=== PATIENT | male | born 1940 | race Caucasian/White ===

== ENCOUNTER 2017-11-23 10:42 | Inpatient (IN) ==
--- NOTE | 2017-11-23 11:14 | Emergency Department Note ---
Weakness HPI - General Chief complaint: Weakness Stated complaint: Weakness Time Seen by Provider: 11/23/17 10:57 Source: patient Mode of arrival: ambulatory Limitations: no limitations - History of Present Illness HPI Narrative: 89-year-old male with a history of polymyalgia rheumatica has been complaining of upper back pain and shoulder pain. He has been evaluated by Dr. Vazquez and they have performed a CT and also MRI of the thoracic spine region. Both were read as negative. Been on high doses of prednisone 60 mg in which he felt good but when they been trying to reduce it down to 40 mg he has been complaining of feeling more weak and increased pain he thinks he would like to have it increased again is to be evaluated by Dr. Vazquez again. Complaining of some increased frequency and dysuria. Been present for the past 4 days his urine test dip does show large amount of leukocytes large amount of blood awaiting for the microscopic reports. She is afebrile and vital signs are stable denies any chest pain there is no shortness of breath no upper respiratory type signs or symptoms no cough no shortness of breath - Related Data Home Medications Medication Instructions Recorded Confirmed aspirin 81 mg tablet,delayed 81 mg PO QDAY tab 03/08/15 11/23/17 release nitroglycerin 0.4 mg sublingual 0.4 mg SUBLINGUAL Q5MIN PRN tab 03/08/15 tablet Josh Contour Next EZ Test strips 1 strip NOTAPPLIC TID 08/20/15 11/23/17 losartan 100 See Label Instructions PO QDAY 11/09/17 11/23/17 mg-hydrochlorothiazide 12.5 mg tablet Previous Rx's Medication Instructions Recorded canagliflozin 100 mg tablet 100 mg PO QAM #30 tab 07/09/17 metoprolol succinate ER 100 mg 100 mg PO QDAY 90 Days #90 tab 08/14/17 tablet,extended release 24 hr Ibuprofen [Motrin] 600 mg PO Q6HP PRN #20 tab 09/27/17 methocarbamol 750 mg tablet 750 mg PO Q6H PRN #20 tab 09/28/17 glipizide 10 mg tablet 10 mg PO BID #180 tab 10/04/17 prednisone 10 mg tablet 20 mg PO TID #150 tab 11/09/17 tramadol 50 mg tablet 50 mg PO Q6H PRN #60 tab 11/19/17 Allergies Allergy/AdvReac Type Severity Reaction Status Date / Time metformin Allergy Unknown Unknown Verified 11/23/17 10:47 [id number] Reductase AdvReac Severe myalgia, Verified 11/23/17 10:47 Inhibitor spasms, weakness Review of Systems All systems ED: reviewed and negative except as stated. Constitutional: Denies: fever, chills Cardiovascular: Denies: chest pain, palpitations Respiratory: Denies: shortness of breath Gastrointestinal: Denies: abdominal pain, nausea, vomiting Genitourinary: Reports: as per HPI, dysuria, frequency, urgency Past Medical History - Past Medical History Medical history: Reports: coronary artery disease, hypertension, other ( Polymyalgia rheumatica). Denies: asthma, cancer, DM, myocardial infarction Surgical history ED: Reports: coronary bypass (CABG) (4 vessel; left forearm harvest of vessel for CABG.) - Social History smoking status: Never smoker Alcohol use: Reports: None Drug use: Reports: none Physical Exam Limitations: no limitations General appearance: alert, anxious Head: atraumatic, normocephalic Eye: Present: normal appearance, PERRL ENT: normal exam, normal oropharynx Neck: Present: normal inspection, full ROM, trachea midline Chest: Present: normal inspection, symmetric chest wall rise, tenderness Respiratory: Present: normal lung sounds bilaterally. Absent: respiratory distress, wheezes Cardiovascular: Present: regular rate, normal rhythm. Absent: bradycardia, tachycardia Abdominal: Present: soft, normal bowel sounds. Absent: distention, tenderness, guarding, rebound, rigidity Extremities: Present: normal inspection, full ROM. Absent: tenderness Back: Present: normal inspection, full ROM, tenderness (upper back pain chonic) . Absent: CVA tenderness (R), CVA tenderness (L) Neurological: Present: alert, oriented X3 Psychiatric: Present: normal affect, normal mood Skin: Present: warm, dry Course Vital Signs Temperature 97.0 F 11/23/17 10:43 Pulse Rate 84 11/23/17 10:43 Respiratory Rate 18 11/23/17 10:43 Blood Pressure 138/90 11/23/17 10:43 Pulse Oximetry (%) 100 11/23/17 10:43 Temperature 97.9 F 11/27/17 06:01 Pulse Rate 104 H 11/27/17 09:03 Respiratory Rate 42 H 11/27/17 09:03 Blood Pressure 109/63 11/27/17 09:01 Pulse Oximetry (%) 88 L 11/27/17 09:03 Weakness - Lab Data Result diagrams: 11/27/17 03:41 11/27/17 03:41 Lab Results 11/23/17 11/23/17 11/23/17 Range/Units 11:11 11:11 11:11 WBC 14.3 H (4.5-11.0) K/mcL RBC 4.80 (4.50-5.90) M/mcL Hgb 14.5 (13.5-16.5) g/dL Hct 43.9 (41.0-55.0) % POC Hct 46.0 (41.0-55.0) % MCV 91.4 (80.0-100.0) fL MCH 30.1 (26.0-34.0) pg MCHC 33.0 (31.0-36.0) g/dL RDW 15.0 H (11.5-14.5) % Plt Count 220 (140-440) K/mcL MPV 7.9 (7.4-10.4) fL Gran % 86.0 H (38.0-78.0) % Lymph % (Auto) 5.9 L (15.5-49.0) % [place] % (Auto) 5.0 (1.0-12.0) % Eos % (Auto) 3.1 (0.0-7.0) % Baso % (Auto) 0 (0.0-2.0) % Gran # 12.3 H (1.8-8.0) K/mcL Lymph # (Auto) 0.8 L (1.5-4.8) K/mcL [place] # (Auto) 0.7 (0.1-0.9) K/mcL Eos # (Auto) 0.4 (0.0-0.7) K/mcL Baso # (Auto) 0 (0.0-0.3) K/mcL Total Counted Seg Neutrophils % (38-78) % Band Neutrophils % Lymphocytes % (15-49) % Monocytes % (Manual) (1-12) % Platelet Estimate (NORMAL) RBC Morphology (NORMAL) ESR 80 H (0-15) mm/hr VBG Lactic Acid (0.5-2.2) mmol/L POC Sodium 129 L (133-145) mmol/L POC Potassium 4.7 (3.3-5.1) mmol/L POC Chloride 94 L (96-108) mmol/L POC Total CO2 25 (22-30) mmol/L POC BUN 56 H (8-23) mg/dl POC Creatinine 1.3 H (0.7-1.2) mg/dl POC Glucose 482 H* (70-105) mg/dL POC WB Ioniz Calcium 1.15 L (1.16-1.32) mmol/L C-Reactive Protein (0.0-0.8) mg/dl Urine Color Urine Appearance Urine pH (5.0-9.0) Ur Specific [place] (1.000-1.035) Urine Protein (NEG) mg/dL Urine Glucose (UA) (NEG) mg/dL Urine Ketones (NEG) mg/dL Urine Occult Blood (<0.03) mg/dL Urine Nitrate (NEG) Urine Bilirubin (NEG) mg/dL Urine Urobilinogen (NEG) mg/dL Ur Leukocyte Esterase (NEG) /uL Urine RBC (0-1) /hpf Urine WBC (0-4) /hpf Ur Squamous Epith Cells (0-4) /hpf Urine Bacteria (0) /hpf Urine Mucus (0) /hpf Ur Culture Indicated? 11/23/17 11/23/17 11/23/17 Range/Units 11:11 11:14 11:50 WBC (4.5-11.0) K/mcL RBC (4.50-5.90) M/mcL Hgb (13.5-16.5) g/dL Hct (41.0-55.0) % POC Hct (41.0-55.0) % MCV (80.0-100.0) fL MCH (26.0-34.0) pg MCHC (31.0-36.0) g/dL RDW (11.5-14.5) % Plt Count (140-440) K/mcL MPV (7.4-10.4) fL Gran % (38.0-78.0) % Lymph % (Auto) (15.5-49.0) % [place] % (Auto) (1.0-12.0) % Eos % (Auto) (0.0-7.0) % Baso % (Auto) (0.0-2.0) % Gran # (1.8-8.0) K/mcL Lymph # (Auto) (1.5-4.8) K/mcL [place] # (Auto) (0.1-0.9) K/mcL Eos # (Auto) (0.0-0.7) K/mcL Baso # (Auto) (0.0-0.3) K/mcL Total Counted Seg Neutrophils % (38-78) % Band Neutrophils % Lymphocytes % (15-49) % Monocytes % (Manual) (1-12) % Platelet Estimate (NORMAL) RBC Morphology (NORMAL) ESR (0-15) mm/hr VBG Lactic Acid 5.7 H* (0.5-2.2) mmol/L POC Sodium (133-145) mmol/L POC Potassium (3.3-5.1) mmol/L POC Chloride (96-108) mmol/L POC Total CO2 (22-30) mmol/L POC BUN (8-23) mg/dl POC Creatinine (0.7-1.2) mg/dl POC Glucose (70-105) mg/dL POC WB Ioniz Calcium (1.16-1.32) mmol/L C-Reactive Protein 6.9 H (0.0-0.8) mg/dl Urine Color Yellow Urine Appearance Cloudy Urine pH 6.0 (5.0-9.0) Ur Specific [place] 1.022 (1.000-1.035) Urine Protein Neg (NEG) mg/dL Urine Glucose (UA) >=500 A (NEG) mg/dL Urine Ketones Neg (NEG) mg/dL Urine Occult Blood 0.2 A (<0.03) mg/dL Urine Nitrate Neg (NEG) Urine Bilirubin Neg (NEG) mg/dL Urine Urobilinogen Neg (NEG) mg/dL Ur Leukocyte Esterase 500 A (NEG) /uL Urine RBC 5 H (0-1) /hpf Urine WBC > 182 H (0-4) /hpf Ur Squamous Epith Cells 0 (0-4) /hpf Urine Bacteria 0 (0) /hpf Urine Mucus Few (0) /hpf Ur Culture Indicated? Yes 11/23/17 Range/Units 11:52 WBC (4.5-11.0) K/mcL RBC (4.50-5.90) M/mcL Hgb (13.5-16.5) g/dL Hct (41.0-55.0) % POC Hct (41.0-55.0) % MCV (80.0-100.0) fL MCH (26.0-34.0) pg MCHC (31.0-36.0) g/dL RDW (11.5-14.5) % Plt Count (140-440) K/mcL MPV (7.4-10.4) fL Gran % (38.0-78.0) % Lymph % (Auto) (15.5-49.0) % [place] % (Auto) (1.0-12.0) % Eos % (Auto) (0.0-7.0) % Baso % (Auto) (0.0-2.0) % Gran # (1.8-8.0) K/mcL Lymph # (Auto) (1.5-4.8) K/mcL [place] # (Auto) (0.1-0.9) K/mcL Eos # (Auto) (0.0-0.7) K/mcL Baso # (Auto) (0.0-0.3) K/mcL Total Counted 100 Seg Neutrophils % 93 H (38-78) % Band Neutrophils % Not Reportable Lymphocytes % 5 L (15-49) % Monocytes % (Manual) 2 (1-12) % Platelet Estimate Normal (NORMAL) RBC Morphology Normal (NORMAL) ESR (0-15) mm/hr VBG Lactic Acid (0.5-2.2) mmol/L POC Sodium (133-145) mmol/L POC Potassium (3.3-5.1) mmol/L POC Chloride (96-108) mmol/L POC Total CO2 (22-30) mmol/L POC BUN (8-23) mg/dl POC Creatinine (0.7-1.2) mg/dl POC Glucose (70-105) mg/dL POC WB Ioniz Calcium (1.16-1.32) mmol/L C-Reactive Protein (0.0-0.8) mg/dl Urine Color Urine Appearance Urine pH (5.0-9.0) Ur Specific [place] (1.000-1.035) Urine Protein (NEG) mg/dL Urine Glucose (UA) (NEG) mg/dL Urine Ketones (NEG) mg/dL Urine Occult Blood (<0.03) mg/dL Urine Nitrate (NEG) Urine Bilirubin (NEG) mg/dL Urine Urobilinogen (NEG) mg/dL Ur Leukocyte Esterase (NEG) /uL Urine RBC (0-1) /hpf Urine WBC (0-4) /hpf Ur Squamous Epith Cells (0-4) /hpf Urine Bacteria (0) /hpf Urine Mucus (0) /hpf Ur Culture Indicated? Disposition Pt seen by HUSBANDRY PERSON/PA only: No Clinical Impression: Weakness Disposition: Xfer As Inpt ([facility]) Condition: Fair
[2017-11-23 11:51] LABS: Basophils # (Auto) 0 K/mcL (0.0-0.3); Basophils % (Auto) 0 % (0.0-2.0); Eosinophils # (Auto) 0.4 K/mcL (0.0-0.7); Eosinophils % (Auto) 3.1 % (0.0-7.0); Lymphocytes # (Auto) 0.8 K/mcL (1.5-4.8); Lymphocytes % (Auto) 5.9 % (15.5-49.0); Mean Cell Volume 91.4 fL (80.0-100.0); Mean Corpuscular Hemoglobin 30.1 pg (26.0-34.0); Monocytes # (Auto) 0.7 K/mcL (0.1-0.9); Platelet Count 220 K/mcL (140-440)
[2017-11-23 11:58] LABS: Appearance,Urine CLOUDY; Bacteria,Urine 0 /hpf (0); Bilirubin,Urine NEG (NEG); Color,Urine YELLOW; Glucose,Urine (UA) >=500 mg/dL (NEG); Leukocyte Esterase,Urine 500 /uL (NEG); Mucus,Urine FEW /hpf (0); Protein,Urine NEG (NEG); Specific Gravity,Urine 1.022 (1.000-1.035); Urine Blood 0.2 mg/dL (<0.03); Urine RBC 5 /hpf (0-1); Urine Squamous Epithelial Cell 0 /hpf (0-4); Urine WBC > 182 /hpf (0-4); Urobilinogen,Urine NEG (NEG)
[2017-11-23] MEDS ORDERED: INSULIN LISPRO 1 UNIT/0.01 ML UNIT SQ ONE (12:18)
--- NOTE | 2017-11-23 12:56 | XRay Report ---
HISTORY: Reason for Exam:weakness FINDINGS: There is a thin linear band of scar tissue posteriorly and medially in the left lower lobe. The lungs are otherwise clear. The heart size and pulmonary vasculature are normal. There has been prior coronary bypass surgery. The mediastinum and anish are normal. Medium-size anterior bridging spurs are present throughout the mid thoracic spine. There has been little change since 10/01/17. IMPRESSION: Normal chest. Interpreted and Authenticated by: Miguelangel Perkins 11/23/17
[2017-11-23] MEDS ORDERED: LEVOFLOXACIN 500 MG/100 ML BAG IV ONE (13:13)
[2017-11-23] MEDS ORDERED: 0.9 % SODIUM CHLORIDE 1,000 ML IV ONE ×2 (13:54→15:42)
[2017-11-23] MEDS ORDERED: INSULIN LISPRO 1 UNIT/0.01 ML UNIT SQ STA (14:15)
[2017-11-23] MEDS ORDERED: HYDROcodone/APAP 5/325MG TABLET PO ONE (14:16)
[2017-11-23 14:40] LABS: Lymphocytes % 5 % (15-49); Monocytes % (Manual) 2 % (1-12); Platelet Estimate NORMAL (NORMAL); RBC Morphology NORMAL (NORMAL); Segmented Neutrophils % 93 % (38-78)
[2017-11-23] MEDS ORDERED: cefTRIAXone 1 GM VIAL IV ONE ×2 (15:36→18:30)
[2017-11-23] MEDS ORDERED: DEXTROSE 31 GM ORAL.SUSP PO PRN (18:00)
[2017-11-23] MEDS ORDERED: POTASSIUM CHLORIDE 20 MEQ PACKET PO PRN (18:00)
[2017-11-23] MEDS ORDERED: ACETAMINOPHEN 1,000 MG/100 ML BOTTLE IV PRN (18:00)
[2017-11-23] MEDS ORDERED: traZODone HCL 50 MG TABLET PO PRN (18:00)
[2017-11-23] MEDS ORDERED: ONDANSETRON 4 MG/2 ML VIAL IV PRN (18:00)
[2017-11-23] MEDS ORDERED: guaiFENesin/CODEINE 10 ML UDC PO PRN (18:00)
[2017-11-23] MEDS ORDERED: MAGNESIUM SULFATE 2 GM/50 ML BAG IV PRN (18:00)
[2017-11-23] MEDS ORDERED: DEXTROSE 50% 50 ML VIAL IV PRN (18:00)
[2017-11-23] MEDS ORDERED: ACETAMINOPHEN 325 MG TABLET PO PRN (18:00)
[2017-11-23] MEDS ORDERED: LEVOFLOXACIN 750 MG/150 ML BAG IV SCH (18:00)
[2017-11-23] MEDS ORDERED: cefTRIAXone 2 GM in DEXTROSE 5% IN WATER 50 ML IV SCH (18:00)
[2017-11-23] MEDS ORDERED: POTASSIUM CHLORIDE 40 MEQ in DEXTROSE 5% IN WATER 500 ML IV PRN (18:00)
[2017-11-23] MEDS ORDERED: LEVOFLOXACIN 250 MG/50 ML BAG IV ONE (18:30)
[2017-11-23] MEDS ORDERED: traMADol 50 MG TABLET PO PRN (18:42)
[2017-11-23] MEDS: 0.9 % SODIUM CHLORIDE 1,000 ML IV SCH ×2 (19:01→20:28)
--- NOTE | 2017-11-23 19:22 | History and Physical Report ---
DATE OF ADMISSION: 11/23/2017 DATE OF ADMISSION: 11/23/2017 REASON FOR ADMISSION: Abdominal pain, fever, chills, weakness. HISTORY OF CHIEF COMPLAINT: The patient is a 77-year-old with known history of polymyalgia rheumatica on prednisone who has been in his baseline state of health, fairly functional, living with his . Over the last couple of days, the patient has noted increasing frequency along with painful burning urination. The symptoms have progressed with onset of fever along with bilateral lower back pain that has progressed to the point the patient could not function. He subsequently came to the ER. Initial workup was significant for white count of 14,300 along with blood pressures in low 90s. The hospitalist service was consulted after the patient received antibiotics, urine and blood cultures for presumed urinary tract infection/pyelonephritis. At the time of evaluation, the patient is alert and oriented. He was able to answer most of the questions. His pain is improved after administration of Dilaudid. He denies recent trauma or changes in medications. He denies a history of renal stones. Is currently on prednisone 60 mg for his polymyalgia rheumatica. He has noticed that his blood sugars have been fairly uncontrolled over the last few days, hovering around 300 to 400, while his normal blood sugars have been around 100. Other than that, he denies chest pain, lightheadedness, dizziness, diarrhea. He does have diffuse myalgias from his polymyalgia rheumatica, which is improving on steroids. REVIEW OF SYSTEMS: A 10-point review of system was performed and is negative except the ones discussed above. PAST MEDICAL HISTORY: 1. Diabetes mellitus. 2. Hypertension. 3. History of coronary artery disease. CURRENT MEDICATION: Canagliflozin 100 mg every morning. Aspirin 81 mg daily. Glipizide 10 times a day. Ibuprofen 600 every 6 hours. Hydrocodone/acetaminophen 7.5/325 every 4 hours as needed. Methocarbamol 750 every 6 hours as needed. Metoprolol ER 100 daily. Prednisone 20 mg 3 times a day. SOCIAL HISTORY: The patient is to his , Jess. Lives in the [place]. No history of smoking or alcoholism. FAMILY HISTORY: He is adopted. PHYSICAL EXAMINATION: GENERAL: The patient is alert and oriented. Denies any active distress. BMI 24. Height 6 feet 1 inch. VITAL SIGNS: Blood pressure improved from mid 70s to 122/71, respiration rate 18, temperature 97, pulse 84, sats 97 percent on room air. Pain intensity 10/10. HEENT: Pupils symmetric. Oral cavity is dry. No ear or nose discharge. Head is normocephalic and atraumatic. NECK: No lymphadenopathy. HEART: S1, S2 regular rhythm. Ejection systolic murmur grade 1. LUNGS: Diminished breath sounds at bases. ABDOMEN: Soft and nontender. LOWER EXTREMITIES: No cyanosis or clubbing. No joint swelling. SKIN: No suspicious lesions. PSYCHIATRIC: Alert and cooperative. No anxiety, agitation, or hallucination. NEUROLOGIC: Nonfocal, moving all four extremities. LABS AND IMAGING: White count 14.3, hemoglobin 14.5, platelets 220, neutrophils 93 percent. Lactic acid 5.7. Blood sugar of 482. Sodium 129, potassium 4.7, creatinine 1.3, BUN 56. CRP 6.9. UA: Significant for WBCs along with leukocyte esterase. Cultures pending including blood and urine. X-ray chest: negarive for acute process. ASSESSMENT AND PLAN: A 77-year-old with history of polymyalgia rheumatica with acute pyelonephritis. 1. Acute pyelonephritis: Continue antibiotic coverage on Rocephin, Levaquin and deescalate based on culture sensitivities. 2. Severe sepsis by criteria: Continue management per guidelines. Trend venous lactate. Initial venous lactate 5.7. Continue crystalloid challenge and pressors if required. 3. History of polymyalgia rheumatica: Continue steroids. Pain management will be on as-needed opioids. 4. Diabetes mellitus type 2: Continue sliding scale insulin/glipizide. 5. Hypertension: At this time, medications will be held until the patient's systolics are over 140 to ensure adequate end organ perfusion in light of severe sepsis. PLAN 1. Admit as inpatient. 2. Continue antibiotic coverage. 3. Sepsis management per guidelines. 4. Preexisting medical condition management on home meds. Overall, a high-complexity admit with TRIBE score of 15 mandating inpatient ICU hospitalization for close hemodynamic monitoring. AA:leandro Job ID: [id number] Doc ID: [id number] Joel LOZA
[2017-11-23] MEDS: INSULIN LISPRO 1 UNIT/0.01 ML UNIT SQ SCH ×2 (19:38→20:56)
[2017-11-23] MEDS ORDERED: TAMSULOSIN 0.4 MG CAPSULE PO ONE (19:46)
[2017-11-23] MEDS ORDERED: METHOCARBAMOL 750 MG TABLET PO PRN (20:47)
[2017-11-23] MEDS: HEPARIN 5,000 UNIT/ML VIAL SQ SCH (20:56)
[2017-11-23] MEDS: DOCUSATE SODIUM 100 MG CAPSULE PO SCH (20:56)
[2017-11-23] MEDS: SENNOSIDES/DOCUSATE SODIUM 1 TAB TABLET PO SCH (20:56)
[2017-11-23] MEDS ORDERED: [UNRECOGNIZED DRUG - OTHER] NOTAPPLIC SCH (21:00)
[2017-11-23] MEDS: 0.9 % SODIUM CHLORIDE 10 ML SYRINGE IV SCH (21:11)
[2017-11-24 04:44] LABS: Mean Cell Volume 91.6 fL (80.0-100.0); Mean Corpuscular HGB Conc 33.4 g/dL (31.0-36.0); Mean Corpuscular Hemoglobin 30.6 pg (26.0-34.0); Platelet Count 184 K/mcL (140-440); RBC 4.26 M/mcL (4.50-5.90); Red Cell Distribution Width 15.2 % (11.5-14.5)
[2017-11-24 05:07] LABS: ALT/SGPT 23 U/l (0-40); Albumin 2.2 gm/dL (3.2-5.2); Albumin/Globulin Ratio 0.8 (1.0-2.3); Alkaline Phosphatase 59 U/L (39-117); Bilirubin,Direct < 0.2 mg/dL (0.0-0.3); Blood Urea Nitrogen 42 mg/dl (8-23); Gamma Glutamyl Transpeptidase 47 U/L (8-61); Uric Acid 4.3 mg/dL (2.5-8.0)
[2017-11-24] MEDS ORDERED: VANCOMYCIN PER PHARMACY IV SCH (05:38)
[2017-11-24] MEDS: 0.9 % SODIUM CHLORIDE 10 ML SYRINGE IV SCH ×5 (05:53→21:17)
[2017-11-24 06:30] LABS: Band Neutrophils % 1 % (0-10); Lymphocytes % 10 % (15-49); Monocytes % (Manual) 4 % (1-12); Platelet Estimate NORMAL (NORMAL); RBC Morphology NORMAL (NORMAL); Segmented Neutrophils % 85 % (38-78)
[2017-11-24] MEDS ORDERED: VANCOMYCIN 1,500 MG in 0.9 % SODIUM CHLORIDE 500 ML IV ONE ×2 (06:45→07:15)
[2017-11-24] MEDS ORDERED: glipiZIDE 5 MG TABLET PO SCH (07:30)
[2017-11-24] MEDS ORDERED: 0.9 % SODIUM CHLORIDE 10 ML SYRINGE IV PRN (07:52)
--- NOTE | 2017-11-24 08:21 | Ultrasound Report ---
History: Pyelonephritis and obstructive uropathy Findings: Right kidney measures 6.3 x 6.7 x 11.0 cm and the left measures 5.2 x 6.4 x 11.3 cm. There is a 2.4 x 2.7 cm simple cyst in the lower pole. No calculus, hydronephrosis or mass in either kidney. The cortex of both kidneys is normal in thickness and echogenicity. The right renal pelvis is larger is in the left but within normal limits. Doppler shows flow urine through both ureters into the bladder. The bladder is distended and contains 459 cc of urine. There is some echogenic debris within the lumen of the bladder. No mass is seen. The patient was unable to void. Impression:. Simple cyst in the lower pole of the right kidney. The kidneys are otherwise normal. Distended urinary bladder which contains some debris. This could be due to bladder infection or chronic bladder obstruction Interpreted and Authenticated by: Miguelangel Perkins 11/24/17
[2017-11-24] MEDS: NOREPINEPHRINE BITARTRATE 16 MG in 0.9 % SODIUM CHLORIDE 234 ML IV SCH (08:30)
[2017-11-24] MEDS: 0.9 % SODIUM CHLORIDE 500 ML IV SCH (08:30)
[2017-11-24] MEDS: INSULIN LISPRO 1 UNIT/0.01 ML UNIT SQ SCH ×4 (08:37→21:15)
[2017-11-24] MEDS: DOCUSATE SODIUM 100 MG CAPSULE PO SCH ×2 (08:44→21:15)
[2017-11-24] MEDS: ASPIRIN 81 MG TAB.CHEW PO SCH (08:44)
[2017-11-24] MEDS: predniSONE 10 MG TABLET PO SCH (08:45)
[2017-11-24] MEDS: METOPROLOL SUCCINATE 50 MG TAB.XL.24H PO SCH (08:47)
[2017-11-24] MEDS: 0.9 % SODIUM CHLORIDE 250 ML IV SCH ×2 (08:48→21:16)
--- NOTE | 2017-11-24 08:48 | Internal Med Progress Note ---
Medical - PN: Subj Patient information: Note initiated : 11/24/17 at 8:46 am Service Date, if different from initiated Date: [] Patient: Sunny Ace 77 y/o M admitted on 11/23/17 for Weakness. Chief Complaint: patient admitted with severe sepsis/acute pyelonephritis. Elevated lactate systolics in mid 70. crystalloid boluses. Blood cultures drawn. Broad antibiotic coverage including Levaquin/ceftriaxone for empiric gram-negative coverage. Admitted to ICU. Continue crystalloids bolus to keep map at goal. Start pressors if evidence of end organ hypoperfusion. Trend venous lactate. white count at 14.3. lactic acid 5.7 11/24- clinically improving.lactic acid 3.5. White count downtrending. Renal ultrasound pending to rule out obstructive uropathy. no overnight chills headache or confusion. 2 out of 2 gram-positive cocci on blood cultures. Antibiotic coverage extended with vancomycin. DC Levaquin. Systolics low 90 despite crystalloids. Start Levophed today. Serial lactate trending. - Constitutional Vitals: Vital Signs Temp Pulse Resp BP Pulse Ox 98.8 F 82 20 91/39 95 11/24/17 07:12 11/23/17 20:00 11/24/17 08:10 11/24/17 08:01 11/24/17 07:12 Period Temp Pulse Resp BP Sys/Centeno Pulse Ox Last 24 Hr 97.0 F-98.8 F 57-88 11-33 75-142/39-119 91-100 Intake and Output 11/23/17 11/24/17 11/24/17 21:59 05:59 13:59 Intake Total 3150 / 3150 250 / 250 542 / 542 Output Total 545 / 545 1250 / 1250 Balance 2605 / 2605 -1000 / -1000 542 / 542 Weight 195 lb 8 oz Intake & Output: Intake & Output 11/23/17 11/24/17 11/24/17 21:59 05:59 13:59 Intake Total 3150 / 3150 250 / 250 542 / 542 Output Total 545 / 545 1250 / 1250 Balance 2605 / 2605 -1000 / -1000 542 / 542 Weight 195 lb 8 oz Intake: IV 3150 / 3150 542 / 542 Sodium Chloride 0.9% 1,000 ml @ 3000 / 3000 542 / 542 50 mls/hr IV .Q20H SALTY Rx#: [id number] LEVAQUIN 500 mg In 100 ml @ 100 100 / 100 mls/hr IV ONCE ONE Rx#: [id number] Oral 250 / 250 Output: Urine Catheter Amount 600 / 600 Void Amount 545 / 545 650 / 650 General appearance: cooperative, no acute distress Exam: alert oriented slightly anxious no telemetry events Urinary incontinence Nonlabored breathing minimal abdominal tenderness Medical - PN: Obj Da - Labs CBC & Chem 7: 11/24/17 03:50 11/24/17 03:50 Labs: Abnormal Lab Results 11/24/17 11/24/17 11/23/17 03:50 03:50 18:57 WBC 12.2 H RBC 4.26 L Hgb 13.0 L Hct 39.0 L RDW 15.2 H Gran % Lymph % (Auto) Gran # Lymph # (Auto) Seg Neutrophils % 85 H Lymphocytes % 10 L ESR VBG Lactic Acid 3.3 H POC Sodium POC Chloride POC BUN BUN 42 H POC Creatinine Glucose 66 L POC Glucose Calcium 8.4 L POC WB Ioniz Calcium C-Reactive Protein Total Protein 5.1 L Albumin 2.2 L Albumin/Globulin Ratio 0.8 L Urine Glucose (UA) Urine Occult Blood Ur Leukocyte Esterase Urine RBC Urine WBC 11/23/17 11/23/17 11/23/17 11:52 11:50 11:14 WBC RBC Hgb Hct RDW Gran % Lymph % (Auto) Gran # Lymph # (Auto) Seg Neutrophils % 93 H Lymphocytes % 5 L ESR VBG Lactic Acid 5.7 H* POC Sodium POC Chloride POC BUN BUN POC Creatinine Glucose POC Glucose Calcium POC WB Ioniz Calcium C-Reactive Protein Total Protein Albumin Albumin/Globulin Ratio Urine Glucose (UA) >=500 A Urine Occult Blood 0.2 A Ur Leukocyte Esterase 500 A Urine RBC 5 H Urine WBC > 182 H 11/23/17 11/23/17 11/23/17 11:11 11:11 11:11 WBC RBC Hgb Hct RDW Gran % Lymph % (Auto) Gran # Lymph # (Auto) Seg Neutrophils % Lymphocytes % ESR 80 H VBG Lactic Acid POC Sodium 129 L POC Chloride 94 L POC BUN 56 H BUN POC Creatinine 1.3 H Glucose POC Glucose 482 H* Calcium POC WB Ioniz Calcium 1.15 L C-Reactive Protein 6.9 H Total Protein Albumin Albumin/Globulin Ratio Urine Glucose (UA) Urine Occult Blood Ur Leukocyte Esterase Urine RBC Urine WBC 11/23/17 11:11 WBC 14.3 H RBC Hgb Hct RDW 15.0 H Gran % 86.0 H Lymph % (Auto) 5.9 L Gran # 12.3 H Lymph # (Auto) 0.8 L Seg Neutrophils % Lymphocytes % ESR VBG Lactic Acid POC Sodium POC Chloride POC BUN BUN POC Creatinine Glucose POC Glucose Calcium POC WB Ioniz Calcium C-Reactive Protein Total Protein Albumin Albumin/Globulin Ratio Urine Glucose (UA) Urine Occult Blood Ur Leukocyte Esterase Urine RBC Urine WBC Meds: Medications Acetaminophen (Tylenol) 650 mg PO Q4-6HP PRN PRN Reason: PAIN/FEVER > 101 Hydrocodone Bitart/Acetaminophen ([place] 5/325mg) 0 tab PO Q4HP PRN PRN Reason: PAIN LEVEL 3-6 Aspirin (Aspirin) 81 mg PO DAILY [facility] Last Admin: 11/24/17 08:44 Dose: 81 mg Dextrose (Dextrose 50%) 0 ml IV UD PRN PRN Reason: Hypoglycemia Diagnostic Test (Pha) (Accu-Chek) 1 each FS ACHS [facility] Last Admin: 11/24/17 08:15 Dose: 1 each Docusate Sodium (Colace) 100 mg PO BID [facility] Last Admin: 11/24/17 08:44 Dose: 100 mg Glucose (Insta-Glucose) 15 gm PO PRN PRN PRN Reason: Hypoglycemia Guaifenesin/Codeine Phosphate (Robitussin Ac) 10 ml PO Q4HP PRN PRN Reason: Cough Heparin Sodium (Porcine) (Heparin) 5,000 unit SQ Q12 [facility] Last Admin: 11/23/17 20:56 Dose: 5,000 unit Heparin Sodium (Porcine) (Heparin Flush) 2 ml IV Q12 [facility] Potassium Chloride 40 meq/ (Dextrose) 520 mls @ 130 mls/hr IV UD PRN PRN Reason: K+ = or < 3.5 Magnesium Sulfate (Magnesium Sulfate) 2 gm in 50 mls @ 50 mls/hr IV UD PRN PRN Reason: MG = or < 1.7 Sodium Chloride (Sodium Chloride 0.9%) 1,000 mls @ 0 mls/hr IV BOLUS [facility] PRN Reason: Wide Open Last Infusion: 11/23/17 21:10 Dose: Infused Sodium Chloride (Sodium Chloride 0.9%) 1,000 mls @ 50 mls/hr IV .Q20H [facility] Stop: 11/26/17 05:59 Last Infusion: 11/24/17 07:18 Dose: 0 mls/hr Acetaminophen (Ofirmev) 1,000 mg in 100 mls @ 200 mls/hr IV Q6HP PRN PRN Reason: PAIN/FEVER > 101 Norepinephrine Bitartrate 16 (mg/ Sodium Chloride) 250 mls @ 9.37 mls/hr IV Q24H [facility]TY; 10 MCG/MIN PRN Reason: Protocol Last Admin: 11/24/17 08:30 Dose: 5 mcg/min, 4.68 mls/hr Sodium Chloride (Sodium Chloride 0.9%) 250 mls @ 20 mls/hr IV .[id number] SALTY Sodium Chloride (Sodium Chloride 0.9%) 500 mls @ 20 mls/hr IV .Q24H [facility] Last Admin: 11/24/17 08:30 Dose: 15 mls/hr Insulin Human Lispro (Humalog) 0 unit SQ ACHS [facility] PRN Reason: Protocol Last Admin: 11/24/17 08:37 Dose: Not Given Methocarbamol (Robaxin) 750 mg PO Q6HP PRN PRN Reason: Muscle Spasm Metoprolol Succinate (Toprol Xl) 100 mg PO DAILY [facility] Ondansetron HCl (Zofran) 4 mg IV Q4-6HP PRN PRN Reason: Nausea And Vomiting Canagliflozin [ Invokana] 100 Mg Tablet 1 dose PO ACB [facility] Last Admin: 11/24/17 08:45 Dose: Not Given Potassium Chloride (Klor-Con) 40 meq PO DAILYP PRN PRN Reason: K+ < 3.5 Prednisone (Prednisone) 40 mg PO QAC [facility] Last Admin: 11/24/17 08:45 Dose: 40 mg Senna/Docusate Sodium (Senna Plus Tablet) 1 tab PO HS [facility] Last Admin: 11/23/17 20:56 Dose: 1 tab Sodium Chloride (Saline Flush) 10 ml IV Q8 [facility] Last Admin: 11/24/17 05:53 Dose: Not Given Sodium Chloride (Saline Flush) 10 ml IV UD PRN PRN Reason: FLUSH Sodium Chloride (Saline Flush) 10 ml IV Q12 [facility] Tamsulosin HCl (Flomax) 0.4 mg PO ONCE ONE Stop: 11/24/17 09:01 Tramadol HCl (Ultram) 50 mg PO Q6HP PRN PRN Reason: Pain Trazodone HCl (Desyrel) 50 mg PO HSP PRN PRN Reason: Insomnia Vancomycin HCl (Vancomycin Per Pharmacy) 1 order IV UD [facility] Medical - PN: A/P - Time Spent With Patient Total time spent is greater than 50% in coordination of care (as documented) at patient's floor/unit and/or counseling patient: Greater than 35 minutes (critical care time) (1) Septic shock Status: Acute Assessment and plan: * Septic shock-continue pressors,crystalloids/antibiotics/venous lactate trending. monitor for end organ dysfunction. [place] score 18 suggesting high risk mortality.immunosuppressive state. if inadequate response to liver failure start stress dose steroids * Gram-positive bacteremia likely source genitourinary.Repeat surveillance cultures. Empiric vancomycin * acute pyelonephritis-continue antibiotic coverage. Await renal ultrasound to rule out obstructive uropathy * History of PMR on steroids * history of hypertension hold antihypertensives until septic shock resolves * DM type II continue sliding scale insulin. Hold glipizide * DVT prophylaxis on heparin Plan * Vasopressors crystalloids antibiotics/septic shock management per guidelines * Surveillance cultures * renal ultrasound * Pre-existing medical condition management on home meds * stress dose steroids if inadequate response To pressor agents Current Visit: Yes Medical - PN: Qual - VTE Deep Vein Thrombosis/Pulmonary Embolism Present on Admission: Yes
[2017-11-24] MEDS: HEPARIN 5,000 UNIT/ML VIAL SQ SCH ×2 (08:55→21:15)
[2017-11-24] MEDS ORDERED: TAMSULOSIN 0.4 MG CAPSULE PO ONE ×2 (09:00)
[2017-11-24] MEDS ORDERED: cefTRIAXone 2 GM VIAL IV SCH (09:00)
[2017-11-24] MEDS: 0.9 % SODIUM CHLORIDE 1,000 ML IV SCH ×2 (10:00→18:37)
[2017-11-24] MEDS: HYDROcodone/APAP 5/325MG TABLET PO PRN ×2 (14:05→21:13)
[2017-11-24] MEDS: cefTRIAXone 2 GM VIAL IV SCH (17:42)
[2017-11-24] MEDS: SENNOSIDES/DOCUSATE SODIUM 1 TAB TABLET PO SCH (21:13)
[2017-11-25 06:46] LABS: Mean Cell Volume 92.3 fL (80.0-100.0); Mean Corpuscular HGB Conc 33.4 g/dL (31.0-36.0); Mean Corpuscular Hemoglobin 30.9 pg (26.0-34.0); Platelet Count 163 K/mcL (140-440); RBC 4.27 M/mcL (4.50-5.90); Red Cell Distribution Width 15.6 % (11.5-14.5)
[2017-11-25] MEDS: 0.9 % SODIUM CHLORIDE 10 ML SYRINGE IV SCH ×5 (06:46→20:52)
[2017-11-25 07:22] LABS: ALT/SGPT 22 U/l (0-40); Albumin 1.9 gm/dL (3.2-5.2); Albumin/Globulin Ratio 0.6 (1.0-2.3); Alkaline Phosphatase 74 U/L (39-117); Bilirubin,Direct < 0.2 mg/dL (0.0-0.3); Blood Urea Nitrogen 37 mg/dl (8-23); Gamma Glutamyl Transpeptidase 44 U/L (8-61); Uric Acid 3.9 mg/dL (2.5-8.0)
[2017-11-25] MEDS: 0.9 % SODIUM CHLORIDE 1,000 ML IV SCH ×2 (07:45→20:27)
[2017-11-25] MEDS: INSULIN LISPRO 1 UNIT/0.01 ML UNIT SQ SCH ×5 (07:55→21:21)
[2017-11-25] MEDS: DOCUSATE SODIUM 100 MG CAPSULE PO SCH ×2 (08:06→20:51)
[2017-11-25] MEDS: ASPIRIN 81 MG TAB.CHEW PO SCH (08:10)
[2017-11-25] MEDS: HEPARIN 5,000 UNIT/ML VIAL SQ SCH ×2 (08:10→20:48)
[2017-11-25] MEDS: METOPROLOL SUCCINATE 50 MG TAB.XL.24H PO SCH (08:10)
[2017-11-25] MEDS: predniSONE 10 MG TABLET PO SCH (08:10)
[2017-11-25 08:26] LABS: Band Neutrophils % 3 % (0-10); Lymphocytes % 10 % (15-49); Monocytes % (Manual) 2 % (1-12); Platelet Estimate NORMAL (NORMAL); RBC Morphology NORMAL (NORMAL); Segmented Neutrophils % 85 % (38-78)
[2017-11-25] MEDS: cefTRIAXone 2 GM VIAL IV SCH (08:35)
[2017-11-25] MEDS: 0.9 % SODIUM CHLORIDE 500 ML IV SCH (09:00)
[2017-11-25] MEDS: NOREPINEPHRINE BITARTRATE 16 MG in 0.9 % SODIUM CHLORIDE 234 ML IV SCH (09:00)
[2017-11-25] MEDS: HYDROcodone/APAP 5/325MG TABLET PO PRN ×2 (09:08→20:49)
--- NOTE | 2017-11-25 09:56 | Internal Med Progress Note ---
Medical - PN: Subj Patient information: Note initiated : 11/25/17 at 9:54 am Service Date, if different from initiated Date: [] Patient: Sunny Ace 77 y/o M admitted on 11/23/17 for Weakness. Chief Complaint: [] Interval history: patient admitted with severe sepsis/acute pyelonephritis. Elevated lactate systolics in mid 70. crystalloid boluses. Blood cultures drawn. Broad antibiotic coverage including Levaquin/ceftriaxone for empiric gram-negative coverage. Admitted to ICU. Continue crystalloids bolus to keep map at goal. Start pressors if evidence of end organ hypoperfusion. Trend venous lactate. white count at 14.3. lactic acid 5.7 11/24- clinically improving.lactic acid 3.5. White count downtrending. Renal ultrasound pending to rule out obstructive uropathy. no overnight chills headache or confusion. 2 out of 2 gram-positive cocci on blood cultures. Antibiotic coverage extended with vancomycin. DC Levaquin. Systolics low 90 despite crystalloids. Start Levophed today. Serial lactate trending. 11/25-patient doing remarkably better. Off pressors. White count downtrending at 9.2. Back pain improved. Alert and lucid. surveillance cultures negative so far. multiple blood cultures positive for gram-positive cocci. Repeat surveillance cultures. ensitivities pending. lactic acid down from 5.7-1.4. creatinine down to 1. otherwise no overnight events including telemetry changes or concerns per nursing staff. - Constitutional Vitals: Vital Signs Temp Pulse Resp BP Pulse Ox 98.1 F 91 H 15 134/63 98 11/25/17 04:01 11/24/17 17:01 11/25/17 06:01 11/25/17 06:01 11/25/17 06:01 Period Temp Pulse Resp BP Sys/Centeno Pulse Ox Last 24 Hr 97.2 F-98.2 F 64-96 13-27 105-150/55-88 96-100 Intake and Output 11/24/17 11/25/17 11/25/17 20:59 05:59 13:59 Intake Total 1240 / 1240 Output Total 225 / 225 Balance 1015 / 1015 Weight Intake & Output: Intake & Output 11/24/17 11/25/17 11/25/17 20:59 05:59 13:59 Intake Total 1240 / 1240 Output Total 225 / 225 Balance 1015 / 1015 Weight Intake: IV 1000 / 1000 Sodium Chloride 0.9% 1,000 ml @ 1000 / 1000 50 mls/hr IV .Q20H SALTY Rx#: [id number] Sodium Chloride 0.9% 500 ml @ 20 mls/hr IV .Q24H SALTY Rx#: [id number] Levophed 16 mg In Sodium Chloride 0.9% 234 ml @ 10 MCG/ MIN 9.37 mls/hr IV Q24H SALTY Rx# :[id number] Oral 240 / 240 GI Tube Flush Output: Void Amount 225 / 225 Other: Meal Breakfast Percent of Meal Consumed 75% Feeding Ability Stool Size Small Stool Color Brown Stool Consistency Cylindrical # Voids # Bowel Movements 1 General appearance: cooperative, no acute distress Exam: alert oriented Nonlabored breathing nondistended abdomen Off pressors No telemetry events Medical - PN: Obj Da - Labs CBC & Chem 7: 11/25/17 03:45 11/25/17 03:45 Labs: Abnormal Lab Results 11/25/17 11/25/17 11/24/17 03:45 03:45 03:50 WBC RBC 4.27 L Hgb 13.2 L Hct 39.5 L RDW 15.6 H Gran % Lymph % (Auto) Gran # Lymph # (Auto) Seg Neutrophils % 85 H Lymphocytes % 10 L ESR VBG Lactic Acid POC Sodium POC Chloride POC BUN BUN 37 H 42 H POC Creatinine Glucose 260 H 66 L POC Glucose Calcium 8.2 L 8.4 L POC WB Ioniz Calcium Phosphorus 2.5 L C-Reactive Protein Total Protein 5.1 L 5.1 L Albumin 1.9 L 2.2 L Albumin/Globulin Ratio 0.6 L 0.8 L Urine Glucose (UA) Urine Occult Blood Ur Leukocyte Esterase Urine RBC Urine WBC 11/24/17 11/23/17 11/23/17 03:50 18:57 11:52 WBC 12.2 H RBC 4.26 L Hgb 13.0 L Hct 39.0 L RDW 15.2 H Gran % Lymph % (Auto) Gran # Lymph # (Auto) Seg Neutrophils % 85 H 93 H Lymphocytes % 10 L 5 L ESR VBG Lactic Acid 3.3 H POC Sodium POC Chloride POC BUN BUN POC Creatinine Glucose POC Glucose Calcium POC WB Ioniz Calcium Phosphorus C-Reactive Protein Total Protein Albumin Albumin/Globulin Ratio Urine Glucose (UA) Urine Occult Blood Ur Leukocyte Esterase Urine RBC Urine WBC 11/23/17 11/23/17 11/23/17 11:50 11:14 11:11 WBC RBC Hgb Hct RDW Gran % Lymph % (Auto) Gran # Lymph # (Auto) Seg Neutrophils % Lymphocytes % ESR VBG Lactic Acid 5.7 H* POC Sodium POC Chloride POC BUN BUN POC Creatinine Glucose POC Glucose Calcium POC WB Ioniz Calcium Phosphorus C-Reactive Protein 6.9 H Total Protein Albumin Albumin/Globulin Ratio Urine Glucose (UA) >=500 A Urine Occult Blood 0.2 A Ur Leukocyte Esterase 500 A Urine RBC 5 H Urine WBC > 182 H 11/23/17 11/23/17 11/23/17 11:11 11:11 11:11 WBC 14.3 H RBC Hgb Hct RDW 15.0 H Gran % 86.0 H Lymph % (Auto) 5.9 L Gran # 12.3 H Lymph # (Auto) 0.8 L Seg Neutrophils % Lymphocytes % ESR 80 H VBG Lactic Acid POC Sodium 129 L POC Chloride 94 L POC BUN 56 H BUN POC Creatinine 1.3 H Glucose POC Glucose 482 H* Calcium POC WB Ioniz Calcium 1.15 L Phosphorus C-Reactive Protein Total Protein Albumin Albumin/Globulin Ratio Urine Glucose (UA) Urine Occult Blood Ur Leukocyte Esterase Urine RBC Urine WBC Meds: Medications Acetaminophen (Tylenol) 650 mg PO Q4-6HP PRN PRN Reason: PAIN/FEVER > 101 Hydrocodone Bitart/Acetaminophen ([place] 5/325mg) 0 tab PO Q4HP PRN PRN Reason: PAIN LEVEL 3-6 Last Admin: 11/25/17 09:08 Dose: 2 tab Aspirin (Aspirin) 81 mg PO DAILY [facility] Last Admin: 11/25/17 08:10 Dose: 81 mg Ceftriaxone Sodium (Rocephin) 2 gm IV DAILY [facility] Last Admin: 11/25/17 08:35 Dose: 2 gm Dextrose (Dextrose 50%) 0 ml IV UD PRN PRN Reason: Hypoglycemia Diagnostic Test (Pha) (Accu-Chek) 1 each FS ACHS [facility] Last Admin: 11/25/17 07:30 Dose: 1 each Docusate Sodium (Colace) 100 mg PO BID [facility] Last Admin: 11/25/17 08:06 Dose: Not Given Glucose (Insta-Glucose) 15 gm PO PRN PRN PRN Reason: Hypoglycemia Guaifenesin/Codeine Phosphate (Robitussin Ac) 10 ml PO Q4HP PRN PRN Reason: Cough Heparin Sodium (Porcine) (Heparin) 5,000 unit SQ Q12 [facility] Last Admin: 11/25/17 08:10 Dose: 5,000 unit Heparin Sodium (Porcine) (Heparin Flush) 2 ml IV Q12 [facility] Last Admin: 11/24/17 21:16 Dose: Not Given Potassium Chloride 40 meq/ (Dextrose) 520 mls @ 130 mls/hr IV UD PRN PRN Reason: K+ = or < 3.5 Magnesium Sulfate (Magnesium Sulfate) 2 gm in 50 mls @ 50 mls/hr IV UD PRN PRN Reason: MG = or < 1.7 Sodium Chloride (Sodium Chloride 0.9%) 1,000 mls @ 0 mls/hr IV BOLUS [facility] PRN Reason: Wide Open Last Admin: 11/24/17 18:37 Dose: Not Given Sodium Chloride (Sodium Chloride 0.9%) 1,000 mls @ 50 mls/hr IV .Q20H [facility] Stop: 11/26/17 05:59 Last Admin: 11/25/17 07:45 Dose: 50 mls/hr Acetaminophen (Ofirmev) 1,000 mg in 100 mls @ 200 mls/hr IV Q6HP PRN PRN Reason: PAIN/FEVER > 101 Norepinephrine Bitartrate 16 (mg/ Sodium Chloride) 250 mls @ 9.37 mls/hr IV Q24H [facility]; 10 MCG/MIN PRN Reason: Protocol Last Titration: 11/24/17 20:08 Dose: 0 mcg/min, 0 mls/hr Sodium Chloride (Sodium Chloride 0.9%) 250 mls @ 20 mls/hr IV .[id number] [facility] Last Admin: 11/24/17 21:16 Dose: Not Given Sodium Chloride (Sodium Chloride 0.9%) 500 mls @ 20 mls/hr IV .Q24H [facility] Last Infusion: 11/24/17 20:08 Dose: 0 mls/hr Insulin Human Lispro (Humalog) 0 unit SQ ACHS [facility] PRN Reason: Protocol Last Admin: 11/25/17 07:55 Dose: 3 unit Methocarbamol (Robaxin) 750 mg PO Q6HP PRN PRN Reason: Muscle Spasm Metoprolol Succinate (Toprol Xl) 100 mg PO DAILY [facility] Last Admin: 11/25/17 08:10 Dose: 100 mg Ondansetron HCl (Zofran) 4 mg IV Q4-6HP PRN PRN Reason: Nausea And Vomiting Canagliflozin [ Invokana] 100 Mg Tablet 1 dose PO ACB [facility] Last Admin: 11/25/17 07:55 Dose: 1 dose Pneumococcal Polyvalent Vaccine (Pneumovax 23) 0.5 ml IM .ONCE ONE Stop: 11/25/17 10:01 Potassium Chloride (Klor-Con) 40 meq PO DAILYP PRN PRN Reason: K+ < 3.5 [facility]) [facility] Admin: 11/25/17 08:10 Dose: 40 mg Senna/Docusate Sodium (Senna Plus Tablet) 1 tab PO HS [facility] Last Admin: 11/24/17 21:13 Dose: 1 tab Sodium Chloride (Saline Flush) 10 ml IV Q8 [facility] Last Admin: 11/25/17 06:46 Dose: Not Given Sodium Chloride (Saline Flush) 10 ml IV UD PRN PRN Reason: FLUSH Sodium Chloride (Saline Flush) 10 ml IV Q12 [facility] Last Admin: 11/25/17 08:07 Dose: Not Given Tramadol HCl (Ultram) 50 mg PO Q6HP PRN PRN Reason: Pain Trazodone HCl (Desyrel) 50 mg PO HSP PRN PRN Reason: Insomnia Last Admin: 11/24/17 21:15 Dose: 50 mg Vancomycin HCl (Vancomycin Per Pharmacy) 1 order IV [facility] Medical - PN: A/P - Time Spent With Patient Total time spent is greater than 50% in coordination of care (as documented) at patient's floor/unit and/or counseling patient: Greater than 35 minutes (1) Septic shock Status: Acute Assessment and plan: * Septic shock- clinically improving on antibiotics and management per guidelines. Off pressors. Map at goal. Improving end organ dysfunction.mortality. * Gram-positive bacteremia 3 out of 4 blood cultures. likely source genitourinary. additional surveillance cultures today. * acute pyelonephritis-clinically improving on antibiotic coverage. Await renal ultrasound to rule out obstructive uropathy * New onset A. fib- initiated control measures. Likely secondary to sepsis end organ dysfunction * History of PMR on steroids * history of hypertension hold antihypertensives until septic shock resolves * DM type II continue sliding scale insulin. Hold glipizide * DVT prophylaxis on heparin Plan * repeat Surveillance cultures * rate control measures -IV metoprolol/IV digoxin * Pre-existing medical condition management on home meds * stress dose steroids Current Visit: Yes Medical - PN: Qual - VTE Deep Vein Thrombosis/Pulmonary Embolism Present on Admission: Yes
[2017-11-25] MEDS ORDERED: PNEUMOCOCCAL 23-VAL P-SAC VAC 0.5 ML VIAL IM ONE (10:00)
[2017-11-25] MEDS ORDERED: DIGOXIN 500 MCG/2 ML AMPUL IV ONE (10:02)
[2017-11-25] MEDS: METOPROLOL TARTRATE 5 MG/5 ML VIAL IV SCH ×2 (10:13→17:22)
[2017-11-25] MEDS ORDERED: 0.9 % SODIUM CHLORIDE 1,000 ML IV SCH (10:15)
[2017-11-25] MEDS: HYDROCORTISONE SOD SUCC 100 MG VIAL IV SCH ×2 (12:11→17:28)
[2017-11-25] MEDS: 0.9 % SODIUM CHLORIDE 250 ML IV SCH ×2 (12:13→22:01)
[2017-11-25] MEDS: SENNOSIDES/DOCUSATE SODIUM 1 TAB TABLET PO SCH (20:52)
[2017-11-26] MEDS: HYDROCORTISONE SOD SUCC 100 MG VIAL IV SCH ×2 (00:53→05:32)
[2017-11-26 04:54] LABS: Mean Cell Volume 91.7 fL (80.0-100.0); Mean Corpuscular HGB Conc 33.3 g/dL (31.0-36.0); Mean Corpuscular Hemoglobin 30.5 pg (26.0-34.0); Platelet Count 168 K/mcL (140-440); RBC 4.35 M/mcL (4.50-5.90); Red Cell Distribution Width 15.7 % (11.5-14.5)
[2017-11-26 05:20] LABS: ALT/SGPT 30 U/l (0-40); Albumin 1.9 gm/dL (3.2-5.2); Albumin/Globulin Ratio 0.6 (1.0-2.3); Alkaline Phosphatase 64 U/L (39-117); Bilirubin,Direct < 0.2 mg/dL (0.0-0.3); Blood Urea Nitrogen 31 mg/dl (8-23); Gamma Glutamyl Transpeptidase 53 U/L (8-61); Uric Acid 3.5 mg/dL (2.5-8.0)
[2017-11-26] MEDS: 0.9 % SODIUM CHLORIDE 10 ML SYRINGE IV SCH ×7 (05:33→22:00)
[2017-11-26 05:55] LABS: Anisocytosis 1+ (NONE SEEN); Lymphocytes % 12 % (15-49); Monocytes % (Manual) 2 % (1-12); Platelet Estimate NORMAL (NORMAL); RBC Morphology ABNORM (NORMAL); Segmented Neutrophils % 86 % (38-78)
[2017-11-26] MEDS: INSULIN LISPRO 1 UNIT/0.01 ML UNIT SQ SCH ×4 (08:30→20:56)
[2017-11-26] MEDS: cefTRIAXone 2 GM VIAL IV SCH (09:13)
[2017-11-26] MEDS: 0.9 % SODIUM CHLORIDE 500 ML IV SCH (09:14)
[2017-11-26] MEDS: DOCUSATE SODIUM 100 MG CAPSULE PO SCH ×2 (09:14→20:57)
[2017-11-26] MEDS ORDERED: IOPAMIDOL 100 ML BOTTLE IV ONE (10:50)
[2017-11-26] MEDS: METOPROLOL SUCCINATE 50 MG TAB.XL.24H PO SCH ×2 (11:00→11:21)
[2017-11-26] MEDS: HYDROcodone/APAP 5/325MG TABLET PO PRN ×2 (11:09→20:57)
[2017-11-26] MEDS: BENZOCAINE/MENTHOL 1 LOZENGE PO PRN ×2 (11:09→15:06)
[2017-11-26] MEDS: HEPARIN 5,000 UNIT/ML VIAL SQ SCH ×2 (11:09→20:58)
[2017-11-26] MEDS: predniSONE 10 MG TABLET PO SCH (11:17)
[2017-11-26] MEDS: ASPIRIN 81 MG TAB.CHEW PO SCH (11:17)
--- NOTE | 2017-11-26 11:36 | Internal Med Progress Note ---
Medical - PN: Subj Patient information: Note initiated : 11/26/17 at 11:27 am Service Date, if different from initiated Date: [] Patient: Sunny Ace 77 y/o M admitted on 11/23/17 for Weakness. Chief Complaint: [] Interval history: patient admitted with severe sepsis/acute pyelonephritis. Elevated lactate systolics in mid 70. crystalloid boluses. Blood cultures drawn. Broad antibiotic coverage including Levaquin/ceftriaxone for empiric gram-negative coverage. Admitted to ICU. Continue crystalloids bolus to keep map at goal. Start pressors if evidence of end organ hypoperfusion. Trend venous lactate. white count at 14.3. lactic acid 5.7 11/24- clinically improving.lactic acid 3.5. White count downtrending. Renal ultrasound pending to rule out obstructive uropathy. no overnight chills headache or confusion. 2 out of 2 gram-positive cocci on blood cultures. Antibiotic coverage extended with vancomycin. DC Levaquin. Systolics low 90 despite crystalloids. Start Levophed today. Serial lactate trending. 11/25-patient doing remarkably better. Off pressors. White count downtrending at 9.2. Back pain improved. Alert and lucid. surveillance cultures negative so far. multiple blood cultures positive for gram-positive cocci. Repeat surveillance cultures. Sensitivities pending. lactic acid down from 5.7-1.4. creatinine down to 1. otherwise no overnight events including telemetry changes or concerns per nursing staff. 11/26- surveillance cultures positive. Echocardiogram today to rule out infective endocarditis. CT chest abdomen pelvis ordered for evaluation of intra -abdominal/thoracic focus. if transthoracic negative consider transesophageal echo. Gordon criteria positive. Continue surveillance culture and vancomycin. Stable hemodynamics. - Constitutional Vitals: Vital Signs Temp Pulse Resp BP Pulse Ox 98.8 F 91 H 22 153/78 97 11/26/17 08:01 11/26/17 10:01 11/26/17 10:01 11/26/17 10:01 11/26/17 10:01 Period Temp Pulse Resp BP Sys/Centeno Pulse Ox Last 24 Hr 97.5 F-98.9 F 62-91 13-28 106-153/46-103 92-100 Intake and Output 11/25/17 11/26/17 11/26/17 21:59 05:59 13:59 Intake Total 609 / 609 Output Total 1475 / 1475 750 / 750 Balance -866 / -866 -750 / -750 Weight 194 lb 11.2 oz Intake & Output: Intake & Output 11/25/17 11/26/17 11/26/17 21:59 05:59 13:59 Intake Total 609 / 609 Output Total 1475 / 1475 750 / 750 Balance -866 / -866 -750 / -750 Weight 194 lb 11.2 oz Intake: IV Levophed 16 mg In Sodium Chloride 0.9% 234 ml @ 10 MCG/ MIN 9.37 mls/hr IV Q24H [facility] Rx# :[id number] Oral 600 / 600 Output: Void Amount 1475 / 1475 750 / 750 Other: Meal Lunch Percent of Meal Consumed 100% Feeding Ability Independent Stool Size Large Stool Color Brown Stool Consistency Soft Formed # Bowel Movements 1 General appearance: no acute distress Exam: no focal tenderness alert oriented nonlabored breathing nondistended abdomen no skin lesions Medical - PN: Obj Da - Labs CBC & Chem 7: 11/26/17 03:45 11/26/17 03:45 Labs: Abnormal Lab Results 11/26/17 11/26/17 11/25/17 03:45 03:45 03:45 WBC RBC 4.35 L Hgb 13.3 L Hct 39.9 L RDW 15.7 H Gran % Lymph % (Auto) Gran # Lymph # (Auto) Seg Neutrophils % 86 H Lymphocytes % 12 L WBC Morphology Abnorm A Hypersegmented Polys 1+ A RBC Morphology Abnorm A Anisocytosis 1+ A ESR VBG Lactic Acid POC Sodium POC Chloride POC BUN BUN 31 H 37 H POC Creatinine Glucose 151 H 260 H POC Glucose Calcium 8.3 L 8.2 L POC WB Ioniz Calcium Phosphorus 2.6 L 2.5 L C-Reactive Protein Total Protein 5.1 L 5.1 L Albumin 1.9 L 1.9 L Albumin/Globulin Ratio 0.6 L 0.6 L Urine Glucose (UA) Urine Occult Blood Ur Leukocyte Esterase Urine RBC Urine WBC 11/25/17 11/24/17 11/24/17 03:45 03:50 03:50 WBC 12.2 H RBC 4.27 L 4.26 L Hgb 13.2 L 13.0 L Hct 39.5 L 39.0 L RDW 15.6 H 15.2 H Gran % Lymph % (Auto) Gran # Lymph # (Auto) Seg Neutrophils % 85 H 85 H Lymphocytes % 10 L 10 L WBC Morphology Hypersegmented Polys RBC Morphology Anisocytosis ESR VBG Lactic Acid POC Sodium POC Chloride POC BUN BUN 42 H POC Creatinine Glucose 66 L POC Glucose Calcium 8.4 L POC WB Ioniz Calcium Phosphorus C-Reactive Protein Total Protein 5.1 L Albumin 2.2 L Albumin/Globulin Ratio 0.8 L Urine Glucose (UA) Urine Occult Blood Ur Leukocyte Esterase Urine RBC Urine WBC 11/23/17 11/23/17 11/23/17 18:57 11:52 11:50 WBC RBC Hgb Hct RDW Gran % Lymph % (Auto) Gran # Lymph # (Auto) Seg Neutrophils % 93 H Lymphocytes % 5 L WBC Morphology Hypersegmented Polys RBC Morphology Anisocytosis ESR VBG Lactic Acid 3.3 H 5.7 H* POC Sodium POC Chloride POC BUN BUN POC Creatinine Glucose POC Glucose Calcium POC WB Ioniz Calcium Phosphorus C-Reactive Protein Total Protein Albumin Albumin/Globulin Ratio Urine Glucose (UA) Urine Occult Blood Ur Leukocyte Esterase Urine RBC Urine WBC 11/23/17 11/23/17 11/23/17 11:14 11:11 11:11 WBC RBC Hgb Hct RDW Gran % Lymph % (Auto) Gran # Lymph # (Auto) Seg Neutrophils % Lymphocytes % WBC Morphology Hypersegmented Polys RBC Morphology Anisocytosis ESR 80 H VBG Lactic Acid POC Sodium POC Chloride POC BUN BUN POC Creatinine Glucose POC Glucose Calcium POC WB Ioniz Calcium Phosphorus C-Reactive Protein 6.9 H Total Protein Albumin Albumin/Globulin Ratio Urine Glucose (UA) >=500 A Urine Occult Blood 0.2 A Ur Leukocyte Esterase 500 A Urine RBC 5 H Urine WBC > 182 H 11/23/17 11/23/17 11:11 11:11 WBC 14.3 H RBC Hgb Hct RDW 15.0 H Gran % 86.0 H Lymph % (Auto) 5.9 L Gran # 12.3 H Lymph # (Auto) 0.8 L Seg Neutrophils % Lymphocytes % WBC Morphology Hypersegmented Polys RBC Morphology Anisocytosis ESR VBG Lactic Acid POC Sodium 129 L POC Chloride 94 L POC BUN 56 H BUN POC Creatinine 1.3 H Glucose POC Glucose 482 H* Calcium POC WB Ioniz Calcium 1.15 L Phosphorus C-Reactive Protein Total Protein Albumin Albumin/Globulin Ratio Urine Glucose (UA) Urine Occult Blood Ur Leukocyte Esterase Urine RBC Urine WBC Meds: Medications Acetaminophen (Tylenol) 650 mg PO Q4-6HP PRN PRN Reason: PAIN/FEVER > 101 Hydrocodone Bitart/Acetaminophen ([place] 5/325mg) 0 tab PO Q4HP PRN PRN Reason: PAIN LEVEL 3-6 Last Admin: 11/26/17 11:09 Dose: 2 tab Aspirin (Aspirin) 81 mg PO DAILY [facility] Last Admin: 11/26/17 11:17 Dose: 81 mg Dextrose (Dextrose 50%) 0 ml IV UD PRN PRN Reason: Hypoglycemia Diagnostic Test (Pha) (Accu-Chek) 1 each FS ACHS [facility] Last Admin: 11/26/17 08:15 Dose: 1 each Docusate Sodium (Colace) 100 mg PO BID [facility] Last Admin: 11/26/17 09:14 Dose: Not Given Glucose (Insta-Glucose) 15 gm PO PRN PRN PRN Reason: Hypoglycemia Guaifenesin/Codeine Phosphate (Robitussin Ac) 10 ml PO Q4HP PRN PRN Reason: Cough Heparin Sodium (Porcine) (Heparin) 5,000 unit SQ Q12 [facility] Last Admin: 11/26/17 11:09 Dose: 5,000 unit Heparin Sodium (Porcine) (Heparin Flush) 2 ml IV Q12 [facility] Last Admin: 11/26/17 09:13 Dose: Not Given Hydrocortisone Sodium Succinate (Solu-Cortef) 50 mg IV Q6 [facility] Last Admin: 11/26/17 05:32 Dose: 50 mg Potassium Chloride 40 meq/ (Dextrose) 520 mls @ 130 mls/hr IV UD PRN PRN Reason: K+ = or < 3.5 Magnesium Sulfate (Magnesium Sulfate) 2 gm in 50 mls @ 50 mls/hr IV UD PRN PRN Reason: MG = or < 1.7 Acetaminophen (Ofirmev) 1,000 mg in 100 mls @ 200 mls/hr IV Q6HP PRN PRN Reason: PAIN/FEVER > 101 Norepinephrine Bitartrate 16 (mg/ Sodium Chloride) 250 mls @ 9.37 mls/hr IV Q24H SALTY; 10 MCG/MIN PRN Reason: Protocol Last Titration: 11/25/17 16:00 Dose: 0 mcg/min, 0 mls/hr Sodium Chloride (Sodium Chloride 0.9%) 250 mls @ 20 mls/hr IV .[id number] [facility] Last Admin: 11/25/17 22:01 Dose: Not Given Sodium Chloride (Sodium Chloride 0.9%) 500 mls @ 20 mls/hr IV .Q24H [facility] Last Admin: 11/26/17 09:14 Dose: Not Given Insulin Human Lispro (Humalog) 0 unit SQ ACHS [facility] PRN Reason: Protocol Last Admin: 11/26/17 08:30 Dose: Not Given Methocarbamol (Robaxin) 750 mg PO Q6HP PRN PRN Reason: Muscle Spasm Metoprolol Succinate (Toprol Xl) 100 mg PO DAILY [facility] Last Admin: 11/26/17 11:21 Dose: Not Given Ondansetron HCl (Zofran) 4 mg IV Q4-6HP PRN PRN Reason: Nausea And Vomiting Canagliflozin [ Invokana] 100 Mg Tablet 1 dose PO ACB [facility] Last Admin: 11/26/17 08:15 Dose: 1 dose Potassium Chloride (Klor-Con) 40 meq PO DAILYP PRN PRN Reason: K+ < 3.5 [facility] Last Admin: 11/26/17 11:17 Dose: 40 mg Senna/Docusate Sodium (Senna Plus Tablet) 1 tab PO HS [facility] Last Admin: 11/25/17 20:52 Dose: Not Given Sodium Chloride (Saline Flush) 10 ml IV Q8 [facility] Last Admin: 11/26/17 08:30 Dose: 10 ml Sodium Chloride (Saline Flush) 10 ml IV UD PRN PRN Reason: FLUSH Sodium Chloride (Saline Flush) 10 ml IV Q12 [facility] Last Admin: 11/26/17 08:30 Dose: 10 ml Throat Lozenges (Cepacol) 1 lozenge PO PRN PRN PRN Reason: Sore Throat Last Admin: 11/26/17 11:09 Dose: 1 lozenge Tramadol HCl (Ultram) 50 mg PO Q6HP PRN PRN Reason: Pain Trazodone HCl (Desyrel) 50 mg PO HSP PRN PRN Reason: Insomnia Last Admin: 11/24/17 21:15 Dose: 50 mg Vancomycin HCl (Vancomycin Per Pharmacy) 1 order IV [facility] Medical - PN: A/P - Time Spent With Patient Total time spent is greater than 50% in coordination of care (as documented) at patient's floor/unit and/or counseling patient: 25 - 35 minutes (1) Septic shock Status: Acute Assessment and plan: * Septic shock- clinically resolved. Off pressors. Continue antibiotics * MRSA bacteremia 6/6 positive blood cultures. continue surveillance cultures. Continue source identification. CT abdomen and pelvis chest pending. Transthoracic echocardiogram.no hardware implants. continue vancomycin. avoid PICC line until cultures negative * acute pyelonephritis-clinically improving * New onset A. fib- rate controlled on metoprolol * History of PMR on steroids. DC stressed steroids * history of hypertension hold antihypertensives until septic shock resolves * DM type II continue sliding scale insulin. Hold glipizide * DVT prophylaxis on heparin Plan * CT abdomen and pelvis and chest * Transthoracic echo * surveillance cultures * Pre-existing medical condition management on home meds * Discontinue stress dose steroids * transfer to telemetry * high-risk mortality Current Visit: Yes Medical - PN: Qual - VTE Deep Vein Thrombosis/Pulmonary Embolism Present on Admission: Yes
[2017-11-26] MEDS ORDERED: VANCOMYCIN 1,500 MG in 0.9 % SODIUM CHLORIDE 500 ML IV ONE (14:00)
[2017-11-26] MEDS ORDERED: NOREPINEPHRINE BITARTRATE 16 MG in 0.9 % SODIUM CHLORIDE 234 ML IV PRN (14:00)
[2017-11-26] MEDS: 0.9 % SODIUM CHLORIDE 250 ML IV SCH ×2 (14:06→23:16)
[2017-11-26] MEDS: NOREPINEPHRINE BITARTRATE 16 MG in 0.9 % SODIUM CHLORIDE 234 ML IV SCH (14:10)
[2017-11-26] MEDS: VANCOMYCIN 1,500 MG in 0.9 % SODIUM CHLORIDE 500 ML IV SCH ×2 (14:59→23:04)
--- NOTE | 2017-11-26 16:25 | Cat Scan Report ---
CLINICAL INFORMATION: Sepsis. MRSA TECHNIQUE: Axial images to the chest, abdomen, pelvis. 90 mL intravenous contrast material administered. Sagittally and coronally reformatted images COMPARISON: Previous noncontrast enhanced CT scan of the abdomen and pelvis dated 10/04/2017 FINDINGS: CHEST: Focal left lower lobe pulmonary parenchymal density with air bronchograms. Findings may be secondary to atelectasis but pneumonia is not excluded. This is a new finding since 10/04/2017. Lungs are otherwise negative. No other focal pulmonary parenchymal infiltrate or mass. No bronchiectasis. No significant emphysematous change. There are small bilateral pleural effusions, left slightly larger than right. There is severe coronary artery calcification. Patient has undergone previous coronary artery bypass procedure. There is no pericardial effusion. Main pulmonary artery, right pulmonary artery, left pulmonary artery are negative. No intraluminal filling defects. Thoracic aorta is negative. No dissection. No significant aneurysm. There is calcification of the aortic arch and descending thoracic aorta. No thoracic compression fractures. No lytic lesions. No evidence for discitis. No paraspinal soft tissue abnormality. No axillary or supraclavicular adenopathy. No mediastinal or hilar adenopathy. ABDOMEN AND PELVIS: Negative liver. No focal intrahepatic abnormality. No perihepatic fluid. Gallbladder is present. No calcified gallstones. No gallbladder wall thickening or pericholecystic fluid. No dilated bile ducts. Negative pancreas. No pancreatic mass. No peripancreatic abnormality. Negative spleen. Normal enhancement of splenic and portal veins Adrenal glands are negative. No hydronephrosis or hydroureter. There is a right lower pole renal mass consistent with cyst. This measures 2.8 cm and is essentially unchanged. No solid mass. Colon is negative. No diverticulitis. No appendicitis. No detectable colonic mass. Fecal material is prominent suggesting constipation. No free pelvic fluid. No intra-abdominal abscess. No pneumoperitoneum. Severe multilevel degenerative disc disease. No endplate destruction. No evidence for discitis. There are L5 pars defects bilaterally. No sacral fracture. No lytic lesion. There are normal. No fracture. There is calcification of the abdominal aorta. No abdominal aortic aneurysm. No retroperitoneal or mesenteric adenopathy IMPRESSION: 1. Focal left lower lobe pulmonary parenchymal density with air bronchograms. Findings may be due to benign atelectasis but pneumonia is possible. 2. Small bilateral pleural fluid collections 3. Right lower pole renal cysts, unchanged 4. Multilevel degenerative disc disease in the thoracic and lumbar spines. No bone destruction. No evidence for disc infection 5. Prominent fecal material consistent with constipation 6. Severe coronary artery disease. Previous coronary artery bypass procedure Interpreted and Authenticated by: Tony Samayoa 11/26/17
[2017-11-26] MEDS: SENNOSIDES/DOCUSATE SODIUM 1 TAB TABLET PO SCH (20:56)
[2017-11-27] MEDS: BENZOCAINE/MENTHOL 1 LOZENGE PO PRN ×2 (03:48→08:35)
[2017-11-27 05:57] LABS: Mean Cell Volume 91.5 fL (80.0-100.0); Mean Corpuscular HGB Conc 33.5 g/dL (31.0-36.0); Mean Corpuscular Hemoglobin 30.7 pg (26.0-34.0); Platelet Count 173 K/mcL (140-440); RBC 4.36 M/mcL (4.50-5.90); Red Cell Distribution Width 15.3 % (11.5-14.5)
[2017-11-27] MEDS: 0.9 % SODIUM CHLORIDE 10 ML SYRINGE IV SCH ×5 (06:09→20:10)
[2017-11-27 06:25] LABS: ALT/SGPT 29 U/l (0-40); Albumin/Globulin Ratio 0.6 (1.0-2.3); Alkaline Phosphatase 67 U/L (39-117); Bilirubin,Direct < 0.2 mg/dL (0.0-0.3); Blood Urea Nitrogen 28 mg/dl (8-23); Gamma Glutamyl Transpeptidase 53 U/L (8-61); Uric Acid 3.6 mg/dL (2.5-8.0)
[2017-11-27 06:49] LABS: Anisocytosis 1+ (NONE SEEN); Band Neutrophils % 3 % (0-10); Lymphocytes % 8 % (15-49); Monocytes % (Manual) 6 % (1-12); Platelet Estimate NORMAL (NORMAL); RBC Morphology ABNORM (NORMAL); Segmented Neutrophils % 83 % (38-78)
[2017-11-27] MEDS: INSULIN LISPRO 1 UNIT/0.01 ML UNIT SQ SCH ×5 (08:34→22:20)
[2017-11-27] MEDS: ASPIRIN 81 MG TAB.CHEW PO SCH (08:37)
[2017-11-27] MEDS: predniSONE 10 MG TABLET PO SCH (08:37)
[2017-11-27] MEDS: HEPARIN 5,000 UNIT/ML VIAL SQ SCH ×2 (08:38→20:09)
[2017-11-27] MEDS: DOCUSATE SODIUM 100 MG CAPSULE PO SCH ×2 (08:38→20:09)
[2017-11-27] MEDS: METOPROLOL SUCCINATE 50 MG TAB.XL.24H PO SCH (08:38)
[2017-11-27] MEDS: 0.9 % SODIUM CHLORIDE 500 ML IV SCH ×2 (08:38→12:50)
[2017-11-27] MEDS: HYDROcodone/APAP 5/325MG TABLET PO PRN ×2 (09:12→20:11)
[2017-11-27] MEDS: VANCOMYCIN 1,500 MG in 0.9 % SODIUM CHLORIDE 500 ML IV SCH (09:13)
[2017-11-27] MEDS ORDERED: ACETAMINOPHEN 325 MG TABLET PO PRN (10:12)
[2017-11-27] MEDS ORDERED: ONDANSETRON 4 MG/2 ML VIAL IV PRN (10:12)
[2017-11-27] MEDS ORDERED: 0.9 % SODIUM CHLORIDE 10 ML SYRINGE IV PRN (10:12)
[2017-11-27] MEDS ORDERED: VANCOMYCIN 1,500 MG in 0.9 % SODIUM CHLORIDE 500 ML IV ONE (10:12)
[2017-11-27] MEDS ORDERED: ACETAMINOPHEN 1,000 MG/100 ML BOTTLE IV PRN (10:12)
[2017-11-27] MEDS ORDERED: VANCOMYCIN PER PHARMACY IV SCH (10:12)
[2017-11-27] MEDS ORDERED: NOREPINEPHRINE BITARTRATE 16 MG in 0.9 % SODIUM CHLORIDE 234 ML IV PRN (10:12)
[2017-11-27] MEDS ORDERED: POTASSIUM CHLORIDE 20 MEQ PACKET PO PRN (10:12)
[2017-11-27] MEDS ORDERED: METHOCARBAMOL 750 MG TABLET PO PRN (10:12)
[2017-11-27] MEDS ORDERED: traZODone HCL 50 MG TABLET PO PRN (10:12)
[2017-11-27] MEDS ORDERED: DEXTROSE 50% 50 ML VIAL IV PRN (10:12)
[2017-11-27] MEDS ORDERED: guaiFENesin/CODEINE 10 ML UDC PO PRN (10:12)
[2017-11-27] MEDS ORDERED: DEXTROSE 31 GM ORAL.SUSP PO PRN (10:12)
[2017-11-27] MEDS ORDERED: traMADol 50 MG TABLET PO PRN (10:12)
[2017-11-27] MEDS ORDERED: POTASSIUM CHLORIDE 40 MEQ in DEXTROSE 5% IN WATER 500 ML IV PRN (10:12)
[2017-11-27] MEDS ORDERED: MAGNESIUM SULFATE 2 GM/50 ML BAG IV PRN (10:12)
[2017-11-27] MEDS: 0.9 % SODIUM CHLORIDE 250 ML IV SCH ×2 (12:50→23:30)
--- NOTE | 2017-11-27 13:49 | Internal Med Progress Note ---
Medical - PN: Subj Patient information: Note initiated : 11/27/17 at 1:43 pm Service Date, if different from initiated Date: [] Patient: Sunny Ace 77 y/o M admitted on 11/23/17 for Weakness/Sepsis. Chief Complaint: [] Interval history: patient admitted with severe sepsis/acute pyelonephritis. Elevated lactate systolics in mid 70. crystalloid boluses. Blood cultures drawn. Broad antibiotic coverage including Levaquin/ceftriaxone for empiric gram-negative coverage. Admitted to ICU. Continue crystalloids bolus to keep map at goal. Start pressors if evidence of end organ hypoperfusion. Trend venous lactate. white count at 14.3. lactic acid 5.7 11/24- clinically improving.lactic acid 3.5. White count downtrending. Renal ultrasound pending to rule out obstructive uropathy. no overnight chills headache or confusion. 2 out of 2 gram-positive cocci on blood cultures. Antibiotic coverage extended with vancomycin. DC Levaquin. Systolics low 90 despite crystalloids. Start Levophed today. Serial lactate trending. 11/25-patient doing remarkably better. Off pressors. White count downtrending at 9.2. Back pain improved. Alert and lucid. surveillance cultures negative so far. multiple blood cultures positive for gram-positive cocci. Repeat surveillance cultures. Sensitivities pending. lactic acid down from 5.7-1.4. creatinine down to 1. otherwise no overnight events including telemetry changes or concerns per nursing staff. 11/26- surveillance cultures positive. Echocardiogram today to rule out infective endocarditis. CT chest abdomen pelvis ordered for evaluation of intra -abdominal/thoracic focus. if transthoracic negative consider transesophageal echo. Gilliam criteria positive. Continue surveillance culture and vancomycin. Stable hemodynamics. 11/27- 04/24 blood cultures positive.continue surveillance culture. no evidentjoint swelling/septic arthritis or skin lesions. CT abdomen pelvis and chest unremarkable for focus of infection. Transthoracic echo no evidence of endocarditis. Case discussed with [facility] infectious disease specialist Dr. Gael Brandt who recommended stress esophageal echocardiogram. Case of similar discussed with [facility] and patient was accepted by hospitalist service however due to lack of availability of beds currently transfer is on hold. Patient is on vancomycin. thank you stable. Transfer to medical floor. Off pressors. Stable hemodynamics. White count 9.4. renal function normalized - Constitutional Vitals: Vital Signs Temp Pulse Resp BP Pulse Ox 98.8 F 83 18 137/64 99 11/27/17 12:00 11/27/17 12:00 11/27/17 12:00 11/27/17 12:00 11/27/17 12:00 Period Temp Pulse Resp BP Sys/Centeno Pulse Ox Last 24 Hr 96.9 F-98.8 F 58-104 12-42 109-179/51-100 88-100 Intake and Output 11/26/17 11/27/17 11/27/17 21:59 05:59 13:59 Intake Total 800 / 800 800 / 800 800 / 800 Output Total 985 / 985 1300 / 1300 900 / 900 Balance -185 / -185 -500 / -500 -100 / -100 Weight 198 lb Intake & Output: Intake & Output 11/26/17 11/27/17 11/27/17 21:59 05:59 13:59 Intake Total 800 / 800 800 / 800 800 / 800 Output Total 985 / 985 1300 / 1300 900 / 900 Balance -185 / -185 -500 / -500 -100 / -100 Weight 198 lb Intake: IV 500 / 500 500 / 500 Vancomycin 1,500 mg In Sodium 500 / 500 500 / 500 Chloride 0.9% 500 ml @ 333.3 mls/hr IV Q12H [facility] Rx#: [id number] Oral 300 / 300 300 / 300 800 / 800 Output: Urine Catheter Amount 300 / 300 Void Amount 985 / 985 1000 / 1000 900 / 900 Other: Meal Lunch Percent of Meal Consumed 100% Feeding Ability Assist with Tray Set Up Stool Size Large Stool Color Brown Stool Consistency Normal for Patient Soft Formed # Voids 1 1 3 # Bowel Movements 1 General appearance: cooperative, no acute distress Exam: no anxiety alert oriented nonlabored breathing Nondistended abdomen no joint swelling or erythema Medical - PN: Obj Da - Labs CBC & Chem 7: 11/27/17 03:41 11/27/17 03:41 Labs: Abnormal Lab Results 11/27/17 11/27/17 11/27/17 08:05 03:41 03:41 RBC 4.36 L Hgb 13.4 L Hct 39.9 L RDW 15.3 H Seg Neutrophils % 83 H Lymphocytes % 8 L WBC Morphology Hypersegmented Polys RBC Morphology Abnorm A Anisocytosis 1+ A BUN 28 H Glucose 170 H Calcium 8.2 L Phosphorus Total Protein 5.2 L Albumin 2.0 L Albumin/Globulin Ratio 0.6 L Vancomycin Trough 20.9 H* 11/26/17 11/26/17 11/25/17 03:45 03:45 03:45 RBC 4.35 L Hgb 13.3 L Hct 39.9 L RDW 15.7 H Seg Neutrophils % 86 H Lymphocytes % 12 L WBC Morphology Abnorm A Hypersegmented Polys 1+ A RBC Morphology Abnorm A Anisocytosis 1+ A BUN 31 H 37 H Glucose 151 H 260 H Calcium 8.3 L 8.2 L Phosphorus 2.6 L 2.5 L Total Protein 5.1 L 5.1 L Albumin 1.9 L 1.9 L Albumin/Globulin Ratio 0.6 L 0.6 L Vancomycin Trough 11/25/17 03:45 RBC 4.27 L Hgb 13.2 L Hct 39.5 L RDW 15.6 H Seg Neutrophils % 85 H Lymphocytes % 10 L WBC Morphology Hypersegmented Polys RBC Morphology Anisocytosis BUN Glucose Calcium Phosphorus Total Protein Albumin Albumin/Globulin Ratio Vancomycin Trough Meds: Medications Acetaminophen (Tylenol) 650 mg PO Q4-6HP PRN PRN Reason: PAIN/FEVER > 101 Hydrocodone Bitart/Acetaminophen ([place] 5/325mg) 0 tab PO Q4HP PRN PRN Reason: PAIN LEVEL 3-6 Aspirin (Aspirin) 81 mg PO DAILY [facility] Dextrose (Dextrose 50%) 0 ml IV UD PRN PRN Reason: Hypoglycemia Diagnostic Test (Pha) (Accu-Chek) 1 each FS ACHS [facility] Last Admin: 11/27/17 12:51 Dose: 1 each Docusate Sodium (Colace) 100 mg PO BID [facility] Glucose (Insta-Glucose) 15 gm PO PRN PRN PRN Reason: Hypoglycemia Guaifenesin/Codeine Phosphate (Robitussin Ac) 10 ml PO Q4HP PRN PRN Reason: Cough Heparin Sodium (Porcine) (Heparin) 5,000 unit SQ Q12 [facility] Heparin Sodium (Porcine) (Heparin Flush) 2 ml IV Q12 [facility] Potassium Chloride 40 meq/ (Dextrose) 520 mls @ 130 mls/hr IV UD PRN PRN Reason: K+ = or < 3.5 Magnesium Sulfate (Magnesium Sulfate) 2 gm in 50 mls @ 50 mls/hr IV UD PRN PRN Reason: MG = or < 1.7 Norepinephrine Bitartrate 16 (mg/ Sodium Chloride) 250 mls @ 9.37 mls/hr IV Q24HP PRN; Protocol; 10 MCG/MIN PRN Reason: TITRATE TO KEEP MAP > 65 Sodium Chloride (Sodium Chloride 0.9%) 250 mls @ 20 mls/hr IV .[id number] [facility] Last Admin: 11/27/17 12:50 Dose: Not Given Sodium Chloride (Sodium Chloride 0.9%) 500 mls @ 20 mls/hr IV .Q24H [facility] Last Admin: 11/27/17 12:50 Dose: Not Given Acetaminophen (Ofirmev) 1,000 mg in 100 mls @ 200 mls/hr IV Q6HP PRN PRN Reason: PAIN/FEVER > 101 Insulin Human Lispro (Humalog) 0 unit SQ ACHS [facility] PRN Reason: Protocol Last Admin: 11/27/17 12:51 Dose: Not Given Methocarbamol (Robaxin) 750 mg PO Q6HP PRN PRN Reason: Muscle Spasm Metoprolol Succinate (Toprol Xl) 100 mg PO DAILY [facility] Ondansetron HCl (Zofran) 4 mg IV Q4-6HP PRN PRN Reason: Nausea And Vomiting Canagliflozin [ Invokana] 100 Mg Tablet 1 dose PO ACB [facility] Potassium Chloride (Klor-Con) 40 meq PO DAILYP PRN PRN Reason: K+ < 3.5 Prednisone (Prednisone) 40 mg PO QAMCC [facility] Senna/Docusate Sodium (Senna Plus Tablet) 1 tab PO HS [facility] Sodium Chloride (Saline Flush) 10 ml IV UD PRN PRN Reason: FLUSH Sodium Chloride (Saline Flush) 10 ml IV Q8 [facility] Sodium Chloride (Saline Flush) 10 ml IV Q12 [facility] Throat Lozenges (Cepacol) 1 lozenge PO PRN PRN PRN Reason: Sore Throat Tramadol HCl (Ultram) 50 mg PO Q6HP PRN PRN Reason: Pain Trazodone HCl (Desyrel) 50 mg PO HSP PRN PRN Reason: Insomnia Vancomycin HCl (Vancomycin Per Pharmacy) 1 order IV UD [facility] Medical - PN: A/P - Time Spent With Patient Total time spent is greater than 50% in coordination of care (as documented) at patient's floor/unit and/or counseling patient: 15 - 24 minutes (1) Septic shock Status: Acute Assessment and plan: * MRSA bacteremia 6/6 positive blood cultures. continue surveillance cultures. Continue source identification. CT abdomen and pelvis chest no identifiable source for acute process. Transthoracic echocardiogram negative for vegetation. no hardware implants. continue vancomycin. avoid PICC line until cultures negative. transfer to [facility] for transesophageal echocardiogram/ further investigation * Septic shock- clinically resolved. Off pressors. Continue antibiotics * acute pyelonephritis-clinically improving. back pain resolved * New onset A. fib- rate controlled on metoprolol * History of PMR on oral steroids. * history of hypertension resume oral antihypertensives at half dose * DM type II continue sliding scale insulin. restart glipizide * DVT prophylaxis on heparin Plan * continue vancomycin for a minimum of 6 weeks * transfer to tertiary Center once bed available * restart antihypertensive at half dose * restart glipizide * transfer to medical floor Current Visit: Yes Medical - PN: Qual - VTE Deep Vein Thrombosis/Pulmonary Embolism Present on Admission: Yes
[2017-11-27] MEDS ORDERED: LOSARTAN 50 MG TABLET PO ONE (13:51)
[2017-11-27] MEDS: glipiZIDE 5 MG TABLET PO SCH (17:52)
[2017-11-27] MEDS: SENNOSIDES/DOCUSATE SODIUM 1 TAB TABLET PO SCH (20:09)
[2017-11-28 05:50] LABS: Mean Cell Volume 90.9 fL (80.0-100.0); Mean Corpuscular HGB Conc 33.5 g/dL (31.0-36.0); Mean Corpuscular Hemoglobin 30.5 pg (26.0-34.0); Platelet Count 192 K/mcL (140-440); RBC 4.45 M/mcL (4.50-5.90); Red Cell Distribution Width 14.8 % (11.5-14.5)
[2017-11-28 06:08] LABS: Vancomycin,Random 10.3 ug/mL
[2017-11-28] MEDS: 0.9 % SODIUM CHLORIDE 10 ML SYRINGE IV SCH ×4 (06:09→21:00)
[2017-11-28 06:18] LABS: ALT/SGPT 36 U/l (0-40); Albumin 2.2 gm/dL (3.2-5.2); Albumin/Globulin Ratio 0.7 (1.0-2.3); Alkaline Phosphatase 64 U/L (39-117); Bilirubin,Direct < 0.2 mg/dL (0.0-0.3); Blood Urea Nitrogen 28 mg/dl (8-23); Gamma Glutamyl Transpeptidase 62 U/L (8-61); Uric Acid 3.6 mg/dL (2.5-8.0)
[2017-11-28] MEDS: glipiZIDE 5 MG TABLET PO SCH ×2 (07:07→16:51)
[2017-11-28] MEDS: HYDROcodone/APAP 5/325MG TABLET PO PRN ×2 (07:12→20:50)
[2017-11-28] MEDS: INSULIN LISPRO 1 UNIT/0.01 ML UNIT SQ SCH ×4 (07:16→20:51)
[2017-11-28 07:45] LABS: Band Neutrophils % 1 % (0-10); Lymphocytes % 12 % (15-49); Metamyelocytes % 2 % (0-0); Monocytes % (Manual) 4 % (1-12); Platelet Estimate NORMAL (NORMAL); RBC Morphology NORMAL (NORMAL); Segmented Neutrophils % 81 % (38-78)
[2017-11-28] MEDS: METOPROLOL SUCCINATE 50 MG TAB.XL.24H PO SCH (08:14)
[2017-11-28] MEDS: ASPIRIN 81 MG TAB.CHEW PO SCH (08:33)
[2017-11-28] MEDS: VANCOMYCIN 1,500 MG in 0.9 % SODIUM CHLORIDE 500 ML IV SCH (08:33)
[2017-11-28] MEDS: LOSARTAN 50 MG TABLET PO SCH (08:34)
[2017-11-28] MEDS: DOCUSATE SODIUM 100 MG CAPSULE PO SCH ×2 (08:34→20:50)
[2017-11-28] MEDS: predniSONE 10 MG TABLET PO SCH (08:34)
[2017-11-28] MEDS: HEPARIN 5,000 UNIT/ML VIAL SQ SCH ×2 (08:34→20:49)
[2017-11-28] MEDS: 0.9 % SODIUM CHLORIDE 500 ML IV SCH (09:02)
[2017-11-28] MEDS: 0.9 % SODIUM CHLORIDE 250 ML IV SCH (11:18)
--- NOTE | 2017-11-28 17:39 | Internal Med Progress Note ---
Medical - PN: Subj Patient information: Note initiated : 11/28/17 at 5:36 pm Service Date, if different from initiated Date: [] Patient: Sunny Ace 77 y/o M admitted on 11/23/17 for Weakness/Sepsis. Chief Complaint: [] Interval history: patient admitted with severe sepsis/acute pyelonephritis. Elevated lactate systolics in mid 70. crystalloid boluses. Blood cultures drawn. Broad antibiotic coverage including Levaquin/ceftriaxone for empiric gram-negative coverage. Admitted to ICU. Continue crystalloids bolus to keep map at goal. Start pressors if evidence of end organ hypoperfusion. Trend venous lactate. white count at 14.3. lactic acid 5.7 11/24- clinically improving.lactic acid 3.5. White count downtrending. Renal ultrasound pending to rule out obstructive uropathy. no overnight chills headache or confusion. 2 out of 2 gram-positive cocci on blood cultures. Antibiotic coverage extended with vancomycin. DC Levaquin. Systolics low 90 despite crystalloids. Start Levophed today. Serial lactate trending. 11/25-patient doing remarkably better. Off pressors. White count downtrending at 9.2. Back pain improved. Alert and lucid. surveillance cultures negative so far. multiple blood cultures positive for gram-positive cocci. Repeat surveillance cultures. Sensitivities pending. lactic acid down from 5.7-1.4. creatinine down to 1. otherwise no overnight events including telemetry changes or concerns per nursing staff. 11/26- surveillance cultures positive. Echocardiogram today to rule out infective endocarditis. CT chest abdomen pelvis ordered for evaluation of intra -abdominal/thoracic focus. if transthoracic negative consider transesophageal echo. Wirt criteria positive. Continue surveillance culture and vancomycin. Stable hemodynamics. 11/27- 04/24 blood cultures positive.continue surveillance culture. no evidentjoint swelling/septic arthritis or skin lesions. CT abdomen pelvis and chest unremarkable for focus of infection. Transthoracic echo no evidence of endocarditis. Case discussed with [facility] disease specialist Dr. Gael Brandt who recommended stress esophageal echocardiogram. Case of similar discussed with [facility] and patient was accepted by hospitalist service however due to lack of availability of beds currently transfer is on hold. Patient is on vancomycin. thank you stable. Transfer to medical floor. Off pressors. Stable hemodynamics. White count 9.4. renal function normalized 11/28-patient doing well. No overnight events. On antibiotic coverage. Surveillance cultures continues to be positive and now 10 out of 10.no overnight fever or chills. Stable hemodynamics. Currently on medical floor. Awaiting transfer to tertiary Center for transesophageal echocardiogram and further workup of bacteremia/ID consult. - Constitutional Vitals: Vital Signs Temp Pulse Resp BP Pulse Ox 98.5 F 66 16 108/66 95 11/28/17 15:55 11/28/17 04:00 11/28/17 15:55 11/28/17 15:55 11/28/17 15:55 Period Temp Pulse Resp BP Sys/[place] Pulse Ox Last 24 Hr 96.6 F-98.5 F 66-90 - 108-126/52-66 95-99 Intake and Output 11/28/17 11/28/17 11/28/17 05:59 13:59 21:59 Intake Total 550 / 550 500 / 500 600 / 600 Output Total 1125 / 1125 950 / 950 200 / 200 Balance -575 / -575 -450 / -450 400 / 400 Weight 201 lb 8 oz Patient Weight 11/29/17 05:59 Weight 201 lb 8 oz Intake & Output: Intake & Output 11/28/17 11/28/17 11/28/17 05:59 13:59 21:59 Intake Total 550 / 550 500 / 500 600 / 600 Output Total 1125 / 1125 950 / 950 200 / 200 Balance -575 / -575 -450 / -450 400 / 400 Weight 201 lb 8 oz Intake: IV 500 / 500 Vancomycin 1,500 mg In Sodium 500 / 500 Chloride 0.9% 500 ml @ 333.3 mls/hr IV Q24H [facility] Rx#: [id number] Oral 550 / 550 600 / 600 Output: Void Amount 1125 / 1125 950 / 950 200 / 200 Other: Meal Lunch Percent of Meal Consumed 75% # Voids 3 1 General appearance: cooperative, no acute distress Exam: alert oriented nonlabored breathing Nondistended abdomen Anxiety Medical - PN: Obj Da - Labs CBC & Chem 7: 11/28/17 04:43 11/28/17 04:43 Labs: Abnormal Lab Results 11/28/17 11/28/17 11/27/17 04:43 04:43 08:05 WBC 11.2 H RBC 4.45 L Hgb Hct 40.4 L RDW 14.8 H Seg Neutrophils % 81 H Lymphocytes % 12 L Metamyelocytes % 2 H WBC Morphology Hypersegmented Polys RBC Morphology Anisocytosis BUN 28 H Glucose Calcium 8.5 L Phosphorus 2.3 L GGT 62 H Total Protein 5.5 L Albumin 2.2 L Albumin/Globulin Ratio 0.7 L Vancomycin Trough 20.9 H* 11/27/17 11/27/17 11/26/17 03:41 03:41 03:45 WBC RBC 4.36 L Hgb 13.4 L Hct 39.9 L RDW 15.3 H Seg Neutrophils % 83 H Lymphocytes % 8 L Metamyelocytes % WBC Morphology Hypersegmented Polys RBC Morphology Abnorm A Anisocytosis 1+ A BUN 28 H 31 H Glucose 170 H 151 H Calcium 8.2 L 8.3 L Phosphorus 2.6 L GGT Total Protein 5.2 L 5.1 L Albumin 2.0 L 1.9 L Albumin/Globulin Ratio 0.6 L 0.6 L Vancomycin Trough 11/26/17 03:45 WBC RBC 4.35 L Hgb 13.3 L Hct 39.9 L RDW 15.7 H Seg Neutrophils % 86 H Lymphocytes % 12 L Metamyelocytes % WBC Morphology Abnorm A Hypersegmented Polys 1+ A RBC Morphology Abnorm A Anisocytosis 1+ A BUN Glucose Calcium Phosphorus GGT Total Protein Albumin Albumin/Globulin Ratio Vancomycin Trough Meds: Medications Acetaminophen (Tylenol) 650 mg PO Q4-6HP PRN PRN Reason: PAIN/FEVER > 101 Hydrocodone Bitart/Acetaminophen ([place] 5/325mg) 0 tab PO Q4HP PRN PRN Reason: PAIN LEVEL 3-6 Last Admin: 11/28/17 07:12 Dose: 2 tab Aspirin (Aspirin) 81 mg PO DAILY [facility] Last Admin: 11/28/17 08:33 Dose: 81 mg Dextrose (Dextrose 50%) 0 ml IV UD PRN PRN Reason: Hypoglycemia Diagnostic Test (Pha) (Accu-Chek) 1 each FS ACHS [facility] Last Admin: 11/28/17 16:51 Dose: 1 each Docusate Sodium (Colace) 100 mg PO BID [facility] Last Admin: 11/28/17 08:34 Dose: 100 mg Glipizide (Glucotrol) 5 mg PO BIDAC [facility] Last Admin: 11/28/17 16:51 Dose: 5 mg Glucose (Insta-Glucose) 15 gm PO PRN PRN PRN Reason: Hypoglycemia Guaifenesin/Codeine Phosphate (Robitussin Ac) 10 ml PO Q4HP PRN PRN Reason: Cough Heparin Sodium (Porcine) (Heparin) 5,000 unit SQ Q12 [facility] Last Admin: 11/28/17 08:34 Dose: 5,000 unit Heparin Sodium (Porcine) (Heparin Flush) 2 ml IV Q12 [facility] Last Admin: 11/28/17 08:13 Dose: Not Given Potassium Chloride 40 meq/ (Dextrose) 520 mls @ 130 mls/hr IV UD PRN PRN Reason: K+ = or < 3.5 Magnesium Sulfate (Magnesium Sulfate) 2 gm in 50 mls @ 50 mls/hr IV UD PRN PRN Reason: MG = or < 1.7 Norepinephrine Bitartrate 16 (mg/ Sodium Chloride) 250 mls @ 9.37 mls/hr IV Q24HP PRN; Protocol; 10 MCG/MIN PRN Reason: TITRATE TO KEEP MAP > 65 Sodium Chloride (Sodium Chloride 0.9%) 250 mls @ 20 mls/hr IV .[id number] [facility] Last Admin: 11/28/17 11:18 Dose: Not Given Sodium Chloride (Sodium Chloride 0.9%) 500 mls @ 20 mls/hr IV .Q24H [facility] Last Admin: 11/28/17 09:02 Dose: Not Given Acetaminophen (Ofirmev) 1,000 mg in 100 mls @ 200 mls/hr IV Q6HP PRN PRN Reason: PAIN/FEVER > 101 Vancomycin HCl 1,500 mg/ (Sodium Chloride) 500 mls @ 333.3 mls/hr IV Q24H [facility] Last Infusion: 11/28/17 10:15 Dose: Infused Insulin Human Lispro (Humalog) 0 unit SQ ACHS [facility] PRN Reason: Protocol Last Admin: 11/28/17 16:56 Dose: 10 unit Losartan Potassium (Cozaar) 50 mg PO DAILY [facility] Last Admin: 11/28/17 08:34 Dose: 50 mg Methocarbamol (Robaxin) 750 mg PO Q6HP PRN PRN Reason: Muscle Spasm Metoprolol Succinate (Toprol Xl) 100 mg PO DAILY [facility] Last Admin: 11/28/17 08:14 Dose: Not Given Ondansetron HCl (Zofran) 4 mg IV Q4-6HP PRN PRN Reason: Nausea And Vomiting Canagliflozin [ Invokana] 100 Mg Tablet 1 dose PO ACB [facility] Last Admin: 11/28/17 08:35 Dose: 1 dose Potassium Chloride (Klor-Con) 40 meq PO DAILYP PRN PRN Reason: K+ < 3.5 Prednisone (Prednisone) 40 mg PO QAC [facility] Last Admin: 11/28/17 08:34 Dose: 40 mg Senna/Docusate Sodium (Senna Plus Tablet) 1 tab PO HS [facility] Last Admin: 11/27/17 20:09 Dose: 1 tab Sodium Chloride (Saline Flush) 10 ml IV UD PRN PRN Reason: FLUSH Sodium Chloride (Saline Flush) 10 ml IV Q8 [facility] Last Admin: 11/28/17 13:46 Dose: 10 ml Sodium Chloride (Saline Flush) 10 ml IV Q12 [facility] Last Admin: 11/28/17 08:13 Dose: Not Given Throat Lozenges (Cepacol) 1 lozenge PO PRN PRN PRN Reason: Sore Throat Tramadol HCl (Ultram) 50 mg PO Q6HP PRN PRN Reason: Pain Trazodone HCl (Desyrel) 50 mg PO HSP PRN PRN Reason: Insomnia Vancomycin HCl (Vancomycin Per Pharmacy) 1 order IV [facility] [place] Medical - PN: A/P - Time Spent With Patient Total time spent is greater than 50% in coordination of care (as documented) at patient's floor/unit and/or counseling patient: 15 - 24 minutes (1) Septic shock Status: Acute Assessment and plan: * MRSA bacteremia 10/10 positive blood cultures.dditional surveillance cultures drawn. unclear source. CT abdomen and pelvis chest no identifiable source for acute process. TTE negative for vegetation. patient needs DENISSE at tertiary Center. no known hardware implants. continue vancomycin. avoid PICC line until cultures negative. * Septic shock- clinically resolved. Off pressors. Continue antibiotics * acute pyelonephritis-clinically resolved.repeat UA * New onset A. fib- converted to sinus today.on metoprolol * History of PMR on oral steroids. * history of hypertension resume oral antihypertensives at half dose * DM type II continue sliding scale insulin. restart glipizide * DVT prophylaxis on heparin Plan * continue vancomycin for a minimum of 6 weeks * continue surveillance cultures * repeat UA * transfer to tertiary Center once bed available * pre-existing medical issue continue home meds Current Visit: Yes Medical - PN: Qual - VTE Deep Vein Thrombosis/Pulmonary Embolism Present on Admission: Yes
[2017-11-28 19:38] LABS: Appearance,Urine CLEAR; Bacteria,Urine 0 /hpf (0); Bilirubin,Urine NEG (NEG); Color,Urine YELLOW; Glucose,Urine (UA) >=500 mg/dL (NEG); Leukocyte Esterase,Urine NEG /uL (NEG); Mucus,Urine FEW /hpf (0); Protein,Urine NEG (NEG); Specific Gravity,Urine 1.027 (1.000-1.035); Urine Blood 0.03 mg/dL (<0.03); Urine RBC 2 /hpf (0-1); Urine Squamous Epithelial Cell 0 /hpf (0-4); Urine WBC 1 /hpf (0-4); Urobilinogen,Urine NEG (NEG)
[2017-11-28] MEDS: SENNOSIDES/DOCUSATE SODIUM 1 TAB TABLET PO SCH (20:50)
[2017-11-29] MEDS: BENZOCAINE/MENTHOL 1 LOZENGE PO PRN ×2 (05:15→05:16)
[2017-11-29] MEDS: 0.9 % SODIUM CHLORIDE 10 ML SYRINGE IV SCH ×7 (05:15→23:10)
[2017-11-29] MEDS: 0.9 % SODIUM CHLORIDE 250 ML IV SCH ×2 (05:16→12:33)
[2017-11-29] MEDS: HYDROcodone/APAP 5/325MG TABLET PO PRN ×2 (06:47→19:15)
[2017-11-29] MEDS: glipiZIDE 5 MG TABLET PO SCH ×2 (07:02→17:37)
[2017-11-29] MEDS: INSULIN LISPRO 1 UNIT/0.01 ML UNIT SQ SCH ×4 (07:11→19:20)
[2017-11-29] MEDS: ASPIRIN 81 MG TAB.CHEW PO SCH (08:25)
[2017-11-29] MEDS: METOPROLOL SUCCINATE 50 MG TAB.XL.24H PO SCH (08:26)
[2017-11-29] MEDS: DOCUSATE SODIUM 100 MG CAPSULE PO SCH ×2 (08:26→19:08)
[2017-11-29] MEDS: HEPARIN 5,000 UNIT/ML VIAL SQ SCH ×2 (08:27→19:15)
[2017-11-29] MEDS: LOSARTAN 50 MG TABLET PO SCH (08:27)
[2017-11-29] MEDS: predniSONE 10 MG TABLET PO SCH (08:44)
[2017-11-29] MEDS: VANCOMYCIN 1,500 MG in 0.9 % SODIUM CHLORIDE 500 ML IV SCH (09:11)
[2017-11-29] MEDS: 0.9 % SODIUM CHLORIDE 500 ML IV SCH (09:25)
[2017-11-29] MEDS ORDERED: DAPTOmycin 500 MG VIAL IV SCH (12:00)
[2017-11-29 13:17] LABS: Basophils # (Auto) 0 K/mcL (0.0-0.3); Basophils % (Auto) 0.2 % (0.0-2.0); Eosinophils # (Auto) 0.2 K/mcL (0.0-0.7); Eosinophils % (Auto) 2.4 % (0.0-7.0); Granulocytes % (Auto) 90.2 % (38.0-78.0); Lymphocytes # (Auto) 0.5 K/mcL (1.5-4.8); Lymphocytes % (Auto) 4.6 % (15.5-49.0); Mean Cell Volume 90.6 fL (80.0-100.0); Mean Corpuscular HGB Conc 33.6 g/dL (31.0-36.0); Mean Corpuscular Hemoglobin 30.4 pg (26.0-34.0); Monocytes # (Auto) 0.3 K/mcL (0.1-0.9); Monocytes % (Auto) 2.6 % (1.0-12.0); Platelet Count 174 K/mcL (140-440); RBC 4.41 M/mcL (4.50-5.90); Red Cell Distribution Width 15.4 % (11.5-14.5)
[2017-11-29 13:22] LABS: ALT/SGPT 45 U/l (0-40); Albumin/Globulin Ratio 0.7 (1.0-2.3); Alkaline Phosphatase 61 U/L (39-117); Bilirubin,Direct < 0.2 mg/dL (0.0-0.3); Blood Urea Nitrogen 27 mg/dl (8-23); Gamma Glutamyl Transpeptidase 65 U/L (8-61); Uric Acid 3.5 mg/dL (2.5-8.0)
[2017-11-29] MEDS ORDERED: VANCOMYCIN PER PHARMACY IV ONE (18:07)
--- NOTE | 2017-11-29 18:10 | Discharge Summary ---
Medical - DS: Prov Patient information: Note initiated : 11/29/17 at 6:08 pm Service Date, if different from initiated Date: [] Patient: Sunny Ace 77 y/o M admitted on 11/23/17 for Weakness/Sepsis. Chief Complaint: [] Date of admission: 11/23/17 17:52 Primary care physician: Federico Vazquez Consults: 11/23/17 15:34 Consult to Physician [CONS] Stat Comment: Consulting Provider: Joel Caban Reason For Exam: Physician to Consult Medical - DS: Meds - Discharge Medications Active and Home Medications: Home Medications aspirin 81 mg tablet,delayed release 81 mg PO QDAY tab 03/08/15 [History Confirmed 11/23/17 Last Taken Unknown] nitroglycerin 0.4 mg sublingual tablet 0.4 mg SUBLINGUAL Q5MIN PRN tab [History Confirmed 11/23/17 Last Taken Unknown] Josh Contour Next EZ Test strips 1 strip NOTAPPLIC TID 08/20/15 [History Confirmed 11/23/17 Last Taken Unknown] canagliflozin 100 mg tablet 100 mg PO QAM #30 tab 07/09/17 [Rx Confirmed Last Taken Unknown] metoprolol succinate ER 100 mg tablet,extended release 24 hr 100 mg PO QDAY 90 Days #90 tab 08/14/17 [Rx Confirmed 11/23/17 Last Taken Unknown] Ibuprofen [Motrin] 600 mg PO Q6HP PRN #20 tab 09/27/17 [Rx Confirmed 11/23/17 Last Taken Unknown] methocarbamol 750 mg tablet 750 mg PO Q6H PRN #20 tab 09/28/17 [Rx Confirmed 06/04 Last Taken Unknown] glipizide 10 mg tablet 10 mg PO BID #180 tab 10/04/17 [Rx Confirmed 11/23/17 Last Taken Unknown] losartan 100 mg-hydrochlorothiazide 12.5 mg tablet See Label Instructions PO QDAY 11/09/17 [History Confirmed 11/23/17 Last Taken Unknown] prednisone 10 mg tablet 20 mg PO TID #150 tab 11/09/17 [Rx Confirmed 11/23/17 Last Taken Unknown] tramadol 50 mg tablet 50 mg PO Q6H PRN #60 tab 11/19/17 [Rx Confirmed 11/23/17 Last Taken Unknown] Medical - DS: Hosp Hospital course: Mr. Ace is a 77 year old M - Time Spent with Patient Total time spent providing and/or coordinating discharge services: Medical - DS: Exam - Constitutional Vitals: Vital Signs Temp Pulse Resp BP Pulse Ox 11/29/17 16:00 98.5 F 80 14 131/77 97 11/29/17 12:00 97 F 85 14 132/77 97 11/29/17 07:18 97.8 F 88 14 136/74 97 11/29/17 04:00 97.2 F 77 14 130/68 99 11/28/17 23:49 98.1 F 89 14 132/66 96 11/28/17 20:00 97.4 F 93 H 16 124/54 97 Intake and Output 11/29/17 11/29/17 11/29/17 05:59 13:59 21:59 Intake Total 240 / 240 980 / 980 600 / 600 Output Total 1000 / 1000 900 / 900 250 / 250 Balance -760 / -760 80 / 80 350 / 350 Intake: IV 500 / 500 Vancomycin 1,500 mg In Sodium 500 / 500 Chloride 0.9% 500 ml @ 333.3 mls/hr IV Q24H [facility] Rx#: [id number] Oral 240 / 240 480 / 480 600 / 600 Output: Void Amount 1000 / 1000 900 / 900 250 / 250 Other: Meal Lunch Percent of Meal Consumed 100% # Voids 2 Medical - DS: Data Labs on day of discharge: Labs from last 24 hours 11/29/17 11/29/17 11/29/17 12:52 09:36 09:36 WBC 10.2 RBC 4.41 L Hgb 13.4 L Hct 39.9 L MCV 90.6 MCH 30.4 MCHC 33.6 RDW 15.4 H Plt Count 174 MPV 7.6 Gran % 90.2 H Lymph % (Auto) 4.6 L [place] % (Auto) 2.6 Eos % (Auto) 2.4 Baso % (Auto) 0.2 Gran # 9.2 H Lymph # (Auto) 0.5 L [place] # (Auto) 0.3 Eos # (Auto) 0.2 Baso # (Auto) 0 Sodium 136 Potassium 3.8 Chloride 100 Carbon Dioxide 23 Anion Gap 13.0 BUN 27 H Creatinine 0.9 GFR Calculation 82 Glucose 166 H Uric Acid 3.5 Calcium 8.1 L Phosphorus 2.1 L Magnesium 2.0 Total Bilirubin 0.5 Direct Bilirubin < 0.2 GGT 65 H AST 26 ALT 45 H Alkaline Phosphatase 61 Lactate Dehydrogenase 202 Troponin T 0.03 Total Protein 5.0 L Albumin 2.0 L Globulin 3.0 Albumin/Globulin Ratio 0.7 L Triglycerides 109 Urine Color Urine Appearance Urine pH Ur Specific [place] Urine Protein Urine Glucose (UA) Urine Ketones Urine Occult Blood Urine Nitrate Urine Bilirubin Urine Urobilinogen Ur Leukocyte Esterase Urine RBC Urine WBC Ur Squamous Epith Cells Urine Bacteria Urine Mucus 11/28/17 18:30 WBC RBC Hgb Hct MCV MCH MCHC RDW Plt Count MPV Gran % Lymph % (Auto) [place] % (Auto) Eos % (Auto) Baso % (Auto) Gran # Lymph # (Auto) [place] # (Auto) Eos # (Auto) Baso # (Auto) Sodium Potassium Chloride Carbon Dioxide Anion Gap BUN Creatinine GFR Calculation Glucose Uric Acid Calcium Phosphorus Magnesium Total Bilirubin Direct Bilirubin GGT AST ALT Alkaline Phosphatase Lactate Dehydrogenase Troponin T Total Protein Albumin Globulin Albumin/Globulin Ratio Triglycerides Urine Color Yellow Urine Appearance Clear Urine pH 5.0 Ur Specific [place] 1.027 Urine Protein Neg Urine Glucose (UA) >=500 A Urine Ketones Neg Urine Occult Blood 0.03 A Urine Nitrate Neg Urine Bilirubin Neg Urine Urobilinogen Neg Ur Leukocyte Esterase Neg Urine RBC 2 H Urine WBC 1 Ur Squamous Epith Cells 0 Urine Bacteria 0 Urine Mucus Few Preliminary micro results at discharge 11/27/17 09:03 Blood Culture - Preliminary Blood Methicillin resistant s.aureus 11/28/17 18:30 Urine Culture - Preliminary Urine - Clean Void Mid-Stream 11/28/17 08:40 Blood Culture - Preliminary Blood Gram positive cocci 11/28/17 08:35 Blood Culture - Preliminary Blood Gram positive cocci 11/25/17 10:54 Blood Culture - Preliminary Blood Methicillin resistant s.aureus 11/25/17 10:50 Blood Culture - Preliminary Blood Methicillin resistant s.aureus 11/27/17 08:55 Blood Culture - Preliminary Blood Gram positive cocci 11/24/17 08:00 Blood Culture - Preliminary Blood Methicillin resistant s.aureus 11/26/17 09:09 Blood Culture - Preliminary Blood Gram positive cocci 11/26/17 09:00 Blood Culture - Preliminary Blood Gram positive cocci 11/24/17 07:53 Blood Culture - Preliminary Blood Methicillin resistant s.aureus 11/23/17 13:35 Blood Culture - Preliminary Blood Gram positive cocci Medical - DS: A/P - Follow up Plan Follow up with: Federico Vazquez MD [Primary Care Provider] - Prognosis: Fair Medical - DS: Qual - VTE Deep Vein Thrombosis/Pulmonary Embolism Present on Admission: Yes
--- NOTE | 2017-11-29 18:27 | Transfer Summary ---
Transfer Discharge Sum: Prov Patient information: Note initiated : 11/29/17 at 6:23 pm Service Date, if different from initiated Date: [] Patient: Sunny Ace 77 y/o M admitted on 11/23/17 for Weakness/Sepsis. Chief Complaint: [] Date of admission: 11/23/17 17:52 Discharge Date: 11/29/17 Primary care physician: Federico Vazquez Admitting clinician: Joel Caban Consults: 11/23/17 15:34 Consult to Physician [CONS] Stat Comment: Consulting Provider: Joel Caban Reason For Exam: Physician to Consult Discharging clinician: Tonio Aguirre Transfer Discharge Sum: Diag - Discharge Diagnosis (1) Bacteremia Status: Acute Transfer Discharge Sum: Med - Medications Active and Home Medications: Home Medications aspirin 81 mg tablet,delayed release 81 mg PO QDAY tab 03/08/15 [History Confirmed 11/23/17] nitroglycerin 0.4 mg sublingual tablet 0.4 mg SUBLINGUAL Q5MIN PRN tab [History Confirmed 11/23/17] Josh Contour Next EZ Test strips 1 strip NOTAPPLIC TID 08/20/15 [History Confirmed 11/23/17] canagliflozin 100 mg tablet 100 mg PO QAM #30 tab 07/09/17 [Rx Confirmed ] metoprolol succinate ER 100 mg tablet,extended release 24 hr 100 mg PO QDAY 90 Days #90 tab 08/14/17 [Rx Confirmed 11/23/17] Ibuprofen [Motrin] 600 mg PO Q6HP PRN #20 tab 09/27/17 [Rx Confirmed 11/23/17] methocarbamol 750 mg tablet 750 mg PO Q6H PRN #20 tab 09/28/17 [Rx Confirmed 06/04] glipizide 10 mg tablet 10 mg PO BID #180 tab 10/04/17 [Rx Confirmed 11/23/17] losartan 100 mg-hydrochlorothiazide 12.5 mg tablet See Label Instructions PO QDAY 11/09/17 [History Confirmed 11/23/17] prednisone 10 mg tablet 20 mg PO TID #150 tab 11/09/17 [Rx Confirmed 11/23/17] tramadol 50 mg tablet 50 mg PO Q6H PRN #60 tab 11/19/17 [Rx Confirmed 11/23/17] Active Medications Acetaminophen (Tylenol) 650 mg PO Q4-6HP PRN PRN Reason: PAIN/FEVER > 101 Hydrocodone Bitart/Acetaminophen (Robinson 5/325mg) 0 tab PO Q4HP PRN PRN Reason: PAIN LEVEL 3-6 Last Admin: 11/29/17 06:47 Dose: 2 tab Aspirin (Aspirin) 81 mg PO DAILY [facility] Last Admin: 11/29/17 08:25 Dose: 81 mg Dextrose (Dextrose 50%) 0 ml IV UD PRN PRN Reason: Hypoglycemia Diagnostic Test (Pha) (Accu-Chek) 1 each FS ACHS [facility] Last Admin: 11/29/17 17:37 Dose: 1 each Docusate Sodium (Colace) 100 mg PO BID [facility] Last Admin: 11/29/17 08:26 Dose: 100 mg Glipizide (Glucotrol) 5 mg PO BIDAC [facility] Last Admin: 11/29/17 17:37 Dose: 5 mg Glucose (Insta-Glucose) 15 gm PO PRN PRN PRN Reason: Hypoglycemia Guaifenesin/Codeine Phosphate (Robitussin Ac) 10 ml PO Q4HP PRN PRN Reason: Cough Heparin Sodium (Porcine) (Heparin) 5,000 unit SQ Q12 [facility] Last Admin: 11/29/17 08:27 Dose: 5,000 unit Potassium Chloride 40 meq/ (Dextrose) 520 mls @ 130 mls/hr IV UD PRN PRN Reason: K+ = or < 3.5 Magnesium Sulfate (Magnesium Sulfate) 2 gm in 50 mls @ 50 mls/hr IV UD PRN PRN Reason: MG = or < 1.7 Norepinephrine Bitartrate 16 (mg/ Sodium Chloride) 250 mls @ 9.37 mls/hr IV Q24HP PRN; Protocol; 10 MCG/MIN PRN Reason: TITRATE TO KEEP MAP > 65 Sodium Chloride (Sodium Chloride 0.9%) 250 mls @ 20 mls/hr IV .[id number] [facility] Last Admin: 11/29/17 12:33 Dose: Not Given Sodium Chloride (Sodium Chloride 0.9%) 500 mls @ 20 mls/hr IV .Q24H [facility] Last Admin: 11/29/17 09:25 Dose: Not Given Acetaminophen (Ofirmev) 1,000 mg in 100 mls @ 200 mls/hr IV Q6HP PRN PRN Reason: PAIN/FEVER > 101 Insulin Human Lispro (Humalog) 0 unit SQ ACHS [facility] PRN Reason: Protocol Last Admin: 11/29/17 17:37 Dose: 8 unit Losartan Potassium (Cozaar) 50 mg PO DAILY [facility] Last Admin: 11/29/17 08:27 Dose: 50 mg Methocarbamol (Robaxin) 750 mg PO Q6HP PRN PRN Reason: Muscle Spasm Metoprolol Succinate (Toprol Xl) 100 mg PO DAILY [facility] Last Admin: 11/29/17 08:26 Dose: 100 mg Ondansetron HCl (Zofran) 4 mg IV Q4-6HP PRN PRN Reason: Nausea And Vomiting Canagliflozin [ Invokana] 100 Mg Tablet 1 dose PO ACB [facility] Last Admin: 11/29/17 07:02 Dose: 1 dose Potassium Chloride (Klor-Con) 40 meq PO DAILYP PRN PRN Reason: K+ < 3.5 Prednisone (Prednisone) 40 mg PO QAC [facility] Last Admin: 11/29/17 08:44 Dose: 40 mg Senna/Docusate Sodium (Senna Plus Tablet) 1 tab PO HS [facility] Last Admin: 11/28/17 20:50 Dose: 1 tab Sodium Chloride (Saline Flush) 10 ml IV UD PRN PRN Reason: FLUSH Sodium Chloride (Saline Flush) 10 ml IV Q8 [facility] Last Admin: 11/29/17 12:51 Dose: 10 ml Sodium Chloride (Saline Flush) 10 ml IV Q12 [facility] Last Admin: 11/29/17 08:45 Dose: 10 ml Throat Lozenges (Cepacol) 1 lozenge PO PRN PRN PRN Reason: Sore Throat Last Admin: 11/29/17 05:16 Dose: 1 lozenge Tramadol HCl (Ultram) 50 mg PO Q6HP PRN PRN Reason: Pain Trazodone HCl (Desyrel) 50 mg PO HSP PRN PRN Reason: Insomnia Vancomycin HCl (Vancomycin Per Pharmacy) 1 order IV ONCE ONE Stop: 11/29/17 18:08 Transfer Discharge Sum: Hosp Hospital course: Patient is a 77 yr male who was admitted with severe sepsis/acute pyelonephritis. Elevated lactate blood pressure systolics in mid 70. crystalloid boluses. Blood cultures drawn. Broad antibiotic coverage including Levaquin/ceftriaxone for empiric gram-negative coverage. Admitted to ICU. Continue crystalloids bolus to keep map at goal. Start pressors if evidence of end organ hypoperfusion. Trend venous lactate. white count at 14.3. lactic acid 5.7 11/24- clinically improving.lactic acid 3.5. White count downtrending. Renal ultrasound pending to rule out obstructive uropathy. no overnight chills headache or confusion. 2 out of 2 gram-positive cocci on blood cultures. Antibiotic coverage extended with vancomycin. DC Levaquin. Systolics low 90 despite crystalloids. Start Levophed today. Serial lactate trending. 11/25-patient doing remarkably better. Off pressors. White count downtrending at 9.2. Back pain improved. Alert and lucid. surveillance cultures negative so far. multiple blood cultures positive for gram-positive cocci. Repeat surveillance cultures. Sensitivities pending. lactic acid down from 5.7-1.4. creatinine down to 1. otherwise no overnight events including telemetry changes or concerns per nursing staff. 11/26- surveillance cultures positive. Echocardiogram today to rule out infective endocarditis. CT chest abdomen pelvis ordered for evaluation of intra -abdominal/thoracic focus. if transthoracic negative consider transesophageal echo. Meigs criteria positive. Continue surveillance culture and vancomycin. Stable hemodynamics. 11/27- 04/24 blood cultures positive.continue surveillance culture. no evident joint swelling/septic arthritis or skin lesions. CT abdomen pelvis and chest unremarkable for focus of infection. Transthoracic echo no evidence of endocarditis. Case discussed with [facility] infectious disease specialist Dr. Gale Brandt who recommended stress esophageal echocardiogram. Case of similar discussed with [employer] and patient was accepted by hospitalist service however due to lack of availability of beds currently transfer is on hold. Patient is on vancomycin. thank you stable. Transfer to medical floor. Off pressors. Stable hemodynamics. White count 9.4. renal function normalized 11/28-patient doing well. No overnight events. On antibiotic coverage. Surveillance cultures continues to be positive and now 10 out of 10.no overnight fever or chills. Stable hemodynamics. Currently on medical floor. Awaiting transfer to tertiary Center for transesophageal echocardiogram and further workup of bacteremia/ID consult. 11/29 Patient remains hemodynamically stable, wbc waxing and waning, Pt notes of pain in the left hip for 1 day and chr right shoulder pain for few months. The patietn was presented to [facility] as there were no bed still at [facility], and was accepted. Patient will likely need DENISSE, Tagged wbc scan and likely MRI scan depending on further localization. patient transferred to [facility] as this facility lacks Infectious disease consult, no medical terminologist for Transesophageal echo, and no nuclear scan for tagged wbc scan. - Time Spent with Patient Total time spent providing and/or coordinating transfer services: Greater than 30 minutes Transfer Discharge Sum: Exam - Constitutional Vitals: Vital Signs Temp Pulse Resp BP Pulse Ox 11/29/17 16:00 98.5 F 80 14 131/77 97 11/29/17 12:00 97 F 85 14 132/77 97 11/29/17 07:18 97.8 F 88 14 136/74 97 11/29/17 04:00 97.2 F 77 14 130/68 99 11/28/17 23:49 98.1 F 89 14 132/66 96 11/28/17 20:00 97.4 F 93 H 16 124/54 97 Intake and Output 11/29/17 11/29/17 11/29/17 05:59 13:59 21:59 Intake Total 240 / 240 980 / 980 600 / 600 Output Total 1000 / 1000 900 / 900 250 / 250 Balance -760 / -760 80 / 80 350 / 350 Intake: IV 500 / 500 Vancomycin 1,500 mg In Sodium 500 / 500 Chloride 0.9% 500 ml @ 333.3 mls/hr IV Q24H [facility] Rx#: [id number] Oral 240 / 240 480 / 480 600 / 600 Output: Void Amount 1000 / 1000 900 / 900 250 / 250 Other: Meal Lunch Percent of Meal Consumed 100% # Voids 2 Additional comments: Constitutional; Afebrile, cooperative, alert, not in distress. Eyes- No icterus, , No periorbital swelling Ears- Ext ear normal, hearing normal to conversation. Neck- Midline trachea, supple Respiratory system: Air Entry equal on both sides, No crackles or wheezing, no rhonchi. CVS- Rate rhythm regular, S1,S2 heard, no gallop, no rub. Abdomen- Soft nontender abdomen, no organomegaly, no tenderness, no guarding or rigidity, CYLINDER FILLER- AOOx3, moving all extremities, no gross focal deficit noted. Transfer Discharge Sum: Data Procedures and tests throughout hospitalization: Pending Orders Chest X ray IMPRESSION: Normal chest. Bladder/ Renal usg Impression:. Simple cyst in the lower pole of the right kidney. The kidneys are otherwise normal. Distended urinary bladder which contains some debris. This could be due to bladder infection or chronic bladder obstruction] CT ABDomen and pelvis and chest CLINICAL INFORMATION: Sepsis. MRSA TECHNIQUE: Axial images to the chest, abdomen, pelvis. 90 mL intravenous contrast material administered. Sagittally and coronally reformatted images COMPARISON: Previous noncontrast enhanced CT scan of the abdomen and pelvis dated 10/04/2017 FINDINGS: CHEST: Focal left lower lobe pulmonary parenchymal density with air bronchograms. Findings may be secondary to atelectasis but pneumonia is not excluded. This is a new finding since 10/04/2017. Lungs are otherwise negative. No other focal pulmonary parenchymal infiltrate or mass. No bronchiectasis. No significant emphysematous change. There are small bilateral pleural effusions, left slightly larger than right. There is severe coronary artery calcification. Patient has undergone previous coronary artery bypass procedure. There is no pericardial effusion. Main pulmonary artery, right pulmonary artery, left pulmonary artery are negative. No intraluminal filling defects. Thoracic aorta is negative. No dissection. No significant aneurysm. There is calcification of the aortic arch and descending thoracic aorta. No thoracic compression fractures. No lytic lesions. No evidence for discitis. No paraspinal soft tissue abnormality. No axillary or supraclavicular adenopathy. No mediastinal or hilar adenopathy. ABDOMEN AND PELVIS: Negative liver. No focal intrahepatic abnormality. No perihepatic fluid. Gallbladder is present. No calcified gallstones. No gallbladder wall thickening or pericholecystic fluid. No dilated bile ducts. Negative pancreas. No pancreatic mass. No peripancreatic abnormality. Negative spleen. Normal enhancement of splenic and portal veins Adrenal glands are negative. No hydronephrosis or hydroureter. There is a right lower pole renal mass consistent with cyst. This measures 2.8 cm and is essentially unchanged. No solid mass. Colon is negative. No diverticulitis. No appendicitis. No detectable colonic mass. Fecal material is prominent suggesting constipation. No free pelvic fluid. No intra-abdominal abscess. No pneumoperitoneum. Severe multilevel degenerative disc disease. No endplate destruction. No evidence for discitis. There are L5 pars defects bilaterally. No sacral fracture. No lytic lesion. There are normal. No fracture. There is calcification of the abdominal aorta. No abdominal aortic aneurysm. No retroperitoneal or mesenteric adenopathy IMPRESSION: 1. Focal left lower lobe pulmonary parenchymal density with air bronchograms. Findings may be due to benign atelectasis but pneumonia is possible. 2. Small bilateral pleural fluid collections 3. Right lower pole renal cysts, unchanged 4. Multilevel degenerative disc disease in the thoracic and lumbar spines. No bone destruction. No evidence for disc infection 5. Prominent fecal material consistent with constipation 6. Severe coronary artery disease. Previous coronary artery bypass procedure Transthoracic echo No vegetations on this study. Transfer Discharge Sum: A/P - Problem Maintenance (1) Bacteremia Status: Acute - Plan Overall status at transfer: patient is not back to baseline Disposition: Xfer Acute [facility] Quality Measure Queries - VTE Deep Vein Thrombosis/Pulmonary Embolism Present on Admission: Yes
[2017-11-29] MEDS ORDERED: VANCOMYCIN 1,500 MG in 0.9 % SODIUM CHLORIDE 500 ML IV ONE (19:00)
[2017-11-29] MEDS: SENNOSIDES/DOCUSATE SODIUM 1 TAB TABLET PO SCH (19:09)
== END 2017-11-29 20:00 | disposition short-term general hospital (02) | DRG 871 ==
LOC: ED 10:42 → ICU 17:52 → MEDSUR 11-27 13:20
PROVIDERS: ADMIT Internal Medicine; ATTEND Internal Medicine

== ENCOUNTER 2018-04-12 10:41 | Inpatient (IN) ==
[2018-04-12] MEDS ORDERED: 0.9 % SODIUM CHLORIDE 1,000 ML IV ONE (11:10)
[2018-04-12] MEDS ORDERED: INSULIN LISPRO 1 UNIT/0.01 ML UNIT SQ STA ×2 (11:20→14:10)
[2018-04-12] MEDS ORDERED: DAPTOmycin 500 MG VIAL IV SCH (11:30)
[2018-04-12 11:31] LABS: Mean Cell Volume 89.4 fL (80.0-100.0); Mean Corpuscular HGB Conc 32.6 g/dL (31.0-36.0); Mean Corpuscular Hemoglobin 29.2 pg (26.0-34.0); Platelet Count 227 K/mcL (140-440); RBC 5.02 M/mcL (4.50-5.90); Red Cell Distribution Width 15.3 % (11.5-14.5)
[2018-04-12] MEDS ORDERED: INSULIN LISPRO 1 UNIT/0.01 ML UNIT SQ ONE ×2 (11:32→14:20)
[2018-04-12] MEDS ORDERED: DAPTOmycin 500 MG VIAL IV ONE (11:37)
[2018-04-12 11:56] LABS: Band Neutrophils % 4 % (0-10); Lymphocytes % 7 % (15-49); Monocytes % (Manual) 5 % (1-12); Platelet Estimate NORMAL (NORMAL); RBC Morphology NORMAL (NORMAL); Segmented Neutrophils % 84 % (38-78); Toxic Granulation OCC (NONE SEEN)
[2018-04-12 12:02] LABS: C-Reactive Protein 18.2 mg/dl (0.0-0.8); Creatine Kinase 58 IU/L (24-195)
[2018-04-12 12:04] LABS: ALT/SGPT 21 U/l (0-40); Albumin 3.2 gm/dL (3.2-5.2); Albumin/Globulin Ratio 0.8 (1.0-2.3); Alkaline Phosphatase 143 U/L (39-117); Blood Urea Nitrogen 77 mg/dl (8-23)
[2018-04-12 12:40] LABS: Appearance,Urine HAZY; Bacteria,Urine FEW /hpf (0); Bilirubin,Urine NEG (NEG); Color,Urine YELLOW; Glucose,Urine (UA) >=500 mg/dL (NEG); Leukocyte Esterase,Urine 250 /uL (NEG); Protein,Urine NEG (NEG); Specific Gravity,Urine 1.025 (1.000-1.035); Urine Blood 0.03 mg/dL (<0.03); Urine RBC 4 /hpf (0-1); Urine Squamous Epithelial Cell 0 /hpf (0-4); Urine WBC 124 /hpf (0-4); Urobilinogen,Urine NEG (NEG)
--- NOTE | 2018-04-12 12:52 | Emergency Department Note ---
General Adult HPI - General Chief complaint: Skin/Abscess/Foreign Body Stated complaint: mrsa infection Time Seen by Provider: 04/12/18 10:55 Source: patient, family Mode of arrival: ambulatory Limitations: no limitations - History of Present Illness HPI Narrative: The patient is a 78-year-old male who presents today for evaluation after a positive blood cultures obtained at the infectious disease doctor's office yesterday. He does have a history of MRSA bacteremia in November and he was initially treated here and then transferred up to the hospital. He had a negative DENISSE on November 30, was discharged on IV vancomycin for 6 weeks and then transitioned to doxycycline for 2 months. he stopped The doxycycline on March 23. Complains of back pain and bilateral shoulder pain. He does have a history of polymyalgia rheumatica and is on 30 mg of prednisone for this. Stating 10 out of 10 pain in his back and he is on hydrocodone that home. He is denying any fevers, chills, nausea or vomiting. Yesterday saw his infectious disease who ordered MRIs of his bilateral shoulders, cervical, thoracic and lumbar spine. These were to be done outpatient. The also obtain blood cultures. Results came back from blood cultures today showing positive MRSA from the nose culture , and 2 positive gram-positive cocci in the blood from the arm cultures. Patient was called from infectious disease office and asked to come into the emergency room Patient also reports that due to the pain last night at around 11:30 PM he passed out and hit the back of his head on the kitchen floor. He denies any vision changes. He does think he had loss of consciousness but isn't exactly sure as it was unobserved. Of note the patient also has a history of poorly controlled type 2 diabetes on insulin and oral medication. - Related Data Home Medications Medication Instructions Recorded Confirmed aspirin 81 mg tablet,delayed 81 mg PO QDAY tab 03/08/15 04/12/18 release losartan 100 See Label Instructions PO QDAY 11/09/17 04/12/18 mg-hydrochlorothiazide 12.5 mg tablet acetaminophen 500 mg capsule 500 mg PO Q6H PRN 04/11/18 04/12/18 Previous Rx's Medication Instructions Recorded metoprolol succinate ER 100 mg 100 mg PO QDAY 90 Days #90 tab 08/14/17 tablet,extended release 24 hr glipizide 10 mg tablet 10 mg PO BID #180 tab 10/04/17 insulin lispro (U-100) 100 unit/mL 8 unit SUB-Q QPM #15 ml 12/28/17 subcutaneous pen blood sugar diagnostic strips See Dose Instructions .ROUTE 12/31/17 .MEDSUPPLY #200 each prednisone 20 mg tablet 20 mg PO QDAY #30 tab 04/08/18 prednisone 5 mg tablet 5 mg PO QDAY #30 tab 04/08/18 Allergies Allergy/AdvReac Type Severity Reaction Status Date / Time metformin Allergy Unknown Unknown Verified 04/12/18 10:46 Azunvzh-[id number]-Oxe Reductase AdvReac Severe myalgia, Verified 04/12/18 10:46 Inhibitor spasms, weakness Review of Systems All systems ED: reviewed and negative except as stated. Past Medical History - Past Medical History Attestation: Yes: The following information was validated with the patient. Medical history: Reports: coronary artery disease, DM, hypertension, other ( Polymyalgia rheumatica). Denies: asthma, cancer, myocardial infarction Surgical history ED: Reports: coronary bypass (CABG) (4 vessel; left forearm harvest of vessel for CABG.) - Social History smoking status: Never smoker Alcohol use: Reports: None Drug use: Reports: none Physical Exam Limitations: no limitations General appearance: alert, in no apparent distress Head: normocephalic, other (bruise on occiuput, no laceration, small hematoma) Eye: Present: normal appearance ENT: normal exam Chest: Present: normal inspection Respiratory: Present: normal lung sounds bilaterally Cardiovascular: Present: regular rate, normal rhythm Abdominal: Present: soft, normal bowel sounds Back: Present: tenderness (diffusely along the vertebral spine from T1-T12, bilateral discomfort on palpation of his shoulders) Neurological: Present: alert, oriented X3 Psychiatric: Present: normal affect, normal mood Skin: Present: warm, dry Course Course Narrative: Patient sent over from infectious disease for positive blood cultures. This was reviewed. Lab work obtained to evaluate for sepsis. Bacteremic so will need to be admitted to the hospital. Per Dr. Ortega, started on IV gentamicin with baseline blood work ordered. He plans to consult after patient was admitted and plans for an inpatient echocardiogram done this week. Vital Signs Temperature 96.8 F L 04/12/18 10:42 Pulse Rate 79 04/12/18 10:42 Respiratory Rate 32 H 04/12/18 10:42 Blood Pressure 136/76 04/12/18 10:42 Pulse Oximetry (%) 97 04/12/18 10:42 Temperature 96.8 F L 04/12/18 10:42 Pulse Rate 71 04/12/18 12:45 Respiratory Rate 20 04/12/18 12:45 Blood Pressure 129/72 04/12/18 12:45 Pulse Oximetry (%) 96 04/12/18 12:45 Medical Decision Making - MDM Narrative Medical decision making narrative: Patient is bacteremic with positive blood cultures and elevated white blood cell count. Per infectious disease MRIs have been ordered but will need to be done when admitted to the inpatient service. Daptomycin ordered. Head imaging pending - Lab Data Lab results reviewed: Yes I reviewed the patient's lab results. Result diagrams: 04/12/18 11:00 04/12/18 11:00 Lab Results 04/12/18 04/12/18 04/12/18 Range/Units 11:00 11:00 11:00 WBC 15.6 H (4.5-11.0) K/mcL RBC 5.02 (4.50-5.90) M/mcL Hgb 14.6 (13.5-16.5) g/dL Hct 44.9 (41.0-55.0) % MCV 89.4 (80.0-100.0) fL MCH 29.2 (26.0-34.0) pg MCHC 32.6 (31.0-36.0) g/dL RDW 15.3 H (11.5-14.5) % Plt Count 227 (140-440) K/mcL MPV 8.4 (7.4-10.4) fL Total Counted 100 Seg Neutrophils % 84 H (38-78) % Band Neutrophils % 4 (0-10) % Lymphocytes % 7 L (15-49) % Monocytes % (Manual) 5 (1-12) % WBC Morphology Abnorm A (NORMAL) Toxic Granulation Occ A (NONE SEEN) Platelet Estimate Normal (NORMAL) RBC Morphology Normal (NORMAL) ESR (0-15) mm/hr VBG Lactic Acid 1.9 (0.5-2.2) mmol/L Sodium 128 L (133-145) mmol/L Potassium 5.3 H (3.3-5.1) mmol/L Chloride 92 L (96-108) mmol/L Carbon Dioxide 23 (22-30) mmol/L Anion Gap 13.0 (8-16) BUN 77 H (8-23) mg/dl Creatinine 1.8 H (0.7-1.2) mg/dl GFR Calculation 35 BUN/Creatinine Ratio Glucose 700 H* (70-105) mg/dL Calcium 10.1 (8.6-10.4) mg/dl Total Bilirubin 0.6 (0.0-1.0) mg/dL AST 11 (0-37) U/l ALT 21 (0-40) U/l Alkaline Phosphatase 143 H (39-117) U/L Total Creatine Kinase (24-195) IU/L C-Reactive Protein (0.0-0.8) mg/dl Total Protein 7.0 (5.9-8.4) gm/dL Albumin 3.2 (3.2-5.2) gm/dL Globulin 3.8 H (2.2-3.7) gm/dL Albumin/Globulin Ratio 0.8 L (1.0-2.3) Urine Color Urine Appearance Urine pH (5.0-9.0) Ur Specific [place] (1.000-1.035) Urine Protein (NEG) mg/dL Urine Glucose (UA) (NEG) mg/dL Urine Ketones (NEG) mg/dL Urine Occult Blood (<0.03) mg/dL Urine Nitrate (NEG) Urine Bilirubin (NEG) mg/dL Urine Urobilinogen (NEG) mg/dL Ur Leukocyte Esterase (NEG) /uL Urine RBC (0-1) /hpf Urine WBC (0-4) /hpf Ur Squamous Epith Cells (0-4) /hpf Urine Bacteria (0) /hpf Ur Culture Indicated? 04/12/18 04/12/18 04/12/18 Range/Units 11:00 11:00 12:10 WBC (4.5-11.0) K/mcL RBC (4.50-5.90) M/mcL Hgb (13.5-16.5) g/dL Hct (41.0-55.0) % MCV (80.0-100.0) fL MCH (26.0-34.0) pg MCHC (31.0-36.0) g/dL RDW (11.5-14.5) % Plt Count (140-440) K/mcL MPV (7.4-10.4) fL Total Counted Seg Neutrophils % (38-78) % Band Neutrophils % (0-10) % Lymphocytes % (15-49) % Monocytes % (Manual) (1-12) % WBC Morphology (NORMAL) Toxic Granulation (NONE SEEN) Platelet Estimate (NORMAL) RBC Morphology (NORMAL) ESR 89 H (0-15) mm/hr VBG Lactic Acid (0.5-2.2) mmol/L Sodium Cancelled (133-145) mmol/L Potassium Cancelled (3.3-5.1) mmol/L Chloride Cancelled (96-108) mmol/L Carbon Dioxide Cancelled (22-30) mmol/L Anion Gap Cancelled (8-16) BUN Cancelled (8-23) mg/dl Creatinine Cancelled (0.7-1.2) mg/dl GFR Calculation Cancelled BUN/Creatinine Ratio Cancelled Glucose Cancelled (70-105) mg/dL Calcium Cancelled (8.6-10.4) mg/dl Total Bilirubin Cancelled (0.0-1.0) mg/dL AST Cancelled (0-37) U/l ALT Cancelled (0-40) U/l Alkaline Phosphatase Cancelled (39-117) U/L Total Creatine Kinase 58 (24-195) IU/L C-Reactive Protein 18.2 H (0.0-0.8) mg/dl Total Protein Cancelled (5.9-8.4) gm/dL Albumin Cancelled (3.2-5.2) gm/dL Globulin Cancelled (2.2-3.7) gm/dL Albumin/Globulin Ratio Cancelled (1.0-2.3) Urine Color Yellow Urine Appearance Hazy Urine pH 6.0 (5.0-9.0) Ur Specific [place] 1.025 (1.000-1.035) Urine Protein Neg (NEG) mg/dL Urine Glucose (UA) >=500 A (NEG) mg/dL Urine Ketones Neg (NEG) mg/dL Urine Occult Blood 0.03 A (<0.03) mg/dL Urine Nitrate Pos A (NEG) Urine Bilirubin Neg (NEG) mg/dL Urine Urobilinogen Neg (NEG) mg/dL Ur Leukocyte Esterase 250 A (NEG) /uL Urine RBC 4 H (0-1) /hpf Urine WBC 124 H (0-4) /hpf Ur Squamous Epith Cells 0 (0-4) /hpf Urine Bacteria Few A (0) /hpf Ur Culture Indicated? Yes Disposition Pt seen by SYSTEMATIC THEOLOGY PROFESSOR/PA only: No Clinical Impression: Bacteremia Disposition: Xfer As Inpt ([facility]) Condition: Fair Referrals: Federico Vazquez MD [Primary Care Provider] -
--- NOTE | 2018-04-12 14:45 | Cat Scan Report ---
CLINICAL INFORMATION: Trauma on anticoagulation COMPARISON: None. TECHNIQUE: 2.5 mm helical slices were obtained in the skull base to vertex. Following reconstruction, axial reformatted images were reviewed at bone and parenchymal windows. The exam was performed using radiation dose optimization techniques including, but not limited to, automated exposure control, adjustment of the mA and/or kV according to patient size and use of iterative reconstruction technique. FINDINGS: The ventricles, sulci, fissures, and cisterns are symmetrically enlarged bowel with mild age-related atrophy - no extra-axial fluid collections or masses appreciated. Mild chronic ischemic changes deep cerebral white matter - expected for age. No intracerebral hemorrhage, mass effect edema or other acute finding. Bone windows shows no fracture or other osseous abnormality IMPRESSION: Mild atrophy and chronic ischemic changes in the cerebral white matter expected for age. No intracerebral hemorrhage. Interpreted and Authenticated by: Tony Alvarado 04/12/18
[2018-04-12] MEDS: HYDROmorphone 2 MG/ML VIAL IV PRN (14:56)
[2018-04-12] MEDS ORDERED: DEXTROSE 31 GM ORAL.SUSP PO PRN (16:34)
[2018-04-12] MEDS ORDERED: DEXTROSE 50% 50 ML VIAL IV PRN (16:34)
[2018-04-12] MEDS ORDERED: ACETAMINOPHEN 325 MG TABLET PO PRN (16:34)
[2018-04-12] MEDS ORDERED: ONDANSETRON 4 MG/2 ML VIAL IV PRN (16:34)
[2018-04-12] MEDS ORDERED: NALOXONE HCL 0.4 MG/ML VIAL IV PRN (16:34)
[2018-04-12] MEDS ORDERED: LACTATED RINGERS 1,000 ML IV ONE (16:34)
[2018-04-12] MEDS ORDERED: IPRATROPIUM/ALBUTEROL 3 ML AMPUL.NEB NEB PRN (16:34)
[2018-04-12 17:04] LABS: Creatine Kinase 57 IU/L (24-195)
[2018-04-12] MEDS: HYDROcodone/APAP 5/325MG TABLET PO PRN ×2 (17:08→22:11)
[2018-04-12] MEDS: INSULIN LISPRO 1 UNIT/0.01 ML UNIT SQ SCH ×2 (17:34→22:12)
--- NOTE | 2018-04-12 18:14 | Internal Med History&Physical ---
Medical - H&P: HPI Patient information: Note initiated : 04/12/18 at 6:11 pm Service Date, if different from initiated Date: [] Patient: Sunny Ace a 78 y/o M admitted on 04/12/18 for mrsa infection. Chief Complaint: [] History of present illness: Mr. Ace is a 78 year old Male with h/o mrsa bactermia, in november, s/p treatment presents to the hospital after being referred here from the ID clinic The patient has been having worsening pain in the throacic spine and bilateral shoulder for the last 4-5 days, he also notes he is progressively getting weaker and not feeling quite right. He notes weakness in his legs that he is unable to climb stairs as before. He denies any sensory loss, bowel bladder incontinence. he notes he passed out last night while taking food out of the refrigerator, but unable to elaborate more. The patient was at [facility] and had extensive workup including DENISSE, multiple MRI in november for bactermia, it seems alos had some aspiration of right shoulder bursa, workup seems to have been negative, Treated with abx I believe vanco and had good response untill now. patient also has PMR and significant DJD so some symptoms were confounding. His workup in the recent ID clinic showed worsening wbc, his blood cultures ordered were positive for GPC and the patient was asked to come to the ER for further evaluation. 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) Hx of colonic polyps (Chronic) CAD (coronary artery disease) (Chronic) Septicemia (Acute) Family history: reviewed and not pertinent Medical - H&P: Meds Home Medications Medication Instructions Recorded Confirmed Type aspirin 81 mg tablet,delayed 81 mg PO QDAY tab 03/08/15 04/12/18 History release metoprolol succinate ER 100 mg 100 mg PO QDAY 90 Days #90 tab 08/14/17 04/12/18 Rx tablet,extended release 24 hr glipizide 10 mg tablet 10 mg PO BID #180 tab 10/04/17 04/12/18 Rx losartan 100 See Label Instructions PO QDAY 11/09/17 04/12/18 History mg-hydrochlorothiazide 12.5 mg tablet insulin lispro (U-100) 100 unit/mL 8 unit SUB-Q QPM #15 ml 12/28/17 04/12/18 Rx subcutaneous pen blood sugar diagnostic strips See Dose Instructions .ROUTE 12/31/17 04/11/18 Rx .MEDSUPPLY #200 each prednisone 20 mg tablet 20 mg PO QDAY #30 tab 04/08/18 04/12/18 Rx prednisone 5 mg tablet 5 mg PO QDAY #30 tab 04/08/18 04/12/18 Rx acetaminophen 500 mg capsule 500 mg PO Q6H PRN 04/11/18 04/12/18 History Allergies Allergy/AdvReac Type Severity Reaction Status Date / Time metformin Allergy Unknown Unknown Verified 04/12/18 10:46 [id number]-Buv-Exe Reductase AdvReac Severe myalgia, Verified 04/12/18 10:46 Inhibitor spasms, weakness Medical - H&P: Exam - Constitutional Vitals: Temp Pulse Resp BP Pulse Ox 96.8 F L 76 29 H 150/75 97 04/12/18 16:45 04/12/18 16:45 04/12/18 16:45 04/12/18 16:45 04/12/18 16:45 Exam: GENERAL: The patient is a well-developed, well-nourished in no apparent distress. Is alert and oriented x3. VITAL SIGNS: Reviewed and as noted elsewhere. HEENT: Head is normocephalic and atraumatic. Extraocular muscles are intact. Pupils are equal, round, and reactive to light. Nares appeared normal. Mouth appears any without lesions. Mucous membranes are moist. hard of hearing. NECK: Normal to inspection, Supple, No lymphadenopathy or thyromegaly. LUNGS: Air entry equal on both sides, no wheezing, crackles or rhonchi noted. No accessory muscles of respiration HEART: Regular rate and rhythm normal, S1 and S2 heard, no Gallop, S3 or Rub Noted, No Gross murmur heard. ABDOMEN: Soft, nontender, and nondistended. Positive bowel sounds. No hepatosplenomegaly was noted. Spine- tenderness in the T spine region noted. EXTREMITIES: No cyanosis, clubbing, rash, lesions or edema. NEUROLOGIC: Cranial nerves II through XII are grossly intact. Motor and Sensory System Grossly Intact, 4/5 strength both upper and lower extremity, no sensory loss noted. PSYCHIATRIC: Normal affect, Normal Mood. Appropriate Behavior. SKIN: No ulceration or wounds noted, No jaundice, No rash noted. Medical - H&P: Reslt - Labs CBC & Chem 7: 04/12/18 11:00 04/12/18 11:00 Labs: Short CBC 04/12/18 Range/Units 11:00 WBC 15.6 H (4.5-11.0) K/mcL Hgb 14.6 (13.5-16.5) g/dL Hct 44.9 (41.0-55.0) % Plt Count 227 (140-440) K/mcL BMP 04/12/18 04/12/18 11:00 11:00 Sodium 128 L Cancelled Potassium 5.3 H Cancelled Chloride 92 L Cancelled Carbon Dioxide 23 Cancelled BUN 77 H Cancelled Creatinine 1.8 H Cancelled Glucose 700 H* Cancelled Calcium 10.1 Cancelled Cardiac Enzymes 04/12/18 04/12/18 Range/Units 11:00 11:00 Total Creatine Kinase 58 57 (24-195) IU/L Liver Function 04/12/18 04/12/18 Range/Units 11:00 11:00 Total Bilirubin 0.6 Cancelled (0.0-1.0) mg/dL AST 11 Cancelled (0-37) U/l ALT 21 Cancelled (0-40) U/l Alkaline Phosphatase 143 H Cancelled (39-117) U/L Albumin 3.2 Cancelled (3.2-5.2) gm/dL Urine 04/12/18 Range/Units 12:10 Urine Color Yellow Urine Appearance Hazy Urine pH 6.0 (5.0-9.0) Ur Specific Andrews 1.025 (1.000-1.035) Urine Protein Neg (NEG) mg/dL Urine Glucose (UA) >=500 A (NEG) mg/dL - Impressions 12/02 [facility] DENISSE Interpretation Summary A 2D transesophageal echocardiogram with color flow Doppler was performed. A bubble study was performed to evaluate for intracardiac shunting. No evidence for SBE. Informed written consent was obtained from the patient. The left ventricle is normal in size. There is no thrombus. Left ventricular systolic function is normal. The right ventricle is normal in size and function. The interatrial septum is intact with no evidence for an atrial septal defect. Injection of agitated saline documented no interatrial shunt. No atrial thrombus is seen. No thrombus is detected in the left atrial appendage. There is no evidence of mitral valve prolapse. The mitral valve appears normal in structure and function. There is no vegetation seen on the mitral valve. No significant mitral valve stenosis. There is mild mitral regurgitation. The tricuspid valve appears normal in structure and function. There is no tricuspid valve vegetation. There is no tricuspid stenosis. There is mild tricuspid regurgitation. The aortic valve is trileaflet. The aortic valve opens well. There is discrete nodular thickening of the left coronary cusp. There is no aortic valvular vegetation. No aortic stenosis. Trace aortic insufficiency. The pulmonic valve was partially visualized and appears grossly normal in structure and function. There is no vegetation on the pulmonic valve. There is no pulmonic valvular stenosis. There is physiologic pulmonic insufficiency noted. The aortic root is not well visualized. The ascending aorta appears grossly normal. The pulmonary artery is grossly normal in appearance. The pericardium appears normal. No evidence for SBE Right shoulder MRI IMPRESSION: 1. High-grade partial bursal surface sided tear of the right supraspinatus tendon 2.5 cm proximal to the humeral insertion. Mild fluid in the subacromial bursa. 2. Prominent degenerative changes right acromioclavicular joint with inferior bony spurring. Mild fluid subacromial bursa. 3. No significant bone marrow edema or right shoulder joint effusion. 4. Localized edema and enhancement deep aspect of the supraspinatus and infraspinatus muscle bellies. Possible myositis. RUE doppler IMPRESSION: 1. Localized thrombus in the right cephalic vein proximal to mid forearm. MRI lumbar spine IMPRESSION: 1. Nonspecific localized edema anterior to the left psoas. No imaging evidence of osteomyelitis or discitis in the lumbar spine. 2. Severe disc space narrowing L2-3 level with a broad-based posterior central disc protrusion and a disc marginal osteophyte complex. This results in a moderate central canal stenosis with moderate encroachment inferior recesses of the neural foramen bilaterally. 3. Posterior disc protrusion L4-5 level with mild encroachment inferior recess of the left neural foramen and moderate right neural foraminal encroachment. No significant central canal stenosis. 4. Grade 2 spondylolisthesis L5 on S1 with a broad-based posterior disc protrusion and marginal osteophyte complex. No significant central canal stenosis. Severe bilateral neural foraminal encroachment. MRI C spine IMPRESSION: 1. No acute skeletal abnormalities. No findings for discitis/osteomyelitis. 2. Severe degenerative changes throughout the cervical spine as described above. 3. Multilevel disco osteophytic bulging with a fairly large disc protrusion at C6-7. With adjacent facet arthropathy there is resultant mild central canal narrowing at C3-4, severe central canal stenosis at C4-5, mild central canal narrowing at C5-6, and moderate central canal narrowing at C6-7. Normal signal is seen throughout the central cord without evidence for myelomalacia or contusion. 4. Multilevel foraminal narrowing throughout the cervical spine as described. Aside from C2-3 and C7-1 where foramen are patent, the foramen are moderately narrowed bilaterally. MRI lower extremity IMPRESSION: 1. No evidence of osteomyelitis or abscess. 2. There is generalized edema and mild enhancement of musculature and fascial planes involving the iliopsoas muscles, gluteal muscles, and abductor muscles in the pelvis and also involving the musculature in the proximal left thigh. Findings are most prominent in the proximal left thigh. Findings could reflect generalized edema/anasarca. Also consider myositis, particularly in the left thigh. MRI pelvis IMPRESSION: 1. No evidence of osteomyelitis or abscess. 2. There is generalized edema and mild enhancement of musculature and fascial planes involving the iliopsoas muscles, gluteal muscles, and abductor muscles in the pelvis and also involving the musculature in the proximal left thigh. Findings are most prominent in the proximal left thigh. Findings could reflect generalized edema/anasarca. Also consider myositis, particularly in the left thigh. Tagged WBC Scan 04/10/2018 Impression: Normal physiologic uptake of radiopharmaceutical. No acute abnormality in the soft tissues. Nonspecific intense uptake in the right shoulder and in the thoracic spine. Recommend correlation with right shoulder and thoracic spine radiographs. Findings are nonspecific. After review with multiple radiologists, there is a faint uptake of radiotracer in the region of the cecum, right hemiabdomen. While nonspecific, this could represent colitis or other large bowel/soft tissue infection. In the context of the other findings, recommend further evaluation with cross-sectional imaging or plain film radiographs. Medical - H&P: A/P - Narrative A/P Narrative: A/P Persistent Gram positive Bacteremia, endocarditis, vs osteomyelitis vs arthritis. Uncontrolled Diabetes Hyperglycemia Hyponatremia Acute kidney Injury HTN HLD Osteoarthritis syncope Uptake in thoracic right should region, right lower quadrant on recent tagged wbc scan. Plan Admit to tele IV daptomycin Infectious disease consult reviewed their outpatient note, will order MRI as such no neurological deficit for now, MRI to be done in AM echo ordered consider DENISSE repeat if TTE is negative IV fluids insulin ssi for glucose control Resume home meds as appropriate Will consider CT Abdomen once renal function is better to further evaluate the uptake noted on tagged wbc scan. DVT hep sq Diet Carb consistent Full code. 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
[2018-04-12] MEDS: LACTATED RINGERS 1,000 ML IV SCH ×3 (18:55→22:48)
[2018-04-12] MEDS: 0.9 % SODIUM CHLORIDE 10 ML SYRINGE IV SCH (21:28)
[2018-04-12] MEDS ORDERED: OLANZapine 10 MG VIAL IM PRN (21:42)
[2018-04-12] MEDS: INSULIN GLARGINE, HUMAN 1 UNIT/0.01 ML SQ SCH (22:11)
[2018-04-12] MEDS: HEPARIN 5,000 UNIT/ML VIAL SQ SCH (22:51)
[2018-04-12] MEDS ORDERED: OLANZapine 10 MG VIAL IM ONE (23:37)
[2018-04-13] MEDS: HYDROmorphone 2 MG/ML VIAL IV PRN ×4 (00:34→18:59)
[2018-04-13] MEDS: 0.9 % SODIUM CHLORIDE 10 ML SYRINGE IV SCH ×4 (06:00→21:32)
[2018-04-13] MEDS: predniSONE 20 MG TABLET PO SCH (08:32)
[2018-04-13] MEDS: INSULIN LISPRO 1 UNIT/0.01 ML UNIT SQ SCH ×4 (08:33→21:31)
[2018-04-13 08:38] LABS: Basophils # (Auto) 0 K/mcL (0.0-0.3); Basophils % (Auto) 0.3 % (0.0-2.0); Eosinophils # (Auto) 0.1 K/mcL (0.0-0.7); Eosinophils % (Auto) 0.7 % (0.0-7.0); Granulocytes % (Auto) 82.8 % (38.0-78.0); Lymphocytes # (Auto) 1.4 K/mcL (1.5-4.8); Lymphocytes % (Auto) 10.7 % (15.5-49.0); Mean Cell Volume 89.9 fL (80.0-100.0); Mean Corpuscular HGB Conc 32.3 g/dL (31.0-36.0); Monocytes # (Auto) 0.7 K/mcL (0.1-0.9); Monocytes % (Auto) 5.5 % (1.0-12.0); Platelet Count 198 K/mcL (140-440); RBC 4.78 M/mcL (4.50-5.90); Red Cell Distribution Width 15.4 % (11.5-14.5)
[2018-04-13 08:52] LABS: Estimated Average Glucose(eAG) 252 mg/dL; Hemoglobin A1C 10.4 % HGB (4.0-6.0)
[2018-04-13 08:59] LABS: ALT/SGPT 18 U/l (0-40); Albumin 2.5 gm/dL (3.2-5.2); Albumin/Globulin Ratio 0.7 (1.0-2.3); Alkaline Phosphatase 73 U/L (39-117); Bilirubin,Direct < 0.2 mg/dL (0.0-0.3); Blood Urea Nitrogen 51 mg/dl (8-23); Gamma Glutamyl Transpeptidase 30 U/L (8-61); Uric Acid 4.6 mg/dL (2.5-8.0)
[2018-04-13] MEDS: METOPROLOL SUCCINATE 50 MG TAB.XL.24H PO SCH (09:48)
[2018-04-13] MEDS: ASPIRIN 81 MG TAB.CHEW PO SCH (09:48)
[2018-04-13] MEDS: HEPARIN 5,000 UNIT/ML VIAL SQ SCH ×2 (09:49→21:31)
[2018-04-13] MEDS: DEXTROSE 5%-LR W/20MEQ KCL 1,000 ML IV SCH ×2 (10:15→23:53)
[2018-04-13] MEDS: DAPTOmycin 500 MG VIAL IV SCH (10:59)
[2018-04-13] MEDS: GABAPENTIN 100 MG CAPSULE PO SCH ×2 (15:45→21:32)
--- NOTE | 2018-04-13 15:55 | Internal Med Progress Note ---
Medical - PN: Subj Patient information: Note initiated : 04/13/18 at 3:53 pm Service Date, if different from initiated Date: [] Patient: Sunny Ace a 78 y/o M admitted on 04/12/18 for mrsa infection. Chief Complaint: [] Interval history: Mr. Ace is a 78 year old Male with h/o mrsa bactermia, in november, s/p treatment presents to the hospital after being referred here from the ID clinic The patient has been having worsening pain in the throacic spine and bilateral shoulder for the last 4-5 days, he also notes he is progressively getting weaker and not feeling quite right. He notes weakness in his legs that he is unable to climb stairs as before. He denies any sensory loss, bowel bladder incontinence. he notes he passed out last night while taking food out of the refrigerator, but unable to elaborate more. The patient was at [facility] and had extensive workup including DENISSE, multiple MRI in november for bacteremia, it seems alos had some aspiration of right shoulder bursa, workup seems to have been negative, Treated with abx I believe vanco and had good response untill now. patient also has PMR and significant DJD so some symptoms were confounding. His workup in the recent ID clinic showed worsening wbc, his blood cultures ordered were positive for GPC and the patient was asked to come to the ER for further evaluation. ID client consultant requested pt be on daptomycin, and get multiple MRI of spine nad antwan shoulder 04/13 Pt seen examined,overnight bit agitated, in pain, needing Dilaudid blld cx yesterday positive, todays pending on daptomycin studio technician went home yesterday, not available today not avilable tomorrow even on sunday not sure if we will be able to get the needed studies done given past experiences with the radiology department. will send the patient to [facility] for needed MRI, I think wont happen till tomorrow morning, pt is hemodyamically stable, no neurological deficit so far. WBC trending down. he still has significant pain, started on neurontin, no new neurological deficits Pertinent ROS: Denies headache, dizziness Denies chest pain, palpitations Denies cough or shortness of breath Denies abdominal pain, nausea or vomiting. shoulder pain, neck pain, back pain present. - Constitutional Vitals: Vital Signs Temp Pulse Resp BP Pulse Ox 98.9 F 79 16 131/51 94 04/13/18 11:57 04/13/18 12:01 04/13/18 11:57 04/13/18 12:01 04/13/18 12:01 Period Temp Pulse Resp BP Sys/Centeno Pulse Ox Last 24 Hr 96.8 F-99.2 F 70-94 16-29 92-158/47-91 93-100 Intake and Output 04/13/18 04/13/18 04/13/18 05:59 13:59 21:59 Intake Total 2340 / 2340 Output Total 940 / 940 375 / 375 Balance 1400 / 1400 -375 / -375 Weight 196 lb 14.4 oz Patient Weight 04/14/18 05:59 Weight 196 lb 14.4 oz Intake & Output: Intake & Output 04/13/18 04/13/18 04/13/18 05:59 13:59 21:59 Intake Total 2340 / 2340 Output Total 940 / 940 375 / 375 Balance 1400 / 1400 -375 / -375 Weight 196 lb 14.4 oz Intake: IV 2000 / 2000 Lactated Ringers 1,000 ml @ 250 1000 / 1000 mls/hr IV .Q4H SALTY Rx#: [id number] Oral 340 / 340 Output: Urine Catheter Amount 940 / 940 375 / 375 Other: # Bowel Movements 0 Exam: Constitutional; Afebrile, cooperative, drowsy, not in distress. Eyes- No icterus, , No periorbital swelling Ears- Ext ear normal, hearing normal to conversation. Neck- Midline trachea, supple Respiratory system: Air Entry equal on both sides, No crackles or wheezing, no rhonchi. CVS- Rate rhythm regular, S1,S2 heard, no gallop, no rub. 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 Medical - PN: Obj Da - Labs CBC & Chem 7: 04/13/18 07:48 04/13/18 07:48 Labs: Abnormal Lab Results 04/13/18 04/13/18 04/12/18 07:48 07:48 12:10 WBC 13.1 H RDW 15.4 H Gran % 82.8 H Lymph % (Auto) 10.7 L Gran # 10.9 H Lymph # (Auto) 1.4 L Seg Neutrophils % Lymphocytes % WBC Morphology Toxic Granulation ESR Sodium Potassium Chloride BUN 51 H Creatinine Glucose 167 H Hemoglobin A1c 10.4 H Phosphorus 2.5 L Alkaline Phosphatase C-Reactive Protein Albumin 2.5 L Globulin 3.8 H Albumin/Globulin Ratio 0.7 L Beta-Hydroxybutyrate Urine Glucose (UA) >=500 A Urine Occult Blood 0.03 A Urine Nitrate Pos A Ur Leukocyte Esterase 250 A Urine RBC 4 H Urine WBC 124 H Urine Bacteria Few A 04/12/18 04/12/18 04/12/18 11:00 11:00 11:00 WBC RDW Gran % Lymph % (Auto) Gran # Lymph # (Auto) Seg Neutrophils % Lymphocytes % WBC Morphology Toxic Granulation ESR 89 H Sodium Potassium Chloride BUN Creatinine Glucose Hemoglobin A1c Phosphorus Alkaline Phosphatase C-Reactive Protein 18.2 H Albumin Globulin Albumin/Globulin Ratio Beta-Hydroxybutyrate 0.29 H Urine Glucose (UA) Urine Occult Blood Urine Nitrate Ur Leukocyte Esterase Urine RBC Urine WBC Urine Bacteria 04/12/18 04/12/18 11:00 11:00 WBC 15.6 H RDW 15.3 H Gran % Lymph % (Auto) Gran # Lymph # (Auto) Seg Neutrophils % 84 H Lymphocytes % 7 L WBC Morphology Abnorm A Toxic Granulation Occ A ESR Sodium 128 L Potassium 5.3 H Chloride 92 L BUN 77 H Creatinine 1.8 H Glucose 700 H* Hemoglobin A1c Phosphorus Alkaline Phosphatase 143 H C-Reactive Protein Albumin Globulin 3.8 H Albumin/Globulin Ratio 0.8 L Beta-Hydroxybutyrate Urine Glucose (UA) Urine Occult Blood Urine Nitrate Ur Leukocyte Esterase Urine RBC Urine WBC Urine Bacteria Meds: Medications Acetaminophen (Tylenol) 650 mg PO Q6HP PRN PRN Reason: PAIN/FEVER > 101 Last Admin: 04/12/18 22:11 Dose: 650 mg Hydrocodone Bitart/Acetaminophen (Kirklin 5/325mg) 1 tab PO Q4HP PRN PRN Reason: PAIN LEVEL 3-6 Last Admin: 04/12/18 22:11 Dose: 1 tab Albuterol/Ipratropium (Duoneb) 3 ml NEB Q4HRT PRN PRN Reason: Shortness Of Breath Or Wheezing Aspirin (Aspirin) 81 mg PO DAILY SALTY Last Admin: 04/13/18 09:48 Dose: 81 mg Daptomycin (Cubicin) 750 mg 8 mg/kg (750 mg) IV Q24H [facility] Last Admin: 04/13/18 10:59 Dose: 750 mg Dextrose (Dextrose 50%) 0 ml IV UD PRN PRN Reason: Hypoglycemia Diagnostic Test (Pha) (Accu-Chek) 1 each FS ACHS [facility] Last Admin: 04/13/18 12:30 Dose: 1 each Gabapentin (Neurontin) 100 mg PO Q8 [facility] Last Admin: 04/13/18 15:45 Dose: 100 mg Glucose (Insta-Glucose) 15 gm PO PRN PRN PRN Reason: Hypoglycemia Heparin Sodium (Porcine) (Heparin) 5,000 unit SQ Q12 [facility] Last Admin: 04/13/18 09:49 Dose: 5,000 unit Hydromorphone HCl (Dilaudid) 0.5 mg IV Q4-6HP PRN PRN Reason: PAIN LEVEL > 6 Last Admin: 04/13/18 15:46 Dose: 0.5 mg Potassium Cl/Dextrose/Lact Ringer's (Dextrose 5%-Lr W/20meq Kcl) 1,000 mls @ 75 mls/hr IV .[id number] [facility] Last Admin: 04/13/18 10:15 Dose: 75 mls/hr Insulin Glargine (Lantus) 20 unit SQ HS [facility] Last Admin: 04/12/18 22:11 Dose: 20 unit Insulin Human Lispro (Humalog) 0 unit SQ ACHS [facility]; Protocol Last Admin: 04/13/18 12:47 Dose: 6 unit Metoprolol Succinate (Toprol Xl) 100 mg PO DAILY [facility] Last Admin: 04/13/18 09:48 Dose: 100 mg Naloxone HCl (Narcan) 0.1 mg IV Q2MIN PRN PRN Reason: Opiate Reversal Olanzapine (Zyprexa) 5 mg IM Q6HP PRN PRN Reason: Agitation Ondansetron HCl (Zofran) 4 mg IV Q4HP PRN PRN Reason: Nausea And Vomiting [facility] Last Admin: 04/13/18 08:32 Dose: 20 mg Sodium Chloride (Saline Flush) 10 ml IV Q8 [facility] Last Admin: 04/13/18 13:32 Dose: Not Given Medical - PN: A/P - Time Spent With Patient Total time spent is greater than 50% in coordination of care (as documented) at patient's floor/unit and/or counseling patient: - Narrative A/P Narrative: A/P Persistent Gram positive Bacteremia, endocarditis, vs osteomyelitis vs arthritis. Uncontrolled Diabetes Hyperglycemia Hyponatremia- resolved Acute kidney Injury HTN HLD Osteoarthritis syncope- head ct neg Uptake in thoracic right should region, right lower quadrant on recent tagged wbc scan. Plan continue to monitor on tele for now IV daptomycin to continue Infectious disease consult reviewed their outpatient note, will order MRI as such no neurological deficit for now, MRI to be done in AM sunday, given today was not possible even at [facility]. echo ordered consider DENISSE repeat if TTE is negative and pt remains bactermic IV fluids insulin ssi for glucose control Resume home meds as appropriate Will consider CT Abdomen once renal function is better to further evaluate the uptake noted on tagged wbc scan. DVT hep sq Diet Carb consistent Full code. Medical - PN: Qual - Stroke Symptom Onset Unknown: No - VTE Deep Vein Thrombosis/Pulmonary Embolism Present on Admission: No
[2018-04-13] MEDS: HYDROcodone/APAP 5/325MG TABLET PO PRN ×2 (18:58→22:57)
[2018-04-13] MEDS: INSULIN GLARGINE, HUMAN 1 UNIT/0.01 ML SQ SCH (21:31)
[2018-04-14] MEDS: GABAPENTIN 100 MG CAPSULE PO SCH ×3 (05:47→21:16)
[2018-04-14] MEDS: 0.9 % SODIUM CHLORIDE 10 ML SYRINGE IV SCH ×5 (05:48→21:13)
[2018-04-14 05:51] LABS: Basophils # (Auto) 0 K/mcL (0.0-0.3); Basophils % (Auto) 0.2 % (0.0-2.0); Eosinophils # (Auto) 0 K/mcL (0.0-0.7); Eosinophils % (Auto) 0.4 % (0.0-7.0); Granulocytes % (Auto) 79.7 % (38.0-78.0); Lymphocytes # (Auto) 1.7 K/mcL (1.5-4.8); Lymphocytes % (Auto) 14.6 % (15.5-49.0); Mean Cell Volume 90.7 fL (80.0-100.0); Mean Corpuscular HGB Conc 31.9 g/dL (31.0-36.0); Mean Corpuscular Hemoglobin 28.9 pg (26.0-34.0); Monocytes # (Auto) 0.6 K/mcL (0.1-0.9); Monocytes % (Auto) 5.1 % (1.0-12.0); Platelet Count 218 K/mcL (140-440); RBC 4.67 M/mcL (4.50-5.90); Red Cell Distribution Width 15.4 % (11.5-14.5)
[2018-04-14] MEDS: HYDROmorphone 2 MG/ML VIAL IV PRN ×2 (06:25→19:08)
[2018-04-14 06:29] LABS: ALT/SGPT 15 U/l (0-40); Albumin 2.7 gm/dL (3.2-5.2); Albumin/Globulin Ratio 0.8 (1.0-2.3); Alkaline Phosphatase 71 U/L (39-117); Bilirubin,Direct < 0.2 mg/dL (0.0-0.3); Blood Urea Nitrogen 45 mg/dl (8-23); Gamma Glutamyl Transpeptidase 31 U/L (8-61); Uric Acid 5.4 mg/dL (2.5-8.0)
[2018-04-14] MEDS: INSULIN LISPRO 1 UNIT/0.01 ML UNIT SQ SCH ×4 (07:39→21:15)
[2018-04-14] MEDS: DAPTOmycin 500 MG VIAL IV SCH (07:57)
[2018-04-14] MEDS: METOPROLOL SUCCINATE 50 MG TAB.XL.24H PO SCH (10:43)
[2018-04-14] MEDS: ASPIRIN 81 MG TAB.CHEW PO SCH (10:43)
[2018-04-14] MEDS: HEPARIN 5,000 UNIT/ML VIAL SQ SCH ×2 (10:44→21:12)
[2018-04-14] MEDS: predniSONE 20 MG TABLET PO SCH (10:45)
[2018-04-14] MEDS: HYDROcodone/APAP 5/325MG TABLET PO PRN ×3 (10:45→19:35)
--- NOTE | 2018-04-14 14:35 | Internal Med Progress Note ---
Medical - PN: Subj Patient information: Note initiated : 04/14/18 at 2:29 pm Service Date, if different from initiated Date: [] Patient: Sunny Ace a 78 y/o M admitted on 04/12/18 for MRSA Infection. Chief Complaint: [] Interval history: Mr. Ace is a 78 year old Male with h/o mrsa bactermia, in november, s/p treatment presents to the hospital after being referred here from the ID clinic The patient has been having worsening pain in the throacic spine and bilateral shoulder for the last 4-5 days, he also notes he is progressively getting weaker and not feeling quite right. He notes weakness in his legs that he is unable to climb stairs as before. He denies any sensory loss, bowel bladder incontinence. he notes he passed out last night while taking food out of the refrigerator, but unable to elaborate more. The patient was at [facility] and had extensive workup including DENISSE, multiple MRI in november for bacteremia, it seems alos had some aspiration of right shoulder bursa, workup seems to have been negative, Treated with abx I believe vanco and had good response untill now. patient also has PMR and significant DJD so some symptoms were confounding. His workup in the recent ID clinic showed worsening wbc, his blood cultures ordered were positive for GPC and the patient was asked to come to the ER for further evaluation. ID regulatory services consultant requested pt be on daptomycin, and get multiple MRI of spine nad [place] shoulder 04/13 Pt seen examined,overnight bit agitated, in pain, needing Dilaudid blld cx yesterday positive, todays pending on daptomycin a&p technician went home yesterday, not available today not avilable tomorrow even on sunday not sure if we will be able to get the needed studies done given past experiences with the radiology department. will send the patient to [facility] for needed MRI, I think wont happen till tomorrow morning, pt is hemodyamically stable, no neurological deficit so far. WBC trending down. he still has significant pain, started on neurontin, no new neurological deficits 04/14 Patient seen and examined, no acute overnight events. Pain is better controlled when he is not moving however has significant pain in shoulder and back when he tries to move. MRI of the right shoulder C-spine and thoracic spine done. Show some uptake in the thoracic spine region inflammation versus arthritis C-spine and right shoulder is negative for acute infection. We will proceed with lumbar spine sacral and left shoulder MRI tomorrow. We will also proceed with transesophageal echo. Patient's blood cultures continue to remain positive. Patient remains on daptomycin WBC count trending down. Patient's renal function is not yet normal plan to get a CT abdomen and pelvis once kidney function is back to normal. Pertinent ROS: Denies headache, dizziness Denies chest pain, palpitations Denies cough or shortness of breath Denies abdominal pain, nausea or vomiting. - Constitutional Vitals: Vital Signs Temp Pulse Resp BP Pulse Ox 99.1 F H 78 24 H 141/67 95 04/14/18 11:10 04/14/18 11:10 04/14/18 06:34 04/14/18 11:10 04/14/18 11:10 Period Temp Pulse Resp BP Sys/Centeno Pulse Ox Last 24 Hr 98.2 F-100.6 F 76-82 16-24 112-141/59-67 91-97 Intake and Output 04/14/18 04/14/18 04/14/18 05:59 13:59 21:59 Intake Total 1100 / 1100 556 / 556 Output Total 775 / 775 Balance 325 / 325 556 / 556 Intake & Output: Intake & Output 04/14/18 04/14/18 04/14/18 05:59 13:59 21:59 Intake Total 1100 / 1100 556 / 556 Output Total 775 / 775 Balance 325 / 325 556 / 556 Intake: IV 1000 / 1000 556 / 556 Dextrose 5%-Lr W/20Meq KCl 1, 1000 / 1000 556 / 556 000 ml @ 75 mls/hr IV .[id number] [facility] Rx#:[id number] Oral 100 / 100 Output: Urine Catheter Amount 775 / 775 Exam: Constitutional; Afebrile, cooperative, alert, not in distress. Respiratory system: Air Entry equal on both sides, No crackles or wheezing, no rhonchi. CVS- Rate rhythm regular, S1,S2 heard, no gallop, no rub. 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 Medical - PN: Obj Da - Labs CBC & Chem 7: 04/14/18 03:45 04/14/18 03:45 Labs: Abnormal Lab Results 04/14/18 04/14/18 04/14/18 03:45 03:45 03:45 WBC 11.6 H RDW 15.4 H Gran % 79.7 H Lymph % (Auto) 14.6 L Gran # 9.2 H Lymph # (Auto) Seg Neutrophils % Lymphocytes % WBC Morphology Toxic Granulation ESR 99 H Sodium Potassium 5.3 H Chloride BUN 45 H Creatinine 1.5 H Glucose 219 H Hemoglobin A1c Phosphorus Alkaline Phosphatase C-Reactive Protein Albumin 2.7 L Globulin Albumin/Globulin Ratio 0.8 L Beta-Hydroxybutyrate Urine Glucose (UA) Urine Occult Blood Urine Nitrate Ur Leukocyte Esterase Urine RBC Urine WBC Urine Bacteria 04/13/18 04/13/18 04/12/18 07:48 07:48 12:10 WBC 13.1 H RDW 15.4 H Gran % 82.8 H Lymph % (Auto) 10.7 L Gran # 10.9 H Lymph # (Auto) 1.4 L Seg Neutrophils % Lymphocytes % WBC Morphology Toxic Granulation ESR Sodium Potassium Chloride BUN 51 H Creatinine Glucose 167 H Hemoglobin A1c 10.4 H Phosphorus 2.5 L Alkaline Phosphatase C-Reactive Protein Albumin 2.5 L Globulin 3.8 H Albumin/Globulin Ratio 0.7 L Beta-Hydroxybutyrate Urine Glucose (UA) >=500 A Urine Occult Blood 0.03 A Urine Nitrate Pos A Ur Leukocyte Esterase 250 A Urine RBC 4 H Urine WBC 124 H Urine Bacteria Few A 04/12/18 04/12/18 04/12/18 11:00 11:00 11:00 WBC RDW Gran % Lymph % (Auto) Gran # Lymph # (Auto) Seg Neutrophils % Lymphocytes % WBC Morphology Toxic Granulation ESR 89 H Sodium Potassium Chloride BUN Creatinine Glucose Hemoglobin A1c Phosphorus Alkaline Phosphatase C-Reactive Protein 18.2 H Albumin Globulin Albumin/Globulin Ratio Beta-Hydroxybutyrate 0.29 H Urine Glucose (UA) Urine Occult Blood Urine Nitrate Ur Leukocyte Esterase Urine RBC Urine WBC Urine Bacteria 04/12/18 04/12/18 11:00 11:00 WBC 15.6 H RDW 15.3 H Gran % Lymph % (Auto) Gran # Lymph # (Auto) Seg Neutrophils % 84 H Lymphocytes % 7 L WBC Morphology Abnorm A Toxic Granulation Occ A ESR Sodium 128 L Potassium 5.3 H Chloride 92 L BUN 77 H Creatinine 1.8 H Glucose 700 H* Hemoglobin A1c Phosphorus Alkaline Phosphatase 143 H C-Reactive Protein Albumin Globulin 3.8 H Albumin/Globulin Ratio 0.8 L Beta-Hydroxybutyrate Urine Glucose (UA) Urine Occult Blood Urine Nitrate Ur Leukocyte Esterase Urine RBC Urine WBC Urine Bacteria Meds: Medications Acetaminophen (Tylenol) 650 mg PO Q6HP PRN PRN Reason: PAIN/FEVER > 101 Last Admin: 04/12/18 22:11 Dose: 650 mg Hydrocodone Bitart/Acetaminophen ([place] 5/325mg) 1 tab PO Q4HP PRN PRN Reason: PAIN LEVEL 3-6 Last Admin: 04/14/18 10:45 Dose: 1 tab Albuterol/Ipratropium (Duoneb) 3 ml NEB Q4HRT PRN PRN Reason: Shortness Of Breath Or Wheezing Aspirin (Aspirin) 81 mg PO DAILY [facility] Last Admin: 04/14/18 10:43 Dose: 81 mg Daptomycin (Cubicin) 750 mg 8 mg/kg (750 mg) IV Q24H [facility] Last Admin: 04/14/18 07:57 Dose: 750 mg Dextrose (Dextrose 50%) 0 ml IV UD PRN PRN Reason: Hypoglycemia Diagnostic Test (Pha) (Accu-Chek) 1 each FS ACHS [facility] Last Admin: 04/14/18 11:38 Dose: 1 each Gabapentin (Neurontin) 100 mg PO Q8 [facility] Last Admin: 04/14/18 05:47 Dose: Not Given Glucose (Insta-Glucose) 15 gm PO PRN PRN PRN Reason: Hypoglycemia Heparin Sodium (Porcine) (Heparin) 5,000 unit SQ Q12 [facility] Last Admin: 04/14/18 10:44 Dose: 5,000 unit Hydromorphone HCl (Dilaudid) 0.5 mg IV Q4-6HP PRN PRN Reason: PAIN LEVEL > 6 Last Admin: 04/14/18 06:25 Dose: 0.5 mg Insulin Glargine (Lantus) 20 unit SQ HS [facility] Last Admin: 04/13/18 21:31 Dose: 20 unit Insulin Human Lispro (Humalog) 0 unit SQ [facility]; Protocol Last Admin: 04/14/18 11:45 Dose: 6 unit Metoprolol Succinate (Toprol Xl) 100 mg PO DAILY [facility] Last Admin: 04/14/18 10:43 Dose: 100 mg Naloxone HCl (Narcan) 0.1 mg IV Q2MIN PRN PRN Reason: Opiate Reversal Olanzapine (Zyprexa) 5 mg IM Q6HP PRN PRN Reason: Agitation Ondansetron HCl (Zofran) 4 mg IV Q4HP PRN PRN Reason: Nausea And Vomiting Prednisone (Prednisone) 20 mg PO QAC [facility] Last Admin: 04/14/18 10:45 Dose: 20 mg Sodium Chloride (Saline Flush) 10 ml IV Q8 [facility] Last Admin: 04/14/18 07:58 Dose: 10 ml Medical - PN: A/P - Time Spent With Patient Total time spent is greater than 50% in coordination of care (as documented) at patient's floor/unit and/or counseling patient: - Narrative A/P Narrative: A/P Persistent Gram positive Bacteremia, endocarditis, vs osteomyelitis vs arthritis. Uncontrolled Diabetes Hyperglycemia Hyponatremia- resolved Acute kidney Injury HTN HLD Osteoarthritis syncope- head ct neg Uptake in thoracic right should region, right lower quadrant on recent tagged wbc scan. Plan continue to monitor on tele for now , given concern for endocarditis. IV daptomycin to continue Infectious disease consult reviewed their outpatient note, will order MRI as such, T spine, C spine and right shoulder MRi done, will get left shoulder LS and sacral MRI tomorrow no neurological deficit for now, Plan for DENISSE in AM monitor renal function, creat jumped slightly today IV fluids insulin ssi for glucose control Resume home meds as appropriate Will consider CT Abdomen once renal function is better to further evaluate the uptake noted on tagged wbc scan. DVT hep sq Diet Carb consistent Full code. Medical - PN: Qual - Stroke Symptom Onset Unknown: No - VTE Deep Vein Thrombosis/Pulmonary Embolism Present on Admission: No
[2018-04-14 15:45] LABS: Blood Urea Nitrogen 46 mg/dl (8-23)
--- NOTE | 2018-04-14 18:04 | Ultrasound Report ---
CLINICAL INFORMATION: Acute renal failure COMPARISON: Renal ultrasound 11/23/[address] 10/04/2017 FINDINGS: Both kidneys are normal and symmetric in size, position, configuration and echotexture: The right is 10.8 x 6 cm and the left is 10.2 x 4.8 cm. A 3 cm simple cyst in the inferior right kidney is unchanged. There are no solid lesions, stones or hydronephrosis. Arterial blood flow is grossly normal. Melvin catheter decompresses urinary bladder which is grossly normal. IMPRESSION: 3 cm simple cyst inferior right kidney - stable examination is otherwise normal Interpreted and Authenticated by: Tony Alvarado 04/14/18
[2018-04-14] MEDS: INSULIN GLARGINE, HUMAN 1 UNIT/0.01 ML SQ SCH (21:15)
[2018-04-15 05:31] LABS: Basophils # (Auto) 0 K/mcL (0.0-0.3); Basophils % (Auto) 0.2 % (0.0-2.0); Eosinophils # (Auto) 0 K/mcL (0.0-0.7); Eosinophils % (Auto) 0.2 % (0.0-7.0); Granulocytes % (Auto) 86.9 % (38.0-78.0); Lymphocytes # (Auto) 1.1 K/mcL (1.5-4.8); Lymphocytes % (Auto) 9.4 % (15.5-49.0); Mean Cell Volume 89.9 fL (80.0-100.0); Mean Corpuscular HGB Conc 32.2 g/dL (31.0-36.0); Monocytes # (Auto) 0.4 K/mcL (0.1-0.9); Monocytes % (Auto) 3.3 % (1.0-12.0); Platelet Count 216 K/mcL (140-440); RBC 4.65 M/mcL (4.50-5.90); Red Cell Distribution Width 15.4 % (11.5-14.5)
[2018-04-15] MEDS: GABAPENTIN 100 MG CAPSULE PO SCH ×3 (05:33→21:30)
[2018-04-15] MEDS: 0.9 % SODIUM CHLORIDE 10 ML SYRINGE IV SCH ×4 (05:33→21:30)
[2018-04-15 05:54] LABS: ALT/SGPT 14 U/l (0-40); Albumin 2.4 gm/dL (3.2-5.2); Albumin/Globulin Ratio 0.7 (1.0-2.3); Alkaline Phosphatase 69 U/L (39-117); Bilirubin,Direct < 0.2 mg/dL (0.0-0.3); Blood Urea Nitrogen 47 mg/dl (8-23); Gamma Glutamyl Transpeptidase 44 U/L (8-61); Uric Acid 5.4 mg/dL (2.5-8.0)
[2018-04-15] MEDS: HYDROcodone/APAP 5/325MG TABLET PO PRN (07:00)
[2018-04-15] MEDS: INSULIN LISPRO 1 UNIT/0.01 ML UNIT SQ SCH ×4 (07:51→21:00)
[2018-04-15] MEDS: predniSONE 20 MG TABLET PO SCH (08:13)
[2018-04-15] MEDS: HYDROmorphone 2 MG/ML VIAL IV PRN ×2 (08:14→18:29)
[2018-04-15] MEDS: ACETAMINOPHEN 650 MG/65 ML BOTTLE IV SCH ×3 (08:28→21:24)
[2018-04-15] MEDS: DAPTOmycin 500 MG VIAL IV SCH (09:19)
[2018-04-15] MEDS: HEPARIN 5,000 UNIT/ML VIAL SQ SCH ×2 (09:55→21:00)
[2018-04-15] MEDS: ASPIRIN 81 MG TAB.CHEW PO SCH (09:55)
[2018-04-15] MEDS: METOPROLOL SUCCINATE 50 MG TAB.XL.24H PO SCH (09:55)
--- NOTE | 2018-04-15 16:30 | Internal Med Progress Note ---
Medical - PN: Subj Patient information: Note initiated : 04/15/18 at 4:27 pm Service Date, if different from initiated Date: [] Patient: Sunny Ace a 78 y/o M admitted on 04/12/18 for MRSA Infection. Chief Complaint: [] Interval history: Mr. Ace is a 78 year old Male with h/o mrsa bactermia, in november, s/p treatment presents to the hospital after being referred here from the ID clinic The patient has been having worsening pain in the throacic spine and bilateral shoulder for the last 4-5 days, he also notes he is progressively getting weaker and not feeling quite right. He notes weakness in his legs that he is unable to climb stairs as before. He denies any sensory loss, bowel bladder incontinence. he notes he passed out last night while taking food out of the refrigerator, but unable to elaborate more. The patient was at [facility] and had extensive workup including DENISSE, multiple MRI in november for bacteremia, it seems alos had some aspiration of right shoulder bursa, workup seems to have been negative, Treated with abx I believe vanco and had good response untill now. patient also has PMR and significant DJD so some symptoms were confounding. His workup in the recent ID clinic showed worsening wbc, his blood cultures ordered were positive for GPC and the patient was asked to come to the ER for further evaluation. 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 will send the patient to [facility] for needed MRI, I think wont happen till tomorrow morning, pt is hemodyamically stable, no neurological deficit so far. WBC trending down. he still has significant pain, started on neurontin, no new neurological deficits 04/14 Patient seen and examined, no acute overnight events. Pain is better controlled when he is not moving however has significant pain in shoulder and back when he tries to move. MRI of the right shoulder C-spine and thoracic spine done. Show some uptake in the thoracic spine region inflammation versus arthritis C-spine and right shoulder is negative for acute infection. We will proceed with lumbar spine sacral and left shoulder MRI tomorrow. We will also proceed with transesophageal echo. Patient's blood cultures continue to remain positive. Patient remains on daptomycin WBC count trending down. Patient's renal function is not yet normal plan to get a CT abdomen and pelvis once kidney function is back to normal. 04/15 Patient seen and examined, no acute overnight events, microbiology from yesterday still negative, repeat culture sent today the patient is on daptomycin. Infectious disease to see the patient today. I reviewed the images with the radiologist at this facility. 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 Infectious disease physician would like a biopsy of the thoracic vertebrae if signs of infection. We will try to get that scheduled. Patient to complete MRI of the left shoulder lumbar spine and sacral spine later in the day. Plan of care reviewed with the patient. Pertinent ROS: Denies headache, dizziness Denies chest pain, palpitations Denies cough or shortness of breath Denies abdominal pain, nausea or vomiting. significant back pain present - Constitutional Vitals: Vital Signs Temp Pulse Resp BP Pulse Ox 97.3 F 68 22 91/46 91 04/15/18 12:04/15/18 12:01 04/15/18 12:04/15/18 12:04/15/18 12:01 Period Temp Pulse Resp BP Sys/Centeno Pulse Ox Last 24 Hr 97.3 F-98.9 F 68-84 16-22 91-121/46-62 91-97 Intake and Output 04/15/18 04/15/18 04/15/18 05:59 13:59 21:59 Intake Total 50 / 50 65 / 65 Output Total 650 / 650 Balance -600 / -600 65 / 65 Intake & Output: Intake & Output 04/15/18 04/15/18 04/15/18 05:59 13:59 21:59 Intake Total 50 / 50 65 / 65 Output Total 650 / 650 Balance -600 / -600 65 / 65 Intake: IV 65 / 65 Oral 50 / 50 Output: Urine Catheter Amount 650 / 650 Exam: Constitutional; Afebrile, cooperative, alert, not in distress. Eyes- No icterus, , No periorbital swelling Ears- Ext ear normal, hearing normal to conversation. Neck- Midline trachea, supple Respiratory system: Air Entry equal on both sides, No crackles or wheezing, no rhonchi. CVS- Rate rhythm regular, S1,S2 heard, no gallop, no rub. 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 Medical - PN: Obj Da - Labs CBC & Chem 7: 04/15/18 04:00 04/15/18 04:00 Labs: Abnormal Lab Results 04/15/18 04/15/18 04/14/18 04:00 04:00 14:19 WBC 11.9 H RDW 15.4 H Gran % 86.9 H Lymph % (Auto) 9.4 L Gran # 10.3 H Lymph # (Auto) 1.1 L ESR Potassium BUN 47 H 46 H Creatinine 1.6 H 1.7 H Glucose 192 H 272 H Hemoglobin A1c Phosphorus Albumin 2.4 L Globulin Albumin/Globulin Ratio 0.7 L 04/14/18 04/14/18 04/14/18 03:45 03:45 03:45 WBC 11.6 H RDW 15.4 H Gran % 79.7 H Lymph % (Auto) 14.6 L Gran # 9.2 H Lymph # (Auto) ESR 99 H Potassium 5.3 H BUN 45 H Creatinine 1.5 H Glucose 219 H Hemoglobin A1c Phosphorus Albumin 2.7 L Globulin Albumin/Globulin Ratio 0.8 L 04/13/18 04/13/18 07:48 07:48 WBC 13.1 H RDW 15.4 H Gran % 82.8 H Lymph % (Auto) 10.7 L Gran # 10.9 H Lymph # (Auto) 1.4 L ESR Potassium BUN 51 H Creatinine Glucose 167 H Hemoglobin A1c 10.4 H Phosphorus 2.5 L Albumin 2.5 L Globulin 3.8 H Albumin/Globulin Ratio 0.7 L Meds: Medications Acetaminophen (Tylenol) 650 mg PO Q6HP PRN PRN Reason: PAIN/FEVER > 101 Last Admin: 04/12/18 22:11 Dose: 650 mg Hydrocodone Bitart/Acetaminophen ([place] 5/325mg) 1 tab PO Q4HP PRN PRN Reason: PAIN LEVEL 3-6 Last Admin: 04/15/18 07:00 Dose: 1 tab Albuterol/Ipratropium (Duoneb) 3 ml NEB Q4HRT PRN PRN Reason: Shortness Of Breath Or Wheezing Aspirin (Aspirin) 81 mg PO DAILY [facility] Last Admin: 04/15/18 09:55 Dose: 81 mg Daptomycin (Cubicin) 750 mg 8 mg/kg (750 mg) IV Q24H [facility] Last Admin: 04/15/18 09:19 Dose: 750 mg Dextrose (Dextrose 50%) 0 ml IV UD PRN PRN Reason: Hypoglycemia Diagnostic Test (Pha) (Accu-Chek) 1 each FS [facility] Last Admin: 04/15/18 12:15 Dose: 1 each Gabapentin (Neurontin) 100 mg PO Q8 [facility] Last Admin: 04/15/18 15:22 Dose: 100 mg Glucose (Insta-Glucose) 15 gm PO PRN PRN PRN Reason: Hypoglycemia Heparin Sodium (Porcine) (Heparin) 5,000 unit SQ Q12 [facility] Last Admin: 04/15/18 09:55 Dose: 5,000 unit Hydromorphone HCl (Dilaudid) 0.5 mg IV Q4-6HP PRN PRN Reason: PAIN LEVEL > 6 Last Admin: 04/15/18 08:14 Dose: 0.5 mg Acetaminophen (Ofirmev) 650 mg in 65 mls @ 130 mls/hr IV TID [facility] Last Admin: 04/15/18 15:37 Dose: 130 mls/hr Insulin Glargine (Lantus) 20 unit SQ HS [facility] Last Admin: 04/14/18 21:15 Dose: 20 unit Insulin Human Lispro (Humalog) 0 unit SQ [facility]; Protocol Last Admin: 04/15/18 12:23 Dose: 4 unit Metoprolol Succinate (Toprol Xl) 100 mg PO DAILY [facility] Last Admin: 04/15/18 09:55 Dose: 100 mg Naloxone HCl (Narcan) 0.1 mg IV Q2MIN PRN PRN Reason: Opiate Reversal Olanzapine (Zyprexa) 5 mg IM Q6HP PRN PRN Reason: Agitation Ondansetron HCl (Zofran) 4 mg IV Q4HP PRN PRN Reason: Nausea And Vomiting Prednisone (Prednisone) [facility] Last Admin: 04/15/18 08:13 Dose: 20 mg Sodium Chloride (Saline Flush) 10 ml IV Q8 [facility] Last Admin: 04/15/18 15:23 Dose: 10 ml Medical - PN: A/P - Time Spent With Patient Total time spent is greater than 50% in coordination of care (as documented) at patient's floor/unit and/or counseling patient: - Narrative A/P Narrative: A/P Persistent Gram positive Bacteremia, endocarditis, vs osteomyelitis vs arthritis. Uncontrolled Diabetes Hyperglycemia Hyponatremia- resolved Acute kidney Injury HTN HLD Osteoarthritis syncope- head ct neg Thoracic vertebrae diskits Plan continue IV daptomycin T4-t5 diskitis, plan for biopsy get rest of MRI , left shoulder, lumbar and sacrum today Glucose control ok, on ssi insuiln will need to titrate glucose once he increase oral intake. check CK in AM DVT hep sq Diet Carb consistent Full code. Medical - PN: Qual - Stroke Symptom Onset Unknown: No - VTE Deep Vein Thrombosis/Pulmonary Embolism Present on Admission: No
[2018-04-15] MEDS: LACTATED RINGERS 1,000 ML IV SCH (17:25)
--- NOTE | 2018-04-15 17:51 | Internal Medicine Consult Note ---
Medical - CN: HPI - Data of Consult Consult date: 04/15/18 Requesting Physician: Tonio Aguirre Primary Care Provider: Federico Vazquez Family Provider: Federico Vazquez - Consult Narrative Reason for consult: MRSA bacteremia History of present illness: Mr. Ace is a 78 year old M, who is very well-known to me. I saw him in the ID clinic on 11 April, where 2 sets of blood cultures were drawn which came back positive for Staph aureus, and thus patient was called to come to the ER and get admitted to the hospital for IV antibiotics. Briefly, he has a past medical history of: - Persistent MRSA bacteremia and sepsis [from 23 november until 28 November 2017 at [facility] and then 02 december at [facility] in [facility], first negative culture on 03 december], with negative DENISSE done on 30 November 2017, treated with 6 weeks of IV vancomycin [stopped January 15, 2018]. Also workup to rule out disseminated MRSA infection including imaging of spine, right shoulder, right hip was negative. Patient placed on oral doxycycline after completion of IV vancomycin, for 2 months, stopped on March 23, 2018 Uncontrolled diabetes mellitus, A1C ~10, on insulin and oral anti-diabetics Polymyalgia rheumatica, on p.o. prednisone 20 mg once daily He was initially referred to infectious disease clinic by family medicine for concerns of mid to lower back pain, elevated white count of 13k, with 88% neutrophils, elevations in ESR and CRP. He underwent tagged-WBC scan on 04/11, with results showing nothing to suggest an active infection. Patient had been feeling unwell since first week of March after he had stopped his doxycycline. He reported pain mainly in the upper back along with right shoulder, rating it as 9/10, nonradiating, not associated with any weakness or numbness of upper limb. Also he had been using a walker for last few days which is new for him as he never had to use a walker earlier. After his admission, new set of blood cultures were sent on and 13 April. He was started on IV daptomycin at 8 mg/kg [720 mg] every 24. His inpatient course so far has been uneventful, while being monitored on 24-hour telemetry. His cultures from , and have been positive. MRI of his both shoulders and cervical spine done at [place] showed some concerning edema over T4-T5. A TTE was negative for obvious infective endocarditis. Patient's white cell count has improved, he had low-grade fevers ranging from 99 -100.6 F , stable blood pressure although with few lower readings. At time of my visit today he complained of generalized fatigue, having pain all over his body mainly noticed during movement. He denied any diarrhea, fever, chills, headache, pain over his fingers and toes. 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) Functional capacity: uses cane/walker Smoking status: Never smoker Have you smoked in the last 12 months: No Drug use: none Alcohol use: occasionally Medical - CN: Meds Home Medications Medication Instructions Recorded Confirmed Type aspirin 81 mg tablet,delayed 81 mg PO QDAY tab 03/08/15 04/12/18 History release metoprolol succinate ER 100 mg 100 mg PO QDAY 90 Days #90 tab 08/14/17 04/12/18 Rx tablet,extended release 24 hr glipizide 10 mg tablet 10 mg PO BID #180 tab 10/04/17 04/12/18 Rx losartan 100 See Label Instructions PO QDAY 11/09/17 04/12/18 History mg-hydrochlorothiazide 12.5 mg tablet insulin lispro (U-100) 100 unit/mL 8 unit SUB-Q QPM #15 ml 12/28/17 04/12/18 Rx subcutaneous pen blood sugar diagnostic strips See Dose Instructions .ROUTE 12/31/17 04/11/18 Rx .MEDSUPPLY #200 each prednisone 20 mg tablet 20 mg PO QDAY #30 tab 04/08/18 04/12/18 Rx prednisone 5 mg tablet 5 mg PO QDAY #30 tab 04/08/18 04/12/18 Rx acetaminophen 500 mg capsule 500 mg PO Q6H PRN 04/11/18 04/12/18 History Allergies Allergy/AdvReac Type Severity Reaction Status Date / Time metformin Allergy Unknown Unknown Verified 04/12/18 10:46 [id number] Reductase AdvReac Severe myalgia, Verified 04/12/18 10:46 Inhibitor spasms, weakness Medical - CN: Exam - Constitutional Vitals: Temp Pulse Resp BP Pulse Ox 97.5 F 68 20 103/52 94 04/15/18 16:00 04/15/18 12:01 04/15/18 16:00 04/15/18 16:00 04/15/18 16:00 General appearance: mild distress, thin - ENT ENT exam: Present: mucous membranes moist, normal exam - Respiratory Respiratory exam: Present: normal respiratory exam, CTAB. Absent: rales, rhonchi - Cardiovascular Cardiovascular exam: Present: +S1, +S2. Absent: systolic murmur - GI/Abdominal GI/Abdominal exam: Present: normal bowel sounds, soft - Extremities Exam Additional comments: No splinter hemorrhages, Osler's nodes, Janeway lesions Medical - CN: Result - Labs CBC & Chem 7: 04/15/18 04:00 04/15/18 04:00 Labs: Short CBC 04/15/18 Range/Units 04:00 WBC 11.9 H (4.5-11.0) K/mcL Hgb 13.5 (13.5-16.5) g/dL Hct 41.8 (41.0-55.0) % Plt Count 216 (140-440) K/mcL BMP 04/15/18 04:00 Sodium 135 Potassium 4.7 Chloride 96 Carbon Dioxide 26 BUN 47 H Creatinine 1.6 H Glucose 192 H Calcium 9.1 Liver Function 04/15/18 Range/Units 04:00 Total Bilirubin 0.5 (0.0-1.0) mg/dL Direct Bilirubin < 0.2 (0.0-0.3) mg/dL GGT 44 (8-61) U/L AST 8 (0-37) U/l ALT 14 (0-40) U/l Alkaline Phosphatase 69 (39-117) U/L Albumin 2.4 L (3.2-5.2) gm/dL Medical - CN: A/P - Narrative A/P Narrative: Assessment: #1 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 -Last positive culture was 05 April -It is unclear if it is a relapse, or recurrence. The points favoring relapse are use of vancomycin for IV therapy with vancomycin around 2 during previous episode of MRSA bacteremia, occult sources of MRSA infection. Points favoring recurrence are nasal colonization with MRSA, patient's immunosuppression because of being on prednisone and thus easy susceptibility to infections. #2 Concerns for sepsis, due to #1 -No evidence of shock #3 polymyalgia rheumatica, patient on prednisone Given easy bruisability and gynecomastia noticed on physical exam there is concern for development of [place] syndrome in the near future Recommendations: 1. Await MRI of thoracic and lumbosacral spine 2. await biopsy from T4-T5 spine, sent for Gram stain and culture sensitivity 3. Continue IV daptomycin at 720 mg every [address] Although the initial [address] was normal, given patient's complaints of diffuse body aches, please check a CK again 4. Hold off to place a PICC line until patient clears his bacteremia 5. Send 2 sets of blood cultures, one from each side [right and left], every other day till negative 6. Patient has been on p.o. prednisone 20 mg daily for less than a month. In case he continues to be on p.o. prednisone 20 mg daily for more than a month, will recommend Bactrim double strength tablet once daily until he continues on 20 or more than 20 mg of prednisone daily. We will follow while inpatient Thomas Ortega MD Infectious disease
[2018-04-15] MEDS ORDERED: fentaNYL 100 MCG/2 ML VIAL IV ONE (18:30)
[2018-04-15] MEDS ORDERED: fentaNYL 100 MCG/2 ML VIAL IV PRN (18:43)
[2018-04-15] MEDS: INSULIN GLARGINE, HUMAN 1 UNIT/0.01 ML SQ SCH (21:00)
[2018-04-16] MEDS: HYDROmorphone 2 MG/ML VIAL IV PRN ×2 (04:08→12:41)
[2018-04-16] MEDS: HYDROcodone/APAP 5/325MG TABLET PO PRN ×2 (04:08→19:55)
[2018-04-16] MEDS: GABAPENTIN 100 MG CAPSULE PO SCH ×3 (05:20→21:54)
[2018-04-16] MEDS: 0.9 % SODIUM CHLORIDE 10 ML SYRINGE IV SCH ×4 (05:20→21:57)
[2018-04-16 05:59] LABS: Basophils # (Auto) 0 K/mcL (0.0-0.3); Basophils % (Auto) 0 % (0.0-2.0); Eosinophils # (Auto) 0.1 K/mcL (0.0-0.7); Eosinophils % (Auto) 0.5 % (0.0-7.0); Granulocytes % (Auto) 87.2 % (38.0-78.0); Mean Cell Volume 89.9 fL (80.0-100.0); Mean Corpuscular HGB Conc 32.4 g/dL (31.0-36.0); Mean Corpuscular Hemoglobin 29.2 pg (26.0-34.0); Monocytes # (Auto) 0.4 K/mcL (0.1-0.9); Monocytes % (Auto) 3.3 % (1.0-12.0); Platelet Count 197 K/mcL (140-440); RBC 4.27 M/mcL (4.50-5.90); Red Cell Distribution Width 15.4 % (11.5-14.5)
[2018-04-16 06:38] LABS: ALT/SGPT 15 U/l (0-40); Albumin 2.1 gm/dL (3.2-5.2); Albumin/Globulin Ratio 0.5 (1.0-2.3); Alkaline Phosphatase 88 U/L (39-117); Bilirubin,Direct < 0.2 mg/dL (0.0-0.3); Blood Urea Nitrogen 54 mg/dl (8-23); Gamma Glutamyl Transpeptidase 45 U/L (8-61); Uric Acid 5.8 mg/dL (2.5-8.0)
--- NOTE | 2018-04-16 07:00 | Magnetic Resonance Report ---
CLINICAL INFORMATION: Bacteremia and shoulder pain COMPARISON: None. TECHNIQUE: Paracoronal T1 , proton density and T2, parasagittal proton density and T2 and axial proton density weighted images were acquired. FINDINGS: Minimal patchy increased signal within the substance of the supraspinatus and infraspinatus tendons is compatible with tendinosis. No evidence of full-thickness rotator cuff tear. Teres minor and subscapularis tendons are unremarkable. Severe degenerative change in the acromioclavicular joint features joint space narrowing, subchondral cyst and marginal osteophyte formation with capsular hypertrophy. Glenohumeral joint is normal in width and alignment with no significant degeneration. There is a prominent sublabral foramen in the anterior superior base of the cartilaginous glenoid labrum. There is no evidence of infectious arthritis. Long head of the bicipital tendon is normal. No marrow signal abnormalities - no evidence of osteomyelitis. Periarticular muscle and fascial planes are normal IMPRESSION: 1. No evidence of infectious arthritis 2. Severe acromioclavicular degenerative change with subacromial osteophyte formation predisposing to extrinsic rotator cuff impingement. 3. Mild tendinosis in the supraspinatus and infraspinatus tendons, but no evidence of full-thickness rotator cuff tear. Interpreted and Authenticated by: Tony Alvarado 04/16/18
--- NOTE | 2018-04-16 07:12 | Magnetic Resonance Report ---
CLINICAL INFORMATION: Sepsis - evaluate source COMPARISON: Lumbar MRI from 11/30/2017 and sagittal flash axial reformatted images of the lumbar spine from a abdominal pelvic CT - 11/26/2017. TECHNIQUE: Sagittal T1 FLAIR, STIR, fast spin echo T2, axial T2 weighted images were acquired. FINDINGS: Chronic bilateral L5-S1 spondylolysis again noted with grade 1 spondylolisthesis featuring 9 mm L5 anterior subluxation. This is unchanged. Chronic Schmorl's nodes have invaginated the T11-L3 endplates - as previously seen. There are no new regions of marrow signal abnormality - no evidence of osteomyelitis. Conus medullaris ends at T12 and homogeneous signal. Cauda equina roots are normal. No soft tissue abnormalities - the left psoas edema, described on previous studies, is no longer apparent. At T12-L1, small broad central disc protrusion mildly impinges the thecal sac At L1-2, minimal annular bulge and mild facet arthropathy results in mild central canal stenosis - no change At L2-3, a large broad disc spur complex and facet arthropathy results in severe central canal, bilateral lateral recess and IV foraminal narrowing. Impingement of the exiting L2 and descending L3 nerve roots - more prominent on the left side. This shows slight progression from previous study. At L3-4, mild broad disc protrusion facet arthropathy results in mild central canal, right lateral recess and IV foraminal narrowing at moderate left IV foraminal narrowing. There is mild impingement of the exiting L3 nerve roots. L4-5, a large broad disc protrusion with right-sided asymmetry results in severe right lateral recess/IV foraminal narrowing impinging the exiting right L4 and descending right L5 nerve roots. Moderate central canal stenosis is unchanged. At L5-S1, a large broad disc protrusion in conjunction with grade 1 spondylolisthesis and facet arthropathy results in severe bilateral L5-S1 IV foraminal narrowing with marked impingement of the exiting L5 nerve roots. There is also narrowing the right lateral recess impinging the descending right S1 nerve root. IMPRESSION: 1. No evidence of osteomyelitis, discitis or other cause identified as infectious source 2. Multilevel degenerative change resulting in central canal, lateral recesses and IV foraminal narrowing with nerve root impingement at the levels described. Minimal change from the comparison study over four months prior Interpreted and Authenticated by: Tony Alvarado 04/16/18
--- NOTE | 2018-04-16 07:40 | Magnetic Resonance Report ---
CLINICAL INFORMATION: Sepsis TECHNIQUE: Axial T1, coronal STIR images were obtained through the entire pelvis. Sagittal T2, axial T2 and coronal T1 images were obtained in the central pelvis within the sacrum and coccyx COMPARISON: None. FINDINGS: The marrow signal within the pelvis is unremarkable. No evidence of osteomyelitis. There is mild degenerative change in both SI joints and hips, but no evidence of septic arthritis. A 20 mm synovial cyst seen along the anterior-inferior margin of the right hip joint. Melvin catheter is properly positioned within the urinary bladder lumen. There is moderate diffuse wall thickening of the urinary bladder - possibly related to chronic bladder outlet narrowing. The prostate is enlarged - 51 cc (upper range of normal 30 cc) The visualized small/large bowel are unremarkable. No free air, free fluid or adenopathy. Muscle and fascial planes are normal IMPRESSION: 1. Mild degenerative change in both SI and hip joints. No evidence of infectious arthritis. 2. No source identified for sepsis 3. Moderate prostate enlargement with diffuse wall thickening of the urinary bladder related to chronic bladder outlet narrowing. Patient is at risk for cystitis Interpreted and Authenticated by: Tony Alvarado 04/16/18
[2018-04-16] MEDS: INSULIN LISPRO 1 UNIT/0.01 ML UNIT SQ SCH ×4 (08:01→21:55)
[2018-04-16] MEDS: DAPTOmycin 500 MG VIAL IV SCH (09:02)
[2018-04-16] MEDS: METOPROLOL SUCCINATE 50 MG TAB.XL.24H PO SCH (09:04)
[2018-04-16] MEDS: ASPIRIN 81 MG TAB.CHEW PO SCH (09:04)
[2018-04-16] MEDS: HEPARIN 5,000 UNIT/ML VIAL SQ SCH ×2 (09:05→21:54)
[2018-04-16] MEDS: ACETAMINOPHEN 650 MG/65 ML BOTTLE IV SCH ×3 (09:05→21:56)
[2018-04-16] MEDS: predniSONE 20 MG TABLET PO SCH (09:07)
--- NOTE | 2018-04-16 11:01 | Internal Med Progress Note ---
Medical - PN: Subj Patient information: Note initiated : 04/16/18 at 10:59 am Service Date, if different from initiated Date: [] Patient: Sunny Ace 78 y/o M admitted on 04/12/18 for MRSA Infection. Chief Complaint: [] Interval history: Patient was sleeping at the time of visit. On being awake, he reports feeling better than yesterday, rates his pain overall at 5 out of 10. Denies any nausea , vomiting, diarrhea, fever, chills. Endorses cough with yellow colored sputum , with pain on deep breathing mainly noticed in his back. Discussed with him that his blood cultures are still positive, but his white cell count has improved, and there is a plan to attempt a biopsy of his back to make sure that there is no focus of infection there. Patient voiced understanding - Constitutional Vitals: Vital Signs Temp Pulse Resp BP Pulse Ox 98.3 F 81 18 99/58 96 04/16/18 07:32 04/16/18 04:01 04/16/18 07:32 04/16/18 07:32 04/16/18 08:18 Period Temp Pulse Resp BP Sys/Centeno Pulse Ox Last 24 Hr 97.3 F-99.3 F 54-89 16-22 82-152/43-69 80-96 Intake and Output 04/15/18 04/16/18 04/16/18 21:59 05:59 13:59 Intake Total 608 / 608 365 / 365 Output Total 350 / 350 400 / 400 Balance 258 / 258 -35 / -35 Weight 201 lb 1.6 oz Intake & Output: Intake & Output 04/15/18 04/16/18 04/16/18 21:59 05:59 13:59 Intake Total 608 / 608 365 / 365 Output Total 350 / 350 400 / 400 Balance 258 / 258 -35 / -35 Weight 201 lb 1.6 oz Intake: IV 148 / 148 65 / 65 Lactated Ringers 1,000 ml @ 75 83 / 83 mls/hr IV .[id number] [facility] Rx#: [id number] Oral 460 / 460 300 / 300 Output: Urine Catheter Amount 350 / 350 400 / 400 Other: Meal sandwhich ice cream fruit. Percent of Meal Consumed 100% Feeding Ability Needs Supervision # Bowel Movements 0 General appearance: average body habitus, mild distress - ENT ENT exam: Present: mucous membranes moist, normal exam - Respiratory Respiratory exam: Present: CTAB. Absent: rales, rhonchi, wheezes - Cardiovascular Cardiovascular exam: Present: +S1, +S2 Additional comments: 2/6 systolic murmur best heard over left second intercostal space, no thrills, no parasternal heave - GI/Abdominal GI/Abdominal exam: Present: normal bowel sounds, soft - Extremities Exam Additional comments: No splinter hemorrhages seen, no Janeway lesions, no Osler nodes felt Medical - PN: Obj Da - Labs CBC & Chem 7: 04/16/18 03:35 04/16/18 03:35 Labs: Abnormal Lab Results 04/16/18 04/16/18 04/16/18 10:35 03:35 03:35 WBC RBC 4.27 L Hgb 12.5 L Hct 38.4 L RDW 15.4 H Gran % 87.2 H Lymph % (Auto) 9.0 L Gran # 9.2 H Lymph # (Auto) 1.0 L ESR POC PT 16.4 H POC INR 1.4 H Potassium BUN 54 H Creatinine 1.8 H Glucose 335 H Albumin 2.1 L Globulin 4.0 H Albumin/Globulin Ratio 0.5 L Triglycerides 180 H 04/15/18 04/15/18 04/14/18 04:00 04:00 14:19 WBC 11.9 H RBC Hgb Hct RDW 15.4 H Gran % 86.9 H Lymph % (Auto) 9.4 L Gran # 10.3 H Lymph # (Auto) 1.1 L ESR POC PT POC INR Potassium BUN 47 H 46 H Creatinine 1.6 H 1.7 H Glucose 192 H 272 H Albumin 2.4 L Globulin Albumin/Globulin Ratio 0.7 L Triglycerides 04/14/18 04/14/18 04/14/18 03:45 03:45 03:45 WBC 11.6 H RBC Hgb Hct RDW 15.4 H Gran % 79.7 H Lymph % (Auto) 14.6 L Gran # 9.2 H Lymph # (Auto) ESR 99 H POC PT POC INR Potassium 5.3 H BUN 45 H Creatinine 1.5 H Glucose 219 H Albumin 2.7 L Globulin Albumin/Globulin Ratio 0.8 L Triglycerides Meds: Medications Acetaminophen (Tylenol) 650 mg PO Q6HP PRN PRN Reason: PAIN/FEVER > 101 Last Admin: 04/12/18 22:11 Dose: 650 mg Hydrocodone Bitart/Acetaminophen ([employer] Mdl 5/325mg) 1 tab PO Q4HP PRN PRN Reason: PAIN LEVEL 3-6 Last Admin: 04/16/18 04:08 Dose: 1 tab Albuterol/Ipratropium (Duoneb) 3 ml NEB Q4HRT PRN PRN Reason: Shortness Of Breath Or Wheezing Aspirin (Aspirin) 81 mg PO DAILY [facility] Last Admin: 04/16/18 09:04 Dose: 81 mg Daptomycin (Cubicin) 750 mg 8 mg/kg (750 mg) IV Q24H [facility] Last Admin: 04/16/18 09:02 Dose: 750 mg Dextrose (Dextrose 50%) 0 ml IV UD PRN PRN Reason: Hypoglycemia Diagnostic Test (Pha) (Accu-Chek) 1 each FS [facility] Last Admin: 04/16/18 07:58 Dose: 1 each Fentanyl (Sublimaze) 100 mcg IV ONCE PRN PRN Reason: Pain Gabapentin (Neurontin) 100 mg PO Q8 [facility] Last Admin: 04/16/18 05:20 Dose: 100 mg Glucose (Insta-Glucose) 15 gm PO PRN PRN PRN Reason: Hypoglycemia Heparin Sodium (Porcine) (Heparin) 5,000 unit SQ Q12 [facility] Last Admin: 04/16/18 09:05 Dose: Not Given Hydromorphone HCl (Dilaudid) 0.5 mg IV Q4-6HP PRN PRN Reason: PAIN LEVEL > 6 Last Admin: 04/16/18 04:08 Dose: 0.5 mg Acetaminophen (Ofirmev) 650 mg in 65 mls @ 130 mls/hr IV TID [facility] Last Admin: 04/16/18 09:05 Dose: 200 mls/hr Lactated Ringer's (Lactated Ringers) 1,000 mls @ 75 mls/hr IV .[id number] [facility] Last Infusion: 04/15/18 21:31 Dose: 75 mls/hr Insulin Glargine (Lantus) 26 unit SQ HS [facility] Last Admin: 04/15/18 21:00 Dose: 26 unit Insulin Human Lispro (Humalog) 0 unit SQ [facility]; Protocol Last Admin: 04/16/18 08:01 Dose: 8 unit Metoprolol Succinate (Toprol Xl) 100 mg PO DAILY [facility] Last Admin: 04/16/18 09:04 Dose: 100 mg Naloxone HCl (Narcan) 0.1 mg IV Q2MIN PRN PRN Reason: Opiate Reversal Olanzapine (Zyprexa) 5 mg IM Q6HP PRN PRN Reason: Agitation Ondansetron HCl (Zofran) 4 mg IV Q4HP PRN PRN Reason: Nausea And Vomiting Prednisone (Prednisone) 20 mg PO [facility] Last Admin: 04/16/18 09:07 Dose: 20 mg Sodium Chloride (Saline Flush) 10 ml IV Q8 [facility] Last Admin: 04/16/18 09:06 Dose: 10 ml Medical - PN: A/P - Time Spent With Patient Total time spent is greater than 50% in coordination of care (as documented) at patient's floor/unit and/or counseling patient: 15 - 24 minutes - Narrative A/P Narrative: Assessment: #1 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 CK levels normal -It is unclear if it is a relapse, or recurrence. The points favoring relapse are use of vancomycin for IV therapy with vancomycin around 2 during previous episode of MRSA bacteremia, occult sources of MRSA infection. Points favoring recurrence are nasal colonization with MRSA, patient's immunosuppression because of being on prednisone and thus easy susceptibility to infections. -MRI of both shoulders, cervical, thoracolumbar spine reviewed. #2 Concerns for sepsis, due to #1 -No evidence of shock #3 polymyalgia rheumatica, patient on prednisone Recommendations: 1. Given concerns for infection at T4-T5 plan to do a biopsy today,send for Gram stain and culture sensitivity 2. Continue IV daptomycin at 720 mg every 24 hours. 3. Hold off to place a PICC line until patient clears his bacteremia 4. Send 2 sets of blood cultures, one from each side [right and left], every other day till negative 5. Possible plan for DENISSE tomorrow 6. Patient has been on p.o. prednisone 20 mg daily for less than a month. In case he continues to be on p.o. prednisone 20 mg daily for more than a month, will recommend Bactrim double strength tablet once daily until he continues on 20 or more than 20 mg of prednisone daily. We will follow while inpatient Thomas Ortega MD Infectious disease Medical - PN: Qual - Stroke Symptom Onset Unknown: No - VTE Deep Vein Thrombosis/Pulmonary Embolism Present on Admission: No
[2018-04-16] MEDS: LACTATED RINGERS 1,000 ML IV SCH (11:05)
[2018-04-16 11:17] LABS: Appearance,Urine CLEAR; Bacteria,Urine 0 /hpf (0); Bilirubin,Urine NEG (NEG); Color,Urine YELLOW; Glucose,Urine (UA) >=500 mg/dL (NEG); Leukocyte Esterase,Urine NEG /uL (NEG); Mucus,Urine FEW /hpf (0); Protein,Urine 30 mg/dL (NEG); Urine Blood 0.2 mg/dL (<0.03); Urine Hyaline Cast 3 /lpf (0-2); Urine RBC 15 /hpf (0-1); Urine Squamous Epithelial Cell 0 /hpf (0-4); Urine WBC 3 /hpf (0-4)
--- NOTE | 2018-04-16 12:28 | XRay Report ---
CLINICAL INFORMATION: Cough, COMPARISON: 12/01/2017. FINDINGS: Heart size, mediastinum and pulmonary vessels are unremarkable. Mild patchy infiltrates have developed in the left midlung and base and also the right medial base IMPRESSION: Mild infiltrates developing in the left midlung and both bases Interpreted and Authenticated by: Tony lAvarado 04/16/18
[2018-04-16] MEDS ORDERED: fentaNYL 100 MCG/2 ML VIAL IV ONE (14:50)
[2018-04-16] MEDS ORDERED: MIDAZOLAM 2 MG/2 ML VIAL IV ONE (14:50)
[2018-04-16] MEDS ORDERED: LIDOCAINE 1% 20 ML VIAL SQ ONE (16:00)
--- NOTE | 2018-04-16 16:26 | Internal Med Progress Note ---
Medical - PN: Subj Patient information: Note initiated : 04/16/18 at 4:23 pm Service Date, if different from initiated Date: [] Patient: Sunny Ace a 78 y/o M admitted on 04/12/18 for MRSA Infection. Chief Complaint: [] Interval history: Mr. Ace is a 78 year old Male with h/o mrsa bactermia, in november, s/p treatment presents to the hospital after being referred here from the ID clinic The patient has been having worsening pain in the throacic spine and bilateral shoulder for the last 4-5 days, he also notes he is progressively getting weaker and not feeling quite right. He notes weakness in his legs that he is unable to climb stairs as before. He denies any sensory loss, bowel bladder incontinence. he notes he passed out last night while taking food out of the refrigerator, but unable to elaborate more. The patient was at [facility] and had extensive workup including DENISSE, multiple MRI in november for bacteremia, it seems alos had some aspiration of right shoulder bursa, workup seems to have been negative, Treated with abx I believe vanco and had good response untill now. patient also has PMR and significant DJD so some symptoms were confounding. His workup in the recent ID clinic showed worsening wbc, his blood cultures ordered were positive for GPC and the patient was asked to come to the ER for further evaluation. ID risk assessment consultant requested pt be on daptomycin, and get multiple MRI of spine nad [place] shoulder 04/13 Pt seen examined,overnight bit agitated, in pain, needing Dilaudid blld cx yesterday positive, todays pending on daptomycin development technical lead went home yesterday, not available today not avilable tomorrow even on sunday not sure if we will be able to get the needed studies done given past experiences with the radiology department. will send the patient to [facility] for needed MRI, I think wont happen till tomorrow morning, pt is hemodyamically stable, no neurological deficit so far. WBC trending down. he still has significant pain, started on neurontin, no new neurological deficits 04/14 Patient seen and examined, no acute overnight events. Pain is better controlled when he is not moving however has significant pain in shoulder and back when he tries to move. MRI of the right shoulder C-spine and thoracic spine done. Show some uptake in the thoracic spine region inflammation versus arthritis C-spine and right shoulder is negative for acute infection. We will proceed with lumbar spine sacral and left shoulder MRI tomorrow. We will also proceed with transesophageal echo. Patient's blood cultures continue to remain positive. Patient remains on daptomycin WBC count trending down. Patient's renal function is not yet normal plan to get a CT abdomen and pelvis once kidney function is back to normal. 04/15 Patient seen and examined, no acute overnight events, microbiology from yesterday still negative, repeat culture sent today the patient is on daptomycin. Infectious disease to see the patient today. I reviewed the images with the radiologist at this facility. 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 Infectious disease physician would like a biopsy of the thoracic vertebrae if signs of infection. We will try to get that scheduled. Patient to complete MRI of the left shoulder lumbar spine and sacral spine later in the day. Plan of care reviewed with the patient. 04/16 Patient seen and examined, no acute overnight events. Patient feeling much better today. Patient is going to have thoracic vertebrae aspiration. Continue IV antibiotics for now. Patient blood culture sent yesterday is positive. Please send cultures tomorrow. Labs stable. Creatinine is still showing slight worsening repeat urinalysis and urine protein creatinine ratio urine electrolytes sent. Patient was on IV fluids. Infectious disease is following. No changes on telemetry, no neurological worsening Pertinent ROS: Denies headache, dizziness Denies chest pain, palpitations Denies cough or shortness of breath Denies abdominal pain, nausea or vomiting. - Constitutional Vitals: Vital Signs Temp Pulse Resp BP Pulse Ox 98.4 F 80 16 115/77 95 04/16/18 15:48 04/16/18 16:01 04/16/18 15:48 04/16/18 16:01 04/16/18 16:01 Period Temp Pulse Resp BP Sys/Centeno Pulse Ox Last 24 Hr 98.3 F-99.3 F 54-89 16-20 82-152/43-77 80-99 Intake and Output 04/16/18 04/16/18 04/16/18 05:59 13:59 21:59 Intake Total 365 / 365 982 / 982 Output Total 400 / 400 475 / 475 Balance -35 / -35 982 / 982 -475 / -475 Weight 201 lb 1.6 oz Patient Weight 04/17/18 05:59 Weight 201 lb 1.6 oz Intake & Output: Intake & Output 04/16/18 04/16/18 04/16/18 05:59 13:59 21:59 Intake Total 365 / 365 982 / 982 Output Total 400 / 400 475 / 475 Balance -35 / -35 982 / 982 -475 / -475 Weight 201 lb 1.6 oz Intake: IV 65 / 65 982 / 982 Lactated Ringers 1,000 ml @ 75 917 / 917 mls/hr IV .[id number] [facility] Rx#: [id number] Oral 300 / 300 Output: Urine Catheter Amount 400 / 400 475 / 475 Other: # Bowel Movements 0 Exam: Constitutional; Afebrile, cooperative, alert, not in distress. Respiratory system: Air Entry equal on both sides, mild bibasilar crackles. CVS- Rate rhythm regular, S1,S2 heard, no gallop, no rub. Abdomen- Soft nontender abdomen, no organomegaly, no tenderness, no guarding or rigidity, METALLURGIST HELPER- AOOx3, moving all extremities, no gross focal deficit noted. Medical - PN: Obj Da - Labs CBC & Chem 7: 04/16/18 03:35 04/16/18 03:35 Labs: Abnormal Lab Results 04/16/18 04/16/18 04/16/18 10:35 10:33 10:33 WBC RBC Hgb Hct RDW Gran % Lymph % (Auto) Gran # Lymph # (Auto) ESR POC PT 16.4 H POC INR 1.4 H Potassium BUN Creatinine Glucose Albumin Globulin Albumin/Globulin Ratio Triglycerides Urine Protein 30 A Urine Glucose (UA) >=500 A Urine Occult Blood 0.2 A Urine Urobilinogen 2.0 A Urine RBC 15 H Hyaline Casts 3 H U [place] Prot/Creat Ratio 0.41 H 04/16/18 04/16/18 04/15/18 03:35 03:35 04:00 WBC RBC 4.27 L Hgb 12.5 L Hct 38.4 L RDW 15.4 H Gran % 87.2 H Lymph % (Auto) 9.0 L Gran # 9.2 H Lymph # (Auto) 1.0 L ESR POC PT POC INR Potassium BUN 54 H 47 H Creatinine 1.8 H 1.6 H Glucose 335 H 192 H Albumin 2.1 L 2.4 L Globulin 4.0 H Albumin/Globulin Ratio 0.5 L 0.7 L Triglycerides 180 H Urine Protein Urine Glucose (UA) Urine Occult Blood Urine Urobilinogen Urine RBC Hyaline Casts U [place] Prot/Creat Ratio 04/15/18 04/14/18 04/14/18 04:00 14:19 03:45 WBC 11.9 H RBC Hgb Hct RDW 15.4 H Gran % 86.9 H Lymph % (Auto) 9.4 L Gran # 10.3 H Lymph # (Auto) 1.1 L ESR 99 H POC PT POC INR Potassium BUN 46 H Creatinine 1.7 H Glucose 272 H Albumin Globulin Albumin/Globulin Ratio Triglycerides Urine Protein Urine Glucose (UA) Urine Occult Blood Urine Urobilinogen Urine RBC Hyaline Casts U [place] Prot/Creat Ratio 04/14/18 04/14/18 03:45 03:45 WBC 11.6 H RBC Hgb Hct RDW 15.4 H Gran % 79.7 H Lymph % (Auto) 14.6 L Gran # 9.2 H Lymph # (Auto) ESR POC PT POC INR Potassium 5.3 H BUN 45 H Creatinine 1.5 H Glucose 219 H Albumin 2.7 L Globulin Albumin/Globulin Ratio 0.8 L Triglycerides Urine Protein Urine Glucose (UA) Urine Occult Blood Urine Urobilinogen Urine RBC Hyaline Casts U [place] Prot/Creat Ratio Meds: Medications Acetaminophen (Tylenol) 650 mg PO Q6HP PRN PRN Reason: PAIN/FEVER > 101 Last Admin: 04/12/18 22:11 Dose: 650 mg Hydrocodone Bitart/Acetaminophen ([place] 5/325mg) 1 tab PO Q4HP PRN PRN Reason: PAIN LEVEL 3-6 Last Admin: 04/16/18 04:08 Dose: 1 tab Albuterol/Ipratropium (Duoneb) 3 ml NEB Q4HRT PRN PRN Reason: Shortness Of Breath Or Wheezing Aspirin (Aspirin) 81 mg PO DAILY SALTY Last Admin: 04/16/18 09:04 Dose: 81 mg Daptomycin (Cubicin) 750 mg 8 mg/kg (750 mg) IV Q24H SALTY Last Admin: 04/16/18 09:02 Dose: 750 mg Dextrose (Dextrose 50%) 0 ml IV UD PRN PRN Reason: Hypoglycemia Diagnostic Test (Pha) (Accu-Chek) 1 each FS ACHS [facility] Last Admin: 04/16/18 12:36 Dose: 1 each Fentanyl (Sublimaze) 100 mcg IV ONCE PRN PRN Reason: Pain Gabapentin (Neurontin) 100 mg PO Q8 [facility] Last Admin: 04/16/18 16:18 Dose: 100 mg Glucose (Insta-Glucose) 15 gm PO PRN PRN PRN Reason: Hypoglycemia Heparin Sodium (Porcine) (Heparin) 5,000 unit SQ Q12 [facility] Last Admin: 04/16/18 09:05 Dose: Not Given Hydromorphone HCl (Dilaudid) 0.5 mg IV Q4-6HP PRN PRN Reason: PAIN LEVEL > 6 Last Admin: 04/16/18 12:41 Dose: 0.5 mg Acetaminophen (Ofirmev) 650 mg in 65 mls @ 130 mls/hr IV TID [facility] Last Infusion: 04/16/18 09:45 Dose: Infused Lactated Ringer's (Lactated Ringers) 1,000 mls @ 75 mls/hr IV .[id number] [facility] Last Admin: 04/16/18 11:05 Dose: 75 mls/hr Insulin Glargine (Lantus) 26 unit SQ HS [facility] Last Admin: 04/15/18 21:00 Dose: 26 unit Insulin Human Lispro (Humalog) 0 unit SQ [facility]; Protocol Last Admin: 04/16/18 12:41 Dose: 2 unit Metoprolol Succinate (Toprol Xl) 100 mg PO DAILY [facility] Last Admin: 04/16/18 09:04 Dose: 100 mg Naloxone HCl (Narcan) 0.1 mg IV Q2MIN PRN PRN Reason: Opiate Reversal Olanzapine (Zyprexa) 5 mg IM Q6HP PRN PRN Reason: Agitation Ondansetron HCl (Zofran) 4 mg IV Q4HP PRN PRN Reason: Nausea And Vomiting Pred[facility]) [facility] Last Admin: 04/16/18 09:07 Dose: 20 mg Senna (Senokot) 2 tab PO DAILY [facility] Sodium Chloride (Saline Flush) 10 ml IV Q8 [facility] Last Admin: 04/16/18 16:18 Dose: 10 ml Medical - PN: A/P - Time Spent With Patient Total time spent is greater than 50% in coordination of care (as documented) at patient's floor/unit and/or counseling patient: - Narrative A/P Narrative: A/P Persistent Gram positive Bacteremia, endocarditis, vs osteomyelitis vs arthritis. Uncontrolled Diabetes Hyperglycemia Hyponatremia- resolved Acute kidney Injury HTN HLD Osteoarthritis syncope- head ct neg Thoracic vertebrae diskits Plan continue IV daptomycin IV hydration, repeat urine studies, T4-t5 diskitis, plan for biopsy/aspiration today MRI shoulder left, lumbar and sacrum neg. COnsider DENISSE for tomorrow. Glucose control ok, on ssi insuiln will need to titrate glucose once he increase oral intake. CK levels normal DVT hep sq Diet Carb consistent Full code. Medical - PN: Qual - Stroke Symptom Onset Unknown: No - VTE Deep Vein Thrombosis/Pulmonary Embolism Present on Admission: No
[2018-04-16] MEDS: LINEZOLID 600 MG TABLET PO SCH (17:46)
[2018-04-16] MEDS: SENNOSIDES 1 TABLET PO SCH (17:46)
--- NOTE | 2018-04-16 19:14 | Cat Scan Report ---
CLINICAL INFORMATION: Sepsis. T4-5 discitis COMPARISON: Chest CT from 11/26/2017 TECHNIQUE: 0.625 mm axial slices were obtained from the lung apices through the bases without intravenous contrast. 2.5 mm Sagittal, coronal and axial reformatted images were processed and reviewed at bone, lung and soft tissue windows. 7 mm axial MIP images were also reconstructed to optimize pulmonary nodule detection.The exam was performed using radiation dose optimization techniques including, but not limited to, automated exposure control, adjustment of the mA and/or kV according to patient size and use of iterative reconstruction technique. FINDINGS: Pulmonary parenchymal windows show a large alveolar infiltrates throughout most of the left lower lobe with a moderate sized alveolar infiltrate posterior segment left upper lobe and also the posterior right lower lobe. Small left pleural effusion is noted. Findings are new from the previous study. Mediastinal windows show sternotomy/CABG changes. The noncontrasted thoracic aorta and pulmonary arteries are normal in contour and caliber. There are no abnormally enlarged lymph nodes in the mediastinal, hilar or axillary region. Esophagus is normal. Thyroid is normal. Bone windows show moderate erosion of the inferior T4 and superior T5 endplate with disc space narrowing and paraspinous soft tissue thickening compatible with discitis /osteomyelitis and paraspinous infection. IMPRESSION: 1. Large infiltrate throughout the left lower lobe with moderate infiltrate in the posterior segment left upper lobe and posterior right lower lobe. There are new from prior CT and may represent infection or aspiration. 2. Moderate T4-5 discitis - not seen on previous study Interpreted and Authenticated by: Tony Alvarado 04/16/18
--- NOTE | 2018-04-16 19:22 | Cat Scan Report ---
CLINICAL INFORMATION: T4-5discitis/osteomyelitis with paraspinous phlegmon TECHNIQUE: The procedure and risks including possibly bleeding, infection, pneumothorax were displayed the patient. He understood and wished to proceed. Conscious sedation was provided while blood pressure and pulse oximeter were monitored. Total sedation time 35 minutes. Intravenous Versed and fentanyl given in divided doses please see medication dosages. Patient in prone position, the infected T4-5 disc and right paraspinous soft tissue thickening were CT localized. The right paraspinous region, just superior to the medial right fifth rib, was CT localized marked, prepped and locally anesthetized 1% lidocaine to the target level with a 25-gauge spinal needle. A 17-gauge Temno guide needle was then placed into the right paraspinous phlegmon. Approximately 5 cc of sanguinous fluid were aspirated. Three core biopsies taken of the superficial cortex the right T5 vertebral body and the paraspinous inflammation. The needle was then removed. Patient tolerated procedure well without apparent complication. IMPRESSION: Percutaneous core biopsy of the inflamed right T5 cortex and the right paraspinous soft tissues. Pathology pending Interpreted and Authenticated by: Tony Alvarado 04/16/18
[2018-04-16] MEDS: INSULIN GLARGINE, HUMAN 1 UNIT/0.01 ML SQ SCH (21:55)
[2018-04-17] MEDS: LACTATED RINGERS 1,000 ML IV SCH ×3 (03:43→22:50)
[2018-04-17 06:17] LABS: Basophils # (Auto) 0 K/mcL (0.0-0.3); Basophils % (Auto) 0.2 % (0.0-2.0); Eosinophils # (Auto) 0 K/mcL (0.0-0.7); Eosinophils % (Auto) 0.3 % (0.0-7.0); Granulocytes % (Auto) 80.5 % (38.0-78.0); Lymphocytes # (Auto) 1.1 K/mcL (1.5-4.8); Lymphocytes % (Auto) 13.2 % (15.5-49.0); Mean Cell Volume 89.9 fL (80.0-100.0); Mean Corpuscular HGB Conc 32.7 g/dL (31.0-36.0); Mean Corpuscular Hemoglobin 29.4 pg (26.0-34.0); Monocytes # (Auto) 0.5 K/mcL (0.1-0.9); Monocytes % (Auto) 5.8 % (1.0-12.0); Platelet Count 219 K/mcL (140-440); RBC 3.63 M/mcL (4.50-5.90); Red Cell Distribution Width 15.4 % (11.5-14.5)
[2018-04-17] MEDS: 0.9 % SODIUM CHLORIDE 10 ML SYRINGE IV SCH ×4 (06:47→23:40)
[2018-04-17] MEDS: GABAPENTIN 100 MG CAPSULE PO SCH ×3 (06:47→23:41)
[2018-04-17 07:07] LABS: ALT/SGPT 13 U/l (0-40); Albumin 1.8 gm/dL (3.2-5.2); Albumin/Globulin Ratio 0.5 (1.0-2.3); Alkaline Phosphatase 83 U/L (39-117); Bilirubin,Direct < 0.2 mg/dL (0.0-0.3); Blood Urea Nitrogen 47 mg/dl (8-23); Gamma Glutamyl Transpeptidase 45 U/L (8-61); Uric Acid 5.2 mg/dL (2.5-8.0)
[2018-04-17] MEDS: INSULIN LISPRO 1 UNIT/0.01 ML UNIT SQ SCH ×4 (08:22→20:49)
[2018-04-17] MEDS: ASPIRIN 81 MG TAB.CHEW PO SCH (08:22)
[2018-04-17] MEDS: HEPARIN 5,000 UNIT/ML VIAL SQ SCH ×2 (08:23→20:49)
[2018-04-17] MEDS: predniSONE 20 MG TABLET PO SCH (08:23)
[2018-04-17] MEDS: HYDROmorphone 2 MG/ML VIAL IV PRN ×2 (08:23→15:01)
[2018-04-17] MEDS: METOPROLOL SUCCINATE 50 MG TAB.XL.24H PO SCH (08:23)
[2018-04-17] MEDS: LINEZOLID 600 MG TABLET PO SCH ×2 (08:31→21:22)
[2018-04-17] MEDS: SENNOSIDES 1 TABLET PO SCH (08:31)
[2018-04-17] MEDS: ACETAMINOPHEN 650 MG/65 ML BOTTLE IV SCH ×4 (10:11→20:50)
[2018-04-17] MEDS: DAPTOmycin 500 MG VIAL IV SCH (10:16)
[2018-04-17] MEDS: HYDROcodone/APAP 5/325MG TABLET PO PRN (10:18)
--- NOTE | 2018-04-17 11:35 | Internal Med Progress Note ---
Medical - PN: Subj Patient information: Note initiated : 04/17/18 at 11:31 am Service Date, if different from initiated Date: [] Patient: Sunny Ace a 78 y/o M admitted on 04/12/18 for MRSA Infection. Chief Complaint: [] Interval history: Mr. Ace is a 78 year old Male with h/o mrsa bactermia, in november, s/p treatment presents to the hospital after being referred here from the ID clinic The patient has been having worsening pain in the throacic spine and bilateral shoulder for the last 4-5 days, he also notes he is progressively getting weaker and not feeling quite right. He notes weakness in his legs that he is unable to climb stairs as before. He denies any sensory loss, bowel bladder incontinence. he notes he passed out last night while taking food out of the refrigerator, but unable to elaborate more. The patient was at [facility] and had extensive workup including DENISSE, multiple MRI in november for bacteremia, it seems alos had some aspiration of right shoulder bursa, workup seems to have been negative, Treated with abx I believe vanco and had good response untill now. patient also has PMR and significant DJD so some symptoms were confounding. His workup in the recent ID clinic showed worsening wbc, his blood cultures ordered were positive for GPC and the patient was asked to come to the ER for further evaluation. ID field service consultant requested pt be on daptomycin, and get multiple MRI of spine nad [place] shoulder 04/13 Pt seen examined,overnight bit agitated, in pain, needing Dilaudid blld cx yesterday positive, todays pending on daptomycin hydrological technical officer went home yesterday, not available today not avilable tomorrow even on sunday not sure if we will be able to get the needed studies done given past experiences with the radiology department. will send the patient to [facility] for needed MRI, I think wont happen till tomorrow morning, pt is hemodyamically stable, no neurological deficit so far. WBC trending down. he still has significant pain, started on neurontin, no new neurological deficits 04/14 Patient seen and examined, no acute overnight events. Pain is better controlled when he is not moving however has significant pain in shoulder and back when he tries to move. MRI of the right shoulder C-spine and thoracic spine done. Show some uptake in the thoracic spine region inflammation versus arthritis C-spine and right shoulder is negative for acute infection. We will proceed with lumbar spine sacral and left shoulder MRI tomorrow. We will also proceed with transesophageal echo. Patient's blood cultures continue to remain positive. Patient remains on daptomycin WBC count trending down. Patient's renal function is not yet normal plan to get a CT abdomen and pelvis once kidney function is back to normal. 04/15 Patient seen and examined, no acute overnight events, microbiology from yesterday still negative, repeat culture sent today the patient is on daptomycin. Infectious disease to see the patient today. I reviewed the images with the radiologist at this facility. 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 Infectious disease physician would like a biopsy of the thoracic vertebrae if signs of infection. We will try to get that scheduled. Patient to complete MRI of the left shoulder lumbar spine and sacral spine later in the day. Plan of care reviewed with the patient. 04/16 Patient seen and examined, no acute overnight events. Patient feeling much better today. Patient is going to have thoracic vertebrae aspiration. Continue IV antibiotics for now. Patient blood culture sent yesterday is positive. Please send cultures tomorrow. Labs stable. Creatinine is still showing slight worsening repeat urinalysis and urine protein creatinine ratio urine electrolytes sent. Patient was on IV fluids. Infectious disease is following. No changes on telemetry, no neurological worsening 04/17 Patient seen and examined, no acute overnight events, feeling slightly worse today because of pain in the back radiating down his sites. He has no new neurological symptoms. The patient denies any chest pain shortness of breath headache or dizziness is able to tolerate p.o. diet well. His labs show improved leukocytosis, creatinine is better. Plan of care reviewed with infectious disease physician who would like to get a transesophageal echo done. We will schedule that for today. I reviewed the case with the crane crew supervisor. The patient's CT scan done yesterday showed pneumonia, given that he has cough pneumonia and sputum culture suggestive of gram-positive bacteria likely the same staff patient will be started on linezolid given the daptomycin is poor lung penetration. Pertinent ROS: Denies headache, dizziness Denies chest pain, palpitations hjas back pain radiating down side of bilateal chest wall cough present, sob not reported Denies abdominal pain, nausea or vomiting. - Constitutional Vitals: Vital Signs Temp Pulse Resp BP Pulse Ox 97.6 F 66 18 121/68 96 04/17/18 04:01 04/17/18 04:01 04/17/18 04:01 04/17/18 04:01 04/17/18 04:01 Period Temp Pulse Resp BP Sys/Centeno Pulse Ox Last 24 Hr 97.6 F-98.8 F 62-81 12-18 86-131/42-77 91-99 Intake and Output 04/16/18 04/17/18 04/17/18 21:59 05:59 13:59 Intake Total 615 / 615 1365 / 1365 Output Total 475 / 475 1000 / 1000 Balance 140 / 140 365 / 365 Weight 206 lb 4 oz Intake & Output: Intake & Output 04/16/18 04/17/18 04/17/18 21:59 05:59 13:59 Intake Total 615 / 615 1365 / 1365 Output Total 475 / 475 1000 / 1000 Balance 140 / 140 365 / 365 Weight 206 lb 4 oz Intake: IV 65 / 65 1065 / 1065 Lactated Ringers 1,000 ml @ 75 1000 / 1000 mls/hr IV .[id number] [facility] Rx#: [id number] Oral 200 / 200 300 / 300 IV - Manual Only 350 / 350 Output: Urine Catheter Amount 475 / 475 1000 / 1000 Other: Meal Dinner Percent of Meal Consumed 100% Feeding Ability Independent # Bowel Movements 0 Exam: Constitutional; Afebrile, cooperative, alert, not in distress. Respiratory system: Air Entry equal on both sides, No crackles or wheezing, no rhonchi. CVS- Rate rhythm regular, S1,S2 heard, no gallop, no rub. Abdomen- Soft nontender abdomen, no organomegaly, no tenderness, no guarding or rigidity, DOPE MIXER- AOOx3, moving all extremities, no gross focal deficit noted. Medical - PN: Obj Da - Labs CBC & Chem 7: 04/17/18 03:40 04/17/18 03:40 Labs: Abnormal Lab Results 04/17/18 04/17/18 04/16/18 03:40 03:40 10:35 WBC RBC 3.63 L Hgb 10.7 L Hct 32.6 L RDW 15.4 H Gran % 80.5 H Lymph % (Auto) 13.2 L Gran # Lymph # (Auto) 1.1 L POC PT 16.4 H POC INR 1.4 H BUN 47 H Creatinine 1.4 H Glucose 244 H Total Protein 5.6 L Albumin 1.8 L Globulin 3.8 H Albumin/Globulin Ratio 0.5 L Triglycerides 158 H Urine Protein Urine Glucose (UA) Urine Occult Blood Urine Urobilinogen Urine RBC Hyaline Casts U [place] Prot/Creat Ratio 04/16/18 04/16/18 04/16/18 10:33 10:33 03:35 WBC RBC Hgb Hct RDW Gran % Lymph % (Auto) Gran # Lymph # (Auto) POC PT POC INR BUN 54 H Creatinine 1.8 H Glucose 335 H Total Protein Albumin 2.1 L Globulin 4.0 H Albumin/Globulin Ratio 0.5 L Triglycerides 180 H Urine Protein 30 A Urine Glucose (UA) >=500 A Urine Occult Blood 0.2 A Urine Urobilinogen 2.0 A Urine RBC 15 H Hyaline Casts 3 H U [place] Prot/Creat Ratio 0.41 H 04/16/18 04/15/18 04/15/18 03:35 04:00 04:00 WBC 11.9 H RBC 4.27 L Hgb 12.5 L Hct 38.4 L RDW 15.4 H 15.4 H Gran % 87.2 H 86.9 H Lymph % (Auto) 9.0 L 9.4 L Gran # 9.2 H 10.3 H Lymph # (Auto) 1.0 L 1.1 L POC PT POC INR BUN 47 H Creatinine 1.6 H Glucose 192 H Total Protein Albumin 2.4 L Globulin Albumin/Globulin Ratio 0.7 L Triglycerides Urine Protein Urine Glucose (UA) Urine Occult Blood Urine Urobilinogen Urine RBC Hyaline Casts U [place] Prot/Creat Ratio 04/14/18 14:19 WBC RBC Hgb Hct RDW Gran % Lymph % (Auto) Gran # Lymph # (Auto) POC PT POC INR BUN 46 H Creatinine 1.7 H Glucose 272 H Total Protein Albumin Globulin Albumin/Globulin Ratio Triglycerides Urine Protein Urine Glucose (UA) Urine Occult Blood Urine Urobilinogen Urine RBC Hyaline Casts U [place] Prot/Creat Ratio Meds: Medications Acetaminophen (Tylenol) 650 mg PO Q6HP PRN PRN Reason: PAIN/FEVER > 101 Last Admin: 04/12/18 22:11 Dose: 650 mg Hydrocodone Bitart/Acetaminophen ([place] 5/325mg) 1 tab PO Q4HP PRN PRN Reason: PAIN LEVEL 3-6 Last Admin: 04/17/18 10:18 Dose: 1 tab Albuterol/Ipratropium (Duoneb) 3 ml NEB Q4HRT PRN PRN Reason: Shortness Of Breath Or Wheezing Aspirin (Aspirin) 81 mg PO DAILY [facility] Last Admin: 04/17/18 08:22 Dose: 81 mg Daptomycin (Cubicin) 750 mg 8 mg/kg (750 mg) IV Q24H [facility] Last Admin: 04/17/18 10:16 Dose: 750 mg Dextrose (Dextrose 50%) 0 ml IV UD PRN PRN Reason: Hypoglycemia Diagnostic Test (Pha) (Accu-Chek) 1 each FS ACHS [facility] Last Admin: 04/17/18 07:35 Dose: 1 each Fentanyl (Sublimaze) 100 mcg IV ONCE PRN PRN Reason: Pain Gabapentin (Neurontin) 100 mg PO Q8 [facility] Last Admin: 04/17/18 06:47 Dose: 100 mg Glucose (Insta-Glucose) 15 gm PO PRN PRN PRN Reason: Hypoglycemia Heparin Sodium (Porcine) (Heparin) 5,000 unit SQ Q12 [facility] Last Admin: 04/17/18 08:23 Dose: 5,000 unit Hydromorphone HCl (Dilaudid) 0.5 mg IV Q4-6HP PRN PRN Reason: PAIN LEVEL > 6 Last Admin: 04/17/18 08:23 Dose: 0.5 mg Acetaminophen (Ofirmev) 650 mg in 65 mls @ 130 mls/hr IV TID [facility] Last Admin: 04/17/18 11:25 Dose: 130 mls/hr Lactated Ringer's (Lactated Ringers) 1,000 mls @ 75 mls/hr IV .[id number] [facility] Last Admin: 04/17/18 03:43 Dose: 75 mls/hr Insulin Glargine (Lantus) 26 unit SQ HS [facility] Last Admin: 04/16/18 21:55 Dose: 26 unit Insulin Human Lispro (Humalog) 0 unit SQ ACHS [facility]; Protocol Last Admin: 04/17/18 08:22 Dose: 4 unit Linezolid (Zyvox) 600 mg PO BID [facility] Last Admin: 04/17/18 08:31 Dose: 600 mg Metoprolol Succinate (Toprol Xl) 100 mg PO DAILY [facility] Last Admin: 04/17/18 08:23 Dose: 100 mg Naloxone HCl (Narcan) 0.1 mg IV Q2MIN PRN PRN Reason: Opiate Reversal Olanzapine (Zyprexa) 5 mg IM Q6HP PRN PRN Reason: Agitation Ondansetron HCl (Zofran) 4 mg IV Q4HP PRN PRN Reason: Nausea And Vomiting Prednisone (Prednisone) 20 mg PO [facility] Last Admin: 04/17/18 08: Dose: 20 mg Senna (Senokot) 2 tab PO DAILY [facility] Last Admin: 04/17/18: Dose: 2 tab Sodium Chloride (Saline Flush) 10 ml IV Q8 [facility] Last Admin: 04/17/18 Dose: 10 ml Medical - PN: A/P - Time Spent With Patient Total time spent is greater than 50% in coordination of care (as documented) at patient's floor/unit and/or counseling patient: - Narrative A/P Narrative: A/P Persistent Gram positive Bacteremia, endocarditis, vs osteomyelitis vs arthritis. Uncontrolled Diabetes Hyperglycemia Hyponatremia- resolved Acute kidney Injury HTN HLD Osteoarthritis syncope- head ct neg Thoracic vertebrae diskits MRSA pneumoina Plan continue IV daptomycin, added zyvox for pna IV hydration, creat is improving, today 1.4 T4-t5 diskitis, plan for biopsy/aspiration cultures pending DENISSE to be done today Glucose control ok, on ssi insuiln will need to titrate glucose once he increase oral intake. Plan will need picc once blood cx is negative. if remains persistently bactremic , he will need to be transferred to a higher center for surgical debridement of the spine. Dr Springer did not feel comfortable managing him and also advised referral to higher center should need be for spine surgery DVT hep sq Diet Carb consistent Full code. Medical - PN: Qual - Stroke Symptom Onset Unknown: No - VTE Deep Vein Thrombosis/Pulmonary Embolism Present on Admission: No
--- NOTE | 2018-04-17 15:12 | Internal Med Progress Note ---
Medical - PN: Subj Patient information: Note initiated : 04/17/18 at 3:09 pm Service Date, if different from initiated Date: [] Patient: Sunny Ace 78 y/o M admitted on 04/12/18 for MRSA Infection. Chief Complaint: [] Interval history: Patient is doing better, in terms of his symptoms. But still endorses pain in his back, cough with some phlegm. No fever, chills, new onset weakness, numbness, loss of bladder or bowel noticed by patient. - Constitutional Vitals: Vital Signs Temp Pulse Resp BP Pulse Ox 36.9 C 69 20 115/77 97 04/17/18 12:01 04/17/18 12:01 04/17/18 12:01 04/17/18 12:01 04/17/18 12:01 Period Temp Pulse Resp BP Sys/Centeno Pulse Ox Last 24 Hr 36.4 C-37.1 C 62-81 12-20 86-136/42-77 91-98 Intake and Output 04/17/18 04/17/18 04/17/18 05:59 13:59 21:59 Intake Total 1365 / 1365 65 / 65 Output Total 1000 / 1000 Balance 365 / 365 65 / 65 Intake & Output: Intake & Output 04/17/18 04/17/18 04/17/18 05:59 13:59 21:59 Intake Total 1365 / 1365 65 / 65 Output Total 1000 / 1000 Balance 365 / 365 65 / 65 Intake: IV 1065 / 1065 65 / 65 Lactated Ringers 1,000 ml @ 75 1000 / 1000 mls/hr IV .[id number] [facility] Rx#: [id number] Oral 300 / 300 Output: Urine Catheter Amount 1000 / 1000 Other: # Bowel Movements 0 General appearance: average body habitus, mild distress - ENT ENT exam: Present: mucous membranes moist - Respiratory Respiratory exam: Present: decreased breath sounds Additional comments: Patient has crackles bilaterally at his bases left more than right - Cardiovascular Cardiovascular exam: Present: +S1, +S2, systolic murmur - GI/Abdominal GI/Abdominal exam: Present: soft, distended. Absent: tenderness - Extremities Exam Additional comments: No peripheral signs of infective endocarditis, no edema Medical - PN: Obj Da - Labs CBC & Chem 7: 04/17/18 03:40 04/17/18 03:40 Labs: Abnormal Lab Results 04/17/18 04/17/18 04/16/18 03:40 03:40 10:35 WBC RBC 3.63 L Hgb 10.7 L Hct 32.6 L RDW 15.4 H Gran % 80.5 H Lymph % (Auto) 13.2 L Gran # Lymph # (Auto) 1.1 L POC PT 16.4 H POC INR 1.4 H BUN 47 H Creatinine 1.4 H Glucose 244 H Total Protein 5.6 L Albumin 1.8 L Globulin 3.8 H Albumin/Globulin Ratio 0.5 L Triglycerides 158 H Urine Protein Urine Glucose (UA) Urine Occult Blood Urine Urobilinogen Urine RBC Hyaline Casts U [place] Prot/Creat Ratio 04/16/18 04/16/18 04/16/18 10:33 10:33 03:35 WBC RBC Hgb Hct RDW Gran % Lymph % (Auto) Gran # Lymph # (Auto) POC PT POC INR BUN 54 H Creatinine 1.8 H Glucose 335 H Total Protein Albumin 2.1 L Globulin 4.0 H Albumin/Globulin Ratio 0.5 L Triglycerides 180 H Urine Protein 30 A Urine Glucose (UA) >=500 A Urine Occult Blood 0.2 A Urine Urobilinogen 2.0 A Urine RBC 15 H Hyaline Casts 3 H U [place] Prot/Creat Ratio 0.41 H 04/16/18 04/15/18 04/15/18 03:35 04:00 04:00 WBC 11.9 H RBC 4.27 L Hgb 12.5 L Hct 38.4 L RDW 15.4 H 15.4 H Gran % 87.2 H 86.9 H Lymph % (Auto) 9.0 L 9.4 L Gran # 9.2 H 10.3 H Lymph # (Auto) 1.0 L 1.1 L POC PT POC INR BUN 47 H Creatinine 1.6 H Glucose 192 H Total Protein Albumin 2.4 L Globulin Albumin/Globulin Ratio 0.7 L Triglycerides Urine Protein Urine Glucose (UA) Urine Occult Blood Urine Urobilinogen Urine RBC Hyaline Casts U [place] Prot/Creat Ratio 04/14/18 14:19 WBC RBC Hgb Hct RDW Gran % Lymph % (Auto) Gran # Lymph # (Auto) POC PT POC INR BUN 46 H Creatinine 1.7 H Glucose 272 H Total Protein Albumin Globulin Albumin/Globulin Ratio Triglycerides Urine Protein Urine Glucose (UA) Urine Occult Blood Urine Urobilinogen Urine RBC Hyaline Casts U [place] Prot/Creat Ratio Meds: Medications Acetaminophen (Tylenol) 650 mg PO Q6HP PRN PRN Reason: PAIN/FEVER > 101 Last Admin: 04/12/18 22:11 Dose: 650 mg Hydrocodone Bitart/Acetaminophen ([place] 5/325mg) 1 tab PO Q4HP PRN PRN Reason: PAIN LEVEL 3-6 Last Admin: 04/17/18 10:18 Dose: 1 tab Albuterol/Ipratropium (Duoneb) 3 ml NEB Q4HRT PRN PRN Reason: Shortness Of Breath Or Wheezing Aspirin (Aspirin) 81 mg PO DAILY [facility] Last Admin: 04/17/18 08:22 Dose: 81 mg Daptomycin (Cubicin) 750 mg 8 mg/kg (750 mg) IV Q24H [facility] Last Admin: 04/17/18 10:16 Dose: 750 mg Dextrose (Dextrose 50%) 0 ml IV UD PRN PRN Reason: Hypoglycemia Diagnostic Test (Pha) (Accu-Chek) 1 each FS ACHS [facility] Last Admin: 04/17/18 11:30 Dose: 1 each Fentanyl (Sublimaze) 100 mcg IV ONCE PRN PRN Reason: Pain Gabapentin (Neurontin) 100 mg PO Q8 [facility] Last Admin: 04/17/18 06:47 Dose: 100 mg Glucose (Insta-Glucose) 15 gm PO PRN PRN PRN Reason: Hypoglycemia Heparin Sodium (Porcine) (Heparin) 5,000 unit SQ Q12 [facility] Last Admin: 04/17/18 08:23 Dose: 5,000 unit Hydromorphone HCl (Dilaudid) 0.5 mg IV Q4-6HP PRN PRN Reason: PAIN LEVEL > 6 Last Admin: 04/17/18 15:01 Dose: 0.5 mg Acetaminophen (Ofirmev) 650 mg in 65 mls @ 130 mls/hr IV TID [facility] Last Infusion: 04/17/18 11:55 Dose: Infused Lactated Ringer's (Lactated Ringers) 1,000 mls @ 75 mls/hr IV .[id number] [facility] Last Admin: 04/17/18 03:43 Dose: 75 mls/hr Insulin Glargine (Lantus) 26 unit SQ HS [facility] Last Admin: 04/16/18 21:55 Dose: 26 unit Insulin Human Lispro (Humalog) 0 unit SQ ACHS [facility]; Protocol Last Admin: 04/17/18 12:56 Dose: 6 unit Linezolid (Zyvox) 600 mg PO BID [facility] Last Admin: 04/17/18 08:31 Dose: 600 mg Metoprolol Succinate (Toprol Xl) 100 mg PO DAILY [facility] Last Admin: 04/17/18 08:23 Dose: 100 mg Naloxone HCl (Narcan) 0.1 mg IV Q2MIN PRN PRN Reason: Opiate Reversal Olanzapine (Zyprexa) 5 mg IM Q6HP PRN PRN Reason: Agitation Ondansetron HCl (Zofran) 4 mg IV Q4HP PRN PRN Reason: Nausea And Vomiting [facility]) [facility] Last Admin: 04/17/18 08:23 Dose: 20 mg Senna (Senokot) 2 tab PO DAILY [facility] Last Admin: 04/17/18 08:31 Dose: 2 tab Sodium Chloride (Saline Flush) 10 ml IV Q8 [facility] Last Admin: 04/17/18 08:23 Dose: 10 ml Medical - PN: A/P - Time Spent With Patient Total time spent is greater than 50% in coordination of care (as documented) at patient's floor/unit and/or counseling patient: 15 - 24 minutes - Narrative A/P Narrative: Assessment: #1 Recurrent and now persistent MRSA bacteremia with concerns for underlying infection in the spinal area, s/p biopsy by IR yesterday -Patient meets 1 major and one minor criteria of Chaney's modified criteria for infective endocarditis, thus possible IE -Concerns for T4-T5 discitis/osteomyelitis on imaging; no concerns for spinal cord compression at this point -If bacteremia persists and/or patient has new onset neurological deficit; patient may need spinal surgical intervention #2 Concerns for sepsis, due to #1 -No evidence of shock #3 left-sided pneumonia: Based on clinical symptoms, CT findings #3 polymyalgia rheumatica, patient on prednisone Recommendations: 1. P.o. linezolid 600 mg every 12 was added yesterday to cover for possible MRSA pneumonia. We will plan for a 10 day course 2. Continue IV daptomycin at 720 mg every 24 hours. 3. Hold off to place a PICC line until patient clears his bacteremia 4. Send 2 sets of blood cultures, one from each side [right and left], every other day till negative 5. Possible plan for DENISSE tomorrow 6. Patient has been on p.o. prednisone 20 mg daily for less than a month. In case he continues to be on p.o. prednisone 20 mg daily for more than a month, will recommend Bactrim double strength tablet once daily until he continues on 20 or more than 20 mg of prednisone daily. We will follow while inpatient Thomas Ortega MD Infectious disease Medical - PN: Qual - Stroke Symptom Onset Unknown: No - VTE Deep Vein Thrombosis/Pulmonary Embolism Present on Admission: No
--- NOTE | 2018-04-17 16:20 | Surgical Pathology Report ---
HISTOLOGY SPECIMEN MICROSCOPIC DIAGNOSIS BONE, T4-T5 VERTEBRAL BODY, NEEDLE BIOPSY: -- LAMELLAR BONE AND FIBROADIPOSE TISSUE WITH PATCHY MILD CHRONIC INFLAMMATION, ORGANIZING HEMORRHAGE, GRANULATION TISSUE AND FIBROSIS. (SEE COMMENT) -- NO NEOPLASIA OR MALIGNANCY IDENTIFIED. (ACP:ivy) COMMENT: The biopsy has portions of lamellar bone with associated fibroadipose tissue and areas of organizing hemorrhage. There is mild diffuse chronic inflammation, consisting of lymphocytes, histiocytes and plasma cells associated with early granulation tissue, fibrosis and a few giant cells. No neoplasia or malignancy identified. Clinical and radiographic correlation is suggested. GROSS DESCRIPTION Received fresh labeled spine vertebral body, are two hinson to red-brown cores of tissue 0.6 and 1.1 cm in length and up to 0.1 cm in diameter. Entirely submitted - two cassettes. (SCB:carol) Electronically Signed by: Cem Perkins M.D.
[2018-04-17] MEDS: INSULIN GLARGINE, HUMAN 1 UNIT/0.01 ML SQ SCH (20:49)
[2018-04-18] MEDS: HYDROcodone/APAP 5/325MG TABLET PO PRN ×2 (02:18→07:02)
[2018-04-18] MEDS: HYDROmorphone 2 MG/ML VIAL IV PRN ×2 (02:19→08:10)
[2018-04-18 05:39] LABS: Basophils # (Auto) 0 K/mcL (0.0-0.3); Basophils % (Auto) 0.2 % (0.0-2.0); Eosinophils # (Auto) 0 K/mcL (0.0-0.7); Eosinophils % (Auto) 0.4 % (0.0-7.0); Granulocytes % (Auto) 78.7 % (38.0-78.0); Lymphocytes # (Auto) 1.1 K/mcL (1.5-4.8); Lymphocytes % (Auto) 14.4 % (15.5-49.0); Mean Cell Volume 89.6 fL (80.0-100.0); Mean Corpuscular HGB Conc 33.2 g/dL (31.0-36.0); Mean Corpuscular Hemoglobin 29.8 pg (26.0-34.0); Monocytes # (Auto) 0.5 K/mcL (0.1-0.9); Monocytes % (Auto) 6.3 % (1.0-12.0); Platelet Count 252 K/mcL (140-440); RBC 4.01 M/mcL (4.50-5.90); Red Cell Distribution Width 15.6 % (11.5-14.5)
[2018-04-18] MEDS: GABAPENTIN 100 MG CAPSULE PO SCH ×3 (05:46→20:53)
[2018-04-18] MEDS: 0.9 % SODIUM CHLORIDE 10 ML SYRINGE IV SCH ×3 (05:46→21:56)
[2018-04-18 06:45] LABS: ALT/SGPT 14 U/l (0-40); Albumin 2.1 gm/dL (3.2-5.2); Albumin/Globulin Ratio 0.6 (1.0-2.3); Alkaline Phosphatase 91 U/L (39-117); Bilirubin,Direct < 0.2 mg/dL (0.0-0.3); Blood Urea Nitrogen 37 mg/dl (8-23); Gamma Glutamyl Transpeptidase 52 U/L (8-61); Uric Acid 5.1 mg/dL (2.5-8.0)
[2018-04-18] MEDS: INSULIN LISPRO 1 UNIT/0.01 ML UNIT SQ SCH ×4 (06:52→20:50)
[2018-04-18] MEDS: LINEZOLID 600 MG TABLET PO SCH ×2 (07:04→20:53)
[2018-04-18] MEDS: ASPIRIN 81 MG TAB.CHEW PO SCH (07:04)
[2018-04-18] MEDS: SENNOSIDES 1 TABLET PO SCH (07:04)
[2018-04-18] MEDS: METOPROLOL SUCCINATE 50 MG TAB.XL.24H PO SCH (07:04)
[2018-04-18] MEDS: predniSONE 20 MG TABLET PO SCH (07:04)
[2018-04-18] MEDS: HEPARIN 5,000 UNIT/ML VIAL SQ SCH ×2 (09:56→20:48)
[2018-04-18] MEDS: ACETAMINOPHEN 650 MG/65 ML BOTTLE IV SCH ×3 (09:56→20:51)
[2018-04-18] MEDS: DAPTOmycin 500 MG VIAL IV SCH (09:56)
[2018-04-18] MEDS: LACTATED RINGERS 1,000 ML IV SCH ×2 (09:57→14:30)
--- NOTE | 2018-04-18 11:36 | Internal Med Progress Note ---
Medical - PN: Subj Patient information: Note initiated : 04/18/18 at 11:34 am Service Date, if different from initiated Date: [] Patient: Sunny Ace 78 y/o M admitted on 04/12/18 for MRSA Infection. Chief Complaint: [] Interval history: Patient doing well. Reports improvement in his previous symptoms of cough, chest pain, back pain, body aches, appetite in general. Denies any fever, chills, any new onset weakness or numbness or issues with bladder/bowel. - Constitutional Vitals: Vital Signs Temp Pulse Resp BP Pulse Ox 36.8 C 69 18 122/70 97 04/18/18 04:17 04/17/18 20:56 04/18/18 04:17 04/18/18 04:17 04/18/18 04:17 Period Temp Pulse Resp BP Sys/Centeno Pulse Ox Last 24 Hr 36.5 C-37.0 C 66-69 16-20 115-134/58-77 93-98 Intake and Output 04/17/18 04/18/18 04/18/18 21:59 05:59 13:59 Intake Total 1310 / 1310 150 / 150 1000 / 1000 Output Total 1200 / 1200 725 / 725 Balance 110 / 110 -575 / -575 1000 / 1000 Weight 94.982 kg Intake & Output: Intake & Output 04/17/18 04/18/18 04/18/18 21:59 05:59 13:59 Intake Total 1310 / 1310 150 / 150 1000 / 1000 Output Total 1200 / 1200 725 / 725 Balance 110 / 110 -575 / -575 1000 / 1000 Weight 94.982 kg Intake: IV 1130 / 1130 1000 / 1000 Lactated Ringers 1,000 ml @ 75 1000 / 1000 1000 / 1000 mls/hr IV .[id number] [facility] Rx#: [id number] Oral 180 / 180 150 / 150 Output: Urine Catheter Amount 1200 / 1200 725 / 725 General appearance: average body habitus, cooperative, no acute distress - Respiratory Additional comments: Vesicular breath sounds bilaterally in upper lung bowman, decreased breath sounds at bases, no rhonchi/wheezing/Rales heard - Cardiovascular Cardiovascular exam: Present: +S1, +S2. Absent: systolic murmur - GI/Abdominal GI/Abdominal exam: Present: normal bowel sounds, soft. Absent: distended, rigid , tenderness - Extremities Exam Extremities exam: Absent: pedal edema - Neurological Exam Additional comments: Power 4 out of 5 in all 4 limbs Medical - PN: Obj Da - Labs CBC & Chem 7: 04/18/18 03:10 04/18/18 03:10 Labs: Abnormal Lab Results 04/18/18 04/18/18 04/17/18 03:10 03:10 03:40 RBC 4.01 L Hgb 11.9 L Hct 35.9 L RDW 15.6 H Gran % 78.7 H Lymph % (Auto) 14.4 L Gran # Lymph # (Auto) 1.1 L POC PT POC INR BUN 37 H 47 H Creatinine 1.3 H 1.4 H Glucose 158 H 244 H Phosphorus 2.6 L Total Protein 5.8 L 5.6 L Albumin 2.1 L 1.8 L Globulin 3.8 H Albumin/Globulin Ratio 0.6 L 0.5 L Triglycerides 161 H 158 H Urine Protein Urine Glucose (UA) Urine Occult Blood Urine Urobilinogen Urine RBC Hyaline Casts U [place] Prot/Creat Ratio 04/17/18 04/16/18 04/16/18 03:40 10:35 10:33 RBC 3.63 L Hgb 10.7 L Hct 32.6 L RDW 15.4 H Gran % 80.5 H Lymph % (Auto) 13.2 L Gran # Lymph # (Auto) 1.1 L POC PT 16.4 H POC INR 1.4 H BUN Creatinine Glucose Phosphorus Total Protein Albumin Globulin Albumin/Globulin Ratio Triglycerides Urine Protein Urine Glucose (UA) Urine Occult Blood Urine Urobilinogen Urine RBC Hyaline Casts U [place] Prot/Creat Ratio 0.41 H 04/16/18 04/16/18 04/16/18 10:33 03:35 03:35 RBC 4.27 L Hgb 12.5 L Hct 38.4 L RDW 15.4 H Gran % 87.2 H Lymph % (Auto) 9.0 L Gran # 9.2 H Lymph # (Auto) 1.0 L POC PT POC INR BUN 54 H Creatinine 1.8 H Glucose 335 H Phosphorus Total Protein Albumin 2.1 L Globulin 4.0 H Albumin/Globulin Ratio 0.5 L Triglycerides 180 H Urine Protein 30 A Urine Glucose (UA) >=500 A Urine Occult Blood 0.2 A Urine Urobilinogen 2.0 A Urine RBC 15 H Hyaline Casts 3 H U [place] Prot/Creat Ratio Meds: Medications Acetaminophen (Tylenol) 650 mg PO Q6HP PRN PRN Reason: PAIN/FEVER > 101 Last Admin: 04/12/18 22:11 Dose: 650 mg Hydrocodone Bitart/Acetaminophen ([place] 5/325mg) 1 tab PO Q4HP PRN PRN Reason: PAIN LEVEL 3-6 Last Admin: 04/18/18 07:02 Dose: 1 tab Albuterol/Ipratropium (Duoneb) 3 ml NEB Q4HRT PRN PRN Reason: Shortness Of Breath Or Wheezing Aspirin (Aspirin) 81 mg PO DAILY [facility] Last Admin: 04/18/18 07:04 Dose: 81 mg Daptomycin (Cubicin) 750 mg 8 mg/kg (750 mg) IV Q24H [facility] Last Admin: 04/18/18 09:56 Dose: 750 mg Dextrose (Dextrose 50%) 0 ml IV UD PRN PRN Reason: Hypoglycemia Diagnostic Test (Pha) (Accu-Chek) 1 each FS ACHS [facility] Last Admin: 04/18/18 06:52 Dose: 1 each Fentanyl (Sublimaze) 100 mcg IV ONCE PRN PRN Reason: Pain Gabapentin (Neurontin) 100 mg PO Q8 [facility] Last Admin: 04/18/18 05:46 Dose: 100 mg Glucose (Insta-Glucose) 15 gm PO PRN PRN PRN Reason: Hypoglycemia Heparin Sodium (Porcine) (Heparin) 5,000 unit SQ Q12 [facility] Last Admin: 04/18/18 09:56 Dose: 5,000 unit Hydromorphone HCl (Dilaudid) 0.5 mg IV Q4-6HP PRN PRN Reason: PAIN LEVEL > 6 Last Admin: 04/18/18 08:10 Dose: 0.5 mg Acetaminophen (Ofirmev) 650 mg in 65 mls @ 130 mls/hr IV TID [facility] Last Admin: 04/18/18 09:56 Dose: 130 mls/hr Lactated Ringer's (Lactated Ringers) 1,000 mls @ 75 mls/hr IV .[id number] [facility] Last Admin: 04/18/18 09:57 Dose: 75 mls/hr Insulin Glargine (Lantus) 26 unit SQ HS [facility] Last Admin: 04/17/18 20:49 Dose: 26 unit Insulin Human Lispro (Humalog) 0 unit SQ [facility]; Protocol Last Admin: 04/18/18 06:52 Dose: Not Given Linezolid (Zyvox) 600 mg PO BID [facility] Last Admin: 04/18/18 07:04 Dose: 600 mg Metoprolol Succinate (Toprol Xl) 100 mg PO DAILY [facility] Last Admin: 04/18/18 07:04 Dose: 100 mg Naloxone HCl (Narcan) 0.1 mg IV Q2MIN PRN PRN Reason: Opiate Reversal Olanzapine (Zyprexa) 5 mg IM Q6HP PRN PRN Reason: Agitation Ondansetron HCl (Zofran) 4 mg IV Q4HP PRN PRN Reason: Nausea And Vomiting Prednisone (Prednisone) 20 mg PO [facility] Last Admin: 04/18/18 07:04 Dose: 20 mg Senna (Senokot) 2 tab PO DAILY [facility] Last Admin: 04/18/18 07:04 Dose: 2 tab Sodium Chloride (Saline Flush) 10 ml IV Q8 [facility] Last Admin: 04/18/18 05:46 Dose: Not Given Medical - PN: A/P - Time Spent With Patient Total time spent is greater than 50% in coordination of care (as documented) at patient's floor/unit and/or counseling patient: 15 - 24 minutes - Narrative A/P Narrative: Assessment: #1 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 Both TTE and DENISSE have been negative so far. -Concerns for T4-T5 discitis/osteomyelitis on imaging; no concerns for spinal cord compression at this point -If bacteremia persists and/or patient has new onset neurological deficit; patient may need spinal surgical intervention #2 Concerns for sepsis, due to #1 -No evidence of shock #3 left-sided pneumonia: Based on clinical symptoms, CT findings #3 polymyalgia rheumatica, patient on prednisone Recommendations: 1. Continue p.o. linezolid 600 mg every 12, [day 3] to cover for possible MRSA pneumonia. We will plan for a 10 day course 2. Continue IV daptomycin at 720 mg every 24 hours. 3. Hold off to place a PICC line until patient clears his bacteremia 4. As blood culture from first April is positive, send 2 sets of blood cultures, one from each side [right and left], every other day till negative 5. Patient has been on p.o. prednisone 20 mg daily for less than a month. In case he continues to be on p.o. prednisone 20 mg daily for more than a month, will recommend Bactrim double strength tablet once daily until he continues on 20 or more than 20 mg of prednisone daily. Also consider discussing with Rheumatology about whether prednisone dose can be lowered, which might help ( hypothetically) with improving immune response to MRSA. We will follow while inpatient Thomas Ortega MD Infectious disease Medical - PN: Qual - Stroke Symptom Onset Unknown: No - VTE Deep Vein Thrombosis/Pulmonary Embolism Present on Admission: No
--- NOTE | 2018-04-18 14:18 | Internal Med Progress Note ---
Medical - PN: Subj Patient information: Note initiated : 04/18/18 at 2:13 pm Service Date, if different from initiated Date: [] Patient: Sunny Ace a 78 y/o M admitted on 04/12/18 for MRSA Infection. Chief Complaint: [] Interval history: Mr. Ace is a 78 year old Male with h/o mrsa bactermia, in november, s/p treatment presents to the hospital after being referred here from the ID clinic The patient has been having worsening pain in the throacic spine and bilateral shoulder for the last 4-5 days, he also notes he is progressively getting weaker and not feeling quite right. He notes weakness in his legs that he is unable to climb stairs as before. He denies any sensory loss, bowel bladder incontinence. he notes he passed out last night while taking food out of the refrigerator, but unable to elaborate more. The patient was at [facility] and had extensive workup including DENISSE, multiple MRI in november for bacteremia, it seems alos had some aspiration of right shoulder bursa, workup seems to have been negative, Treated with abx I believe vanco and had good response untill now. patient also has PMR and significant DJD so some symptoms were confounding. His workup in the recent ID clinic showed worsening wbc, his blood cultures ordered were positive for GPC and the patient was asked to come to the ER for further evaluation. ID sephora operations consultant requested pt be on daptomycin, and get multiple MRI of spine nad [place] shoulder 04/13 Pt seen examined,overnight bit agitated, in pain, needing Dilaudid blld cx yesterday positive, todays pending on daptomycin pathology tech went home yesterday, not available today not avilable tomorrow even on sunday not sure if we will be able to get the needed studies done given past experiences with the radiology department. will send the patient to [facility] for needed MRI, I think wont happen till tomorrow morning, pt is hemodyamically stable, no neurological deficit so far. WBC trending down. he still has significant pain, started on neurontin, no new neurological deficits 04/14 Patient seen and examined, no acute overnight events. Pain is better controlled when he is not moving however has significant pain in shoulder and back when he tries to move. MRI of the right shoulder C-spine and thoracic spine done. Show some uptake in the thoracic spine region inflammation versus arthritis C-spine and right shoulder is negative for acute infection. We will proceed with lumbar spine sacral and left shoulder MRI tomorrow. We will also proceed with transesophageal echo. Patient's blood cultures continue to remain positive. Patient remains on daptomycin WBC count trending down. Patient's renal function is not yet normal plan to get a CT abdomen and pelvis once kidney function is back to normal. 04/15 Patient seen and examined, no acute overnight events, microbiology from yesterday still negative, repeat culture sent today the patient is on daptomycin. Infectious disease to see the patient today. I reviewed the images with the radiologist at this facility. 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 Infectious disease physician would like a biopsy of the thoracic vertebrae if signs of infection. We will try to get that scheduled. Patient to complete MRI of the left shoulder lumbar spine and sacral spine later in the day. Plan of care reviewed with the patient. 04/16 Patient seen and examined, no acute overnight events. Patient feeling much better today. Patient is going to have thoracic vertebrae aspiration. Continue IV antibiotics for now. Patient blood culture sent yesterday is positive. Please send cultures tomorrow. Labs stable. Creatinine is still showing slight worsening repeat urinalysis and urine protein creatinine ratio urine electrolytes sent. Patient was on IV fluids. Infectious disease is following. No changes on telemetry, no neurological worsening 04/17 Patient seen and examined, no acute overnight events, feeling slightly worse today because of pain in the back radiating down his sites. He has no new neurological symptoms. The patient denies any chest pain shortness of breath headache or dizziness is able to tolerate p.o. diet well. His labs show improved leukocytosis, creatinine is better. Plan of care reviewed with infectious disease physician who would like to get a transesophageal echo done. We will schedule that for today. I reviewed the case with the welding equipment sales representative. The patient's CT scan done yesterday showed pneumonia, given that he has cough pneumonia and sputum culture suggestive of gram-positive bacteria likely the same staff patient will be started on linezolid given the daptomycin is poor lung penetration. 04/18 Pt seen examined labs stable, creat improving pain in the back still there, pt has no neurological deficit Plan for DENISSE today Blood cx 04/17 positive, On daptomycin and linezolid ID following Pertinent ROS: Denies headache, dizziness Denies chest pain, palpitations Denies cough or shortness of breath Denies abdominal pain, nausea or vomiting. Thoracic back pain present, - Constitutional Vitals: Vital Signs Temp Pulse Resp BP Pulse Ox 97.1 F 69 20 118/71 97 04/18/18 12:06 04/17/18 20:56 04/18/18 12:06 04/18/18 12:06 04/18/18 12:06 Period Temp Pulse Resp BP Sys/Centeno Pulse Ox Last 24 Hr 97.1 F-98.6 F 66-69 16-20 118-134/58-71 93-98 Intake and Output 04/18/18 04/18/18 04/18/18 05:59 13:59 21:59 Intake Total 150 / 150 1065 / 1065 Output Total 725 / 725 Balance -575 / -575 1065 / 1065 Intake & Output: Intake & Output 04/18/18 04/18/18 04/18/18 05:59 13:59 21:59 Intake Total 150 / 150 1065 / 1065 Output Total 725 / 725 Balance -575 / -575 1065 / 1065 Intake: IV 1065 / 1065 Lactated Ringers 1,000 ml @ 75 1000 / 1000 mls/hr IV .[id number] [facility] Rx#: [id number] Oral 150 / 150 Output: Urine Catheter Amount 725 / 725 Exam: Constitutional; Afebrile, cooperative, alert, not in distress. Respiratory system: Air Entry equal on both sides, No crackles or wheezing, no rhonchi. CVS- Rate rhythm regular, S1,S2 heard, no gallop, no rub. Abdomen- Soft nontender abdomen, no organomegaly, no tenderness, no guarding or rigidity, OUTPATIENT INTERVIEWING CLERK- AOOx3, moving all extremities, no gross focal deficit noted. Medical - PN: Obj Da - Labs CBC & Chem 7: 04/18/18 03:10 04/18/18 03:10 Labs: Abnormal Lab Results 04/18/18 04/18/18 04/17/18 03:10 03:10 03:40 RBC 4.01 L Hgb 11.9 L Hct 35.9 L RDW 15.6 H Gran % 78.7 H Lymph % (Auto) 14.4 L Gran # Lymph # (Auto) 1.1 L POC PT POC INR BUN 37 H 47 H Creatinine 1.3 H 1.4 H Glucose 158 H 244 H Phosphorus 2.6 L Total Protein 5.8 L 5.6 L Albumin 2.1 L 1.8 L Globulin 3.8 H Albumin/Globulin Ratio 0.6 L 0.5 L Triglycerides 161 H 158 H Urine Protein Urine Glucose (UA) Urine Occult Blood Urine Urobilinogen Urine RBC Hyaline Casts U [place] Prot/Creat Ratio 04/17/18 04/16/18 04/16/18 03:40 10:35 10:33 RBC 3.63 L Hgb 10.7 L Hct 32.6 L RDW 15.4 H Gran % 80.5 H Lymph % (Auto) 13.2 L Gran # Lymph # (Auto) 1.1 L POC PT 16.4 H POC INR 1.4 H BUN Creatinine Glucose Phosphorus Total Protein Albumin Globulin Albumin/Globulin Ratio Triglycerides Urine Protein Urine Glucose (UA) Urine Occult Blood Urine Urobilinogen Urine RBC Hyaline Casts U [place] Prot/Creat Ratio 0.41 H 04/16/18 04/16/18 04/16/18 10:33 03:35 03:35 RBC 4.27 L Hgb 12.5 L Hct 38.4 L RDW 15.4 H Gran % 87.2 H Lymph % (Auto) 9.0 L Gran # 9.2 H Lymph # (Auto) 1.0 L POC PT POC INR BUN 54 H Creatinine 1.8 H Glucose 335 H Phosphorus Total Protein Albumin 2.1 L Globulin 4.0 H Albumin/Globulin Ratio 0.5 L Triglycerides 180 H Urine Protein 30 A Urine Glucose (UA) >=500 A Urine Occult Blood 0.2 A Urine Urobilinogen 2.0 A Urine RBC 15 H Hyaline Casts 3 H U [place] Prot/Creat Ratio Meds: Medications Acetaminophen (Tylenol) 650 mg PO Q6HP PRN PRN Reason: PAIN/FEVER > 101 Last Admin: 04/12/18 22:11 Dose: 650 mg Hydrocodone Bitart/Acetaminophen ([place] 5/325mg) 1 tab PO Q4HP PRN PRN Reason: PAIN LEVEL 3-6 Last Admin: 04/18/18 07:02 Dose: 1 tab Albuterol/Ipratropium (Duoneb) 3 ml NEB Q4HRT PRN PRN Reason: Shortness Of Breath Or Wheezing Aspirin (Aspirin) 81 mg PO DAILY [facility] Last Admin: 04/18/18 07:04 Dose: 81 mg Daptomycin (Cubicin) 750 mg 8 mg/kg (750 mg) IV Q24H [facility] Last Admin: 04/18/18 09:56 Dose: 750 mg Dextrose (Dextrose 50%) 0 ml IV UD PRN PRN Reason: Hypoglycemia Diagnostic Test (Pha) (Accu-Chek) 1 each FS ACHS [facility] Last Admin: 04/18/18 12:40 Dose: 1 each Fentanyl (Sublimaze) 100 mcg IV ONCE PRN PRN Reason: Pain Gabapentin (Neurontin) 100 mg PO Q8 [facility] Last Admin: 04/18/18 05:46 Dose: 100 mg Glucose (Insta-Glucose) 15 gm PO PRN PRN PRN Reason: Hypoglycemia Heparin Sodium (Porcine) (Heparin) 5,000 unit SQ Q12 [facility] Last Admin: 04/18/18 09:56 Dose: 5,000 unit Hydromorphone HCl (Dilaudid) 0.5 mg IV Q4-6HP PRN PRN Reason: PAIN LEVEL > 6 Last Admin: 04/18/18 08:10 Dose: 0.5 mg Acetaminophen (Ofirmev) 650 mg in 65 mls @ 130 mls/hr IV TID [facility] Last Infusion: 04/18/18 10:26 Dose: Infused Lactated Ringer's (Lactated Ringers) 1,000 mls @ 75 mls/hr IV .[id number] [facility] Last Admin: 04/18/18 09:57 Dose: 75 mls/hr Insulin Glargine (Lantus) 26 unit SQ HS [facility] Last Admin: 04/17/18 20:49 Dose: 26 unit Insulin Human Lispro (Humalog) 0 unit SQ [facility]; Protocol Last Admin: 04/18/18 12:43 Dose: 6 unit Linezolid (Zyvox) 600 mg PO BID [facility] Last Admin: 04/18/18 07:04 Dose: 600 mg Metoprolol Succinate (Toprol Xl) 100 mg PO DAILY [facility] Last Admin: 04/18/18 07:04 Dose: 100 mg Naloxone HCl (Narcan) 0.1 mg IV Q2MIN PRN PRN Reason: Opiate Reversal Olanzapine (Zyprexa) 5 mg IM Q6HP PRN PRN Reason: Agitation Ondansetron HCl (Zofran) 4 mg IV Q4HP PRN PRN Reason: Nausea And Vomiting Pred[facility] (Pred[facility]) [facility] Last Admin: 04/18/18 07:04 Dose: 20 mg Senna (Senokot) 2 tab PO DAILY [facility] Last Admin: 04/18/18 07:04 Dose: 2 tab Sodium Chloride (Saline Flush) 10 ml IV Q8 [facility] Last Admin: 04/18/18 05:46 Dose: Not Given Medical - PN: A/P - Time Spent With Patient Total time spent is greater than 50% in coordination of care (as documented) at patient's floor/unit and/or counseling patient: - Narrative A/P Narrative: A/P Persistent Gram positive Bacteremia, endocarditis, vs osteomyelitis - Uncontrolled Diabetes Hyperglycemia Hyponatremia- resolved Acute kidney Injury HTN HLD Osteoarthritis syncope- head ct neg Thoracic vertebrae diskits MRSA pneumoina Plan continue IV daptomycin 04/12 (first day), added zyvox for pna day 2 of zyvox IV hydration, creat is improving, today 1.3 T4-t5 diskitis, biopsy done, culture neg so far. DENISSE to be done today at 14.30 Glucose control ok, on ssi insulin will need to titrate glucose once he increase oral intake. Plan will need picc once blood cx is negative. if remains persistently bacteremic, he will need to be transferred to a higher center for surgical debridement of the spine. Dr Springer did not feel comfortable managing him and also advised referral to higher center should need be for spine surgery DVT hep sq Diet Carb consistent Full code. Medical - PN: Qual - Stroke Symptom Onset Unknown: No - VTE Deep Vein Thrombosis/Pulmonary Embolism Present on Admission: No
[2018-04-18] MEDS ORDERED: fentaNYL 100 MCG/2 ML VIAL IV ONE (20:43)
[2018-04-18] MEDS: fentaNYL 100 MCG/2 ML VIAL IV PRN (20:49)
[2018-04-18] MEDS: INSULIN GLARGINE, HUMAN 1 UNIT/0.01 ML SQ SCH (20:51)
[2018-04-19] MEDS: LACTATED RINGERS 1,000 ML IV SCH ×2 (03:47→17:37)
[2018-04-19 05:16] LABS: Basophils # (Auto) 0 K/mcL (0.0-0.3); Basophils % (Auto) 0.2 % (0.0-2.0); Eosinophils # (Auto) 0 K/mcL (0.0-0.7); Eosinophils % (Auto) 0.5 % (0.0-7.0); Granulocytes % (Auto) 72.3 % (38.0-78.0); Lymphocytes # (Auto) 1.5 K/mcL (1.5-4.8); Lymphocytes % (Auto) 19.4 % (15.5-49.0); Mean Corpuscular Hemoglobin 29.7 pg (26.0-34.0); Monocytes # (Auto) 0.6 K/mcL (0.1-0.9); Monocytes % (Auto) 7.6 % (1.0-12.0); Platelet Count 281 K/mcL (140-440); RBC 3.94 M/mcL (4.50-5.90); Red Cell Distribution Width 15.4 % (11.5-14.5)
[2018-04-19 05:24] LABS: ALT/SGPT 18 U/l (0-40); Albumin 2.1 gm/dL (3.2-5.2); Albumin/Globulin Ratio 0.5 (1.0-2.3); Alkaline Phosphatase 91 U/L (39-117); Bilirubin,Direct < 0.2 mg/dL (0.0-0.3); Blood Urea Nitrogen 32 mg/dl (8-23); Gamma Glutamyl Transpeptidase 67 U/L (8-61); Uric Acid 4.5 mg/dL (2.5-8.0)
[2018-04-19] MEDS: 0.9 % SODIUM CHLORIDE 10 ML SYRINGE IV SCH ×3 (05:34→20:52)
[2018-04-19] MEDS: GABAPENTIN 100 MG CAPSULE PO SCH ×3 (05:34→20:52)
[2018-04-19] MEDS: INSULIN LISPRO 1 UNIT/0.01 ML UNIT SQ SCH ×4 (07:35→20:48)
[2018-04-19] MEDS: predniSONE 20 MG TABLET PO SCH (08:03)
[2018-04-19] MEDS: fentaNYL 100 MCG/2 ML VIAL IV PRN (08:15)
[2018-04-19] MEDS: HEPARIN 5,000 UNIT/ML VIAL SQ SCH ×2 (08:32→20:48)
[2018-04-19] MEDS: METOPROLOL SUCCINATE 50 MG TAB.XL.24H PO SCH (08:32)
[2018-04-19] MEDS: ASPIRIN 81 MG TAB.CHEW PO SCH (08:32)
[2018-04-19] MEDS: LINEZOLID 600 MG TABLET PO SCH ×2 (08:32→20:49)
[2018-04-19] MEDS: SENNOSIDES 1 TABLET PO SCH (08:32)
[2018-04-19] MEDS: ACETAMINOPHEN 650 MG/65 ML BOTTLE IV SCH (08:35)
[2018-04-19] MEDS: DAPTOmycin 500 MG VIAL IV SCH (08:35)
--- NOTE | 2018-04-19 12:25 | Internal Med Progress Note ---
Medical - PN: Subj Patient information: Note initiated : 04/19/18 at 12:23 pm Service Date, if different from initiated Date: [] Patient: Sunny Ace 78 y/o M admitted on 04/12/18 for MRSA Infection. Chief Complaint: [] Interval history: Patient reports doing better than yesterday. Denies any fever, chills, shortness of breath, any new onset weakness or numbness, no issues with bladder/ bowel. Endorses some back pain [in the middle], relieved with pain medications. Agreeable to get the Melvin catheter out, as he can get out of the bed and sit in the chair. 800% of his meals - Constitutional Vitals: Vital Signs Temp Pulse Resp BP Pulse Ox 36.2 C 88 18 115/59 98 04/19/18 11:49 04/19/18 12:00 04/19/18 11:49 04/19/18 11:49 04/19/18 11:50 Period Temp Pulse Resp BP Sys/Centeno Pulse Ox Last 24 Hr 36.1 C-36.8 C 86-88 15-24 115-157/59-95 96-98 Intake and Output 04/18/18 04/19/18 04/19/18 21:59 05:59 13:59 Intake Total 665 / 665 711 / 711 465 / 465 Output Total 2450 / 2450 2049 1000 / 1000 Balance -1785 / -1785 -1339 / -1339 -535 / -535 Weight 93.984 kg Intake & Output: Intake & Output 04/18/18 04/19/18 04/19/18 21:59 05:59 13:59 Intake Total 665 / 665 711 / 711 465 / 465 Output Total 2450 / 2450 2049 1000 / 1000 Balance -1785 / -1785 -1339 / -1339 -535 / -535 Weight 93.984 kg Intake: IV 65 / 65 711 / 711 65 / 65 Lactated Ringers 1,000 ml @ 75 0 / 0 711 / 711 mls/hr IV .[id number] [facility] Rx#: [id number] Oral 600 / 600 400 / 400 Output: Urine Catheter Amount 2450 / 2450 2049 1000 / 1000 Other: Meal Dinner Breakfast Percent of Meal Consumed 100% 100% Feeding Ability Independent Independent General appearance: average body habitus, no acute distress - ENT ENT exam: Present: mucous membranes moist - Respiratory Respiratory exam: Present: CTAB, rales. Absent: rhonchi, stridor, wheezes Additional comments: Some Rales at bilateral bases - Cardiovascular Cardiovascular exam: Present: +S1, +S2. Absent: systolic murmur - GI/Abdominal GI/Abdominal exam: Present: normal bowel sounds, soft. Absent: distended, guarding, tenderness - Extremities Exam Extremities exam: Absent: pedal edema Medical - PN: Obj Da - Labs CBC & Chem 7: 04/19/18 03:17 04/19/18 03:17 Labs: Abnormal Lab Results 04/19/18 04/19/18 04/18/18 03:17 03:17 03:10 RBC 3.94 L Hgb 11.7 L Hct 35.4 L RDW 15.4 H Gran % Lymph % (Auto) Lymph # (Auto) BUN 32 H 37 H Creatinine 1.3 H 1.3 H Glucose 138 H 158 H Phosphorus 2.6 L GGT 67 H Total Protein 5.8 L Albumin 2.1 L 2.1 L Globulin 3.9 H Albumin/Globulin Ratio 0.5 L 0.6 L Triglycerides 161 H 04/18/18 04/17/18 04/17/18 03:10 03:40 03:40 RBC 4.01 L 3.63 L Hgb 11.9 L 10.7 L Hct 35.9 L 32.6 L RDW 15.6 H 15.4 H Gran % 78.7 H 80.5 H Lymph % (Auto) 14.4 L 13.2 L Lymph # (Auto) 1.1 L 1.1 L BUN 47 H Creatinine 1.4 H Glucose 244 H Phosphorus GGT Total Protein 5.6 L Albumin 1.8 L Globulin 3.8 H Albumin/Globulin Ratio 0.5 L Triglycerides 158 H Meds: Medications Acetaminophen (Tylenol) 650 mg PO Q6HP PRN PRN Reason: PAIN/FEVER > 101 Last Admin: 04/12/18 22:11 Dose: 650 mg Hydrocodone Bitart/Acetaminophen (Purdon 5/325mg) 1 tab PO Q4HP PRN PRN Reason: PAIN LEVEL 3-6 Last Admin: 04/18/18 07:02 Dose: 1 tab Albuterol/Ipratropium (Duoneb) 3 ml NEB Q4HRT PRN PRN Reason: Shortness Of Breath Or Wheezing Aspirin (Aspirin) 81 mg PO DAILY [facility] Last Admin: 04/19/18 08:32 Dose: 81 mg Daptomycin (Cubicin) 750 mg 8 mg/kg (750 mg) IV Q24H [facility] Last Admin: 04/19/18 08:35 Dose: 750 mg Dextrose (Dextrose 50%) 0 ml IV UD PRN PRN Reason: Hypoglycemia Diagnostic Test (Pha) (Accu-Chek) 1 each FS ACHS [facility] Last Admin: 04/19/18 11:55 Dose: 1 each Fentanyl (Sublimaze) 100 mcg IV ONCE PRN PRN Reason: Pain Fentanyl (Sublimaze) 25 mcg IV Q2HP PRN PRN Reason: PAIN LEVEL > 6 Last Admin: 04/19/18 08:15 Dose: 25 mcg Gabapentin (Neurontin) 100 mg PO Q8 [facility] Last Admin: 04/19/18 05:34 Dose: 100 mg Glucose (Insta-Glucose) 15 gm PO PRN PRN PRN Reason: Hypoglycemia Heparin Sodium (Porcine) (Heparin) 5,000 unit SQ Q12 [facility] Last Admin: 04/19/18 08:32 Dose: 5,000 unit Hydromorphone HCl (Dilaudid) 0.5 mg IV Q4-6HP PRN PRN Reason: PAIN LEVEL > 6 Last Admin: 04/18/18 08:10 Dose: 0.5 mg Acetaminophen (Ofirmev) 650 mg in 65 mls @ 130 mls/hr IV TID [facility] Last Infusion: 04/19/18 09:05 Dose: Infused Lactated Ringer's (Lactated Ringers) 1,000 mls @ 75 mls/hr IV .[id number] [facility] Last Admin: 04/19/18 03:47 Dose: 75 mls/hr Insulin Glargine (Lantus) 26 unit SQ HS [facility] Last Admin: 04/18/18 20:51 Dose: 26 unit Insulin Human Lispro (Humalog) 0 unit SQ [facility]; Protocol Last Admin: 04/19/18 11:56 Dose: 6 unit Linezolid (Zyvox) 600 mg PO BID [facility] Last Admin: 04/19/18 08:32 Dose: 600 mg Metoprolol Succinate (Toprol Xl) 100 mg PO DAILY [facility] Last Admin: 04/19/18 08:32 Dose: 100 mg Naloxone HCl (Narcan) 0.1 mg IV Q2MIN PRN PRN Reason: Opiate Reversal Olanzapine (Zyprexa) 5 mg IM Q6HP PRN PRN Reason: Agitation Ondansetron HCl (Zofran) 4 mg IV Q4HP PRN PRN Reason: Nausea And Vomiting Prednisone (Prednisone) 20 mg PO [facility] Last Admin: 04/19/18 08:03 Dose: 20 mg Senna (Senokot) 2 tab PO DAILY [facility] Last Admin: 04/19/18 08:32 Dose: 2 tab Sodium Chloride (Saline Flush) 10 ml IV Q8 [facility] Last Admin: 04/19/18 05:34 Dose: Not Given Medical - PN: A/P - Time Spent With Patient Total time spent is greater than 50% in coordination of care (as documented) at patient's floor/unit and/or counseling patient: 15 - 24 minutes - Narrative A/P Narrative: #1 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 Both TTE and DENISSE have been negative so far. -Concerns for T4-T5 discitis/osteomyelitis on imaging; no concerns for spinal cord compression at this point -If patient has new onset neurological deficit; patient may need emergent spinal surgical intervention [transferred to [place]] #2 Concerns for sepsis, due to #1 -No evidence of shock #3 left-sided pneumonia: Based on clinical symptoms, CT findings -On room air, day 12/25 of linezolid #3 polymyalgia rheumatica, patient on prednisone Recommendations: #1 given MRSA bacteremia still persisting despite being on effective antibiotic therapy [LISA's 2 daptomycin and linezolid has been in the susceptible range] will consider a whole-body PET/CT to look for occult abscesses or fluid collections for source control. If positive will need interventional radiology' s assistance in drainage #2 continue p.o. linezolid 600 mg every 12 hrs #3 continue IV daptomycin at 720 mg every 24 hours. Check serum CK over the weekend #[address] a PICC line until patient clears his bacteremia #5 as blood culture [1/2 sets] from 18 April is positive, send 2 sets of blood cultures, one from each side [right and left], every other day till negative #6 patient has been on p.o. prednisone 20 mg daily for less than a month. In case he continues to be on p.o. prednisone 20 mg daily for more than a month, will recommend Bactrim double strength tablet once daily until he continues on 20 or more than 20 mg of prednisone daily. Also consider discussing with Rheumatology about whether prednisone dose can be lowered, which might help ( hypothetically) with improving immune response to MRSA. We will follow while inpatient Thomas Ortega MD Infectious disease Medical - PN: Qual - Stroke Symptom Onset Unknown: No - VTE Deep Vein Thrombosis/Pulmonary Embolism Present on Admission: No
--- NOTE | 2018-04-19 20:03 | Internal Med Progress Note ---
Medical - PN: Subj Patient information: Note initiated : 04/19/18 at 8:00 pm Service Date, if different from initiated Date: [] Patient: Sunny Ace a 78 y/o M admitted on 04/12/18 for MRSA Infection. Chief Complaint: f/u MRSA bacteremia, discitis Interval history: Mr. Ace is a 78 year old Male with h/o mrsa bactermia, in november, s/p treatment presents to the hospital after being referred here from the ID clinic The patient has been having worsening pain in the throacic spine and bilateral shoulder for the last 4-5 days, he also notes he is progressively getting weaker and not feeling quite right. He notes weakness in his legs that he is unable to climb stairs as before. He denies any sensory loss, bowel bladder incontinence. he notes he passed out last night while taking food out of the refrigerator, but unable to elaborate more. The patient was at [facility] and had extensive workup including DENISSE, multiple MRI in november for bacteremia, it seems alos had some aspiration of right shoulder bursa, workup seems to have been negative, Treated with abx I believe vanco and had good response untill now. patient also has PMR and significant DJD so some symptoms were confounding. His workup in the recent ID clinic showed worsening wbc, his blood cultures ordered were positive for GPC and the patient was asked to come to the ER for further evaluation. 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 will send the patient to [facility] for needed MRI, I think wont happen till tomorrow morning, pt is hemodyamically stable, no neurological deficit so far. WBC trending down. he still has significant pain, started on neurontin, no new neurological deficits 04/14 Patient seen and examined, no acute overnight events. Pain is better controlled when he is not moving however has significant pain in shoulder and back when he tries to move. MRI of the right shoulder C-spine and thoracic spine done. Show some uptake in the thoracic spine region inflammation versus arthritis C-spine and right shoulder is negative for acute infection. We will proceed with lumbar spine sacral and left shoulder MRI tomorrow. We will also proceed with transesophageal echo. Patient's blood cultures continue to remain positive. Patient remains on daptomycin WBC count trending down. Patient's renal function is not yet normal plan to get a CT abdomen and pelvis once kidney function is back to normal. 04/15 Patient seen and examined, no acute overnight events, microbiology from yesterday still negative, repeat culture sent today the patient is on daptomycin. Infectious disease to see the patient today. I reviewed the images with the radiologist at this facility. 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 Infectious disease physician would like a biopsy of the thoracic vertebrae if signs of infection. We will try to get that scheduled. Patient to complete MRI of the left shoulder lumbar spine and sacral spine later in the day. Plan of care reviewed with the patient. 04/16 Patient seen and examined, no acute overnight events. Patient feeling much better today. Patient is going to have thoracic vertebrae aspiration. Continue IV antibiotics for now. Patient blood culture sent yesterday is positive. Please send cultures tomorrow. Labs stable. Creatinine is still showing slight worsening repeat urinalysis and urine protein creatinine ratio urine electrolytes sent. Patient was on IV fluids. Infectious disease is following. No changes on telemetry, no neurological worsening 04/17 Patient seen and examined, no acute overnight events, feeling slightly worse today because of pain in the back radiating down his sites. He has no new neurological symptoms. The patient denies any chest pain shortness of breath headache or dizziness is able to tolerate p.o. diet well. His labs show improved leukocytosis, creatinine is better. Plan of care reviewed with infectious disease physician who would like to get a transesophageal echo done. We will schedule that for today. I reviewed the case with the barrel header. The patient's CT scan done yesterday showed pneumonia, given that he has cough pneumonia and sputum culture suggestive of gram-positive bacteria likely the same staff patient will be started on linezolid given the daptomycin is poor lung penetration. 04/18 Pt seen examined labs stable, creat improving pain in the back still there, pt has no neurological deficit Plan for DENISSE today Blood cx 04/17 positive, On daptomycin and linezolid ID following 04/19 Patient seen and examined, case discussed with ID. Overall starting to feel somewhat improved today. Melvin catheter is been discontinued. Pain is under better control. No new neurologic symptoms. Blood cultures from 04/18, one bottle from each set positive, over 24 hours to turn positive though. Plan further evaluation of whole body PET/CT scan Pertinent ROS: Denies fever or chills. Denies bowel issues, for now discontinued. Denies lower extremity weakness. No nausea or vomiting. Appetite is good. No dyspnea. - Constitutional Vitals: Vital Signs Temp Pulse Resp BP Pulse Ox 97.1 F 70 18 115/59 98 04/19/18 11:49 04/19/18 16:00 04/19/18 11:49 04/19/18 11:49 04/19/18 11:50 Period Temp Pulse Resp BP Sys/Centeno Pulse Ox Last 24 Hr 97.1 F-98.2 F 70-88 15-24 115-157/59-95 96-98 Intake and Output 04/19/18 04/19/18 04/19/18 05:59 13:59 21:59 Intake Total 711 / 711 965 / 965 1400 / 1400 Output Total 2049 1000 / 1000 375 / 375 Balance -1339 / -1339 -35 / -35 1025 / 1025 Weight 207 lb 3.2 oz Patient Weight 04/20/18 05:59 Weight 207 lb 3.2 oz Intake & Output: Intake & Output 04/19/18 04/19/18 04/19/18 05:59 13:59 21:59 Intake Total 711 / 711 965 / 965 1400 / 1400 Output Total 2049 1000 / 1000 375 / 375 Balance -1339 / -1339 -35 / -35 1025 / 1025 Weight 207 lb 3.2 oz Intake: IV 711 / 711 65 / 65 1000 / 1000 Lactated Ringers 1,000 ml @ 75 711 / 711 1000 / 1000 mls/hr IV .[id number] [facility] Rx#: [id number] Oral 900 / 900 400 / 400 Output: Urine Catheter Amount 2049 1000 / 1000 375 / 375 Other: Meal Lunch Dinner Percent of Meal Consumed 100% 100% Feeding Ability Assist with Tray Set Up Independent Stool Size Copious Stool Color Brown Stool Consistency Dry and Hard Exam: General: Male, appearing his age laying in bed in no acute distress HEENT: Normocephalic. Conjunctiva clear, sclerae are anicteric Neck: Supple Chest: Clear, no rales, unlabored Back: Mild mid thoracic tenderness, no erythema Cardiovascular: Regular, no murmur, no edema Abdomen: Soft, nontender, active bowel sounds Neuro: Alert, oriented 3. Strength 5/5 in the upper and lower extremities. Medical - PN: Obj Da - Labs CBC & Chem 7: 04/19/18 03:17 04/19/18 03:17 Labs: Abnormal Lab Results 04/19/18 04/19/18 04/18/18 03:17 03:17 03:10 RBC 3.94 L Hgb 11.7 L Hct 35.4 L RDW 15.4 H Gran % Lymph % (Auto) Lymph # (Auto) BUN 32 H 37 H Creatinine 1.3 H 1.3 H Glucose 138 H 158 H Phosphorus 2.6 L GGT 67 H Total Protein 5.8 L Albumin 2.1 L 2.1 L Globulin 3.9 H Albumin/Globulin Ratio 0.5 L 0.6 L Triglycerides 161 H 04/18/18 04/17/18 04/17/18 03:10 03:40 03:40 RBC 4.01 L 3.63 L Hgb 11.9 L 10.7 L Hct 35.9 L 32.6 L RDW 15.6 H 15.4 H Gran % 78.7 H 80.5 H Lymph % (Auto) 14.4 L 13.2 L Lymph # (Auto) 1.1 L 1.1 L BUN 47 H Creatinine 1.4 H Glucose 244 H Phosphorus GGT Total Protein 5.6 L Albumin 1.8 L Globulin 3.8 H Albumin/Globulin Ratio 0.5 L Triglycerides 158 H Microbiology 04/16/18 11:50 Gram Stain - Final Sputum - Expectorated Sputum Culture - Preliminary Staphylococcus aureus 04/18/18 03:10 Blood Culture - Preliminary Blood Gram positive cocci 04/18/18 03:18 Blood Culture - Preliminary Blood Gram positive cocci 04/15/18 09:25 Blood Culture - Preliminary Blood Methicillin resistant s.aureus 04/17/18 03:48 Blood Culture - Preliminary Blood Gram positive cocci 04/16/18 15:30 Gram Stain - Final Aspirate - Disc Space Body Fluid Culture - Final Meds: Medications Acetaminophen (Tylenol) 650 mg PO Q6HP PRN PRN Reason: PAIN/FEVER > 101 Last Admin: 04/12/18 22:11 Dose: 650 mg Hydrocodone Bitart/Acetaminophen (Stanley 5/325mg) 1 tab PO Q4HP PRN PRN Reason: PAIN LEVEL 3-6 Last Admin: 04/18/18 07:02 Dose: 1 tab Albuterol/Ipratropium (Duoneb) 3 ml NEB Q4HRT PRN PRN Reason: Shortness Of Breath Or Wheezing Aspirin (Aspirin) 81 mg PO DAILY [facility] Last Admin: 04/19/18 08:32 Dose: 81 mg Daptomycin (Cubicin) 750 mg 8 mg/kg (750 mg) IV Q24H [facility] Last Admin: 04/19/18 08:35 Dose: 750 mg Dextrose (Dextrose 50%) 0 ml IV UD PRN PRN Reason: Hypoglycemia Diagnostic Test (Pha) (Accu-Chek) 1 each FS ACHS [facility] Last Admin: 04/19/18 17:22 Dose: 1 each Fentanyl (Sublimaze) 100 mcg IV ONCE PRN PRN Reason: Pain Fentanyl (Sublimaze) 25 mcg IV Q2HP PRN PRN Reason: PAIN LEVEL > 6 Last Admin: 04/19/18 08:15 Dose: 25 mcg Gabapentin (Neurontin) 100 mg PO Q8 [facility] Last Admin: 04/19/18 13:24 Dose: 100 mg Glucose (Insta-Glucose) 15 gm PO PRN PRN PRN Reason: Hypoglycemia Heparin Sodium (Porcine) (Heparin) 5,000 unit SQ Q12 [facility] Last Admin: 04/19/18 08:32 Dose: 5,000 unit Hydromorphone HCl (Dilaudid) 0.5 mg IV Q4-6HP PRN PRN Reason: PAIN LEVEL > 6 Last Admin: 04/18/18 08:10 Dose: 0.5 mg Lactated Ringer's (Lactated Ringers) 1,000 mls @ 75 mls/hr IV .[id number] [facility] Last Admin: 04/19/18 17:37 Dose: 75 mls/hr Insulin Glargine (Lantus) 26 unit SQ HS [facility] Last Admin: 04/18/18 20:51 Dose: 26 unit Insulin Human Lispro (Humalog) 0 unit SQ ACHS [facility]; Protocol Last Admin: 04/19/18 17:22 Dose: 8 unit Linezolid (Zyvox) 600 mg PO BID [facility] Last Admin: 04/19/18 08:32 Dose: 600 mg Metoprolol Succinate (Toprol Xl) 100 mg PO DAILY [facility] Last Admin: 04/19/18 08:32 Dose: 100 mg Naloxone HCl (Narcan) 0.1 mg IV Q2MIN PRN PRN Reason: Opiate Reversal Olanzapine (Zyprexa) 5 mg IM Q6HP PRN PRN Reason: Agitation Ondansetron HCl (Zofran) 4 mg IV Q4HP PRN PRN Reason: Nausea And Vomiting [facility] Last Admin: 04/19/18 08:03 Dose: 20 mg Senna (Senokot) 2 tab PO DAILY [facility] Last Admin: 04/19/18 08:32 Dose: 2 tab Sodium Chloride (Saline Flush) 10 ml IV Q8 [facility] Last Admin: 04/19/18 13:22 Dose: Not Given - Impressions DENISSE, initial report, discussed with performing barrel header No evidence of vegetation, no valvular ring abscess No significant regurgitant murmurs Mild atherosclerosis on nonostial cusp of aortic valve Medical - PN: A/P - Time Spent With Patient Total time spent is greater than 50% in coordination of care (as documented) at patient's floor/unit and/or counseling patient: Greater than 35 minutes (1) MRSA (methicillin resistant Staphylococcus aureus) septicemia Problem details: Completed 6 weeks IV vancomycin 01/15/18, switched to oral antibiotics x 60 days under direction of ID. Recurrent 04/12/2018 Status: Acute Current Visit: Yes (2) Bacteremia Status: Acute Current Visit: Yes (3) PMR (polymyalgia rheumatica) Status: Acute Current Visit: Yes (4) Diabetes mellitus Status: Chronic Current Visit: Yes (5) Hypertension, essential Status: Chronic Current Visit: Yes - Narrative A/P Narrative: Recurrent MRSA bacteremia, persistent MRSA bacteremia persists. One of 2 bottles each set of cultures drawn yesterday L positive MRSA, however longer than 24 hours to become positive (taking longer than previously). DENISSE without definitive evidence of endocarditis. Plan: Continue daptomycin (LISA indicates effectiveness). Day 8 of daptomycin; check CPK this weekend. Whole-body PET/CT has been arranged for Sunday at [facility]. This is to evaluate for evidence of occult, un- drained bacteremia source. Concern for T4/T5 discitis and osteomyelitis on MRI. No evidence of neurologic involvement. Interventional radiology aspirate no growth. Plan: Continue to monitor neurologic status, if evidence of cord involvement, will need transfer to higher level of care for intervention. Sepsis secondary to MRSA, no septic shock, stable Pneumonia secondary to staph. Day 12/25 of linezolid for treatment of pulmonary staph infection. Hypertension, stable Type 2 diabetes with hyperglycemia. Continue with sliding scale insulin. Hyponatremia- resolved Acute kidney Injury Polymyalgia rheumatica, on prednisone. If on long-term high dose steroids, will add Bactrim DS daily while on prednisone doses of 20 mg or more. DVT hep sq Diet Carb consistent Full code. Medical - PN: Qual - Stroke Symptom Onset Unknown: No - VTE Deep Vein Thrombosis/Pulmonary Embolism Present on Admission: No
[2018-04-19] MEDS: INSULIN GLARGINE, HUMAN 1 UNIT/0.01 ML SQ SCH (20:48)
[2018-04-20] MEDS: fentaNYL 100 MCG/2 ML VIAL IV PRN ×3 (02:00→07:46)
[2018-04-20] MEDS: HYDROcodone/APAP 5/325MG TABLET PO PRN ×5 (03:50→21:45)
[2018-04-20] MEDS: LACTATED RINGERS 1,000 ML IV SCH ×2 (03:55→21:39)
[2018-04-20] MEDS: 0.9 % SODIUM CHLORIDE 10 ML SYRINGE IV SCH ×3 (05:25→21:50)
[2018-04-20] MEDS: GABAPENTIN 100 MG CAPSULE PO SCH ×3 (05:52→21:42)
[2018-04-20] MEDS ORDERED: LACTATED RINGERS 1,000 ML IV SCH (07:30)
[2018-04-20] MEDS: ASPIRIN 81 MG TAB.CHEW PO SCH (07:46)
[2018-04-20] MEDS: HEPARIN 5,000 UNIT/ML VIAL SQ SCH ×2 (07:46→21:40)
[2018-04-20] MEDS: SENNOSIDES 1 TABLET PO SCH (07:47)
[2018-04-20] MEDS: predniSONE 20 MG TABLET PO SCH (07:48)
[2018-04-20] MEDS: LINEZOLID 600 MG TABLET PO SCH ×2 (07:48→21:41)
[2018-04-20] MEDS: METOPROLOL SUCCINATE 50 MG TAB.XL.24H PO SCH (07:48)
[2018-04-20] MEDS: DAPTOmycin 500 MG VIAL IV SCH (07:49)
[2018-04-20 08:41] LABS: Basophils # (Auto) 0 K/mcL (0.0-0.3); Basophils % (Auto) 0.2 % (0.0-2.0); Eosinophils # (Auto) 0.1 K/mcL (0.0-0.7); Eosinophils % (Auto) 1.2 % (0.0-7.0); Granulocytes % (Auto) 72.3 % (38.0-78.0); Lymphocytes # (Auto) 2.1 K/mcL (1.5-4.8); Lymphocytes % (Auto) 19.7 % (15.5-49.0); Mean Corpuscular HGB Conc 32.9 g/dL (31.0-36.0); Mean Corpuscular Hemoglobin 29.6 pg (26.0-34.0); Monocytes # (Auto) 0.7 K/mcL (0.1-0.9); Monocytes % (Auto) 6.6 % (1.0-12.0); Platelet Count 308 K/mcL (140-440); RBC 4.46 M/mcL (4.50-5.90); Red Cell Distribution Width 15.2 % (11.5-14.5)
[2018-04-20] MEDS: INSULIN LISPRO 1 UNIT/0.01 ML UNIT SQ SCH ×4 (09:03→21:43)
[2018-04-20 09:12] LABS: Blood Urea Nitrogen 29 mg/dl (8-23)
[2018-04-20] MEDS: HYDROmorphone 2 MG/ML VIAL IV PRN (10:24)
--- NOTE | 2018-04-20 13:10 | Internal Med Progress Note ---
Medical - PN: Subj Patient information: Note initiated : 04/20/18 at 1:06 pm Service Date, if different from initiated Date: [] Patient: Sunny Ace a 78 y/o M admitted on 04/12/18 for MRSA Infection. Chief Complaint: f/u MRSA sepsis Interval history: Mr. Ace is a 78 year old Male with h/o mrsa bactermia, in november, s/p treatment presents to the hospital after being referred here from the ID clinic The patient has been having worsening pain in the throacic spine and bilateral shoulder for the last 4-5 days, he also notes he is progressively getting weaker and not feeling quite right. He notes weakness in his legs that he is unable to climb stairs as before. He denies any sensory loss, bowel bladder incontinence. he notes he passed out last night while taking food out of the refrigerator, but unable to elaborate more. The patient was at [facility] and had extensive workup including DENISSE, multiple MRI in november for bacteremia, it seems alos had some aspiration of right shoulder bursa, workup seems to have been negative, Treated with abx I believe vanco and had good response untill now. patient also has PMR and significant DJD so some symptoms were confounding. His workup in the recent ID clinic showed worsening wbc, his blood cultures ordered were positive for GPC and the patient was asked to come to the ER for further evaluation. ID inside sales consultant requested pt be on daptomycin, and get multiple MRI of spine nad [place] shoulder 04/13 Pt seen examined,overnight bit agitated, in pain, needing Dilaudid blld cx yesterday positive, todays pending on daptomycin zyglo technician went home yesterday, not available today not avilable tomorrow even on sunday not sure if we will be able to get the needed studies done given past experiences with the radiology department. will send the patient to [facility] for needed MRI, I think wont happen till tomorrow morning, pt is hemodyamically stable, no neurological deficit so far. WBC trending down. he still has significant pain, started on neurontin, no new neurological deficits 04/14 Patient seen and examined, no acute overnight events. Pain is better controlled when he is not moving however has significant pain in shoulder and back when he tries to move. MRI of the right shoulder C-spine and thoracic spine done. Show some uptake in the thoracic spine region inflammation versus arthritis C-spine and right shoulder is negative for acute infection. We will proceed with lumbar spine sacral and left shoulder MRI tomorrow. We will also proceed with transesophageal echo. Patient's blood cultures continue to remain positive. Patient remains on daptomycin WBC count trending down. Patient's renal function is not yet normal plan to get a CT abdomen and pelvis once kidney function is back to normal. 04/15 Patient seen and examined, no acute overnight events, microbiology from yesterday still negative, repeat culture sent today the patient is on daptomycin. Infectious disease to see the patient today. I reviewed the images with the radiologist at this facility. 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 Infectious disease physician would like a biopsy of the thoracic vertebrae if signs of infection. We will try to get that scheduled. Patient to complete MRI of the left shoulder lumbar spine and sacral spine later in the day. Plan of care reviewed with the patient. 04/16 Patient seen and examined, no acute overnight events. Patient feeling much better today. Patient is going to have thoracic vertebrae aspiration. Continue IV antibiotics for now. Patient blood culture sent yesterday is positive. Please send cultures tomorrow. Labs stable. Creatinine is still showing slight worsening repeat urinalysis and urine protein creatinine ratio urine electrolytes sent. Patient was on IV fluids. Infectious disease is following. No changes on telemetry, no neurological worsening 04/17 Patient seen and examined, no acute overnight events, feeling slightly worse today because of pain in the back radiating down his sites. He has no new neurological symptoms. The patient denies any chest pain shortness of breath headache or dizziness is able to tolerate p.o. diet well. His labs show improved leukocytosis, creatinine is better. Plan of care reviewed with infectious disease physician who would like to get a transesophageal echo done. We will schedule that for today. I reviewed the case with the child support specialist. The patient's CT scan done yesterday showed pneumonia, given that he has cough pneumonia and sputum culture suggestive of gram-positive bacteria likely the same staff patient will be started on linezolid given the daptomycin is poor lung penetration. 04/18 Pt seen examined labs stable, creat improving pain in the back still there, pt has no neurological deficit Plan for DENISSE today Blood cx 04/17 positive, On daptomycin and linezolid ID following 04/19 Patient seen and examined, case discussed with ID. Overall starting to feel somewhat improved today. Melvin catheter is been discontinued. Pain is under better control. No new neurologic symptoms. Blood cultures from 04/18, one bottle from each set positive, over 24 hours to turn positive though. Plan further evaluation of whole body PET/CT scan 04/20 Back pain in the midthoracic area is about the same. Appetite is good. Work in physical therapy. Some difficulty starting his stream after the Melvin catheter was discontinued. No weakness in the lower extremities, no bowel issues. No fever or chills Pertinent ROS: No fever or chills, no weakness, some urinary hesitancy, no bowel issues. Thoracic pain stable. - Constitutional Vitals: Vital Signs Temp Pulse Resp BP Pulse Ox 98.0 F 70 20 96/54 97 04/20/18 12:08 04/19/18 16:00 04/20/18 12:08 04/20/18 12:08 04/20/18 12:08 Period Temp Pulse Resp BP Sys/Centeno Pulse Ox Last 24 Hr 97.3 F-98.2 F 70 20-20 96-140/54-85 95-99 Intake and Output 04/19/18 04/20/18 04/20/18 21:59 05:59 13:59 Intake Total 1400 / 1400 2099 / 2100 Output Total 925 / 925 600 / 600 450 / 450 Balance 475 / 475 -600 / -600 1650 / 1650 Weight 209 lb 6.4 oz Intake & Output: Intake & Output 04/19/18 04/20/18 04/20/18 21:59 05:59 13:59 Intake Total 1400 / 1400 2099 / 2100 Output Total 925 / 925 600 / 600 450 / 450 Balance 475 / 475 -600 / -600 1650 / 1650 Weight 209 lb 6.4 oz Intake: IV 1000 / 1000 1000 / 1000 Lactated Ringers 1,000 ml @ 75 1000 / 1000 1000 / 1000 mls/hr IV .[id number] [facility] Rx#: [id number] Oral 400 / 400 980 / 980 GI Tube Flush 120 / 120 Output: Urine Catheter Amount 375 / 375 Void Amount 550 / 550 600 / 600 450 / 450 Other: Meal Dinner Lunch Percent of Meal Consumed 100% 100% Feeding Ability Independent Independent Stool Size Copious Stool Color Brown Stool Consistency Dry and Hard # Voids 1 Exam: General: In no acute distress Chest: Clear, unlabored Back: Mild tenderness to palpation around T5 region Cardiovascular: Regular, no murmur appreciated, no edema, though in YAMILA hose Abdomen: Soft, nontender Neuro: Alert, oriented 3, strength 5/5 in the lower extremities. Medical - PN: Obj Da - Labs CBC & Chem 7: 04/20/18 07:56 04/20/18 07:56 Labs: Abnormal Lab Results 04/20/18 04/20/18 04/19/18 07:56 07:56 03:17 RBC 4.46 L Hgb 13.2 L Hct 40.2 L RDW 15.2 H Gran % Lymph % (Auto) Lymph # (Auto) BUN 29 H 32 H Creatinine 1.4 H 1.3 H Glucose 138 H Phosphorus GGT 67 H Total Protein Albumin 2.1 L Globulin 3.9 H Albumin/Globulin Ratio 0.5 L Triglycerides 04/19/18 04/18/18 04/18/18 03:17 03:10 03:10 RBC 3.94 L 4.01 L Hgb 11.7 L 11.9 L Hct 35.4 L 35.9 L RDW 15.4 H 15.6 H Gran % 78.7 H Lymph % (Auto) 14.4 L Lymph # (Auto) 1.1 L BUN 37 H Creatinine 1.3 H Glucose 158 H Phosphorus 2.6 L GGT Total Protein 5.8 L Albumin 2.1 L Globulin Albumin/Globulin Ratio 0.6 L Triglycerides 161 H Microbiology 04/16/18 11:50 Gram Stain - Final Sputum - Expectorated Sputum Culture - Final Methicillin resistant s.aureus 04/19/18 03:35 Blood Culture - Preliminary Blood 04/19/18 03:17 Blood Culture - Preliminary Blood 04/18/18 03:10 Blood Culture - Preliminary Blood Gram positive cocci 04/18/18 03:18 Blood Culture - Preliminary Blood Gram positive cocci 04/15/18 09:25 Blood Culture - Preliminary Blood Methicillin resistant s.aureus Meds: Medications Acetaminophen (Tylenol) 650 mg PO Q6HP PRN PRN Reason: PAIN/FEVER > 101 Last Admin: 04/12/18 22:11 Dose: 650 mg Hydrocodone Bitart/Acetaminophen (Arnett 5/325mg) 1 tab PO Q4HP PRN PRN Reason: PAIN LEVEL 3-6 Last Admin: 04/20/18 12:47 Dose: 1 tab Albuterol/Ipratropium (Duoneb) 3 ml NEB Q4HRT PRN PRN Reason: Shortness Of Breath Or Wheezing Aspirin (Aspirin) 81 mg PO DAILY [facility] Last Admin: 04/20/18 07:46 Dose: 81 mg Daptomycin (Cubicin) 750 mg 8 mg/kg (750 mg) IV Q24H [facility] Last Admin: 04/20/18 07:49 Dose: 750 mg Dextrose (Dextrose 50%) 0 ml IV UD PRN PRN Reason: Hypoglycemia Diagnostic Test (Pha) (Accu-Chek) 1 each FS [facility] Last Admin: 04/20/18 12:06 Dose: 1 each Fentanyl (Sublimaze) 100 mcg IV ONCE PRN PRN Reason: Pain Fentanyl (Sublimaze) 25 mcg IV Q2HP PRN PRN Reason: PAIN LEVEL > 6 Last Admin: 04/20/18 07:46 Dose: 25 mcg Gabapentin (Neurontin) 100 mg PO Q8 [facility] Last Admin: 04/20/18 05:52 Dose: 100 mg Glucose (Insta-Glucose) 15 gm PO PRN PRN PRN Reason: Hypoglycemia Heparin Sodium (Porcine) (Heparin) 5,000 unit SQ Q12 [facility] Last Admin: 04/20/18 07:46 Dose: 5,000 unit Hydromorphone HCl (Dilaudid) 0.5 mg IV Q4-6HP PRN PRN Reason: PAIN LEVEL > 6 Last Admin: 04/20/18 10:24 Dose: 0.5 mg Lactated Ringer's (Lactated Ringers) 1,000 mls @ 75 mls/hr IV .[id number] [facility] Last Admin: 04/20/18 07:32 Dose: 75 mls/hr Insulin Glargine (Lantus) 26 unit SQ HS [facility] Last Admin: 04/19/18 20:48 Dose: 26 unit Insulin Human Lispro (Humalog) 0 unit SQ [facility]; Protocol Last Admin: 04/20/18 12:09 Dose: 6 unit Linezolid (Zyvox) 600 mg PO BID [facility] Last Admin: 04/20/18 07:48 Dose: 600 mg Metoprolol Succinate (Toprol Xl) 100 mg PO DAILY [facility] Last Admin: 04/20/18 07:48 Dose: 100 mg Naloxone HCl (Narcan) 0.1 mg IV Q2MIN PRN PRN Reason: Opiate Reversal Olanzapine (Zyprexa) 5 mg IM Q6HP PRN PRN Reason: Agitation Ondansetron HCl (Zofran) 4 mg IV Q4HP PRN PRN Reason: Nausea And Vomiting Prednisone (Prednisone) 20 mg PO [facility] Last Admin: 04/20/18 07:48 Dose: 20 mg Senna (Senokot) 2 tab PO DAILY [facility] Last Admin: 04/20/18 07:47 Dose: 2 tab Sodium Chloride (Saline Flush) 10 ml IV Q8 [facility] Last Admin: 04/20/18 05:25 Dose: Not Given Medical - PN: A/P - Time Spent With Patient Total time spent is greater than 50% in coordination of care (as documented) at patient's floor/unit and/or counseling patient: (1) MRSA (methicillin resistant Staphylococcus aureus) septicemia Problem details: Completed 6 weeks IV vancomycin 01/15/18, switched to oral antibiotics x 60 days under direction of ID. Recurrent 04/12/2018 Status: Acute Current Visit: Yes (2) Bacteremia Status: Acute Current Visit: Yes (3) PMR (polymyalgia rheumatica) Status: Acute Current Visit: Yes (4) Diabetes mellitus Status: Chronic Current Visit: Yes (5) Hypertension, essential Status: Chronic Current Visit: Yes - Narrative A/P Narrative: Recurrent MRSA bacteremia, persistent MRSA bacteremia. From 04/18, 1 of 2 bottles each set of cultures positive for GPC, however took longer than 24 hours to become positive (taking longer than previously). DENISSE without definitive evidence of endocarditis. From 04/19, blood cultures remain no growth at 34 hours. Plan: Continue daptomycin (LISA indicates effectiveness). Day 9 of daptomycin; check CPK this weekend. Whole-body PET/CT has been arranged for Sunday at [facility]. This is to evaluate for evidence of occult, un- drained bacteremia source. Recheck blood cultures on 04/21. Transfer to Med/ Surg. Concern for T4/T5 discitis and osteomyelitis on MRI. No evidence of neurologic involvement. Interventional radiology aspirate no growth. Plan: Continue to monitor neurologic status, if evidence of cord involvement, will need transfer to higher level of care for intervention. Sepsis secondary to MRSA, no septic shock, stable Pneumonia secondary to staph. Day 5/10 of linezolid for treatment of pulmonary staph infection. Sputum culture now finalized, positive for MRSA, sensitive to linezolid. Hypertension, stable Type 2 diabetes with hyperglycemia. Continue with sliding scale insulin. Hyponatremia- resolved Acute kidney Injury Polymyalgia rheumatica, on prednisone. If on long-term high dose steroids, will add Bactrim DS daily while on prednisone doses of 20 mg or more. Urinary hesitancy. Has noted since Ngozi MEJÍA'kim yesterday. Begin tamsulosin. DVT hep sq Diet Carb consistent Full code. Medical - PN: Qual - Stroke Symptom Onset Unknown: No - VTE Deep Vein Thrombosis/Pulmonary Embolism Present on Admission: No
[2018-04-20] MEDS ORDERED: ACETAMINOPHEN 325 MG TABLET PO PRN (14:59)
[2018-04-20] MEDS ORDERED: DEXTROSE 50% 50 ML VIAL IV PRN (14:59)
[2018-04-20] MEDS ORDERED: HYDROmorphone 2 MG/ML VIAL IV PRN (14:59)
[2018-04-20] MEDS ORDERED: fentaNYL 100 MCG/2 ML VIAL IV PRN (14:59)
[2018-04-20] MEDS ORDERED: ONDANSETRON 4 MG/2 ML VIAL IV PRN (14:59)
[2018-04-20] MEDS ORDERED: DEXTROSE 31 GM ORAL.SUSP PO PRN (14:59)
[2018-04-20] MEDS ORDERED: IPRATROPIUM/ALBUTEROL 3 ML AMPUL.NEB NEB PRN (14:59)
[2018-04-20] MEDS ORDERED: NALOXONE HCL 0.4 MG/ML VIAL IV PRN (14:59)
[2018-04-20] MEDS ORDERED: TAMSULOSIN 0.4 MG CAPSULE PO SCH (21:00)
[2018-04-20] MEDS: INSULIN GLARGINE, HUMAN 1 UNIT/0.01 ML SQ SCH (21:42)
[2018-04-20] MEDS: TAMSULOSIN 0.4 MG CAPSULE PO SCH (21:42)
[2018-04-21] MEDS: HYDROcodone/APAP 5/325MG TABLET PO PRN ×4 (05:53→21:48)
[2018-04-21] MEDS: GABAPENTIN 100 MG CAPSULE PO SCH ×3 (05:53→20:17)
[2018-04-21] MEDS: 0.9 % SODIUM CHLORIDE 10 ML SYRINGE IV SCH ×3 (05:54→20:18)
[2018-04-21 06:06] LABS: Basophils # (Auto) 0 K/mcL (0.0-0.3); Basophils % (Auto) 0.2 % (0.0-2.0); Eosinophils # (Auto) 0.1 K/mcL (0.0-0.7); Granulocytes % (Auto) 74.4 % (38.0-78.0); Lymphocytes # (Auto) 1.7 K/mcL (1.5-4.8); Lymphocytes % (Auto) 18.9 % (15.5-49.0); Mean Cell Volume 89.8 fL (80.0-100.0); Mean Corpuscular Hemoglobin 29.6 pg (26.0-34.0); Monocytes # (Auto) 0.5 K/mcL (0.1-0.9); Monocytes % (Auto) 5.5 % (1.0-12.0); Platelet Count 247 K/mcL (140-440); RBC 4.23 M/mcL (4.50-5.90); Red Cell Distribution Width 15.2 % (11.5-14.5)
[2018-04-21 06:31] LABS: Blood Urea Nitrogen 33 mg/dl (8-23)
[2018-04-21] MEDS: METOPROLOL SUCCINATE 50 MG TAB.XL.24H PO SCH (08:13)
[2018-04-21] MEDS: SENNOSIDES 1 TABLET PO SCH (08:13)
[2018-04-21] MEDS: HEPARIN 5,000 UNIT/ML VIAL SQ SCH ×2 (08:14→20:17)
[2018-04-21] MEDS: predniSONE 20 MG TABLET PO SCH (08:14)
[2018-04-21] MEDS: INSULIN LISPRO 1 UNIT/0.01 ML UNIT SQ SCH ×4 (08:14→20:17)
[2018-04-21] MEDS: ASPIRIN 81 MG TAB.CHEW PO SCH (08:14)
[2018-04-21] MEDS: LINEZOLID 600 MG TABLET PO SCH ×2 (08:14→20:17)
[2018-04-21] MEDS: DAPTOmycin 500 MG VIAL IV SCH (08:17)
[2018-04-21 09:45] LABS: Blood Urea Nitrogen 31 mg/dl (8-23)
[2018-04-21] MEDS: LACTATED RINGERS 1,000 ML IV SCH (10:40)
--- NOTE | 2018-04-21 11:52 | Internal Med Progress Note ---
Medical - PN: Subj Patient information: Note initiated : 04/21/18 at 11:49 am Service Date, if different from initiated Date: [] Patient: Sunny Ace a 78 y/o M admitted on 04/12/18 for MRSA Infection. Chief Complaint: f/u MRSA sepsis Interval history: Mr. Ace is a 78 year old Male with h/o mrsa bactermia, in november, s/p treatment presents to the hospital after being referred here from the ID clinic The patient has been having worsening pain in the throacic spine and bilateral shoulder for the last 4-5 days, he also notes he is progressively getting weaker and not feeling quite right. He notes weakness in his legs that he is unable to climb stairs as before. He denies any sensory loss, bowel bladder incontinence. he notes he passed out last night while taking food out of the refrigerator, but unable to elaborate more. The patient was at [facility] and had extensive workup including DENISSE, multiple MRI in november for bacteremia, it seems alos had some aspiration of right shoulder bursa, workup seems to have been negative, Treated with abx I believe vanco and had good response untill now. patient also has PMR and significant DJD so some symptoms were confounding. His workup in the recent ID clinic showed worsening wbc, his blood cultures ordered were positive for GPC and the patient was asked to come to the ER for further evaluation. 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 will send the patient to [facility] for needed MRI, I think wont happen till tomorrow morning, pt is hemodyamically stable, no neurological deficit so far. WBC trending down. he still has significant pain, started on neurontin, no new neurological deficits 04/14 Patient seen and examined, no acute overnight events. Pain is better controlled when he is not moving however has significant pain in shoulder and back when he tries to move. MRI of the right shoulder C-spine and thoracic spine done. Show some uptake in the thoracic spine region inflammation versus arthritis C-spine and right shoulder is negative for acute infection. We will proceed with lumbar spine sacral and left shoulder MRI tomorrow. We will also proceed with transesophageal echo. Patient's blood cultures continue to remain positive. Patient remains on daptomycin WBC count trending down. Patient's renal function is not yet normal plan to get a CT abdomen and pelvis once kidney function is back to normal. 04/15 Patient seen and examined, no acute overnight events, microbiology from yesterday still negative, repeat culture sent today the patient is on daptomycin. Infectious disease to see the patient today. I reviewed the images with the radiologist at this facility. 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 Infectious disease physician would like a biopsy of the thoracic vertebrae if signs of infection. We will try to get that scheduled. Patient to complete MRI of the left shoulder lumbar spine and sacral spine later in the day. Plan of care reviewed with the patient. 04/16 Patient seen and examined, no acute overnight events. Patient feeling much better today. Patient is going to have thoracic vertebrae aspiration. Continue IV antibiotics for now. Patient blood culture sent yesterday is positive. Please send cultures tomorrow. Labs stable. Creatinine is still showing slight worsening repeat urinalysis and urine protein creatinine ratio urine electrolytes sent. Patient was on IV fluids. Infectious disease is following. No changes on telemetry, no neurological worsening 04/17 Patient seen and examined, no acute overnight events, feeling slightly worse today because of pain in the back radiating down his sites. He has no new neurological symptoms. The patient denies any chest pain shortness of breath headache or dizziness is able to tolerate p.o. diet well. His labs show improved leukocytosis, creatinine is better. Plan of care reviewed with infectious disease physician who would like to get a transesophageal echo done. We will schedule that for today. I reviewed the case with the metal molder. The patient's CT scan done yesterday showed pneumonia, given that he has cough pneumonia and sputum culture suggestive of gram-positive bacteria likely the same staff patient will be started on linezolid given the daptomycin is poor lung penetration. 04/18 Pt seen examined labs stable, creat improving pain in the back still there, pt has no neurological deficit Plan for DENISSE today Blood cx 04/17 positive, On daptomycin and linezolid ID following 04/19 Patient seen and examined, case discussed with ID. Overall starting to feel somewhat improved today. Melvin catheter is been discontinued. Pain is under better control. No new neurologic symptoms. Blood cultures from 04/18, one bottle from each set positive, over 24 hours to turn positive though. Plan further evaluation of whole body PET/CT scan 04/20 Back pain in the midthoracic area is about the same. Appetite is good. Work in physical therapy. Some difficulty starting his stream after the Melvin catheter was discontinued. No weakness in the lower extremities, no bowel issues. No fever or chills 04/21 Back pain feels about the same. Appetite remains good. Blood cultures from 04/19 are no growth at 48 hours. Follow-up blood cultures drawn this morning. Hyponatremia and hyperkalemia on initial labs this morning, normalized on redraw , suspect artifact. Pertinent ROS: No fever, chills, nausea, vomiting. No lower extremity weakness. - Constitutional Vitals: Vital Signs Temp Pulse Resp BP Pulse Ox 98.0 F 65 16 100/50 95 04/21/18 10:56 04/21/18 10:56 04/21/18 10:56 04/21/18 10:56 04/21/18 10:56 Period Temp Pulse Resp BP Sys/Centeno Pulse Ox Last 24 Hr 96.5 F-98.0 F 61-86 16-20 96-140/50-60 91-98 Intake and Output 04/20/18 04/21/18 04/21/18 21:59 05:59 13:59 Intake Total 150 / 150 2176 / 2176 Output Total 300 / 300 1850 / 1850 425 / 425 Balance -300 / -300 -1700 / -1700 1751 / 1751 Weight 212 lb Intake & Output: Intake & Output 04/20/18 04/21/18 04/21/18 21:59 05:59 13:59 Intake Total 150 / 150 2176 / 2176 Output Total 300 / 300 1850 / 1850 425 / 425 Balance -300 / -300 -1700 / -1700 1751 / 1751 Weight 212 lb Intake: IV 1975 / 1975 Lactated Ringers 1,000 ml @ 75 976 / 976 mls/hr IV .[id number] [facility] Rx#: [id number] Oral 150 / 150 200 / 200 Output: Void Amount 300 / 300 1850 / 1850 425 / 425 Other: Meal Breakfast Percent of Meal Consumed 100% Feeding Ability Assist with Tray Set Up Stool Size Moderate Stool Color Brown Stool Consistency Formed # Voids 3 # Bowel Movements 1 Exam: General: In no acute distress, comfortable Chest: Few basal crackles, improved with deep inspirations, unlabored respirations Cardiovascular: Regular, no murmur, no edema Abdomen: Soft, nontender Back: Mild tenderness in T5 region Neuro: Alert, oriented 3, equal strength in lower extremities Medical - PN: Obj Da - Labs CBC & Chem 7: 04/21/18 04:30 04/21/18 08:40 Labs: Abnormal Lab Results 04/21/18 04/21/18 04/21/18 08:40 04:30 04:30 RBC 4.23 L Hgb 12.5 L Hct 38.0 L RDW 15.2 H Sodium 130 L Potassium 5.6 H BUN 31 H 33 H Creatinine 1.5 H 1.4 H Glucose 163 H 166 H GGT Albumin Globulin Albumin/Globulin Ratio 04/20/18 04/20/18 04/19/18 07:56 07:56 03:17 RBC 4.46 L Hgb 13.2 L Hct 40.2 L RDW 15.2 H Sodium Potassium BUN 29 H 32 H Creatinine 1.4 H 1.3 H Glucose 138 H GGT 67 H Albumin 2.1 L Globulin 3.9 H Albumin/Globulin Ratio 0.5 L 04/19/18 03:17 RBC 3.94 L Hgb 11.7 L Hct 35.4 L RDW 15.4 H Sodium Potassium BUN Creatinine Glucose GGT Albumin Globulin Albumin/Globulin Ratio Microbiology 04/18/18 03:10 Blood Culture - Preliminary Blood Methicillin resistant s.aureus 04/19/18 03:35 Blood Culture - Preliminary Blood 04/19/18 03:17 Blood Culture - Preliminary Blood 04/16/18 11:50 Gram Stain - Final Sputum - Expectorated Sputum Culture - Final Methicillin resistant s.aureus Meds: Medications Acetaminophen (Tylenol) 650 mg PO Q6HP PRN PRN Reason: PAIN/FEVER > 101 Hydrocodone Bitart/Acetaminophen ([place] 5/325mg) 1 tab PO Q4HP PRN PRN Reason: PAIN LEVEL 3-6 Last Admin: 04/21/18 10:53 Dose: 1 tab Albuterol/Ipratropium (Duoneb) 3 ml NEB Q4HRT PRN PRN Reason: Shortness Of Breath Or Wheezing Aspirin (Aspirin) 81 mg PO DAILY [facility] Last Admin: 04/21/18 08:14 Dose: 81 mg Daptomycin (Cubicin) 750 mg 8 mg/kg (750 mg) IV Q24H [facility] Last Admin: 04/21/18 08:17 Dose: 750 mg Dextrose (Dextrose 50%) 0 ml IV UD PRN PRN Reason: Hypoglycemia Diagnostic Test (Pha) (Accu-Chek) 1 each FS [facility] Last Admin: 04/21/18 10:55 Dose: 1 each Fentanyl (Sublimaze) 25 mcg IV Q2HP PRN PRN Reason: PAIN LEVEL > 6 Last Admin: 04/20/18 15:22 Dose: 25 mcg Gabapentin (Neurontin) 100 mg PO Q8 [facility] Last Admin: 04/21/18 05:53 Dose: 100 mg Glucose (Insta-Glucose) 15 gm PO PRN PRN PRN Reason: Hypoglycemia Heparin Sodium (Porcine) (Heparin) 5,000 unit SQ Q12 [facility] Last Admin: 04/21/18 08:14 Dose: 5,000 unit Hydromorphone HCl (Dilaudid) 0.5 mg IV Q4-6HP PRN PRN Reason: PAIN LEVEL > 6 Insulin Glargine (Lantus) 26 unit SQ [facility] Last Admin: 04/20/18 21:42 Dose: 26 unit Insulin Human Lispro (Humalog) 0 unit SQ [facility]; Protocol Last Admin: 04/21/18 11:41 Dose: 4 unit Linezolid (Zyvox) 600 mg PO BID [facility] Last Admin: 04/21/18 08:14 Dose: 600 mg Metoprolol Succinate (Toprol Xl) 100 mg PO DAILY [facility] Last Admin: 04/21/18 08:13 Dose: 100 mg Naloxone HCl (Narcan) 0.1 mg IV Q2MIN PRN PRN Reason: Opiate Reversal Ondansetron HCl (Zofran) 4 mg IV Q4HP PRN PRN Reason: Nausea And Vomiting [facility]) [facility] Last Admin: 04/21/18 08:14 Dose: 20 mg Senna (Senokot) 2 tab PO DAILY [facility] Last Admin: 04/21/18 08:13 Dose: 2 tab Sodium Chloride (Saline Flush) 10 ml IV Q8 [facility] Last Admin: 04/21/18 05:54 Dose: Not Given Tamsulosin HCl (Flomax) 0.4 mg PO HS [facility] Last Admin: 04/20/18 21:42 Dose: 0.4 mg Medical - PN: A/P - Time Spent With Patient Total time spent is greater than 50% in coordination of care (as documented) at patient's floor/unit and/or counseling patient: Greater than 35 minutes (1) MRSA (methicillin resistant Staphylococcus aureus) septicemia Problem details: Completed 6 weeks IV vancomycin 01/15/18, switched to oral antibiotics x 60 days under direction of ID. Recurrent 04/12/2018 Status: Acute Current Visit: Yes (2) Bacteremia Status: Acute Current Visit: Yes (3) PMR (polymyalgia rheumatica) Status: Acute Current Visit: Yes (4) Diabetes mellitus Status: Chronic Current Visit: Yes (5) Hypertension, essential Status: Chronic Current Visit: Yes - Narrative A/P Narrative: Recurrent MRSA bacteremia, persistent MRSA bacteremia. From 04/18, 1 of 2 bottles each set of cultures positive for GPC, however took longer than 24 hours to become positive (taking longer than previously). DENISSE without definitive evidence of endocarditis. From 04/19, blood cultures remain no growth at 48 hours. CPK this morning in normal limits. Further surveillance blood cultures drawn this morning (04/21). Plan: Continue daptomycin (LISA indicates effectiveness). Day 10 of daptomycin. Whole-body PET/CT has been arranged for Sunday at [facility]. This is to evaluate for evidence of occult, un-drained bacteremia source. Recheck blood cultures on 04/23. Saline lock fluids. Concern for T4/T5 discitis and osteomyelitis on MRI. No evidence of neurologic involvement. Interventional radiology aspirate no growth/final. Plan: Continue to monitor neurologic status, if evidence of cord involvement, will need transfer to higher level of care for intervention. Sepsis secondary to MRSA, no septic shock, stable Pneumonia secondary to staph. Day 6/10 of linezolid for treatment of pulmonary staph infection. Sputum culture now finalized, positive for MRSA, sensitive to linezolid. Hypertension, stable Type 2 diabetes with hyperglycemia. Continue with sliding scale insulin. Hyponatremia- resolved Acute kidney Injury Polymyalgia rheumatica, on prednisone. If on long-term high dose steroids, will add Bactrim DS daily while on prednisone doses of 20 mg or more. Urinary hesitancy. Has noted since Ngozi Chauhan yesterday. Begin tamsulosin. DVT hep sq Diet Carb consistent Full code. Medical - PN: Qual - Stroke Symptom Onset Unknown: No - VTE Deep Vein Thrombosis/Pulmonary Embolism Present on Admission: No
[2018-04-21] MEDS: TAMSULOSIN 0.4 MG CAPSULE PO SCH (20:17)
[2018-04-21] MEDS: INSULIN GLARGINE, HUMAN 1 UNIT/0.01 ML SQ SCH (20:18)
[2018-04-22] MEDS: HYDROcodone/APAP 5/325MG TABLET PO PRN ×4 (04:12→18:15)
[2018-04-22] MEDS: 0.9 % SODIUM CHLORIDE 10 ML SYRINGE IV SCH ×3 (05:27→20:39)
[2018-04-22] MEDS: GABAPENTIN 100 MG CAPSULE PO SCH ×3 (05:27→20:36)
[2018-04-22] MEDS: INSULIN LISPRO 1 UNIT/0.01 ML UNIT SQ SCH ×4 (06:51→20:35)
[2018-04-22] MEDS: METOPROLOL SUCCINATE 50 MG TAB.XL.24H PO SCH (08:12)
[2018-04-22] MEDS: SENNOSIDES 1 TABLET PO SCH (08:12)
[2018-04-22] MEDS: ASPIRIN 81 MG TAB.CHEW PO SCH (08:13)
[2018-04-22] MEDS: HEPARIN 5,000 UNIT/ML VIAL SQ SCH ×2 (08:13→20:36)
[2018-04-22] MEDS: LINEZOLID 600 MG TABLET PO SCH ×2 (08:13→20:36)
[2018-04-22] MEDS: predniSONE 20 MG TABLET PO SCH (08:13)
[2018-04-22] MEDS: DAPTOmycin 500 MG VIAL IV SCH (08:41)
[2018-04-22 08:54] LABS: Basophils # (Auto) 0 K/mcL (0.0-0.3); Basophils % (Auto) 0.3 % (0.0-2.0); Eosinophils # (Auto) 0.2 K/mcL (0.0-0.7); Eosinophils % (Auto) 1.4 % (0.0-7.0); Granulocytes % (Auto) 75.6 % (38.0-78.0); Lymphocytes # (Auto) 1.9 K/mcL (1.5-4.8); Lymphocytes % (Auto) 18.2 % (15.5-49.0); Mean Cell Volume 89.9 fL (80.0-100.0); Mean Corpuscular HGB Conc 32.6 g/dL (31.0-36.0); Mean Corpuscular Hemoglobin 29.3 pg (26.0-34.0); Monocytes # (Auto) 0.5 K/mcL (0.1-0.9); Monocytes % (Auto) 4.5 % (1.0-12.0); Platelet Count 222 K/mcL (140-440); RBC 4.64 M/mcL (4.50-5.90); Red Cell Distribution Width 15.2 % (11.5-14.5)
[2018-04-22 08:56] LABS: Blood Urea Nitrogen 31 mg/dl (8-23)
--- NOTE | 2018-04-22 09:05 | Internal Med Progress Note ---
Medical - PN: Subj Patient information: Note initiated : 04/22/18 at 9:03 am Service Date, if different from initiated Date: [] Patient: Sunny Ace 78 y/o M admitted on 04/12/18 for MRSA Infection. Chief Complaint: [] Interval history: Patient is doing much better. He was sitting in the chair working with physical therapy. Denies any fever, chills, nausea, vomiting, diarrhea, joint pains, shortness of breath. He endorses some back pain which is much better than before. Per nursing, is not getting any [id number] acetaminophen, and his pain medication requirements have also gone. Discussed with him the plan canceled PET/CT, given his cultures from april are negative. Also counseled him in regards to posting his nutritional status and getting more strength. - Constitutional Vitals: Vital Signs Temp Pulse Resp BP Pulse Ox 36.5 C 62 18 135/69 95 04/22/18 06:40 04/22/18 04:00 04/22/18 06:40 04/22/18 06:40 04/22/18 06:40 Period Temp Pulse Resp BP Sys/Centeno Pulse Ox Last 24 Hr 36.3 C-36.9 C 62-70 16-18 100-144/50-72 95-98 Intake and Output 04/21/18 04/22/18 04/22/18 21:59 05:59 13:59 Intake Total 725 / 725 400 / 400 Output Total 1525 / 1525 950 / 950 475 / 475 Balance -800 / -800 -550 / -550 -475 / -475 Weight 94.489 kg Intake & Output: Intake & Output 04/21/18 04/22/18 04/22/18 21:59 05:59 13:59 Intake Total 725 / 725 400 / 400 Output Total 1525 / 1525 950 / 950 475 / 475 Balance -800 / -800 -550 / -550 -475 / -475 Weight 94.489 kg Intake: Oral 725 / 725 400 / 400 Output: Void Amount 1525 / 1525 950 / 950 475 / 475 Other: Meal Dinner Percent of Meal Consumed 100% Feeding Ability Independent General appearance: average body habitus, no acute distress - ENT ENT exam: Present: mucous membranes moist, normal exam - Respiratory Respiratory exam: Present: CTAB. Absent: respiratory distress, rhonchi, wheezes Additional comments: There are some occasional crackles at bilateral bases. - Cardiovascular Cardiovascular exam: Present: +S1, +S2. Absent: systolic murmur - GI/Abdominal GI/Abdominal exam: Present: normal bowel sounds, soft - Extremities Exam Extremities exam: Absent: pedal edema Medical - PN: Obj Da - Labs CBC & Chem 7: 04/22/18 08:09 04/22/18 08:09 Labs: Abnormal Lab Results 04/22/18 04/22/18 04/21/18 08:09 08:09 08:40 RBC Hgb Hct RDW 15.2 H MPV 7.3 L Sodium 132 L Potassium 5.7 H BUN 31 H 31 H Creatinine 1.4 H 1.5 H Glucose 163 H 04/21/18 04/21/18 04/20/18 04:30 04:30 07:56 RBC 4.23 L Hgb 12.5 L Hct 38.0 L RDW 15.2 H MPV Sodium 130 L Potassium 5.6 H BUN 33 H 29 H Creatinine 1.4 H 1.4 H Glucose 166 H 04/20/18 07:56 RBC 4.46 L Hgb 13.2 L Hct 40.2 L RDW 15.2 H MPV Sodium Potassium BUN Creatinine Glucose Meds: Medications Acetaminophen (Tylenol) 650 mg PO Q6HP PRN PRN Reason: PAIN/FEVER > 101 Hydrocodone Bitart/Acetaminophen ([place] 5/325mg) 1 tab PO Q4HP PRN PRN Reason: PAIN LEVEL 3-6 Last Admin: 04/22/18 04:12 Dose: 1 tab Albuterol/Ipratropium (Duoneb) 3 ml NEB Q4HRT PRN PRN Reason: Shortness Of Breath Or Wheezing Aspirin (Aspirin) 81 mg PO DAILY [facility] Last Admin: 04/22/18 08:13 Dose: 81 mg Daptomycin (Cubicin) 750 mg 8 mg/kg (750 mg) IV Q24H [facility] Last Admin: 04/22/18 08:41 Dose: 750 mg Dextrose (Dextrose 50%) 0 ml IV UD PRN PRN Reason: Hypoglycemia Diagnostic Test (Pha) (Accu-Chek) 1 each FS ACHS [facility] Last Admin: 04/22/18 06:50 Dose: 1 each Fentanyl (Sublimaze) 25 mcg IV Q2HP PRN PRN Reason: PAIN LEVEL > 6 Last Admin: 04/20/18 15:22 Dose: 25 mcg Gabapentin (Neurontin) 100 mg PO Q8 [facility] Last Admin: 04/22/18 05:27 Dose: 100 mg Glucose (Insta-Glucose) 15 gm PO PRN PRN PRN Reason: Hypoglycemia Heparin Sodium (Porcine) (Heparin) 5,000 unit SQ Q12 [facility] Last Admin: 04/22/18 08:13 Dose: 5,000 unit Hydromorphone HCl (Dilaudid) 0.5 mg IV Q4-6HP PRN PRN Reason: PAIN LEVEL > 6 Insulin Glargine (Lantus) 26 unit SQ [facility] Last Admin: 04/21/18 20:18 Dose: 26 unit Insulin Human Lispro (Humalog) 0 unit SQ [facility]; Protocol Last Admin: 04/22/18 06:51 Dose: Not Given Linezolid (Zyvox) 600 mg PO BID [facility] Last Admin: 04/22/18 08:13 Dose: 600 mg Metoprolol Succinate (Toprol Xl) 100 mg PO DAILY [facility] Last Admin: 04/22/18 08:12 Dose: 100 mg Naloxone HCl (Narcan) 0.1 mg IV Q2MIN PRN PRN Reason: Opiate Reversal Ondansetron HCl (Zofran) 4 mg IV Q4HP PRN PRN Reason: Nausea And Vomiting Prednisone (Prednisone) 20 mg PO [facility] Last Admin: 04/22/18 08:13 Dose: 20 mg Senna (Senokot) 2 tab PO DAILY [facility] Last Admin: 04/22/18 08:12 Dose: 2 tab Sodium Chloride (Saline Flush) 10 ml IV Q8 [facility] Last Admin: 04/22/18 05:27 Dose: 10 ml Tamsulosin HCl (Flomax) 0.4 mg PO [facility] Last Admin: 04/21/18 20:17 Dose: 0.4 mg Medical - PN: A/P - Time Spent With Patient Total time spent is greater than 50% in coordination of care (as documented) at patient's floor/unit and/or counseling patient: 15 - 24 minutes - Narrative A/P Narrative: #1 Recurrent, prolonged MRSA bacteremia: Blood Cx NGTD since 04/19 -Patient meets 1 major and one minor criteria of Chaney's modified criteria for infective endocarditis, thus possible IE. Both TTE and DENISSE have been negative so far. -Concerns for T4-T5 discitis/osteomyelitis on imaging although cultures obtained by aspiration biopsy on 16 April were negative; no concerns for spinal cord compression at this point #2 Sepsis, due to #1: resolved -No evidence of shock #3 left-sided pneumonia: Based on clinical symptoms, CT findings: clinically better -On room air, day 7/ of linezolid [as daptomycin is inactivated by thew lung surfactant and is inactive for MRSA pneumonia] #4 polymyalgia rheumatica, patient on prednisone Recommendations: #1 Continue p.o. linezolid 600 mg every 12 hrs, stop date 04/26/18 #2 will plan to increase IV daptomycin dosing to 900 mg [10 mg/kg] every 24 hours. Check serum CK once weekly, so far CK are in normal range [last one checked pover the weekend was 40] #3 If blood Cx are NGTD by tomorrow, consider placing a PICC line #4 patient has been on p.o. prednisone 20 mg daily for less than a month. In case he continues to be on p.o. prednisone 20 mg daily for more than a month, will recommend Bactrim double strength tablet once daily until he continues on 20 or more than 20 mg of prednisone daily. Also consider discussing with Rheumatology about whether prednisone dose can be lowered, which might help ( hypothetically) with improving immune response to MRSA. #5 Patient will need long-term IV daptomycin [around 6-8 weeks], and follow-up in infectious disease clinic. We will make final recommendations at time of discharge will follow Thomas Ortega MD Infectious disease Medical - PN: Qual - Stroke Symptom Onset Unknown: No - VTE Deep Vein Thrombosis/Pulmonary Embolism Present on Admission: No
--- NOTE | 2018-04-22 16:42 | Internal Med Progress Note ---
Medical - PN: Subj Patient information: Note initiated : 04/22/18 at 4:40 pm Service Date, if different from initiated Date: [] Patient: Sunny Ace a 78 y/o M admitted on 04/12/18 for MRSA Infection. Chief Complaint: f/u MRSA sepsis Interval history: Mr. Ace is a 78 year old Male with h/o mrsa bactermia, in november, s/p treatment presents to the hospital after being referred here from the ID clinic The patient has been having worsening pain in the throacic spine and bilateral shoulder for the last 4-5 days, he also notes he is progressively getting weaker and not feeling quite right. He notes weakness in his legs that he is unable to climb stairs as before. He denies any sensory loss, bowel bladder incontinence. he notes he passed out last night while taking food out of the refrigerator, but unable to elaborate more. The patient was at [facility] and had extensive workup including DENISSE, multiple MRI in november for bacteremia, it seems alos had some aspiration of right shoulder bursa, workup seems to have been negative, Treated with abx I believe vanco and had good response untill now. patient also has PMR and significant DJD so some symptoms were confounding. His workup in the recent ID clinic showed worsening wbc, his blood cultures ordered were positive for GPC and the patient was asked to come to the ER for further evaluation. 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 will send the patient to [facility] for needed MRI, I think wont happen till tomorrow morning, pt is hemodyamically stable, no neurological deficit so far. WBC trending down. he still has significant pain, started on neurontin, no new neurological deficits 04/14 Patient seen and examined, no acute overnight events. Pain is better controlled when he is not moving however has significant pain in shoulder and back when he tries to move. MRI of the right shoulder C-spine and thoracic spine done. Show some uptake in the thoracic spine region inflammation versus arthritis C-spine and right shoulder is negative for acute infection. We will proceed with lumbar spine sacral and left shoulder MRI tomorrow. We will also proceed with transesophageal echo. Patient's blood cultures continue to remain positive. Patient remains on daptomycin WBC count trending down. Patient's renal function is not yet normal plan to get a CT abdomen and pelvis once kidney function is back to normal. 04/15 Patient seen and examined, no acute overnight events, microbiology from yesterday still negative, repeat culture sent today the patient is on daptomycin. Infectious disease to see the patient today. I reviewed the images with the radiologist at this facility. 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 Infectious disease physician would like a biopsy of the thoracic vertebrae if signs of infection. We will try to get that scheduled. Patient to complete MRI of the left shoulder lumbar spine and sacral spine later in the day. Plan of care reviewed with the patient. 04/16 Patient seen and examined, no acute overnight events. Patient feeling much better today. Patient is going to have thoracic vertebrae aspiration. Continue IV antibiotics for now. Patient blood culture sent yesterday is positive. Please send cultures tomorrow. Labs stable. Creatinine is still showing slight worsening repeat urinalysis and urine protein creatinine ratio urine electrolytes sent. Patient was on IV fluids. Infectious disease is following. No changes on telemetry, no neurological worsening 04/17 Patient seen and examined, no acute overnight events, feeling slightly worse today because of pain in the back radiating down his sites. He has no new neurological symptoms. The patient denies any chest pain shortness of breath headache or dizziness is able to tolerate p.o. diet well. His labs show improved leukocytosis, creatinine is better. Plan of care reviewed with infectious disease physician who would like to get a transesophageal echo done. We will schedule that for today. I reviewed the case with the academy director. The patient's CT scan done yesterday showed pneumonia, given that he has cough pneumonia and sputum culture suggestive of gram-positive bacteria likely the same staff patient will be started on linezolid given the daptomycin is poor lung penetration. 04/18 Pt seen examined labs stable, creat improving pain in the back still there, pt has no neurological deficit Plan for DENISSE today Blood cx 04/17 positive, On daptomycin and linezolid ID following 04/19 Patient seen and examined, case discussed with ID. Overall starting to feel somewhat improved today. Melvin catheter is been discontinued. Pain is under better control. No new neurologic symptoms. Blood cultures from 04/18, one bottle from each set positive, over 24 hours to turn positive though. Plan further evaluation of whole body PET/CT scan 04/20 Back pain in the midthoracic area is about the same. Appetite is good. Work in physical therapy. Some difficulty starting his stream after the Melvin catheter was discontinued. No weakness in the lower extremities, no bowel issues. No fever or chills 04/21 Back pain feels about the same. Appetite remains good. Blood cultures from 04/19 are no growth at 48 hours. Follow-up blood cultures drawn this morning. Hyponatremia and hyperkalemia on initial labs this morning, normalized on redraw , suspect artifact. 04/22 Some right-sided mid thoracic back pain coming around to the anterior chest today, fairly sudden onset like a spasm. Blood cultures from 04/19 as well as 04/21 remain without growth. He continues to feel well, has good appetite, becoming more ambulatory. Pertinent ROS: No fevers, chills, cough, sputum production, nausea, vomiting. - Constitutional Vitals: Vital Signs Temp Pulse Resp BP Pulse Ox 98.2 F 62 18 125/63 95 04/22/18 11:11 04/22/18 04:00 04/22/18 11:11 04/22/18 11:11 04/22/18 11:11 Period Temp Pulse Resp BP Sys/Centeno Pulse Ox Last 24 Hr 97.3 F-98.2 F 62-70 -18 125-144/60-72 95-98 Intake and Output 04/22/18 04/22/18 04/22/18 05:59 13:59 21:59 Intake Total 400 / 400 Output Total 950 / 950 475 / 475 Balance -550 / -550 -475 / -475 Intake & Output: Intake & Output 04/22/18 04/22/18 04/22/18 05:59 13:59 21:59 Intake Total 400 / 400 Output Total 950 / 950 475 / 475 Balance -550 / -550 -475 / -475 Intake: Oral 400 / 400 Output: Void Amount 950 / 950 475 / 475 Exam: General: Laying in bed in no acute distress Chest: Clear, no rales Back: Some muscle spasm along the medial right scapula Cardiovascular: Regular, no murmur Abdomen: Soft, nontender Neuro: Alert, oriented 3, nonfocal Medical - PN: Obj Da - Labs CBC & Chem 7: 04/22/18 08:09 04/22/18 08:09 Labs: Abnormal Lab Results 04/22/18 04/22/18 04/21/18 08:09 08:09 08:40 RBC Hgb Hct RDW 15.2 H MPV 7.3 L Sodium 132 L Potassium 5.7 H BUN 31 H 31 H Creatinine 1.4 H 1.5 H Glucose 163 H 04/21/18 04/21/18 04/20/18 04:30 04:30 07:56 RBC 4.23 L Hgb 12.5 L Hct 38.0 L RDW 15.2 H MPV Sodium 130 L Potassium 5.6 H BUN 33 H 29 H Creatinine 1.4 H 1.4 H Glucose 166 H 04/20/18 07:56 RBC 4.46 L Hgb 13.2 L Hct 40.2 L RDW 15.2 H MPV Sodium Potassium BUN Creatinine Glucose Microbiology 04/17/18 03:48 Blood Culture - Final Blood Methicillin resistant s.aureus 04/15/18 09:25 Blood Culture - Final Blood Methicillin resistant s.aureus 04/21/18 04:50 Blood Culture - Preliminary Blood 04/21/18 04:30 Blood Culture - Preliminary Blood 04/19/18 03:35 Blood Culture - Preliminary Blood 04/19/18 03:17 Blood Culture - Preliminary Blood Meds: Medications Acetaminophen (Tylenol) 650 mg PO Q6HP PRN PRN Reason: PAIN/FEVER > 101 Hydrocodone Bitart/Acetaminophen ([place] 5/325mg) 1 tab PO Q4HP PRN PRN Reason: PAIN LEVEL 3-6 Last Admin: 04/22/18 13:48 Dose: 1 tab Albuterol/Ipratropium (Duoneb) 3 ml NEB Q4HRT PRN PRN Reason: Shortness Of Breath Or Wheezing Aspirin (Aspirin) 81 mg PO DAILY SALTY Last Admin: 04/22/18 08:13 Dose: 81 mg Daptomycin (Cubicin) 900 mg 8 mg/kg (750 mg) IV Q24H [facility] Dextrose (Dextrose 50%) 0 ml IV UD PRN PRN Reason: Hypoglycemia Diagnostic Test (Pha) (Accu-Chek) 1 each FS [facility] Last Admin: 04/22/18 11:54 Dose: 1 each Fentanyl (Sublimaze) 25 mcg IV Q2HP PRN PRN Reason: PAIN LEVEL > 6 Last Admin: 04/20/18 15:22 Dose: 25 mcg Gabapentin (Neurontin) 100 mg PO Q8 [facility] Last Admin: 04/22/18 13:48 Dose: 100 mg Glucose (Insta-Glucose) 15 gm PO PRN PRN PRN Reason: Hypoglycemia Heparin Sodium (Porcine) (Heparin) 5,000 unit SQ Q12 [facility] Last Admin: 04/22/18 08:13 Dose: 5,000 unit Hydromorphone HCl (Dilaudid) 0.5 mg IV Q4-6HP PRN PRN Reason: PAIN LEVEL > 6 Insulin Glargine (Lantus) 26 unit SQ [facility] Last Admin: 04/21/18 20:18 Dose: 26 unit Insulin Human Lispro (Humalog) 0 unit SQ [facility]; Protocol Last Admin: 04/22/18 11:54 Dose: Not Given Linezolid (Zyvox) 600 mg PO BID [facility] Last Admin: 04/22/18 08:13 Dose: 600 mg Metoprolol Succinate (Toprol Xl) 100 mg PO DAILY [facility] Last Admin: 04/22/18 08:12 Dose: 100 mg Naloxone HCl (Narcan) 0.1 mg IV Q2MIN PRN PRN Reason: Opiate Reversal Ondansetron HCl (Zofran) 4 mg IV Q4HP PRN PRN Reason: Nausea And Vomiting Prednisone (Prednisone) 20 mg PO [facility] Last Admin: 04/22/18 08:13 Dose: 20 mg Senna (Senokot) 2 tab PO DAILY [facility] Last Admin: 04/22/18 08:12 Dose: 2 tab Sodium Chloride (Saline Flush) 10 ml IV Q8 [facility] Last Admin: 04/22/18 13:49 Dose: 10 ml Tamsulosin HCl (Flomax) 0.4 mg PO [facility] Last Admin: 04/21/18 20:17 Dose: 0.4 mg Medical - PN: A/P - Time Spent With Patient Total time spent is greater than 50% in coordination of care (as documented) at patient's floor/unit and/or counseling patient: 25 - 35 minutes (1) MRSA (methicillin resistant Staphylococcus aureus) septicemia Problem details: Completed 6 weeks IV vancomycin 01/15/18, switched to oral antibiotics x 60 days under direction of ID. Recurrent 04/12/2018 Status: Acute Current Visit: Yes (2) Bacteremia Status: Acute Current Visit: Yes (3) PMR (polymyalgia rheumatica) Status: Acute Current Visit: Yes (4) Diabetes mellitus Status: Chronic Current Visit: Yes (5) Hypertension, essential Status: Chronic Current Visit: Yes - Narrative A/P Narrative: Recurrent MRSA bacteremia, persistent MRSA bacteremia. Improving. Cultures up until 04/18 were becoming positive, though taking longer to do so. Now cultures from 04/19 and 04/21 her with out growth. Possible infective endocarditis though TTE and DENISSE were both negative. Plan: Continue daptomycin, increased dose as per infectious disease (LISA indicates effectiveness). Day 11 of daptomycin. Whole-body PET/CT cultures becoming negative. We'll consider PICC line tomorrow if cultures remain without growth Concern for T4/T5 discitis and osteomyelitis on MRI. No evidence of neurologic involvement. Interventional radiology aspirate no growth/final. Plan: Continue to monitor neurologic status, if evidence of cord involvement, will need transfer to higher level of care for intervention. Sepsis secondary to MRSA, no septic shock, stable Pneumonia secondary to staph. Day 7/10 of linezolid for treatment of pulmonary staph infection. Sputum culture now finalized, positive for MRSA, sensitive to linezolid. Hypertension, stable Type 2 diabetes with hyperglycemia. Continue with sliding scale insulin. Hyponatremia- resolved Acute kidney Injury Polymyalgia rheumatica, on prednisone. If on long-term high dose steroids, will add Bactrim DS daily while on prednisone doses of 20 mg or more. Urinary hesitancy. Has noted since Ngozi MEJÍA'kim. Begin tamsulosin. DVT hep sq Diet Carb consistent Full code. Medical - PN: Qual - Stroke Symptom Onset Unknown: No - VTE Deep Vein Thrombosis/Pulmonary Embolism Present on Admission: No
[2018-04-22] MEDS: INSULIN GLARGINE, HUMAN 1 UNIT/0.01 ML SQ SCH (20:35)
[2018-04-22] MEDS: TAMSULOSIN 0.4 MG CAPSULE PO SCH (20:36)
[2018-04-23] MEDS: 0.9 % SODIUM CHLORIDE 10 ML SYRINGE IV SCH ×4 (05:15→20:38)
[2018-04-23] MEDS: HYDROcodone/APAP 5/325MG TABLET PO PRN ×3 (05:15→19:35)
[2018-04-23] MEDS: GABAPENTIN 100 MG CAPSULE PO SCH ×3 (05:15→20:38)
[2018-04-23 07:47] LABS: Basophils # (Auto) 0 K/mcL (0.0-0.3); Basophils % (Auto) 0.4 % (0.0-2.0); Eosinophils # (Auto) 0.1 K/mcL (0.0-0.7); Eosinophils % (Auto) 1.2 % (0.0-7.0); Granulocytes % (Auto) 73.3 % (38.0-78.0); Lymphocytes % (Auto) 19.9 % (15.5-49.0); Mean Cell Volume 88.5 fL (80.0-100.0); Mean Corpuscular HGB Conc 33.7 g/dL (31.0-36.0); Mean Corpuscular Hemoglobin 29.8 pg (26.0-34.0); Monocytes # (Auto) 0.5 K/mcL (0.1-0.9); Monocytes % (Auto) 5.2 % (1.0-12.0); Platelet Count 251 K/mcL (140-440); RBC 4.19 M/mcL (4.50-5.90)
[2018-04-23 08:07] LABS: Blood Urea Nitrogen 34 mg/dl (8-23)
[2018-04-23] MEDS: INSULIN LISPRO 1 UNIT/0.01 ML UNIT SQ SCH ×4 (08:49→20:37)
[2018-04-23] MEDS: HEPARIN 5,000 UNIT/ML VIAL SQ SCH ×2 (09:35→20:36)
[2018-04-23] MEDS: ASPIRIN 81 MG TAB.CHEW PO SCH (09:35)
[2018-04-23] MEDS: LINEZOLID 600 MG TABLET PO SCH ×2 (09:35→20:37)
[2018-04-23] MEDS: DAPTOmycin 500 MG VIAL IV SCH (09:35)
[2018-04-23] MEDS: SENNOSIDES 1 TABLET PO SCH (09:35)
[2018-04-23] MEDS: predniSONE 20 MG TABLET PO SCH (09:35)
[2018-04-23] MEDS ORDERED: HYDROCHLOROTHIAZIDE 25 MG TABLET PO ONE (10:01)
--- NOTE | 2018-04-23 10:04 | Internal Med Progress Note ---
Medical - PN: Subj Patient information: Note initiated : 04/23/18 at 10:02 am Service Date, if different from initiated Date: [] Patient: Sunny Ace a 78 y/o M admitted on 04/12/18 for MRSA Infection. Chief Complaint: [] Interval history: Mr. Ace is a 78 year old Male with h/o mrsa bactermia, in november, s/p treatment presents to the hospital after being referred here from the ID clinic The patient has been having worsening pain in the throacic spine and bilateral shoulder for the last 4-5 days, he also notes he is progressively getting weaker and not feeling quite right. He notes weakness in his legs that he is unable to climb stairs as before. He denies any sensory loss, bowel bladder incontinence. he notes he passed out last night while taking food out of the refrigerator, but unable to elaborate more. The patient was at [facility] and had extensive workup including DENISSE, multiple MRI in november for bacteremia, it seems alos had some aspiration of right shoulder bursa, workup seems to have been negative, Treated with abx I believe vanco and had good response untill now. patient also has PMR and significant DJD so some symptoms were confounding. His workup in the recent ID clinic showed worsening wbc, his blood cultures ordered were positive for GPC and the patient was asked to come to the ER for further evaluation. ID research consultant requested pt be on daptomycin, and get multiple MRI of spine nad [place] shoulder 04/13 Pt seen examined,overnight bit agitated, in pain, needing Dilaudid blld cx yesterday positive, todays pending on daptomycin mri ct tech went home yesterday, not available today not avilable tomorrow even on sunday not sure if we will be able to get the needed studies done given past experiences with the radiology department. will send the patient to [facility] for needed MRI, I think wont happen till tomorrow morning, pt is hemodyamically stable, no neurological deficit so far. WBC trending down. he still has significant pain, started on neurontin, no new neurological deficits 04/14 Patient seen and examined, no acute overnight events. Pain is better controlled when he is not moving however has significant pain in shoulder and back when he tries to move. MRI of the right shoulder C-spine and thoracic spine done. Show some uptake in the thoracic spine region inflammation versus arthritis C-spine and right shoulder is negative for acute infection. We will proceed with lumbar spine sacral and left shoulder MRI tomorrow. We will also proceed with transesophageal echo. Patient's blood cultures continue to remain positive. Patient remains on daptomycin WBC count trending down. Patient's renal function is not yet normal plan to get a CT abdomen and pelvis once kidney function is back to normal. 04/15 Patient seen and examined, no acute overnight events, microbiology from yesterday still negative, repeat culture sent today the patient is on daptomycin. Infectious disease to see the patient today. I reviewed the images with the radiologist at this facility. 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 Infectious disease physician would like a biopsy of the thoracic vertebrae if signs of infection. We will try to get that scheduled. Patient to complete MRI of the left shoulder lumbar spine and sacral spine later in the day. Plan of care reviewed with the patient. 04/16 Patient seen and examined, no acute overnight events. Patient feeling much better today. Patient is going to have thoracic vertebrae aspiration. Continue IV antibiotics for now. Patient blood culture sent yesterday is positive. Please send cultures tomorrow. Labs stable. Creatinine is still showing slight worsening repeat urinalysis and urine protein creatinine ratio urine electrolytes sent. Patient was on IV fluids. Infectious disease is following. No changes on telemetry, no neurological worsening 04/17 Patient seen and examined, no acute overnight events, feeling slightly worse today because of pain in the back radiating down his sites. He has no new neurological symptoms. The patient denies any chest pain shortness of breath headache or dizziness is able to tolerate p.o. diet well. His labs show improved leukocytosis, creatinine is better. Plan of care reviewed with infectious disease physician who would like to get a transesophageal echo done. We will schedule that for today. I reviewed the case with the field investigator. The patient's CT scan done yesterday showed pneumonia, given that he has cough pneumonia and sputum culture suggestive of gram-positive bacteria likely the same staff patient will be started on linezolid given the daptomycin is poor lung penetration. 04/18 Pt seen examined labs stable, creat improving pain in the back still there, pt has no neurological deficit Plan for DENISSE today Blood cx 04/17 positive, On daptomycin and linezolid ID following 04/19 Patient seen and examined, case discussed with ID. Overall starting to feel somewhat improved today. Melvin catheter is been discontinued. Pain is under better control. No new neurologic symptoms. Blood cultures from 04/18, one bottle from each set positive, over 24 hours to turn positive though. Plan further evaluation of whole body PET/CT scan 04/20 Back pain in the midthoracic area is about the same. Appetite is good. Work in physical therapy. Some difficulty starting his stream after the Melvin catheter was discontinued. No weakness in the lower extremities, no bowel issues. No fever or chills 04/21 Back pain feels about the same. Appetite remains good. Blood cultures from 04/19 are no growth at 48 hours. Follow-up blood cultures drawn this morning. Hyponatremia and hyperkalemia on initial labs this morning, normalized on redraw , suspect artifact. 04/22 Some right-sided mid thoracic back pain coming around to the anterior chest today, fairly sudden onset like a spasm. Blood cultures from 04/19 as well as 04/21 remain without growth. He continues to feel well, has good appetite, becoming more ambulatory. 04/23 Up in chair, no complaints. Back is feeling better. Continues to slowly improve every day. Cultures from 04/19 are negative at 4 days, cultures from 04/21 are negative at [address] PICC line. We'll give a single dose of HCTZ due to persistent mild hyperkalemia. - Constitutional Vitals: Vital Signs Temp Pulse Resp BP Pulse Ox 96.1 F L 65 17 95/58 96 04/23/18 09:07 04/23/18 09:07 04/23/18 09:07 04/23/18 09:07 04/23/18 09:07 Period Temp Pulse Resp BP Sys/Centeno Pulse Ox Last 24 Hr 96.1 F-98.2 F 61-80 14-20 95-150/54-71 95-99 Intake and Output 04/22/18 04/23/18 04/23/18 21:59 05:59 13:59 Intake Total 500 / 500 240 / 240 Output Total 450 / 450 Balance 500 / 500 -210 / -210 Weight 207 lb Intake & Output: Intake & Output 04/22/18 04/23/18 04/23/18 21:59 05:59 13:59 Intake Total 500 / 500 240 / 240 Output Total 450 / 450 Balance 500 / 500 -210 / -210 Weight 207 lb Intake: Oral 500 / 500 240 / 240 Output: Void Amount 450 / 450 Other: Meal Dinner Percent of Meal Consumed 50% Feeding Ability Independent # Voids 3 1 Exam: General: Up in chair, no acute distress Chest: Clear, no rales Back: Very mild tenderness around the T5 region, no overlying erythema or warmth Cardiovascular: Regular without murmur, no edema Abdomen: Soft, nontender Neuro: Alert, oriented, nonfocal Medical - PN: Obj Da - Labs CBC & Chem 7: 04/23/18 06:35 04/23/18 06:35 Labs: Abnormal Lab Results 04/23/18 04/23/18 04/22/18 06:35 06:35 08:09 RBC 4.19 L Hgb 12.5 L Hct 37.1 L RDW 15.0 H MPV Sodium 132 L Potassium 5.6 H 5.7 H BUN 34 H 31 H Creatinine 1.4 H 1.4 H Glucose 04/22/18 04/21/18 04/21/18 08:09 08:40 04:30 RBC Hgb Hct RDW 15.2 H MPV 7.3 L Sodium 130 L Potassium 5.6 H BUN 31 H 33 H Creatinine 1.5 H 1.4 H Glucose 163 H 166 H 04/21/18 04:30 RBC 4.23 L Hgb 12.5 L Hct 38.0 L RDW 15.2 H MPV Sodium Potassium BUN Creatinine Glucose Microbiology 04/21/18 04:50 Blood Culture - Preliminary Blood 04/21/18 04:30 Blood Culture - Preliminary Blood 04/19/18 03:35 Blood Culture - Preliminary Blood 04/19/18 03:17 Blood Culture - Preliminary Blood 04/17/18 03:48 Blood Culture - Final Blood Methicillin resistant s.aureus 04/15/18 09:25 Blood Culture - Final Blood Methicillin resistant s.aureus Meds: Medications Acetaminophen (Tylenol) 650 mg PO Q6HP PRN PRN Reason: PAIN/FEVER > 101 Hydrocodone Bitart/Acetaminophen ([place] 5/325mg) 1 tab PO Q4HP PRN PRN Reason: PAIN LEVEL 3-6 Last Admin: 04/23/18 05:15 Dose: 1 tab Albuterol/Ipratropium (Duoneb) 3 ml NEB Q4HRT PRN PRN Reason: Shortness Of Breath Or Wheezing Aspirin (Aspirin) 81 mg PO DAILY [facility] Last Admin: 04/23/18 09:35 Dose: 81 mg Daptomycin (Cubicin) 900 mg 8 mg/kg (750 mg) IV Q24H [facility] Last Admin: 04/23/18 09:35 Dose: 900 mg Dextrose (Dextrose 50%) 0 ml IV UD PRN PRN Reason: Hypoglycemia Diagnostic Test (Pha) (Accu-Chek) 1 each FS [facility] Last Admin: 04/23/18 08:49 Dose: 1 each Fentanyl (Sublimaze) 25 mcg IV Q2HP PRN PRN Reason: PAIN LEVEL > 6 Last Admin: 04/20/18 15:22 Dose: 25 mcg Gabapentin (Neurontin) 100 mg PO Q8 [facility] Last Admin: 04/23/18 05:15 Dose: 100 mg Glucose (Insta-Glucose) 15 gm PO PRN PRN PRN Reason: Hypoglycemia Heparin Sodium (Porcine) (Heparin) 5,000 unit SQ Q12 [facility] Last Admin: 04/23/18 09:35 Dose: 5,000 unit Hydrochlorothiazide ([place]) 25 mg PO ONCE ONE Stop: 04/23/18 10:02 Hydromorphone HCl (Dilaudid) 0.5 mg IV Q4-6HP PRN PRN Reason: PAIN LEVEL > 6 Insulin Glargine (Lantus) 26 unit SQ [facility] Last Admin: 04/22/18 20:35 Dose: 26 unit Insulin Human Lispro (Humalog) 0 unit SQ [facility]; Protocol Last Admin: 04/23/18 08:49 Dose: Not Given Linezolid (Zyvox) 600 mg PO BID [facility] Last Admin: 04/23/18 09:35 Dose: 600 mg Metoprolol Succinate (Toprol Xl) 100 mg PO DAILY [facility] Last Admin: 04/22/18 08:12 Dose: 100 mg Naloxone HCl (Narcan) 0.1 mg IV Q2MIN PRN PRN Reason: Opiate Reversal Ondansetron HCl (Zofran) 4 mg IV Q4HP PRN PRN Reason: Nausea And Vomiting [facility]) [facility] Last Admin: 04/23/18 09:35 Dose: 20 mg Senna (Senokot) 2 tab PO DAILY [facility] Last Admin: 04/23/18 09:35 Dose: 2 tab Sodium Chloride (Saline Flush) 10 ml IV Q8 [facility] Last Admin: 04/23/18 05:15 Dose: 10 ml Tamsulosin HCl (Flomax) 0.4 mg PO HS [facility] Last Admin: 04/22/18 20:36 Dose: 0.4 mg Medical - PN: A/P - Time Spent With Patient Total time spent is greater than 50% in coordination of care (as documented) at patient's floor/unit and/or counseling patient: 25 - 35 minutes (1) MRSA (methicillin resistant Staphylococcus aureus) septicemia Problem details: Completed 6 weeks IV vancomycin 01/15/18, switched to oral antibiotics x 60 days under direction of ID. Recurrent 04/12/2018 Status: Acute Current Visit: Yes (2) Bacteremia Status: Acute Current Visit: Yes (3) PMR (polymyalgia rheumatica) Status: Acute Current Visit: Yes (4) Diabetes mellitus Status: Chronic Current Visit: Yes (5) Hypertension, essential Status: Chronic Current Visit: Yes - Narrative A/P Narrative: Recurrent MRSA bacteremia, persistent MRSA bacteremia initially, now cultures no growth. Improving. Cultures up until 04/18 were becoming positive, though taking longer to do so. Cultures from 04/19 and 04/21 are NGTD. Possible infective endocarditis though TTE and DENISSE were both negative (1 major and 1 minor Chaney criteria). Plan: Continue daptomycin, increased dose as per infectious disease (LISA indicates effectiveness). Day 12 of daptomycin. Whole-body PET/CT cancelled as cultures becoming negative. PICC line today for prolonged abx therapy, as per ID note yesterday. Likely discharge in about 2 days if continues to do well and no further positive cultures. Would like to see cultures from 04/19 no growth/final. Concern for T4/T5 discitis and osteomyelitis on MRI. No evidence of neurologic involvement. Interventional radiology aspirate no growth/final. Plan: Continue to monitor neurologic status, if evidence of cord involvement, will need transfer to higher level of care for intervention. Hyperkalemia. Mild. On no potassium supplements. Has mild renal insufficiency , likely contributing. Plan: Single dose of HCTZ, recheck in morning. Sepsis secondary to MRSA, no septic shock, stable Pneumonia secondary to staph. Day 810 of linezolid for treatment of pulmonary staph infection. Sputum culture now finalized, positive for MRSA, sensitive to linezolid. Hypertension, stable Type 2 diabetes with hyperglycemia. Continue with sliding scale insulin. Hyponatremia- resolved Acute kidney Injury Polymyalgia rheumatica, on prednisone. If on long-term high dose steroids, will add Bactrim DS daily while on prednisone doses of 20 mg or more. Urinary hesitancy. Has noted since Ngozi MEJÍA'd. Begin tamsulosin. DVT hep sq Diet Carb consistent Full code. Medical - PN: Qual - Stroke Symptom Onset Unknown: No - VTE Deep Vein Thrombosis/Pulmonary Embolism Present on Admission: No
[2018-04-23] MEDS ORDERED: 0.9 % SODIUM CHLORIDE 10 ML SYRINGE IV PRN (11:30)
--- NOTE | 2018-04-23 11:48 | XRay Report ---
HISTORY: PICC PLACEMENT y FINDINGS: There is a PICC line placed to the left arm with the tip in the region of the upper portion of the superior vena cava. There is no pneumothorax, pleural effusion or widening of the mediastinum. The right lung is clear. There is a very small residual infiltrate at the left lung base. The infiltrates are improved significantly since the recent chest CT done on 04/16/18. The heart size is normal. There has been prior coronary artery bypass surgery. No pulmonary vascular congestion is present. IMPRESSION: Resolving pneumonia Well-positioned PICC line Nursing was called with the results Interpreted and Authenticated by: Miguelangel Perkins 04/23/18
[2018-04-23] MEDS: METOPROLOL SUCCINATE 50 MG TAB.XL.24H PO SCH (12:11)
--- NOTE | 2018-04-23 15:10 | Internal Med Progress Note ---
Medical - PN: Subj Patient information: Note initiated : 04/23/18 at 3:04 pm Service Date, if different from initiated Date: [] Patient: Sunny Ace 78 y/o M admitted on 04/12/18 for MRSA Infection. Chief Complaint: [] Interval history: Patient was sleeping at the time of visit. He continues to do better, feels like he is ready to go home. No fever, chills, nausea, vomiting, diarrhea, cough, joint pains, problems with getting up moving around. He had his PICC line placed in his left arm today, uneventful - Constitutional Vitals: Vital Signs Temp Pulse Resp BP Pulse Ox 36.4 C 74 20 110/58 98 04/23/18 12:00 04/23/18 12:00 04/23/18 12:00 04/23/18 12:00 04/23/18 12:00 Period Temp Pulse Resp BP Sys/Centeno Pulse Ox Last 24 Hr 35.6 C-36.7 C 61-80 14-20 90-150/54-71 96-99 Intake and Output 04/23/18 04/23/18 04/23/18 05:59 13:59 21:59 Intake Total 240 / 240 Output Total 450 / 450 Balance -210 / -210 Intake & Output: Intake & Output 04/23/18 04/23/18 04/23/18 05:59 13:59 21:59 Intake Total 240 / 240 Output Total 450 / 450 Balance -210 / -210 Intake: Oral 240 / 240 Output: Void Amount 450 / 450 Other: # Voids 1 General appearance: average body habitus, no acute distress - Respiratory Respiratory exam: Present: CTAB - Cardiovascular Cardiovascular exam: Present: +S1, +S2. Absent: systolic murmur - GI/Abdominal GI/Abdominal exam: Present: normal bowel sounds, soft, distended - Extremities Exam Extremities exam: Absent: pedal edema Medical - PN: Obj Da - Labs CBC & Chem 7: 04/23/18 06:35 04/23/18 06:35 Labs: Abnormal Lab Results 04/23/18 04/23/18 04/22/18 06:35 06:35 08:09 RBC 4.19 L Hgb 12.5 L Hct 37.1 L RDW 15.0 H MPV Sodium 132 L Potassium 5.6 H 5.7 H BUN 34 H 31 H Creatinine 1.4 H 1.4 H Glucose 04/22/18 04/21/18 04/21/18 08:09 08:40 04:30 RBC Hgb Hct RDW 15.2 H MPV 7.3 L Sodium 130 L Potassium 5.6 H BUN 31 H 33 H Creatinine 1.5 H 1.4 H Glucose 163 H 166 H 04/21/18 04:30 RBC 4.23 L Hgb 12.5 L Hct 38.0 L RDW 15.2 H MPV Sodium Potassium BUN Creatinine Glucose Meds: Medications Acetaminophen (Tylenol) 650 mg PO Q6HP PRN PRN Reason: PAIN/FEVER > 101 Hydrocodone Bitart/Acetaminophen ([place] 5/325mg) 1 tab PO Q4HP PRN PRN Reason: PAIN LEVEL 3-6 Last Admin: 04/23/18 12:11 Dose: 1 tab Albuterol/Ipratropium (Duoneb) 3 ml NEB Q4HRT PRN PRN Reason: Shortness Of Breath Or Wheezing Aspirin (Aspirin) 81 mg PO DAILY [facility] Last Admin: 04/23/18 09:35 Dose: 81 mg Daptomycin (Cubicin) 900 mg 8 mg/kg (750 mg) IV Q24H [facility] Last Admin: 04/23/18 09:35 Dose: 900 mg Dextrose (Dextrose 50%) 0 ml IV UD PRN PRN Reason: Hypoglycemia Diagnostic Test (Pha) (Accu-Chek) 1 each FS [facility] Last Admin: 04/23/18 11:53 Dose: 1 each Fentanyl (Sublimaze) 25 mcg IV Q2HP PRN PRN Reason: PAIN LEVEL > 6 Last Admin: 04/20/18 15:22 Dose: 25 mcg Gabapentin (Neurontin) 100 mg PO Q8 [facility] Last Admin: 04/23/18 05:15 Dose: 100 mg Glucose (Insta-Glucose) 15 gm PO PRN PRN PRN Reason: Hypoglycemia Heparin Sodium (Porcine) (Heparin) 5,000 unit SQ Q12 [facility] Last Admin: 04/23/18 09:35 Dose: 5,000 unit Heparin Sodium (Porcine) (Heparin Flush) 2 ml IV Q12 [facility] Hydromorphone HCl (Dilaudid) 0.5 mg IV Q4-6HP PRN PRN Reason: PAIN LEVEL > 6 Insulin Glargine (Lantus) 26 unit SQ [facility] Last Admin: 04/22/18 20:35 Dose: 26 unit Insulin Human Lispro (Humalog) 0 unit SQ [facility]; Protocol Last Admin: 04/23/18 12:11 Dose: 4 unit Linezolid (Zyvox) 600 mg PO BID [facility] Last Admin: 04/23/18 09:35 Dose: 600 mg Metoprolol Succinate (Toprol Xl) 100 mg PO DAILY [facility] Last Admin: 04/23/18 12:11 Dose: Not Given Naloxone HCl (Narcan) 0.1 mg IV Q2MIN PRN PRN Reason: Opiate Reversal Ondansetron HCl (Zofran) 4 mg IV Q4HP PRN PRN Reason: Nausea And Vomiting Prednisone (Prednisone) 20 mg PO [facility] Last Admin: 04/23/18 09:35 Dose: 20 mg Senna (Senokot) 2 tab PO DAILY [facility] Last Admin: 04/23/18 09:35 Dose: 2 tab Sodium Chloride (Saline Flush) 10 ml IV Q8 [facility] Last Admin: 04/23/18 05:15 Dose: 10 ml Sodium Chloride (Saline Flush) 10 ml IV UD PRN PRN Reason: FLUSH Sodium Chloride (Saline Flush) 10 ml IV Q12 [facility] Tamsulosin HCl (Flomax) 0.4 mg PO [facility] Last Admin: 04/22/18 20:36 Dose: 0.4 mg Medical - PN: A/P - Time Spent With Patient Total time spent is greater than 50% in coordination of care (as documented) at patient's floor/unit and/or counseling patient: 15 - 24 minutes - Narrative A/P Narrative: #1 Recurrent, prolonged MRSA bacteremia: Blood Cx NGTD since 04/19 -Patient meets 1 major and one minor criteria of Chaney's modified criteria for infective endocarditis, thus possible IE. Both TTE and DENISSE have been negative so far. -Concerns for T4-T5 discitis/osteomyelitis based on imaging although cultures obtained by aspiration biopsy on 16 April were negative; no concerns for spinal cord compression at this point #2 Sepsis, due to #1: resolved -No evidence of shock #3 left-sided pneumonia: Based on clinical symptoms, CT findings: clinically better -On room air, day 8/10 of linezolid [as daptomycin is inactivated by thew lung surfactant and is inactive for MRSA pneumonia] #4 polymyalgia rheumatica, patient on prednisone Recommendations: #1 Continue p.o. linezolid 600 mg every 12 hrs, stop date 04/26/18 #2 Continue IV daptomycin dosing to 900 mg [10 mg/kg] every 24 hours. Check serum CK once weekly, so far CK are in normal range [last one checked pover the weekend was 40] #3 Schedule ID follow-up as follows: IV daptomycin 900 mg every 24 hours Start date 19 April 2018 Stop date 14 June 2018 Follow-up labs: BMP and CK once weekly, ESR and CRP once every 2 weeks [to be faxed to [phone], attention Dr. Ortega] Schedule ID follow-up appointment in 6 weeks #4 patient has been on p.o. prednisone 20 mg daily for less than a month. In case he continues to be on p.o. prednisone 20 mg daily for more than a month, will recommend Bactrim double strength tablet once daily until he continues on 20 or more than 20 mg of prednisone daily. Also consider discussing with Rheumatology about whether prednisone dose can be lowered, which might help ( hypothetically) with improving immune response to MRSA. Thomas Ortega MD Infectious disease Medical - PN: Qual - Stroke Symptom Onset Unknown: No - VTE Deep Vein Thrombosis/Pulmonary Embolism Present on Admission: No
[2018-04-23] MEDS ORDERED: SENNOSIDES 1 TABLET PO ONE (20:07)
[2018-04-23] MEDS: INSULIN GLARGINE, HUMAN 1 UNIT/0.01 ML SQ SCH (20:34)
[2018-04-23] MEDS: TAMSULOSIN 0.4 MG CAPSULE PO SCH (20:35)
[2018-04-24] MEDS: HYDROcodone/APAP 5/325MG TABLET PO PRN ×3 (02:39→13:11)
[2018-04-24] MEDS: 0.9 % SODIUM CHLORIDE 10 ML SYRINGE IV SCH ×3 (04:38→13:12)
[2018-04-24] MEDS: GABAPENTIN 100 MG CAPSULE PO SCH ×2 (05:12→13:12)
[2018-04-24 05:48] LABS: Basophils # (Auto) 0 K/mcL (0.0-0.3); Basophils % (Auto) 0.3 % (0.0-2.0); Eosinophils # (Auto) 0.1 K/mcL (0.0-0.7); Eosinophils % (Auto) 0.9 % (0.0-7.0); Granulocytes % (Auto) 78.3 % (38.0-78.0); Lymphocytes # (Auto) 1.5 K/mcL (1.5-4.8); Lymphocytes % (Auto) 15.7 % (15.5-49.0); Mean Cell Volume 89.5 fL (80.0-100.0); Mean Corpuscular HGB Conc 33.2 g/dL (31.0-36.0); Mean Corpuscular Hemoglobin 29.7 pg (26.0-34.0); Monocytes # (Auto) 0.5 K/mcL (0.1-0.9); Monocytes % (Auto) 4.8 % (1.0-12.0); Platelet Count 270 K/mcL (140-440); RBC 4.14 M/mcL (4.50-5.90); Red Cell Distribution Width 15.2 % (11.5-14.5)
[2018-04-24 06:12] LABS: Blood Urea Nitrogen 31 mg/dl (8-23)
[2018-04-24] MEDS: INSULIN LISPRO 1 UNIT/0.01 ML UNIT SQ SCH ×2 (07:07→12:07)
[2018-04-24] MEDS ORDERED: predniSONE 5 MG TABLET PO SCH (08:00)
[2018-04-24] MEDS: LINEZOLID 600 MG TABLET PO SCH (08:16)
[2018-04-24] MEDS: METOPROLOL SUCCINATE 50 MG TAB.XL.24H PO SCH (08:16)
[2018-04-24] MEDS: ASPIRIN 81 MG TAB.CHEW PO SCH (08:16)
[2018-04-24] MEDS: HEPARIN 5,000 UNIT/ML VIAL SQ SCH (08:17)
[2018-04-24] MEDS: SENNOSIDES 1 TABLET PO SCH (08:17)
[2018-04-24] MEDS: DAPTOmycin 500 MG VIAL IV SCH (09:38)
--- NOTE | 2018-04-24 13:35 | Discharge Summary ---
Medical - DS: Prov Patient information: Note initiated : 04/24/18 at 1:25 pm Service Date, if different from initiated Date: [] Patient: Sunny Ace 78 y/o M admitted on 04/12/18 for MRSA Infection. Chief Complaint: [] Date of admission: 04/12/18 16:25 Discharge date: 04/24/18 Primary care physician: Federico Vazquez Admitting clinician: Tonio Aguirre Consults: 04/12/18 11:45 Consult to Physician [CONS] Stat Comment: Consulting Provider: Tonio Aguirre Reason For Exam: Physician to Consult Discharging clinician: Tonio Aguirre Medical - DS: Meds - Discharge Medications Prescriptions: DAPTOmycin [Cubicin] 900 mg IV Q24H #57 vial Gabapentin [Neurontin] 100 mg PO Q8 #90 cap Linezolid [Zyvox] 600 mg PO BID #6 tab predniSONE [Prednisone] 15 mg PO QAC #45 tab Tamsulosin [Flomax] 0.4 mg PO HS #30 cap Active and Home Medications: Home Medications aspirin 81 mg tablet,delayed release 81 mg PO QDAY tab 03/08/15 [History Confirmed 04/12/18 Last Taken Unknown] metoprolol succinate ER 100 mg tablet,extended release 24 hr 100 mg PO QDAY 90 Days #90 tab 08/14/17 [Rx Confirmed 04/12/18 Last Taken 12/30/17] glipizide 10 mg tablet 10 mg PO BID #180 tab 10/04/17 [Rx Confirmed 04/12/18 Last Taken 12/30/17] losartan 100 mg-hydrochlorothiazide 12.5 mg tablet See Label Instructions PO QDAY 11/09/17 [History Confirmed 04/12/18 Last Taken Unknown] insulin lispro (U-100) 100 unit/mL subcutaneous pen 8 unit SUB-Q QPM #15 ml [Rx Confirmed 04/12/18 Last Taken 12/29/17] prednisone 20 mg tablet 20 mg PO QDAY #30 tab 04/08/18 [Rx Confirmed 04/12/18 Last Taken Unknown] prednisone 5 mg tablet 5 mg PO QDAY #30 tab 04/08/18 [Rx Confirmed 04/12/18 Last Taken Unknown] acetaminophen 500 mg capsule 500 mg PO Q6H PRN 04/11/18 [History Confirmed 04/12 Last Taken Unknown] Medical - DS: Hosp Hospital course: Mr. Ace is a 78 year old Male with h/o mrsa bacteremia, in november, s/p treatment presented to the hospital after being referred here from the ID clinic for positive blood cultures, worsening back pain and elevated wbc count. The patient has been having worsening pain in the throacic spine and bilateral shoulder for 4-5 days before admission, he also notes he is progressively getting weaker and not feeling quite right. He notes weakness in his legs that he is unable to climb stairs as before. He denies any sensory loss, bowel bladder incontinence. he notes he passed out last night while taking food out of the refrigerator, but unable to elaborate more. The patient was at [facility] and had extensive workup including DENISSE, multiple MRI in november for bacteremia, it seems alos had some aspiration of right shoulder bursa, workup seems to have been negative, Treated with abx I believe vanco and had good response untill now. patient also has PMR and significant DJD so some symptoms were confounding. His workup in the recent ID clinic showed worsening wbc, his blood cultures ordered were positive for GPC and the patient was asked to come to the ER for further evaluation. ID farm consultant requested pt be on daptomycin, and get multiple MRI of spine and [place] shoulder MRSA Bactremia- Patient had extensive workup done, including multiple MRI, His T spine MRI showed T4-T5 disitis, osteomyelitis. No neurological symptoms. The patient remained bactermic for 1 week, and on april 19 2018 he finally cleared his bacteremia,DENISSE was negative for infective endocarditis. The patient was started on daptomycin. To continue with dapto 900mg daily for 2 months as per ID reccs. Follow up with ID as outpatient. Pneuonia- Staph pneumonia, to be treated wt zyvox total of 10 days of treatment. Patient had 7 days in the hospital 3 more days as outpatient Discitis/ back pain- pain management with neurontin and hydrocodone for now. Follow up outaptient with PCP PMR- Patient has carried a diagnosis of PMR on high doses of prenidsone intermittently since september. Given the high doses of prednisone needed, his arthrtitis and bacterial infection, I am not sure if this diagnosis is accurate. Will refer to Rheumatology as outpatient for further evaluation. He was on 20mg prenidsone before he was admitted. I am cutting the dose down to 15mg once daily for now. Further dose titration per Rheumatology/PCP AELJANDRINA- had worsening of renal function on presentation and creat was high as 1.8, trended down 1.3 at discharge. started on Flomax for bph symptoms. Patient has a picc line in place for fpc antibiotics, plans to bring him daily for his infusions. The rest of the stay in the hospital was uneventful, he was strong enough to be discharged home with home health. Discharge diagnosis: MRSA BActremia, Thoracic spine diskitis - Time Spent with Patient Total time spent providing and/or coordinating discharge services: Greater than 30 minutes Medical - DS: Exam - Constitutional Vitals: Vital Signs Temp Pulse Resp BP BP Pulse Ox 04/24/18 11:35 97.0 F 87 18 113/65 95 04/24/18 08:00 97.0 F 89 18 116/66 95 04/24/18 03:23 97.7 F 69 18 152/85 97 04/23/18 23:11 97.7 F 70 16 154/79 97 04/23/18 19:26 97.6 F 87 18 130/63 97 04/23/18 15:57 96.1 F L 65 17 95/58 96 Intake and Output 04/23/18 04/24/18 04/24/18 21:59 05:59 13:59 Intake Total 1020 / 1020 590 / 590 Output Total 625 / 625 450 / 450 Balance 1019 / 1019 -35 / -35 -450 / -450 Intake: Oral 1020 / 1020 590 / 590 Output: Void Amount 625 / 625 450 / 450 Other: Meal Dinner Percent of Meal Consumed 100% Feeding Ability Independent # Voids 1 1 Weight 209 lb 8 oz Additional comments: Constitutional; Afebrile, cooperative, alert, not in distress. Respiratory system: Air Entry equal on both sides, No crackles or wheezing, no rhonchi. CVS- Rate rhythm regular, S1,S2 heard, no gallop, no rub. Abdomen- Soft nontender abdomen, no organomegaly, no tenderness, no guarding or rigidity, TOUR ESCORT- AOOx3, moving all extremities, no gross focal deficit noted. Medical - DS: Data Labs on day of discharge: Labs from last 24 hours 04/24/18 04/24/18 04:00 04:00 WBC 9.5 RBC 4.14 L Hgb 12.3 L Hct 37.0 L MCV 89.5 MCH 29.7 MCHC 33.2 RDW 15.2 H Plt Count 270 MPV 7.3 L Gran % 78.3 H Lymph % (Auto) 15.7 [place] % (Auto) 4.8 Eos % (Auto) 0.9 Baso % (Auto) 0.3 Gran # 7.4 Lymph # (Auto) 1.5 [place] # (Auto) 0.5 Eos # (Auto) 0.1 Baso # (Auto) 0 Sodium 136 Potassium 5.2 H Chloride 96 Carbon Dioxide 29 Anion Gap 11.0 BUN 31 H Creatinine 1.3 H GFR Calculation 52 Glucose 89 Calcium 9.2 Preliminary micro results at discharge 04/21/18 04:50 Blood Culture - Preliminary Blood 04/21/18 04:30 Blood Culture - Preliminary Blood 04/17/18 03:40 Blood Culture - Preliminary Blood Gram positive cocci 04/13/18 07:48 Blood Culture - Preliminary Blood Methicillin resistant s.aureus 04/13/18 07:40 Blood Culture - Preliminary Blood Methicillin resistant s.aureus 04/12/18 12:05 Blood Culture - Preliminary Blood Methicillin resistant s.aureus 04/15/18 09:18 Blood Culture - Preliminary Blood Gram positive cocci 04/12/18 11:59 Blood Culture - Preliminary Blood Methicillin resistant s.aureus Medical - DS: A/P - Patient/Caregiver Discharge Instructions Activity: as per physical therapy, increase activity as tolerated Diet: Consistent Carbohydrate Additional Instructions: IV daptomycin 900 mg every 24 hours via PICC line Start date 19 April 2018 Stop date 14 June 2018 Follow-up labs: BMP and CK once weekly, ESR and CRP once every 2 weeks [to be faxed to [phone], attention Dr. Ortega] Schedule ID follow-up appointment in 6 weeks PICC line care per facility protocol. Follow up with PCP in 1 week Follow up with rheumatology for evaluation of PMR. I have cut down the dose of prednisone from 20mg once daily to 15mg once daily, take this medication with food. further titration of this medication per rheumatology/ Primary care provider. You need to take linezolid (Zyvox) 600mg twice daily for 3 more days, this antibiotic is for your lung infection. Go to the ER if worsening condition, chest pain, fever, shortness of breath, or any other acute concerning symptom. - Follow up Plan Follow up with: Federico Vazquez MD [Primary Care Provider] - Thomas Ortega MD [Physician] - Mode Warner MD [Physician] - Disposition: Home Health Service Prognosis: Fair Rehab Potential: Fair I certify that the patient requires SNF services: No Overall status at discharge: patient is progressing back to baseline Medical - DS: Qual - VTE Deep Vein Thrombosis/Pulmonary Embolism Present on Admission: No
== END 2018-04-24 15:30 | disposition home health service (06) | DRG 853 ==
LOC: ED 10:41 → ICU 16:25 → SUATTDRO 16:25 → MEDSUR 04-20 16:26
PROVIDERS: ADMIT Internal Medicine; ATTEND Internal Medicine